=== PATIENT | female | born 1995 | race Caucasian/White ===

== ENCOUNTER 2023-09-08 20:35 | Emergency (ER) | payer BC, SELFPAY ==
[2023-09-08 20:42] VITALS: BP 119/79; PULSE 96; RESP 18; TEMP 36.6; O2SAT 100; BMI 26.6
[2023-09-08] MEDS: 0.9 % SODIUM CHLORIDE 1000 ml 1,000 ML IV ×2 (21:23→22:36)
--- NOTE | 2023-09-08 21:26 | ED.GENADULT ---
HPI - General Adult General Chief complaint: Nausea/Vomiting Stated complaint: Vomit 3 days Time Seen by Provider: 09/08/23 21:09 Source: patient Mode of arrival: EMS Limitations: no limitations History of Present Illness HPI narrative: 27-year-old female coming in today with cyclic vomiting syndrome. Patient states that she is in ?stage III of this and I need hospitalization?. When asked her what stages 1 and 2 look like, patient cannot describe stages to me. And then she says, ?well maybe I am actually in stage II? ? Again I asked for clarification of what the stages mean and she just states that when she is in stage III the only thing that helps is hospitalization for several days. Patient states that she is usually treated with Reglan and promethazine. She states she has been vomiting on and off for the last 2 weeks for the last 3 days it has been constant she is unable to keep anything down including any of her medications. Patient denies any drug use. Per EMS, they state that the patient goes to multiple ERs frequently. Her review of systems is grossly positive for headache, fatigue, dry mouth, abdominal pain, vomiting, head to toe achiness. Patient takes Vraylar, metformin, nortriptyline, promethazine, spironolactone. She also takes pregabalin and Vyvanse, both of which she failed to disclose and were found on the HISTORY DEPARTMENT CHAIR. Related Data Home Medications ?Medication ?Instructions ?Recorded ?Confirmed cariprazine 1.5 mg capsule 1.5 mg PO DAILY 09/08/23 09/08/23 (Vraylar) metformin 500 mg tablet 500 mg PO TID 09/08/23 09/08/23 nortriptyline 10 mg capsule 10 mg PO DAILY 09/08/23 09/08/23 promethazine 25 mg tablet 25 mg PO Q6H PRN 09/08/23 09/08/23 spironolactone 50 mg tablet 50 mg PO TID 09/08/23 09/08/23 (Aldactone) Allergies Allergy/AdvReac Type Severity Reaction Status Date / Time No Known Drug Allergies Allergy Verified 09/08/23 20:44 Review of Systems Status of ROS: Reports: 10 or more systems reviewed and unremarkable except as noted in History and below PFSH PFSH Social History Smoking Status: Current every day smoker Do you use any of these nicotine containing products: Vaping Products How often do you have a drink containing alcohol: never AUDIT-C Alcohol total score: 0 Non-prescribed substance use: marijuana (any form) Exam Narrative: Exam Narrative: Well-nourished well-developed patient, tearful. Alert and oriented. Answers questions appropriately and avoids answering questions. Thoughts are goal oriented and rational. No tangential or magical thinking noted. Patient speaks in full sentences without needing to catch her breath. Her vital signs are entirely normal. HEENT: Normocephalic atraumatic. Pupils are equally round reactive to light. Extraocular muscles are intact. Conjunctivae are moist without any icterus noted. Moist mucous membranes. Posterior pharynx is normal. Neck is soft without any lymphadenopathy or thyromegaly. No masses are appreciated. Cardiovascular: Heart is regular rate and rhythm S1 and S2 are present without any murmurs. Lungs: Clear to auscultation bilaterally no wheezes rhonchi or rales are appreciated. Patient takes deep breaths without any discomfort. Abdomen: Soft and nondistended with normal bowel sounds patient complains of tenderness with very soft palpation to the abdominal wall. Extremities: Bilateral lower extremities are without edema. Normal DP and PT pulses. Skin: Warm, dry and intact. Const: Vital Signs, click to edit/add: Vital Signs - 24 hr 09/08/23 20:42 09/08/23 22:17 09/08/23 22:30 Temperature 97.8 F Pulse Rate 63 102 H Pulse Rate [Pulse Oximeter] 96 Respiratory Rate 18 Blood Pressure [Ri ght Upper Arm] 119/79 Pulse Oximetry 100 94 100 Oxygen Delivery Me thod Room Air 09/08/23 22:45 09/08/23 23:00 09/08/23 23:15 Temperature Pulse Rate 72 78 74 Pulse Rate [Pulse Oximeter] Respiratory Rate Blood Pressure [Ri ght Upper Arm] Pulse Oximetry 98 99 100 Oxygen Delivery Me thod Course Course ED Course: IV is established patient was given IV Zyprexa and IV fluids. Patient was caught vaping in the room and inducing vomiting by nursing staff. Labs were drawn: Lactate elevated at 3.6. Urine drug screen positive for amphetamines, marijuana, tricyclic antidepressants. CBC showing a slightly elevated white cell count, 90.8% neutrophils UA showing 1+ protein, 4+ ketones, 1+ bilirubin. Chemistries were unremarkable. A 2nd L of normal saline was started. Repeat lactate was done After receiving Zyprexa patient did not vomit again. She slept a while she was here. Upon waking up patient did request another dose of Zyprexa. 5 mg IM was administered. Patient requested to be admitted multiple times. We discussed that her symptoms had improved and she was okay to be discharged. Patient did self induce vomiting by putting her fingers down her throat multiple times while she was here. Patient was discharged home. Vital Signs Vital signs: Initial Vital Signs Temperature 97.8 F 09/08/23 20:42 Temperature Source Temporal Artery Scan 09/08/23 20:42 Pulse Rate 96 09/08/23 20:42 Respiratory Rate 18 09/08/23 20:42 Blood Pressure 119/79 09/08/23 20:42 Blood Pressure Mean 92 09/08/23 20:42 Blood Pressure Position Sitting 09/08/23 20:42 Pulse Oximetry 100 09/08/23 20:42 Oxygen Delivery Method Room Air 09/08/23 20:42 Vital Signs Temperature 97.8 F 09/08/23 20:42 Pulse Rate 96 09/08/23 20:42 Respiratory Rate 18 09/08/23 20:42 Blood Pressure 119/79 09/08/23 20:42 Pulse Oximetry 100 09/08/23 20:42 Oxygen Delivery Method Room Air 09/08/23 20:42 Temperature 97.8 F 09/08/23 20:42 Pulse Rate 74 09/08/23 23:15 Respiratory Rate 18 09/08/23 20:42 Blood Pressure 119/79 09/08/23 20:42 Pulse Oximetry 100 09/08/23 23:15 Oxygen Delivery Method Room Air 09/08/23 20:42 Medications Administered Medications: Discontinued Medications Generic Name Dose Route Start Last Admin Trade Name Freq PRN Reason Stop Dose Admin Sodium Chloride 1,000 mls @ 1,000 mls/hr 09/08/23 21:30 09/08/23 22:36 0.9 % Sodium Chloride 1000 Ml IV 09/08/23 22:29 Infused .Q1H TALIB Infusion Sodium Chloride 1,000 mls @ 1,000 mls/hr 09/08/23 22:15 09/08/23 23:40 0.9 % Sodium Chloride 1000 Ml IV 09/08/23 23:14 Infused .Q1H TALIB Infusion Olanzapine 5 mg 09/08/23 21:16 09/08/23 21:57 Olanzapine 5 Mg/Ml Inj IVP 09/08/23 21:17 5 mg ONCE ONE Administration Medical Decision Making MDM Narrative Medical decision making narrative: Cyclic vomiting due to marijuana use. Treatment per above. Lab Data Lab results reviewed: Yes I reviewed the patient's lab results Labs: Lab Results 09/08/23 09/08/23 Range/Units 21:25 21:45 WBC 12.77 H (4.50-11.00) K/uL RBC 5.06 (4.00-5.20) m/uL Hgb 15.3 (12.0-16.0) gm/dL Hct 45.4 (33.0-51.0) % MCV 90 (80-100) fL MCH 30 (26-34) pg MCHC 34 (32-36) gm/dL RDW Coeff of Khadijah 12.7 (11.5-15.5) % Plt Count 313 (140-440) K/uL Neut % (Auto) 90.9 H (42.0-72.0) % Lymph % (Auto) 6.2 L (20-44) % [place] % (Auto) 1.8 (0.0-11.0) % Eos % (Auto) 0.0 (0.0-7.0) % Baso % (Auto) 0.2 (0.0-3.0) % Neut # (Auto) 11.60 H (1.7-7.0) K/uL Lymph # (Auto) 0.80 L (0.90-2.90) K/uL [place] # (Auto) 0.20 (0.00-0.90) K/UL Eos # (Auto) 0.00 (0.00-0.50) K/uL Baso # (Auto) 0.00 (0.00-0.30) K/uL Abs Immat Gran (auto) 0.10 (0.00-0.30) K/uL Imm/Tot Granulo (auto) 0.9 % Sodium 136 (135-149) mmol/L Potassium 3.6 (3.6-5.1) mmol/L Chloride 103 (96-114) mmol/L Carbon Dioxide 16 L (20-32) mmol/L Anion Gap 17 H (7-15) mEq/L BUN 9 (5-24) mg/dL Creatinine 0.7 (0.5-1.5) mg/dL Estimated Creat Clear 99.86 Estimated GFR 121 ml/min Glucose 105 (60-115) mg/dL Lactate 3.6 H (0.5-1.9) mmol/L Calcium 10.1 (8.4-10.6) mg/dL Total Bilirubin 0.9 (0.1-1.5) mg/dL Direct Bilirubin 0.4 (0.0-0.5) mg/dL AST 24 (12-35) U/L ALT 27 (4-35) U/L Alkaline Phosphatase 94 (40-150) U/L Total Protein 8.3 (6.0-8.3) g/dL Albumin 5.1 H (3.3-5.0) g/dL Urine Color Yellow (Yellow) Urine Appearance Clear (Clear) Urine pH 6.5 (5.0-8.5) Ur Specific [place] >= 1.030 (1.000-1.030) Urine Protein 1+ A (Negative) Urine Glucose (UA) Negative (Negative) Urine Ketones 4+ A (Negative) Urine Blood Negative (Negative) Urine Nitrite Negative (Negative) Urine Bilirubin 1+ A (Negative) Urine Urobilinogen 0.2 (0.2-1.0) Ur Leukocyte Esterase Negative (Negative) Urine RBC 0-2 (0-2) Urine WBC 0-2 (0-5) Ur Squamous Epith Cells Few (None-Few) Urine Bacteria None (None) Urine Mucus Moderate A (None) Urine HCG, Qual Negative (Negative) Salicylates < 1.0 L (1.0-10) mg/dL Urine Opiates Screen Negative (Negative) Ur Oxycodone Screen Negative (Negative) Urine Methadone Screen Negative (Negative) Acetaminophen < 10.0 L (10.0-30.0) ug/mL Ur Barbiturates Screen Negative (Negative) U Tricyclic Antidepress POSITIVE A (Negative) Ur Phencyclidine Scrn Negative (Negative) Ur Amphetamines Screen POSITIVE A (Negative) U Methamphetamines Scrn Negative (Negative) U Benzodiazepines Scrn Negative (Negative) Urine Cocaine Screen Negative (Negative) U Marijuana (THC) Screen POSITIVE A (Negative) Ur Drug Screen Comment See Note Discharge Plan Discharge Clinical Impression: Cyclic vomiting syndrome Patient Disposition: Home, Self-Care Condition: Improved Instructions: Cannabis Use Disorder (ED), Cyclic Vomiting Syndrome (ED) Additional Instructions: Stop using marijuana. Vaping and smoking marijuana is likely the cause of your symptoms. Even after stopping the use of marijuana symptoms can continue for several months as the marijuana leaves your body. Prescriptions: No Action metformin 500 mg tablet 500 mg PO TID Vraylar 1.5 mg capsule 1.5 mg PO DAILY spironolactone [Aldactone] 50 mg tablet 50 mg PO TID promethazine 25 mg tablet 25 mg PO Q6H PRN nortriptyline 10 mg capsule 10 mg PO DAILY Follow Up/Referrals: Provider,Not a Local [Primary Care Provider] - Stand Alone Forms: [employer] Info Instructions
[2023-09-08 21:35] LABS: Ur HCG Qualitative* Negative (Negative)
[2023-09-08 21:36] LABS: Appearance Urine Clear (Clear); Bilirubin Urine 1+ (Negative); Blood Urine Negative (Negative); Color Urine Yellow (Yellow); Glucose Urine Negative (Negative); Ketones Urine 4+ (Negative); Leukocyte Esterase Urine Negative (Negative); Nitrite Urine Negative (Negative); Protein Urine 1+ (Negative); Specific Gravity Urine >= 1.030 (1.000-1.030); Urobilinogen Urine 0.2 (0.2-1.0); pH Urine 6.5 (5.0-8.5)
[2023-09-08 21:43] LABS: Amphetamine Screen Urine POSITIVE (Negative); Barbiturate Screen Urine Negative (Negative); Benzodiazepines Screen Urine Negative (Negative); Cannabinoid Screen Urine POSITIVE (Negative); Cocaine Screen Urine Negative (Negative); Methadone Screen Urine Negative (Negative); Methamphetamines Screen Urine Negative (Negative); Opiate Screen Urine Negative (Negative); Oxycodone Screen Urine Negative (Negative); Phencyclidine Screen Urine Negative (Negative); Tricyclic Antidepressant Urine POSITIVE (Negative)
[2023-09-08 21:48] LABS: Mucus Urine Moderate; RBC Urine 0-2 (0-2); Squamous Epithelial Cell Urine Few (None-Few); WBC Urine 0-2 (0-5)
[2023-09-08 21:49] LABS: Lactate* 3.6 mmol/L (0.5-1.9)
[2023-09-08 21:55] LABS: Basophils Percent Auto 0.2 % (0.0-3.0); Hematocrit 45.4 % (33.0-51.0); Hemoglobin* 15.3 gm/dL (12.0-16.0); Immature Granulocytes Pct Auto 0.9 %; Lymphocytes Percent Auto 6.2 % (20-44); Mean Corpuscular HGB Conc 34 gm/dL (32-36); Mean Corpuscular Hemoglobin 30 pg (26-34); Mean Corpuscular Volume 90 fL (80-100); Monocytes Percent Auto 1.8 % (0.0-11.0); Neutrophils Percent Auto 90.9 % (42.0-72.0); Platelet Count* 313 K/uL (140-440); RDW Coefficient of Variation % 12.7 % (11.5-15.5); Red Blood Count 5.06 m/uL (4.00-5.20); White Blood Count* 12.77 K/uL (4.50-11.00)
[2023-09-08] MEDS: OLANZapine 5 MG/ML inj IVP (21:57)
[2023-09-08 22:01] LABS: Slide Review Reflex No
[2023-09-08 22:13] LABS: Albumin* 5.1 g/dL (3.3-5.0)
[2023-09-08 22:14] LABS: Chloride* 103 mmol/L (96-114); Potassium* 3.6 mmol/L (3.6-5.1); Sodium* 136 mmol/L (135-149)
[2023-09-08 22:16] LABS: Anion Gap 17 mEq/L (7-15); Aspartate Amino Transferase* 24 U/L (12-35); Bilirubin Direct* 0.4 mg/dL (0.0-0.5); Bilirubin Total* 0.9 mg/dL (0.1-1.5); Carbon Dioxide* 16 mmol/L (20-32); Creatinine* 0.7 mg/dL (0.5-1.5); Est. Creatinine Clearance* 99.86; Estimated Glomerular Filt Rate 121 ml/min; Total Protein* 8.3 g/dL (6.0-8.3)
[2023-09-08 22:17] VITALS: PULSE 63; O2SAT 94
[2023-09-08 22:17] LABS: Alanine Aminotransferase* 27 U/L (4-35); Alkaline Phosphatase* 94 U/L (40-150); Blood Urea Nitrogen* 9 mg/dL (5-24); Calcium* 10.1 mg/dL (8.4-10.6); Glucose* 105 mg/dL (60-115)
[2023-09-08 22:25] LABS: Acetaminophen* < 10.0 ug/mL (10.0-30.0); Salicylate* < 1.0 mg/dL (1.0-10)
[2023-09-08 22:30] VITALS: PULSE 102; O2SAT 100
--- OUTSIDE RECORDS SUMMARY | 2023-09-08 22:35 | XMS_ITS | Clinical Summary ---
[facility] Organization [facility] Address [address], [place] [address] Care Team Providers Care Application Integration Architect Name Role Phone Mynor Felix APRN, DIP BRAZIER Primary Care Provide r Source Comments You are receiving this document as you are listed as the primary care provider,follow-up provider, or the patient has been referred to you for consultation.This is in compliance with the Medicare and[facility] EHR Incentive Program,which states Providers who transition their patient to another setting of careor provider of care or refers their patient to another provider of care shouldprovide summary care record for each transition of care or referral. [facility] Allergies No known active allergies Medications Medication Sig Dispensed Refills Start Date End Date Status Alcohol Swabs (B-D SINGLE USE SWABS REGULAR) USE 1 PER DAY FOR TESTING BLOOD SUGAR 09/01/2022 Active aluminum chloride (DRYSOL) 20 % external solution Apply 1 Application topically daily at bedtime. 07/19/2022 Active benzoyl peroxide (BENZOYL PEROXIDE WASH) 10 % wash liquid Apply 1 Application topically. 08/11/2022 Active VRAYLAR 1.5 MG CAPS Take 1 Capsule (1.5 mg) by mouth daily. 12/14/2022 Active clonazePAM (KLONOPIN) 0.5 MG disintegrating tablet Take 1 Tablet (0.5 mg) by mouth three times a day as needed. 12/13/2022 Active hyoscyamine (LEVSIN) 0.125 MG tablet Take 1 Tablet (0.125 mg) by mouth three times a day as needed. 10/14/2022 08/30/202 4 Active lisdexamfetamine (VYVANSE) 50 MG capsule Take 1 Capsule (50 mg) by mouth daily. 07/28/2022 Active nystatin (NYSTOP) 283968 UNIT/GM powder Apply topically. 11/05/2022 Active polyethylene glycol 3350 (GLYCOLAX) 17 GM/SCOOP powder Take 17 g by mouth. 08/10/2022 Active SUMAtriptan (IMITREX) 50 MG tablet Take 1 Tablet (50 mg) by mouth as needed. Active ondansetron (ZOFRAN-ODT) 4 MG disintegrating tablet Take 1 Tablet (4 mg) by mouth every 8 hours as needed. 30 Tablet 1 12/29/2022 Active metFORMIN XR (GLUCOPHAGE XR) 500 MG 24 hour release tablet Take 3 Tablets (1,500 mg) by mouth every evening with a meal. 270 Tablet 3 01/13/2023 Active spironolactone (ALDACTONE) 50 MG tablet Take 3 Tablets (150 mg) by mouth daily. 270 Tablet 3 01/22/2023 Active famotidine (PEPCID) 20 MG tablet Take 1 Tablet (20 mg) by mouth two times a day before meals. 180 Tablet 3 01/22/2023 4 Active azelastine (ASTELIN) 0.1 % nasal solutionIndications :Postnasal drip Place 1 [place] into both nostrils two times daily as needed (Postnasal drainage.). 30 mL 1 02/01/2023 Active fluticasone propionate (FLONASE) 50 MCG/ACT nasal solutionIndications :Postnasal drip Place 2 Sprays into both nostrils daily. 16 g 11 02/01/2023 Active budesonide-formoter ol (SYMBICORT) 160-4.5 MCG/ACT inhalerIndications: Mild persistent asthma without complication (HRC) Inhale 2 Puffs two times a day. 1 Each 6 02/01/2023 Active ALBUterol sulfate HFA 108 (90 Base) MCG/ACT inhalerIndications: Mild persistent asthma without complication (HRC) Inhale 1-2 Puffs every 4 hours as needed. 1 Each 6 02/01/2023 Active guaiFENesin (ROBITUSSIN) 100 MG/5ML liquid Take 10 mL (200 mg) by mouth. 02/07/2023 Active ibuprofen (MOTRIN) 600 MG tablet Take 1 Tablet (600 mg) by mouth. 02/07/2023 Active acetaminophen (TYLENOL) 325 MG tablet Take 2 Tablets (650 mg) by mouth. 02/07/2023 Active fluticasone-vilante rol (BREO ELLIPTA) 200-25 MCG/ACT inhalerIndications: Mild persistent asthma without complication (HRC) Inhale 1 Dose daily. Rinse mouth/gargle after use 60 Each 3 02/21/2023 Active norethindrone (AYGESTIN) 5 MG tabletIndications:E ndometriosis Take 1 Tablet (5 mg) by mouth daily. 90 Tablet 3 03/29/2023 Active medical cannabis patient certifiedIndication s:Hidradenitis suppurativa,Numbnes s and tingling of both feet,Cold feet,Numbness in both hands,Chronic pain syndrome,PTSD (post-traumatic stress disorder) (HRC),Numbness in feet,Generalized abdominal pain,Chronic pelvic pain in female,Borderline personality disorder (HRC),Depressive disorder,Medical marijuana use Take as instructed .. Active menthol-zinc oxide (CALMOSEPTINE) 0.44-20.6 % OINTIndications:Ext ernal hemorrhoids with complication Apply topically as needed. 71 g 3 04/14/2023 Active hydrocortisone, Perianal, (PROCTOSOL-HC) 2.5 % rectal creamIndications:In flamed Hemorrhoids Insert rectally two times daily as needed. Indications: Inflamed Hemorrhoids 30 g 1 04/14/2023 Active aluminum chloride (DRYSOL) 20 % external solution Apply topically every evening. apply sparingly to skin with excessive sweating for 1-5 nights to get appropriate response 35 mL 2 05/05/2023 Active olopatadine (PATADAY) 0.2 % eye drop solutionIndications :Allergic conjunctivitis of both eyes Place 1 Drop into both eyes daily. 2.5 mL 1 05/05/2023 Active semaglutide-weight management (WEGOVY) 2.4 MG/0.75ML pen injection Inject 0.75 mL (2.4 mg) subcutaneously once a week. 10.5 mL 6 05/05/2023 Active promethazine (PHENERGAN) 25 MG tabletIndications:N ausea and vomiting, unspecified vomiting type Take 1 Tablet (25 mg) by mouth every 6 hours as needed. 30 Tablet 1 05/20/2023 Active lidocaine-prilocain e (EMLA) 2.5-2.5 % creamIndications:Hi dradenitis suppurativa Apply topically every 24 hours as needed. 30 g 1 06/09/2023 Active hydrOXYzine HCl (ATARAX) 50 MG tablet Take 1 Tablet (50 mg) by mouth every 6 hours as needed for Itching or Anxiety (Nausea). 30 Tablet 06/09/2023 Active nortriptyline (PAMELOR) 10 MG capsuleIndications: Insomnia,Neuropathi c Pain 10 mg qhs po x 1 week, then may increase to 20mg qhs po Indications: Neuropathic Pain, Trouble Sleeping 60 Capsule 2 06/10/2023 Active pregabalin (LYRICA) 100 MG capsuleIndications: Fibromyalgia Syndrome,Neuropathi c Pain Take 1 Capsule (100 mg) by mouth three times a day. Indications: Fibromyalgia Syndrome, Neuropathic Pain 90 Capsule 1 06/10/2023 Active riboflavin (VITAMINB-2) 100 MG tablet Take 2 Tablets (200 mg) by mouth two times a day. 180 Tablet 2 06/21/2023 Active metoclopramide (REGLAN) 10 MG tablet Take by mouth. 06/09/2023 Active terconazole (TERAZOL3) 0.8 % vaginal cream SMARTSI Gram(s) Vaginal Daily 06/23/2023 Active Active Problems Problem Noted Date Diagnosed Date External hemorrhoid 06/30/2023 Cyclic vomiting syndrome 06/09/2023 Cannabinoid hyperemesis syndrome 06/09/2023 Irritable bowel syndrome wit h both constipation and diarrhea 02/01/2023 Sleep-wake schedule disorder, delayed phase type 12/30/2022 Chronic, continuous use of opioids 12/29/2022 NELLY (generalized anxiety disorder) 12/29/2022 Prediabetes 12/29/2022 Borderline personality disorder 08/25/2022 Overview: Last Assessment & Plan: Patient was recently diagnosed with borderline personality disorder. Reviewed the importance of continuing therapy for this. We will continue current cares. Chronic abdominal pain 07/19/2022 Overview: Last Assessment & Plan: Patient continues to have flares often on of bloating and vomiting. She will have significant abdominal pain that will come in flares. She will need oxycodone 1-2 days at a time and then will be off of it. She is also on gabapentin and does not feel like this has been helpful for the abdominal pain but is helping her ear and facial nerve pain. She has done a pretty thorough workup with Gastroenterology including EGD, gastric emptying study. She states the Zofran helps sometimes but not every time she is feeling nauseous. She still has vomiting regularly. She states she has had explosive diarrhea sometimes that is sometimes loose sometimes partially formed. No blood that she can see. She did just start Bentyl today so we do not know if that is effective or not. Plan: Will have her continue on Bentyl once daily unless she is having severe side effects with it. Otherwise she can use it as needed or if it is not working very well or not tolerable we will discontinue. -follow-up in 1 month to see how things are going. -oxycodone was refilled for the month. Hidradenitis suppurativa 06/01/2022 Overview: Last Assessment & Plan: Patient did recently have her cystic lesions removed surgically. She states this has helped with some of her discomfort. Wound sites are still healing. Will continue to monitor. Patient is using Drysol to help with sweating. Fatigue 03/25/2022 Cystic acne 12/11/2021 Hirsutism 12/11/2021 Nicotine dependence, other tobacco product, unco mplicated 12/11/2021 Overview: vaping Last Assessment & Plan: At her last visit we started Nicoderm patches 21 mg daily. Patches do not stay on. She tried in several parts of her body to get these to stick. We discussed alternatives. Wanting to try lozenges.P Plan: We will start lozenges for nicotine replacement as needed. Reviewed how to use the lozenges. Reviewed that using a lozenge should replace her vaping. Polycystic ovary syndrome 12/11/2021 Overview: Last Assessment & Plan: Currently on metformin for this. Reviewed the importance of diabetes screening to determine when she or if she ever develops diabetes. Reviewed that it is hard to tell if she has diabetes or just as in the prediabetic range with the metformin treatment. At this time I reviewed the with everything going on I would not want her to stop any of her medications at this time. Migraine headache 11/17/2021 Neuralgia 11/17/2021 Overview: Gabapentin helps symptoms, but at high doses causes urinary symptoms. Last Assessment & Plan: Patient continues to have a fullness sensation in her ears. She states it gets so bad that it feels like there is a lot of pressure. Occasionally will lose her hearing and her ear will pop which does not improve her symptoms. The hearing loss will be short term. Previous audiology test in May which was normal. She is on gabapentin but at higher doses it had caused some urinary symptoms. Plan: I will be in touch with ENT and Neurology to see if there is further workup that needs to be done for this. -I will switch her over to Lyrica to see if she has a better side effect profile on this and covers her neuralgia better. Neck pain 11/17/2021 Overview: Last Assessment & Plan: Patient did have a neurologist decreased her gabapentin as she was having bladder incontinence secondary to being on higher doses of gabapentin. Currently reduced doses at 600 mg twice daily. I did refill this for her today. Obstructive sleep apnea syndrome 07/07/2021 Obesity (BMI 30.0-34.9) 01/13/2021 Overview: Last Assessment & Plan: Patient is on Saxenda. She does need me to send this in for her practical nurse clinical coordinator as she is on a restricted insurance. Patient has been using her specialists and the emergency services appropriately. Medication was sent over for refill today. Mild persistent asthma 11/06/2019 Overview: Last Assessment & Plan: Patient does need a refill of her Symbicort medication. Doing well on current treatment for asthma. We will continue current cares. Attention deficit hyperactivity disorder (ADHD) 10/26/2019 History of disease 07/21/2016 Overview: Last Assessment & Plan: Patient is still having on and off nausea and vomiting. Unsure if this is from a flaring pancreas versus her gallbladder. She does have follow-up with gastroenterology in May. She is using Zofran approximately 3 times a day. She is sipping on protein drinks him between her meals. She does not eat very much at meals but the Zofran is helping to keep food down. She will occasionally use an oxycodone if she needs it for pain. She has been using these sparingly. Patient does not feel sedated on the oxycodone medication. She is using a heating pad and warm baths to help with her pain. Plan: Follow up with GI as scheduled -we can fill her oxycodone sparingly as needed until her GI visit. -continue zofran as needed. Endometriosis 01/05/2016 Overview: 01/05/16 Dx scope for pelvic pain and known hemorrhagic right ovarian cyst Found endometriosis fulgurated Last Assessment & Plan: Patient does see the specialist for this in the next couple of weeks. Reviewed that this can be causing her GI dysfunction as well. Will see what the consult and has to say for treatment or cause quality of her symptoms. Will follow-up with us in a month as well. 01/05/16 Dx scope for pelvic pain and known hemorrhagic right ovarian cyst Found endometriosis fulgurated Chronic pelvic pain in female 01/05/2016 Overview: Last Assessment & Plan: Patient does have an upcoming appointment with Gynecology. Previous history of endometriosis. Recently did the pelvic ultrasound and testing and she will follow-up with the specialist. Reviewed that doing multiple surgeries might not benefit her later on in life especially if it causes adhesions and scarring. Patient also noted having painful urination when she increased her gabapentin. She did decrease it back down it does seem to be improved. She also states she would difficulty starting her urination stream on the medication. Currently she is on 300 mg twice daily after she tapered back a little bit. Reviewed that we can continue to taper off or keep her at the current dose. Will keep her at the current dose and follow-up in a month. Depressive disorder 06/27/2013 Dysmenorrhea 12/29/2010 Acne 05/04/2010 Fatty (change of) liver, not elsewhere classifie d Resolved Problems Problem Noted Date Diagnosed Date Resolved Date IUD (intrauterine device) in place 12/29/2022 01/10/2023 Overview: Inserted 11/30/2022 - Mirena IUD. Bacterial vaginosis 07/19/2022 12/30/19 23 Overview: Last Assessment & Plan: Patient has a history quite a few episodes of bacterial vaginosis. She was put on metronidazole twice weekly to help with prevention. Recent symptoms we treated with clindamycin cream vaginally. She states that she has not been sexually active will on treatment. Reviewed that this maybe past from her partner as well and we may need to treat him as well. Plan: Patient will continue on metronidazole twice weekly. -reviewed the importance if for having more episodes or increased pelvic pain or discharge that we consider testing in treatment at that time. Review to consider treating her partner as well. Alcohol use disorder, modera te, in early remission 12/30/2014 12/29/2022 Overview: Recommend no addictive substances be routinely prescribed History of drug use 12/26/2014 12/30/19 23 Overview: Including cocaine, LSD, MDMA and synthetic THC Encounters Date Type Department Care Team Description 08/05/2023 10:45 AM CDT Telemedicine [facility] [address] [place] [phone] Rylee Jeffery APRN, CNP Chronic abdominal pain (Primary Dx); Fibromyalgia; Chronic pelvic pain in female; NELLY (generalized anxiety disorder) (HRC); Endometriosis; Depressive disorder; Cyclic vomiting syndrome 08/04/[address] [address] Mynor Felix APRN, CNP REFERRAL REQUEST 08/03/2023 Telephone [facility] Pulmonary Medicine [address] [place] [address] Nedra Jeffries MD Appt. Needed 06/30/2023 11:00 AM CDT Office Visit [facility] Colorectal Surgery [address] [facility] [address] [place] [address] Josemanuel Rutledge MD External hemorrhoid (Primary Dx) 06/23/2023 3:00 PM CDT E-Visit [address] [address] Mynor Felix APRN, CNP Chief Comp: QUESTIONS, GENERAL 06/23/2023 susie [facility] [phone] 06/20/2023 1:40 PM CDT Telemedicine Gastroenterology at at [address] [place] [address] Liz Briones APRN, CNP Cyclic vomiting syndrome (Primary Dx); Cannabinoid hyperemesis syndrome; Irritable bowel syndrome with both constipation and diarrhea; Gastroesophageal reflux disease, unspecified whether esophagitis present 06/16/2023 10:30 AM CDT Telemedicine [address] [address] Mynor Felix APRN, CNP Cyclic vomiting syndrome (Primary Dx); Cannabinoid hyperemesis syndrome; Depressive disorder; Borderline personality disorder (HRC); NELLY (generalized anxiety disorder) (HRC); Neck pain; Chronic abdominal pain; Neuralgia; Chronic pelvic pain in female; Endometriosis 06/10/2023 11:00 AM CDT E-Visit [address] [address] Mynor Felix APRN, DIP BRAZIER Chief Comp: Follow-up, NOS 06/10/2023 10:15 AM CDT Telemedicine [facility] [address] [place] [phone] Rylee Jeffery APRN, GORDO Numbness and tingling of both lower extremities (Primary Dx); Neuralgia; Other polyneuropathy; Numbness and tingling of both upper extremities; Fibromyalgia; Cannabinoid hyperemesis syndrome; Borderline personality disorder (HRC); Depressive disorder; NELLY (generalized anxiety disorder) (HRC) 06/09/2023 10:30 AM CDT Telemedicine [address] [address] Mynor Felix APRN, DIP BRAZIER Cannabinoid hyperemesis syndrome (Primary Dx); Cyclic vomiting syndrome; Nausea and vomiting, unspecified vomiting type; Hidradenitis suppurativa 06/09/2023 E-Visit [address] [address] Mynor Felix APRN, GORDO 06/09/[address] [address] Mynor Felix APRN, DIP BRAZIER Pharmacy from Last 3 Months Immunizations Name Administration Dates Next Due 4vHPV (Gardasil) 06/03/2008,02/01/2008, 8 DTP-Hib (Tetramune) 05/18/1996,03/23/1996,1995 DTaP 06/12/2001, 8,05/18/1996,1996,01/27/1996 Flu Vac (3+ yrs) 10/31/2012,12/14/2011 Flu Vac Preserv Free (3+yrs) 11/26/2008 [id number] 02/10/2009 HepA Ped/Adol (1-18 yrs) 12/15/2009,10/02/2008 HepB Ped/Adol (0-18 yrs) 11/30/1996,01/27/1996,1 HepB, Unspecified Formulation 11/30/1996, 996,1995 Hib, Unspecified Formulation 11/30/1996, 05/18/1996,03/23/1996,1995 IPV (Polio) 06/12/2001, 7,03/23/1996,1995 Influenza ([place] Only) (Flul aval Quad 0.5, 3+ yrs) 11/06/2019,10/30/2018,12/14/2016,2014 Influenza (Fluad) 10/31/2012,12/14/2011 Influenza (Flucelvax), Prese rv Free QIV 03/29/2023 Influenza IIV4 (Quadrivalent ) 0.5mL (60059) 12/10/2021,11/11/2020,11/06/2019,2018,12/14/2016,01/16/2015,12/15/2009,1 Influenza LAIV (Nasal, 2-49 yrs) 12/15/2009,1009/2007 Influenza Vaccine TIV, Nasal 12/15/2009,11/22/19 08 Influenza, Unspecified Formulation 10/31/2012 MMR 06/12/2001,11/30/1996 Pfizer Monovalent 12+ Purple Top 11/20/2020,10/15 Polio, Unspecified Formulation 2,05/18/1996,03/23/1996,1995 Tdap 12/25/2018,10/02/2008 Varicella 10/02/2008,11/07/1997 Family History Medical History Relation Name Comments Amblyopia/Strabismus Negative Family History Cataract Negative Family History Glaucoma Negative Family History Macular Degeneration Negative Family History Social History Tobacco Use Types Packs/Day Years Used Date Smoking Tobacco: Former Cigarettes 1 5.4 1 03/28/2012 - 07/08/2018 Smokeless Tobacco: Never Tobacco Cessation:Counseling Given: Not Answered Comments:I vape Alcohol Use Standard Drinks/Week Comments Yes 0 (1 standard drink = 0.6 oz pur e alcohol) PHQ-2 Answer Date Recorded PHQ-2 Score 2 06/09/2023 Sex and Gender Information Value Date Recorded Sex Assigned at Not on file Gender Identity Not on file Sexual Orientation Not on file Last Filed Vital Signs Vital Sign Reading Time Taken Comments Blood Pressure 103/62 04/06/2023 2:13 PM SYRUP MACHINE LABORER Pulse 90 04/06/2023 2:13 PM SYRUP MACHINE [employer]ORER Temperature 36.7 ??C (98.1 ??F) 12/31/2022 1:23 PM CS T Respiratory Rate 28 02/04/2023 3:40 PM SYRUP MACHINE LABORER Oxygen Saturation 98% 02/04/2023 3:53 PM SYRUP MACHINE LABORER Inhaled Oxygen Concentration - - Weight 74.8 kg (165 lb) 06/09/2023 10:54 AM CDT Height 154.9 cm (5' 1) 04/01/2023 11:30 AM SYRUP MACHINE LABORER Body Mass Index 31.18 04/01/2023 11:30 AM SYRUP MACHINE LABORER Plan of Treatment Upcoming Encounters Date Type Department Care Team (Late st Contact Info) Description 09/14/2023 1:30 PM CDT Telemedicine [facility] [address] [place] [address] Mynor Felix, CLOTH HANDLER, DIP BRAZIER [address] [address] [place] [address] 09/26/2023 9:30 AM CDT Appointment [facility] [address] [place] [address] Frank Horowitz MD [address] [facility] [address] [place] [address] 09/27/2023 1:45 PM CDT Appointment [facility] [place] [address] [place] [address] [place] [address] [address] [place] [id number] 10/21/2023 10:00 AM CDT Appointment [facility] [place] [id number] [place], [place] [phone] [place] [address] [place] [phone] 10/28/2023 2:20 PM CDT Telemedicine [facility] [address] [place], [place] [phone] Liz Briones, CLOTH HANDLER, DIP BRAZIER [address] [place], [place] [phone] 11/09/2023 1:00 PM CDT Appointment [facility] - Pul[facility] Lab [address] [place], [place] [phone] 11/09/2023 2:15 PM CDT Appointment [facility] [address] [place], [place] [phone] Nedra Jeffries MD [address] [place], [place] [phone] Scheduled Procedures Name Priority Associated Diagnoses Date/Ti me HEMORRHOIDECTOMY External hemorrhoid Health Maintenance Due Date Last Done Comments Cervical Cancer Screening Due 1995 Pneumococcal (1 - PCV) 11/23/2001 Adult Preventive Visit 11/23/2013 COVID-19 Vaccine ( season) 2022 11/20/2020, 10/24/2020 Influenza (#1) 2023 03/29/2023, 11/15, 11/11/2020, Additional history exists Prediabetes: HGBA1C 02/02/2024 02/01/2023, 05/28/2022, 10/20/2021 Asthma ACT 03/15/2024 03/15/2023 DTaP/Tdap/Td (8 - Tdap) 12/25/2028 12/26/19, 10/02/2008, 06/12/2001, Additional history exists Zoster/Shingles (1 of 2) 11/23/2045 HepB Completed 11/30/1996, 11/14, 01/27/1996, Additional history exists Hib Completed 11/30/1996, 05/1996, 05/18/1996, Additional history exists IPV (Polio) Completed 06/12/2001, 05/16, 05/18/1996, Additional history exists HPV Vaccine Completed 06/03/2008, 01/14, 11/22/2007 Varicella Completed 10/02/2008, 11/07/1997 HepA Completed 12/15/2009, 10/02/2008 Chlamydia Discontinued 01/10/2023, 09/15, 08/27/2021, Additional history exists HIV Screening (Preventive Services) Completed 01/10/2023 Hep C Screening (Preventive Services) Completed 01/10/2023 MCV4 Aged Out No longer eligi ble based on patient's age to complete this topic Procedures Procedure Name Priority Date/Time Associated Diagnosis Comments HGB A1C Routine 02/01/2023 3:20 PM SYR[employer] MACHINE LABORER Prediabetes CHLAMYDIA & GC (14 YEARS & OLDER) Routine 01/10/2023 4:22 PM SYR[employer] MACHINE LABORER Screening examination for venereal disease HIV 1/2 AG/AB 4TH GEN Routine 01/10/2023 3:33 PM SYR[employer] MACHINE LABORER Screening examination for venereal disease HEPATITIS C ANTIBODY, WITH REFLEX Routine 01/10/2023 3:33 PM SYRUP MACHINE LABORER Special screening examination for viral disease from Last 3 Months or Most Recently Relevant to Health Maintenance Results * Hgb A1C (02/01/2023 3:20 PM SYRUP MACHINE LABORER) Hemoglobin A1C 5.2 <=5.6 % 02/02/2023 9:56 AM SYRUP MACHINE LABORER [facility] Estimated Average Glucose (Calc) 103 < 117 mg/dL 02/02/2023 9:56 AM SYRUP MACHINE LABORER [facility] Comment:Estimated average gl ucose (eAG) converts A1c into glucose units (mg/dL) and estimates average glucose over the past approximately 3 months. The eAG reference interval (<117 mg/dL) corresponds to an A1c of <5.7%. Blood Venipuncture / Unknown 02/01/2023 3:20 PM SYRUP MACHINE LABORER 02/01/2023 3:20 PM SYRUP MACHINE [employer]ORER Mynor Feilx APRN, DIP BRAZIER LAB_1 Performing Organization Address [facility] Co de Phone Number [facility] [address] [place] [address] * Chlamydia & GC (14 Years and Older): Vagina (01/10/2023 4:22 PM SYRUP MACHINE LABORER) [facility] Chlamydia Trachomatis STD Not Detected Not Detected 01/11/2023 12:52 PM SYRUP MACHINE LABORER [facility] N. gonorrhoeae STD Not Detected Not Detected 01/11/2023 12:52 PM SYRUP MACHINE LABORER [facility] Swab STD SPECIMEN FROM VAGINA / Unknown Non-blood Collection / Unknown 01/10/2023 4:22 PM SYRUP MACHINE LABORER 01/10/2023 4:45 PM SYRUP MACHINE LABORER Narrative [facility] - 01/11/2023 12:52 PM SYRUP MACHINE LABORER Test performed by Race Car Driver Mediated Amplification (TMA). Carol Gilliland MD LAB_1 Performing Organization Address [facility] [place] [address], [facility] [phone] * HIV 1/2 Ag/Ab 4th Generation (01/10/2023 3:33 PM SYRUP MACHINE LABORER) Pathologist [facility] HIV 1/2 Antigen/Antib domo (4th generation) Negative (Non Reactive) Negative (Non Reactive) 01/10/2023 9:54 PM SYRUP MACHINE LABORER DENOMINATIONAL LABORATORY Comment:HIV-1 p24 Antigen an d HIV-1/HIV-2 Antibody not detected Blood Venipuncture / Unknown 01/10/2023 3:33 PM SYRUP MACHINE LABORER 01/10/2023 3:33 PM SYRUP MACHINE LABORER Carol Gilliland MD LAB_1 Performing Organization Address City/[facility]/ZIP Co de Phone Number DENOMINATIONAL LABORATORY [address] * HEPATITIS C ANTIBODY, WITH REFLEX (01/10/2023 3:33 PM SYRUP MACHINE LABORER) Hepatitis C Antibody Negative (Non Reactive) Negative (Non Reactive) 01/10/2023 9:54 PM SYRUP MACHINE LABORER DENOM[facility]ATIONAL LABORATORY Comment:Antibodies to HCV no t detected. Does not exclude the possiblity of exposure to HCV. Blood Venipuncture / Unknown 01/10/2023 3:33 PM SYRUP MACHINE LABORER 01/10/2023 3:33 PM SYRUP MACHINE LABORER Carol Gilliland MD LAB_1 Performing Organization Address [facility] de Phone Number DENOMINATIONAL LABORATORY [facility] [address] from Last 3 Months or Most Recently Relevant to Health Maintenance Advance Directives * Full Code (Latest Code Status on File) Date Activated Date Inactivated Comments 06/27/2013 1:15 AM 06/26/2013 7:00 PM * Full Code Date Activated Date Inactivated Comments 06/27/2013 1:15 AM 07/02/2013 7:51 AM Care Teams Application Integration Architect Relationship Specialty Start Date End Date Mynor Felix, CLOTH HANDLER, DIP BRAZIER [address] [place] [address] PCP - General Nurse Practitioner 12/31/22
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
--- OUTSIDE RECORDS SUMMARY | 2023-09-08 22:36 | XMS_ITS ---
Author Organization [facility] Address [address] [place] [id number] Care Team Providers Care Depot Manager Name Role Phone No Ref-Primary, Physician Primary Care Provider Transitional Care Management Status:Closed (Closed) Start date:05/27/2023 Enrollment date:05/28/2023 End date:06/10/2023 Close reason:Goals met Continued Care and Services Coordination
--- OUTSIDE RECORDS SUMMARY | 2023-09-08 22:36 | XMS_ITS | Encounter Summary ---
Author Organization [facility] Address [address], [place] [address] Care Team Providers Care Agriscience Teacher Name Role Phone Mynor Felix APRN, CNP Primary Care Provide r Reason for Visit * Reason Onset Date Comments Follow-up Video Visit 06/09/2023 Encounter Details Date Type Department Care Team (Late st Contact Info) Description 06/09/2023 10:30 AM CDT Telemedicine [facility] [address] [place], [place] [phone] Mynor Felix APRN, CNP [address] [place] [phone] Cannabinoid hyperemesis syndrome (Primary Dx); Cyclic vomiting syndrome; Nausea and vomiting, unspecified vomiting type; Hidradenitis suppurativa Social History Tobacco Use Types Packs/Day Years [...] on file documented as of this encounter Last Filed Vital Signs Vital Sign Reading Time Taken Comments Blood Pressure - - Pulse - - Temperature - - Respiratory Rate - - Oxygen Saturation - - Inhaled Oxygen Concentration - - Weight 74.8 kg (165 lb) 06/09/2023 10:54 AM CDT Height - - Body Mass Index 31.18 04/01/2023 11:30 AM LEARNING FACILITATOR documented in this encounter Progress Notes * Mynor Felix, MISHA, ROVING DEPARTMENT END FINDER - 06/09/2023 10:30 AM CDT Subjective: Today's visit with Jluislucy was conducted as a scheduled video visit. She has a very complex medical history complicated by chronic pain on chronic opioids, history of anxiety, borderline personality disorder, IBS, HS, ADHD, migraines, neuralgia, LEELEE, mild persistent ashtma, endometriosis, obesity, and PCOS. She is on the [facility] [place] Restricted program. Intractable Nausea/Vomiting/Cannabinoid hyperemesis syndrome: Admitted to [facility] for cannabinoid hyperemesis syndrome from 05/22/2023 through 05/26/2023. Dehydration and hypokalemia. She hasn't smoked marijuana since the beginning of May. Seems to be helping. Gets some waves of nausea but she hasn't had any further vomiting. She reports still having a lot of GI issues and has a lot of pain in her abdomen. Abdominal pain isflaring again and that is what she would use the marijuana for and she is unable to now. She reports that she has nothing to use for pain control. States she is very sleep deprived as wellbecause of the pain. Has pain management appointment scheduled for tomorrow. Was unable to get the ODT Zyprexa as it was denied by insurance. Would like me to try sending this again. HS: Sees [facility] and has upcoming appointment in August for laser hair therapy for HS. She needs EMLA cream sent to pharmacy for this. She thinks she will be off the restricted program in June. Objective: Wt 165 lb (74.8 kg) BMI 31.18 kg/m?? GENERAL: Patient is alert and oriented x 3. Pleasant. No acute distress. HEAD: Normocephalic. RESPIRATORY: Speaking in full sentences. No cough, wheezing. NEURO: Normal motor function. PSYCH: Bright affect. Maintains eye contact with conversation. Appropriately dressed and well groomed. SKIN: no visible rashes on the face. Assessment/Plan: Cannabinoid hyperemesis syndrome - OLANZapine (ZYPREXA ZYDIS) 5 MG disintegrating tablet; Take 1 Tablet (5 mg) by mouth every evening. - metoclopramide (REGLAN) 10 MG tablet; Take 1 Tablet (10 mg) by mouth 4 times daily as needed for Nausea or Vomiting. Cyclic vomiting syndrome - OLANZapine (ZYPREXA ZYDIS) 5 MG disintegrating tablet; Take 1 Tablet (5 mg) by mouth every evening. - metoclopramide (REGLAN) 10 MG tablet; Take 1 Tablet (10 mg) by mouth 4 times daily as needed for Nausea or Vomiting. Nausea and vomiting, unspecified vomiting type - OLANZapine (ZYPREXA ZYDIS) 5 MG disintegrating tablet; Take 1 Tablet (5 mg) by mouth every evening. - metoclopramide (REGLAN) 10 MG tablet; Take 1 Tablet (10 mg) by mouth 4 times daily as needed for Nausea or Vomiting. Hidradenitis suppurativa - lidocaine-prilocaine (EMLA) 2.5-2.5 % cream; Apply topically every 24 hours as needed. Other orders - hydrOXYzine HCl (ATARAX) 50 MG tablet; Take 1 Tablet (50 mg) by mouth every 6 hours as needed forItching or Anxiety (Nausea). She has an appointment scheduled with Pain Clinic tomorrow. Recommend she discuss pain control at that time. Attempted to send refills for anti-emetics for patient but received notification that there are toomany interactions between them and increased risk of extrapyramidal side effects. Urgent referral placed to GI as I do not feel comfortable prescribing all the the anti-emetics that she is requestingand I would like her to be evaluated by the GI team for help determining what anti- emetics would bebest and at what intervals. Sent patient a [employer] message with this information and I will have myteam reach out to her as well. Mynor Felix APRN, GORDO documented in this encounter Plan of Treatment Upcoming Encounters Date Type Department Care Team (Late st Contact Info) Description 09/14/2023 1:30 PM CDT Telemedicine [facility] [address] [place] [address] Mynor Felix APRN, CNP [address] [place] [address] 09/26/2023 9:30 AM CDT Appointment [facility] [address] [place] [address] Frank Horowitz MD [address] [facility] [address] [place] [address] 09/27/2023 1:45 PM CDT Appointment [facility] [address] [place] [address] [place] [address] [place] [address] 10/21/2023 10:00 AM CDT Appointment [facility] [place] [address] [place] [address] [place] [address] [place] [address] 10/28/2023 2:20 PM CDT Telemedicine [facility] [address] [place] [address] Liz Briones, DRYWALL SANDER, ROVING DEPARTMENT END FINDER [address] [place] [address] 11/09/2023 1:00 PM CDT Appointment [facility] [address] [facility] [place] [address] 11/09/2023 2:15 PM CDT Appointment [facility] [address] [facility] [place], [place] [address] Nedra Jeffries MD [address] [place] [address] Scheduled Procedures Name Priority Associated Diagnoses Date/Ti me HEMORRHOIDECTOMY External hemorrhoid documented as of this encounter Visit Diagnoses Diagnosis Cannabinoid hyperemesis syndrome- Primary Cyclic vomiting syndrome Persistent vomiting Nausea and vomiting, unspecified vomiting type Hidradenitis suppurativa Hidradenitis documented in this encounter Care Teams Agriscience Teacher Relationship Specialty Start Date End Date Mynor Felix, DRYWALL SANDER, ROVING DEPARTMENT END FINDER [address] [place] [address] PCP - General Nurse Practitioner 12/31/22 documented as of this encounter
--- OUTSIDE RECORDS SUMMARY | 2023-09-08 22:36 | XMS_ITS | Encounter Summary ---
Author Organization [facility] Address [address], [place] [address] Care Team Providers Care Manager Traffic Name Role Phone Mynor Felix APRN, CNP Primary Care Provide r Encounter Details Date Type Department Care Team (Late st Contact Info) Description 05/20/2023 E-Visit [address] [address] Mynor Felix APRN, TRANSIT PLANNING MANAGER [address] [place] [phone] Social History Tobacco Use Types Packs/Day Years [...] on file documented as of this encounter Plan of Treatment Upcoming Encounters Date Type Department Care Team (Late st Contact Info) Description 09/14/2023 1:30 PM CDT Telemedicine [address] [address] Mynor Felix APRN, TRANSIT PLANNING MANAGER [address] [place] [phone] 09/26/2023 9:30 AM CDT Appointment [facility] [address] [place] [address] Frank Horowitz MD [address] [facility] [address] [place] [address] 09/27/2023 1:45 PM CDT Appointment [facility] [address] [place] [address] [place] [address] [place] [address] 10/21/2023 10:00 AM CDT Appointment [facility] [place] [address] [place] [address] [place] [address] [place] [address] 10/28/2023 2:20 PM CDT Telemedicine [facility] [address] [place] [address] Liz Briones, ALUMINUM CAN COLLECTOR, TRANSIT PLANNING MANAGER [address] [place] [address] 11/09/2023 1:00 PM CDT Appointment [facility] [address] [place], [place] [address] 11/09/2023 2:15 PM CDT Appointment [facility] [address] [place], [place] [address] Nedra Jeffries MD [address] [place] [address] Scheduled Procedures Name Priority Associated Diagnoses Date/Ti me HEMORRHOIDECTOMY External hemorrhoid documented as of this encounter Visit Diagnoses Not on filedocumented in this encounter Care Teams Manager Traffic Relationship Specialty Start Date End Date Mynor Felix, ALUMINUM CAN COLLECTOR, TRANSIT PLANNING MANAGER [address] [place] [address] PCP - General Nurse Practitioner 12/31/22 documented as of this encounter
--- OUTSIDE RECORDS SUMMARY | 2023-09-08 22:36 | XMS_ITS | Clinical Summary ---
Author Organization [facility] Address [address] [place] [address] Care Team Providers Care Real Estate Executive Assistant Name Role Phone No Ref-Primary, Physician Primary Care Provider Allergies No known active allergies Medications Medication Sig Dispensed Refills Start Date End Date Status promethazine (PHENERGAN) 25 MG tablet Take 1 tablet (25 mg) by mouth every 6 hours as needed for nausea 15 tablet 02/02/2023 Active albuterol (PROAIR HFA/PROVENTIL HFA/VENTOLIN HFA) 108 (90 Base) MCG/ACT inhaler Inhale 2 puffs into the lungs every 6 hours as needed for shortness of breath, wheezing or cough Active budesonide-formoter ol (SYMBICORT) 160-4.5 MCG/ACT Inhaler Inhale 2 puffs into the lungs 2 times daily Active cariprazine (VRAYLAR) 1.5 MG capsule Take 1.5 mg by mouth daily Active clonazePAM (KLONOPIN) 0.5 MG ODT Take 0.5 mg by mouth 3 times daily as needed for anxiety Active famotidine (PEPCID) 20 MG tablet Take 20 mg by mouth 2 times daily Active metFORMIN (GLUCOPHAGE XR) 500 MG 24 hr tablet Take 500 mg by mouth 3 times daily Active nystatin (MYCOSTATIN) 113370 UNIT/GM external powder Apply topically 2 times daily as needed Active ondansetron (ZOFRAN ODT) 4 MG ODT tab Take 4 mg by mouth every 8 hours as needed for nausea Active polyethylene glycol (MIRALAX) 17 GM/Dose powder Take 1 Capful by mouth daily as needed for constipation Active spironolactone (ALDACTONE) 50 MG tablet Take 50 mg by mouth 3 times daily Active SUMAtriptan (IMITREX) 50 MG tablet Take 50 mg by mouth at onset of headache for migraine Active pregabalin (LYRICA) 50 MG capsule Take 50 mg by mouth 3 times daily Active azelastine (ASTELIN) 0.1 % nasal spray Conetoe 1 spray into both nostrils 2 times daily Active fluticasone (FLONASE) 50 MCG/ACT nasal spray [place] 1 spray into both nostrils daily Active acetaminophen (TYLENOL) 325 MG tabletIndications:N ausea and vomiting, unspecified vomiting type Take 2 tablets (650 mg) by mouth every 4 hours as needed for mild pain or other (and adjunct with moderate or severe pain or per patient request) 02/07/2023 Active guaiFENesin (ROBITUSSIN) 20 mg/mL liquidIndications:N ausea and vomiting, unspecified vomiting type Take 10 mLs (200 mg) by mouth every 4 hours as needed for cough 02/07/2023 Active ibuprofen (ADVIL/MOTRIN) 600 MG tabletIndications:N ausea and vomiting, unspecified vomiting type Take 1 tablet (600 mg) by mouth every 6 hours as needed for moderate pain 02/07/2023 Active metoclopramide (REGLAN) 10 MG tabletIndications:N ausea and vomiting, unspecified vomiting type Take 1 tablet (10 mg) by mouth 4 times daily as needed (nauesa, vomiting) 30 tablet 02/07/2023 Active OLANZapine zydis (ZYPREXA) 5 MG ODT Take 1 tablet (5 mg) by mouth at bedtime 12 tablet 05/20/2023 Active hydrOXYzine HCl (ATARAX) 25 MG tablet Take 25-50 mg by mouth 3 times daily as needed for itching Active aluminum chloride (DRYSOL) 20 % external solution Apply topically at bedtime 07/19/2022 Active hydrocortisone, Perianal, (ANUSOL-HC) 2.5 % cream Place rectally 2 times daily as needed 04/14/2023 Active menthol-zinc oxide (CALMOSEPTINE) 0.44-20.6 % OINT ointment Apply topically as needed 04/14/2023 Active norethindrone (AYGESTIN) 5 MG tablet Take 5 mg by mouth daily 03/17/2023 Active olopatadine (PATADAY) 0.2 % ophthalmic solution Place 1 drop into both eyes daily 05/05/2023 Active oxyCODONE (ROXICODONE) 5 MG tablet Take 1 tablet by mouth every 8 hours as needed 11/15/2022 Active lisdexamfetamine (VYVANSE) 60 MG capsule Take 60 mg by mouth every morning Active Semaglutide-Weight Management (WEGOVY) 2.4 MG/0.75ML pen Inject 2.4 mg Subcutaneous once a week Active Active Problems Problem Noted Date Diagnosed Date Intractable vomiting 05/24/2023 Cannabinoid hyperemesis syndrome 05/22/2023 Hypokalemia 02/05/2023 Nausea and vomiting, unspecified vomiting type 1 04/08/2022 Social History Tobacco Use Types Packs/Day Years Used Date Smoking Tobacco: Some Days Alcohol Use Standard Drinks/Week Comments Yes 0 (1 standard drink = 0.6 oz pur e alcohol) Adolescent Education Answer Date Record ed Getting School Help Needed Not on file 02/02 Sex and Gender Information Value Date Recorded Sex Assigned at Not on file Gender Identity Not on file Sexual Orientation Not on file Last Filed Vital Signs Vital Sign Reading Time Taken Comments Blood Pressure 123/85 05/25/2023 9:46 PM CDT Pulse 100 05/25/2023 9:46 PM CDT Temperature 36.6 ??C (97.9 ??F) 05/25/2023 9:46 PM CD T Respiratory Rate 18 05/25/2023 9:46 PM CDT Oxygen Saturation 100% 05/25/2023 9:46 PM CDT Inhaled Oxygen Concentration - - Weight 76.1 kg (167 lb 12.3 oz) 05/22/2023 4:41 PM CDT Height 160 cm (5' 3) 05/22/2023 4:41 PM CDT Body Mass Index 29.72 05/22/2023 4:41 PM CDT Plan of Treatment Health Maintenance Due Date Last Done Comments ADVANCE CARE PLANNING 1995 ANNUAL REVIEW OF HM ORDERS 1995 NICOTINE/TOBACCO CESSATION COUNSELING Q 1 YR 1995 Pneumococcal Vaccine: Pediatrics (0 to 5 Years) and At-Risk Patients (6 to 64 Years) (1 of 2 - PCV) 11/23/2001 HIV SCREENING 11/23/2010 HEPATITIS C SCREENING 11/23/2013 YEARLY PREVENTIVE VISIT 11/05/2020 11/06/19 20, 08/25/2016, 07/31/2015, Additional history exists COVID-19 Vaccine ( season) 2022 11/20/2020, 10/24/2020 PHQ-2 (once per calendar year) 2023 INFLUENZA VACCINE (#1) 2023 , 12/10/2021, 11/11/2020, Additional history exists PAP 08/27/2024 08/27/2021 DTAP/TDAP/TD IMMUNIZATION (8 - Td or Tdap) 12/25/2028 12/25/2018, 10/02/2008, 06/12/2001, Additional history exists HEPATITIS B IMMUNIZATION Completed 997, 11/30/1996, 01/27/1996, Additional history exists IPV IMMUNIZATION Completed 06/12/2001, , 05/18/1996, Additional history exists HPV IMMUNIZATION Completed 06/03/2008, , 11/22/2007 MENINGITIS IMMUNIZATION Aged Out No l onger eligible based on patient's age to complete this topic RSV MONOCLONAL ANTIBODY Aged Out No l onger eligible based on patient's age to complete this topic Advance Directives For more information, please contact: [phone] * Full Code (Latest Code Status on File) Date Activated Date Inactivated Comments 05/22/2023 1:38 PM 05/26/2023 10:44 AM All basic an d advanced life-sustaining interventions are performed as appropriate Question Answer Comments Code status determined by: Discussion with patie nt/ legal decision maker * Full Code Date Activated Date Inactivated Comments 02/05/2023 12:58 PM 02/08/2023 4:38 PM All basic and advanced life-sustaining interventions are performed as appropriate Question Answer Comments Code status determined by: Discussion with patie nt/ legal decision maker Care Teams Real Estate Executive Assistant Relationship Specialty Start Date End Date No Ref-Primary, Physician PCP - General 02/02/23
--- OUTSIDE RECORDS SUMMARY | 2023-09-08 22:36 | XMS_ITS | Encounter Summary ---
Author Organization [facility] Address [address] [address] Care Team Providers Care Special Weapons And Tactics Officer Name Role Phone Mynor Felix APRN, CNP Primary Care Provide r Reason for Visit * Reason Onset Date Comments Follow-up Video Visit 06/16/2023 Encounter Details Date Type Department Care Team (Late st Contact Info) Description 06/16/2023 10:30 AM CDT Telemedicine [facility] [address] [place], [place] [phone] Mynro Felix APRN, CNP [address] [place] [phone] Cyclic vomiting syndrome (Primary Dx); Cannabinoid hyperemesis syndrome; Depressive disorder; Borderline personality disorder (HRC); NELLY (generalized anxiety disorder) (HRC); Neck pain; Chronic abdominal pain; Neuralgia; Chronic pelvic pain in female; Endometriosis Social History Tobacco Use Types Packs/Day Years [...] as of this encounter Progress Notes * Mynor Felix APRN, CNP - 06/16/2023 10:30 AM CDT Subjective: Today's visit with Jluiste was conducted as a scheduled video visit. She has a very complex medical history complicated by chronic pain on chronic opioids, history of anxiety, borderline personality disorder, IBS, HS, ADHD, migraines, neuralgia, LEELEE, mild persistent ashtma, endometriosis, obesity, and PCOS. She is on the [facility] [place] Restricted program. I just saw her via video visit on 06/09/23. She had an appointment with [facility] on 06/10/23. 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 She is adamant that the only thing that helps with her pain is oxycodone. I would strongly suggest she utilize other non opioids for pain management, and move forward with the therapies that I have recommended. Will increase Lyrica to 100mg three times daily, may increase to 150mg tid in the future For sleep and pain, nortriptyline 10mg 1 tab at night, after 1 week may increase to 20mg at night Moving forward with Physical Therapy for back and pelvic pain Referral to pain psychology-previously sent EMG, as patient has cold feet on exam and numbness in the feet as well as numbness intermittently in the hands. Could consider spinal imaging in the future, currently not reporting signs/symptoms that would suggest a cervical or lumbar radiculopathy Follow up with Rylee in 1-2 months, sooner if needed. Patient expresses to me today that she does not feel like the Pain Management appointment went well. She also sent a [employer] message about this as well. She has pain throughout her entire body that only seems to be helped by the oxycodone and she is frustrated that she is not getting this from pain management. She is not interested in trying the nortriptyline due to concern for weight gain. She has started some TCH again only when she absolutely needs it for the pain. She tells me that Pain Clinic told her she could do this. She thinks that she had been smoking excessive amounts of TCH in the past which is why it caused the nausea and vomiting. Nausea and vomiting has improved greatly again. States that she can feel her endometriosis pain starting again. She might try the norethindrone that Side Laster recommended. Has a nerve test scheduled. Seeing GI next week. Thinks maybe the pregabalin increase has helped a little bit. States that is doing DBT treatment and she had to do an eating disorder evaluation. States that shewas diagnosed with a non-specified eating disorder. Doesn't think she has an eating disorder but only body dysmorphia. Objective: There were no vitals taken for this visit. GENERAL: Patient is alert and oriented x 3. Pleasant. No acute distress. HEAD: Normocephalic. RESPIRATORY: Speaking in full sentences. No cough, wheezing. NEURO: Normal motor function. PSYCH: Bright affect. Maintains eye contact with conversation. Appropriately dressed and well groomed. SKIN: no visible rashes on the face. Assessment/Plan: Cyclic vomiting syndrome Cannabinoid hyperemesis syndrome Depressive disorder Borderline personality disorder (HRC) NELLY (generalized anxiety disorder) (HRC) Neck pain Chronic abdominal pain Neuralgia Chronic pelvic pain in female Endometriosis Long discussion with patient and reiterated that I agree with the Pain Management Clinic recommendations and plan. I do not think opioids are appropriate and I will not prescribe oxycodone. I recommend that she try nortriptyline. Discussed the risk of a possible small amount of weight gain versus the benefit of improvement in pain and CVS. Discussed that she needs to put in the work in order to fully manage her pain. Also offered her a referral for an outside pain clinic but she declines today.She tells me that she will try the nortriptyline. Mynor Felix APRN, GORDO documented in this encounter Plan of Treatment Upcoming Encounters Date Type Department Care Team (Late st Contact Info) Description 09/14/2023 1:30 PM CDT Telemedicine [facility] [address] [place] [address] Mynor Felix APRN, GORDO [address] [facility] [place] [address] 09/26/2023 9:30 AM CDT Appointment [facility] [address] [place] [address] Frank Horowitz MD [address] [facility] [address] [place] [address] 09/27/2023 1:45 PM CDT Appointment [facility] [address] [place] [address] [place] [address] [address] [place] [address] 10/21/2023 10:00 AM CDT Appointment [facility] [address] [place] [address] [place] [address] [place] [address] 10/28/2023 2:20 PM CDT Telemedicine [facility] [address] [place] [address] Liz Briones, SULFATE DRIER MACHINE OPERATOR, LOGGING EQUIPMENT MECHANIC [address] [place] [address] 11/09/2023 1:00 PM CDT Appointment [facility] [address] [place], [place] [address] 11/09/2023 2:15 PM CDT Appointment [facility] [address] [place], [place] [address] Nedra Jeffries MD [address] [place] [address] Scheduled Procedures Name Priority Associated Diagnoses Date/Ti me HEMORRHOIDECTOMY External hemorrhoid documented as of this encounter Visit Diagnoses Diagnosis Cyclic vomiting syndrome- Primary Persistent vomiting Cannabinoid hyperemesis syndrome Depressive disorder Depressive disorder, not elsewhere classified Borderline personality disorder (HRC) Borderline personality disorder NELLY (generalized anxiety disorder) (HRC) Generalized anxiety disorder Neck pain Cervicalgia Chronic abdominal pain Abdominal pain, unspecified site Neuralgia Neuralgia, neuritis, and radiculitis, unspecified Chronic pelvic pain in female Unspecified symptom associated with female genital organs Endometriosis Endometriosis, site unspecified documented in this encounter Care Teams Special Weapons And Tactics Officer Relationship Specialty Start Date End Date Mynor Felix, SULFATE DRIER MACHINE OPERATOR, LOGGING EQUIPMENT MECHANIC [address] [place] [address] PCP - General Nurse Practitioner 12/31/22 documented as of this encounter
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
--- OUTSIDE RECORDS SUMMARY | 2023-09-08 22:36 | XMS_ITS | Referral Summary ---
Author Organization [facility] Address [address] [place] [address] Care Team Providers Care Coloring Checker Name Role Phone No Ref-Primary, Physician Primary [...] mouth 3 times daily Active nystatin (MYCOSTATIN) 298614 UNIT/GM external powder Apply topically 2 times [...] Active azelastine (ASTELIN) 0.1 % nasal spray [place] 1 spray into both nostrils 2 times daily Active fluticasone (FLONASE) 50 MCG/ACT nasal spray [place] 1 spray into both nostrils daily Active [...] 05/22/2023 4:41 PM CDT Plan of Treatment Not on file Advance Directives For more information, please contact: [phone] * Full Code (Latest Code Status on File) Date Activated Date Inactivated Comments 05/22/2023 1:38 PM 05/26/2023 10:44 AM All basic an d advanced life-sustaining interventions are performed as appropriate Question Answer Comments Code status determined by: Discussion with fabricio nt/ legal decision maker * Full Code Date Activated Date Inactivated Comments 02/05/2023 12:58 PM 02/08/2023 4:38 PM All basic and advanced life-sustaining interventions are performed as appropriate Question Answer Comments Code status determined by: Discussion with fabricio nt/ legal decision maker Care Teams Coloring Checker Relationship Specialty Start Date End Date No Ref-Primary, Physician PCP - General 02/02/23
--- OUTSIDE RECORDS SUMMARY | 2023-09-08 22:36 | XMS_ITS | Clinical Summary ---
Author Organization [facility] Address [place], [place] [address] Care Team Providers Care Snow Technician Name Role Phone Iveth Mabry PA-C Primary Care Provider [phone] Allergies No known active allergies Medications Medication Sig Dispensed Refills Start Date End Date Status fluconazole (DIFLUCAN) 100 mg tablet TAKE 1 TABLET BY MOUTH EVERY 12 HOURS FOR 1 DAY (2 DOSES) 2 tablet 11/12/2013 Active adapalene (DIFFERIN) 0.1 % cream Apply a thin film topically to affected area daily at night. 45 g 3 11/21/2013 Active fluticasone (50 mcg per actuation) nasal solution (FLONASE) Inhale 2 Sprays into both nostrils once daily. 16 g 5 11/21/2013 Active loratadine (CLARITIN) 10 mg tablet Take 1 tablet by mouth once daily. 30 tablet 5 11/21/2013 Active albuterol HFA (PROAIR HFA) 90 mcg/actuation inhaler Inhale 1 to 2 Puffs by mouth every 4 to 6 hours if needed. 8.5 g 11/21/2013 Active omeprazole (PRILOSEC) 20 mg Delayed-Release capsule Take 1 capsule by mouth once daily 30 capsule 01/22/2014 Active traZODone (DESYREL) 50 mg tablet Take 1 to 2 tablets by mouth at bedtime as needed 30 tablet 01/22/2014 Active ondansetron (ZOFRAN, HYDROCHLORIDE,) 4 mg tablet Take 1 tab by mouth every 6 hours as needed 20 tablet 1 02/19/2014 Active oseltamivir (TAMIFLU) 75 mg capsule Take 1 capsule(s) by mouth 2 times daily for 5 days 10 capsule 02/19/2014 Active FLUoxetine (PROZAC) 10 mg capsule Take 1 capsule by mouth every morning. 30 capsule 1 02/22/2014 Active traZODone (DESYREL) 50 mg tablet Take 1-2 tablets by mouth at bedtime as needed 60 tablet 04/22/2014 Active albuterol HFA (PRO-AIR,VENTOLIN ,PROVENTIL) 90 mcg/actuation inhaler Inhale 1-2 puffs every 4-6 hours as needed 8.5 g 3 04/22/2014 Active mometasone-formot tosin (DULERA) 100-5 mcg/actuation inhaler Inhale 1 puff by mouth twice daily 13 g 3 04/22/2014 Active fluticasone-salme terol (ADVAIR DISKUS) 250-50 mcg/Dose diskus inhaler Inhale 1 Puff by mouth 2 times daily. 60 Each 05/09/2014 Active nystatin (MYCOSTATIN) 100,000 unit/mL suspension Swish and swallow 5 mL by mouth 3 times daily for 2 weeks. 210 mL 05/09/2014 Active Adapalene 0.3 % gel Apply to acne areas on face and back daily at bedtime 45 g 3 05/31/2014 Active clindamycin 1% (CLEOCIN-T) 1 % gel Apply to face and back areas daily at bedtime 60 g 3 05/31/2014 Active FLUoxetine (PROZAC) 10 mg capsule Take 1 capsule by mouth once daily. 30 capsule 06/04/2014 Active DULoxetine (CYMBALTA) 30 mg Delayed-release capsule Take 1 capsule by mouth daily 30 capsule 1 06/07/2014 Active permethrin (ELIMITE) 5 % cream Apply from neck to the soles of feet. Wash off after 8 hours. Apply again 1 week later. 60 g 07/10/2014 Active cetirizine (ZYRTEC) 10 mg tablet Take 1 tablet by mouth once daily. 30 tablet 07/10/2014 Active amoxicillin (AMOXIL) 500 mg capsule Take 2 capsules by mouth twice daily for 10 days 40 capsule 08/15/2014 Active albuterol HFA (PRO-AIR,VENTOLIN ,PROVENTIL) 90 mcg/actuation inhaler Inhale 2 Puffs by mouth 4 times daily if needed for wheezing. 8.5 g 2 09/02/2014 Active fluconazole (DIFLUCAN) 150 mg tablet Take one tablet by mouth now, repeat in 1 week. 2 tablet 1 09/02/2014 Active triamcinolone (ARISTOCORT; KENALOG) 0.1 % cream Apply to itching rash twice daily for about 1 week. 40 g 09/02/2014 Active traZODone (DESYREL) 50 mg tablet Take 1-2 tablets by mouth at bedtime as needed 60 tablet 1 09/13/2014 Active clindamycin (CLEOCIN) 300 mg capsule Take 1 capsule by mouth twice a day for 7 days 14 capsule 1 09/13/2014 Active DULoxetine (CYMBALTA) 30 mg Delayed-release capsule Take 1 capsule daily 30 capsule 11 09/13/2014 Active metroNIDAZOLE 0.75% vaginal (METROGEL VAGINAL) 0.75 % vaginal gel Insert 1 applicatorful vaginally at bedtime for 5 days 70 g 09/14/2014 Active Active Problems Problem Noted Date Diagnosed Date Depressive disorder 06/27/2013 Social History Tobacco Use Types Packs/Day Years Used Date Smoking Tobacco: Every Day Cigarettes Smokeless Tobacco: Never Alcohol Use Standard Drinks/Week Comments Yes 0 (1 standard drink = 0.6 oz pur e alcohol) Sex and Gender Information Value Date Recorded Sex Assigned at Not on file Gender Identity Not on file Sexual Orientation Not on file Obstetrics History Last Filed Vital Signs Vital Sign Reading Time Taken Comments Blood Pressure 138/94 07/08/2013 4:26 PM CDT Pulse 90 07/08/2013 4:26 PM CDT Temperature 36.8 ??C (98.2 ??F) 07/08/2013 4:26 PM CD T Respiratory Rate 18 07/08/2013 4:26 PM CDT Oxygen Saturation 98% 07/08/2013 4:26 PM CDT Inhaled Oxygen Concentration - - Weight 53.1 kg (117 lb) 07/08/2013 4:26 PM CDT Height 157.5 cm (5' 2) 07/08/2013 4:26 PM CDT Body Mass Index 21.4 07/08/2013 4:26 PM CDT Plan of Treatment Health Maintenance Due Date Last Done Comments Tdap 11/23/2006 Depression screening for age 12+ 2007 HIV for age 15-65 11/23/2010 BMI (ht and wt on same day) for age 18+ 11/23/2013 Hepatitis C screening for ag e 18-79 11/23/2013 Tetanus booster 2015 Pap test for age 21-65 11/23/2016 COVID-19 vaccine series (2022- season) 2022 11/20/2020 Influenza for age 9-49 10/16/2023 Pneumococcal series for age 6-64 Aged Out No longer eligible based on patient's age to complete this topic Advance Directives * Full Code (Latest Code Status on File) Date Activated Date Inactivated Comments 06/27/2013 1:16 AM 07/02/2013 3:01 PM Care Teams Snow Technician Relationship Specialty Start Date End Date Iveth Mabry PA-C [address] [place] [address] PCP - General 07/17/14
--- OUTSIDE RECORDS SUMMARY | 2023-09-08 22:36 | XMS_ITS | Encounter Summary ---
Author Organization [facility] Address [address], [place] [address] Care Team Providers Care Salesperson Shoes Name Role Phone Mynor Felix APRN, FIRE PROTECTION SPECIALIST Primary Care Provide r Reason for Visit * Consult/Transfer Care (Routine) - New Request Specialty Diagnoses / Procedures Referred By Clarice da silva Referred To Contact Diagnoses Cannabinoid hyperemesis syndrome Cyclic vomiting syndrome Mynor Felix APRN, FIRE PROTECTION SPECIALIST [id number] [place] [id number] Referral ID Status Reason Start Date Expiration Date V isits Requested Visits Authorized [id number] New Request 06/09/2023 09/07/2024 1 1 Encounter Details Date Type Department Care Team (Late st Contact Info) Description 06/20/2023 1:40 PM CDT Telemedicine Gastroenterology at [facility] [place] [address] [place] [address]. [place], [place] [address] Liz Briones AWNING FRAME MAKER, FIRE PROTECTION SPECIALIST [address] [place], [place] [id number] Cyclic vomiting syndrome (Primary Dx); Cannabinoid hyperemesis syndrome; Irritable bowel syndrome with both constipation and diarrhea; Gastroesophageal reflux disease, unspecified whether esophagitis present Social History Tobacco Use Types Packs/Day Years [...] on file documented as of this encounter Patient Instructions * Patient Instructions* Liz Briones APRN, CNP - 06/20/2023 1:40 PM CDT Markette, today you were seen via video for evaluation regarding Cyclic Vomiting Syndrome and abdominal pain. We also discussed Irritable Bowel Syndrome. It is recommended that you eat smaller, more frequent meals to stimulate appetite. You are to continue the famotidine 20 mg twice daily for heartburn/reflux symptoms. Utilize hyoscyamine to see if this helps to reduce abdominal pain which could in part be due to IBS. Discussed treatment for CVS which includes Nortriptyline 75 mg to 100 mg nightly, Co Enzyme 10 200 mg twice daily (will need to be purchased over the counter-not covered by insurance), and Riboflavin 200 mg twice daily (sent to pharmacy). You have a prescription for Nortriptyline. Discuss increasing the dose with the ordering provider. Be mindful of THC use due to history ofCannabis Hyperemesis. Decrease/stop vaping as this can be contributing to abdominal pain, and in turn, CVS, as abdominal pain seems to be a factor. Increase your water intake to at least 48 ounces daily. Follow up in the GI Clinic in 2 months. Plan: Smaller more frequent meals. Increase water to 48 oz daily. Continue famotidine 20 mg twice daily Take hyoscyamine up to 3 times daily as needed for abdominal pain. Start taking nortriptyline and titrate dose up to 75 mg-100 mg based on ordering provider recommendation. Start taking coenzyme 10, 200 mg (2 tablets) twice daily. Start taking riboflavin 200 mg (2 tablets) twice daily. Be mindful of THC use due to history of cannabis hyperemesis. Recommend you decrease or stop vaping nicotine. Follow-up in the GI clinic in 2 months. documented in this encounter Progress Notes * Liz Briones, AWNING FRAME MAKER, FIRE PROTECTION SPECIALIST - 06/20/2023 1:40 PM CDT GI Clinic Progress Note Name: Benigno Larson CSN: [id number] : 1995 Date of Visit: 06/20/23 Today's visit with Benigno Larson was conducted as a scheduled Video visit. CHIEF COMPLAINT: Cyclic Vomiting Syndrome/Cannabis Hyperemesis Syndrome HISTORY OF PRESENT ILLNESS: Benigno Larson is a 27 y.o. female contacted via video for further evaluation regarding the abovecomplaints. Past medical history includes chronic pain on chronic opioids, history of anxiety, borderline personality disorder, IBS, HS, ADHD, migraines, neuralgia, LEELEE, mild persistent asthma, endometriosis, obesity, and PCOS. She is also on the [employer] [place] restricted program. 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 Nausea and vomiting decrease after reduction in medical marijuana use. She is currently using THC only if absolutely needed. It was recommended that she start taking Nortriptyline. Benigno states the CVS occurs about every 3 months, and episodes are random. She usually vomits for a few hours and then it resolves. The last two episodes lasted over 9 hours and she had to go to the ER 02/02/23. She was seen in Urgent Care for similar symptoms 02/04/23. Please seen those notes for further information. She does seem to experience upper abdominal pain prior to the vomiting. 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 Jluis states she usually eats when she is hungry which is typically about once a day. Feels she has been losing weight. But she is also on Wegovy and takes metformin. Current weight is 165. Nospecific food triggers. Experiences heartburn/reflux and takes famotidine 20 mg twice daily. Finds this to be effective. She experiences abdominal bloating, but feels this has endometriosis related. Upper abdominal pain radiates throughout the abdomen, comes and goes in waves, can last minutes to hours, is random, rated 5/10, described as cramping, burning, stabbing. She does have Levsin ordered but only uses it occasionally. Lower abdominal pain she feels is due to endometriosis and scar tissue. Bowel habit is described as a Seguin stool scale type 4, daily. No melena or hematochezia. She does take MiraLax when needed. Takes Imitrex as needed for migraine headaches. Does not take any dietary supplements. Averages 1-5alcoholic beverages a week. Vapes nicotine 20-30 times an hour. Smokes medical marijuana. Currentlylow T HC. Helps with abdominal pain fibromyalgia, and appetite. Averages 4-8 hours sleep nightly. Has had endometriosis surgery 3 times. Current medications, allergies, medical problems, family and social histories reviewed and updated as indicated. O: Review of Systems - Negative except as given in the HPI. PMH: Past Medical History: Diagnosis Date Alcohol use disorder, moderate, in early remission ([facility]) 12/30/2014 Recommend no addictive substances be routinely prescribed Anxiety ([facility]) History of drug use 12/26/2014 Including cocaine, LSD, MDMA and synthetic THC PSH: Past Surgical History: Procedure Laterality Date laparoscopic excision of endometriosis 11/30/2022 OPERATIVE HYSTEROSCOPY 11/30/2022 Outpatient Meds: Outpatient Medications Prior to Visit Medication Sig Dispense Refill acetaminophen (TYLENOL) 325 MG tablet Take 2 Tablets (650 mg) by mouth. ALBUterol sulfate HFA 108 (90 Base) MCG/ACT inhaler Inhale 1-2 Puffs every 4 hours as needed. 1 Each 6 Alcohol Swabs (B-D SINGLE USE SWABS REGULAR) USE 1 PER DAY FOR TESTING BLOOD SUGAR aluminum chloride (DRYSOL) 20 % external solution Apply topically every evening. apply sparingly toskin with excessive sweating for 1-5 nights to get appropriate response 35 mL 2 aluminum chloride (DRYSOL) 20 % external solution Apply 1 Application topically daily at bedtime. azelastine (ASTELIN) 0.1 % nasal solution Place 1 Reeders into both nostrils two times daily as needed (Postnasal drainage.). 30 mL 1 benzoyl peroxide (BENZOYL PEROXIDE WASH) 10 % wash liquid Apply 1 Application topically. budesonide-formoterol (SYMBICORT) 160-4.5 MCG/ACT inhaler Inhale 2 Puffs two times a day. 1 Each 6 clonazePAM (KLONOPIN) 0.5 MG disintegrating tablet Take 1 Tablet (0.5 mg) by mouth three times a day as needed. famotidine (PEPCID) 20 MG tablet Take 1 Tablet (20 mg) by mouth two times a day before meals. 180 Tablet 3 fluticasone propionate (FLONASE) 50 MCG/ACT nasal solution Place 2 Sprays into both nostrils daily.16 g 11 fluticasone-vilanterol (BREO ELLIPTA) 200-25 MCG/ACT inhaler Inhale 1 Dose daily. Rinse mouth/gargle after use 60 Each 3 guaiFENesin (ROBITUSSIN) 100 MG/5ML liquid Take 10 mL (200 mg) by mouth. hydrocortisone, Perianal, (PROCTOSOL-HC) 2.5 % rectal cream Insert rectally two times daily as needed. Indications: Inflamed Hemorrhoids 30 g 1 hydrOXYzine HCl (ATARAX) 50 MG tablet Take 1 Tablet (50 mg) by mouth every 6 hours as needed for Itching or Anxiety (Nausea). 30 Tablet 0 hyoscyamine (LEVSIN) 0.125 MG tablet Take 1 Tablet (0.125 mg) by mouth three times a day as needed. ibuprofen (MOTRIN) 600 MG tablet Take 1 Tablet (600 mg) by mouth. lidocaine-prilocaine (EMLA) 2.5-2.5 % cream Apply topically every 24 hours as needed. 30 g 1 lisdexamfetamine (VYVANSE) 50 MG capsule Take 1 Capsule (50 mg) by mouth daily. medical cannabis patient certified Take as instructed .. menthol-zinc oxide (CALMOSEPTINE) 0.44-20.6 % OINT Apply topically as needed. 71 g 3 metFORMIN XR (GLUCOPHAGE XR) 500 MG 24 hour release tablet Take 3 Tablets (1,500 mg) by mouth everyevening with a meal. 270 Tablet 3 norethindrone (AYGESTIN) 5 MG tablet Take 1 Tablet (5 mg) by mouth daily. 90 Tablet 3 nortriptyline (PAMELOR) 10 MG capsule 10 mg qhs po x 1 week, then may increase to 20mg qhs po Indications: Neuropathic Pain, Trouble Sleeping 60 Capsule 2 nystatin (NYSTOP) 499612 UNIT/GM powder Apply topically. olopatadine (PATADAY) 0.2 % eye drop solution Place 1 Drop into both eyes daily. 2.5 mL 1 ondansetron (ZOFRAN-ODT) 4 MG disintegrating tablet Take 1 Tablet (4 mg) by mouth every 8 hours as needed. 30 Tablet 1 oxyCODONE (ROXICODONE) 5 MG immediate release tablet Take 1 Tablet (5 mg) by mouth every 8 hours asneeded for Pain. 10 Tablet 0 polyethylene glycol 3350 (GLYCOLAX) 17 GM/SCOOP powder Take 17 g by mouth. pregabalin (LYRICA) 100 MG capsule Take 1 Capsule (100 mg) by mouth three times a day. Indications:Fibromyalgia Syndrome, Neuropathic Pain 90 Capsule 1 promethazine (PHENERGAN) 25 MG tablet Take 1 Tablet (25 mg) by mouth every 6 hours as needed. 30 Tablet 1 semaglutide-weight management (WEGOVY) 2.4 MG/0.75ML pen injection Inject 0.75 mL (2.4 mg) subcutaneously once a week. 10.5 mL 6 spironolactone (ALDACTONE) 50 MG tablet Take 3 Tablets (150 mg) by mouth daily. 270 Tablet 3 SUMAtriptan (IMITREX) 50 MG tablet Take 1 Tablet (50 mg) by mouth as needed. VRAYLAR 1.5 MG CAPS Take 1 Capsule (1.5 mg) by mouth daily. No facility-administered medications prior to visit. Family History Problem Relation Age of Onset Cataract Negative Family History Glaucoma Negative Family History Macular Degeneration Negative Family History Amblyopia/Strabismus Negative Family History Social History Tobacco Use Smoking status: Former Current packs/day: 0.00 Average packs/day: 1 pack/day for 5.4 years (5.4 ttl pk-yrs) Types: Cigarettes Start date: 01/25/2013 Quit date: 07/08/2018 Years since quittin.9 Smokeless tobacco: Never Tobacco comments: I vape Vaping Use Vaping status: Every Day Substance Use Topics Alcohol use: Yes Drug use: Not Currently Types: Marijuana Comment: Experimenting in the past PE: There were no vitals filed for this visit. Video Physical Examination: Per Patient; Per Observation General appearance: Pleasant, no obvious distress; alert, cooperative, appears stated age, Eyes: conjunctivae/corneas clear. Abdomen: no distention, no unintended weight loss; Skin: Warm, dry, Neurologic: Grossly normal; Alert, interactive; Psych: Normal affect and mood. LABS: Lab Results Component Value Date WBC 8.4 02/01/2023 Hemoglobin 15.0 02/01/2023 HCT 46.5 (H) 02/01/2023 MCV 94.1 02/01/2023 Platelets 277 02/01/2023 Lab Results Component Value Date Alkaline Phosphatase 70 03/29/2023 Bilirubin, Total 0.2 03/29/2023 Bilirubin, Direct 0.1 03/29/2023 Protein, Total 7.9 03/29/2023 Albumin 3.9 03/29/2023 AST (SGOT) 17 03/29/2023 ALT (SGPT) 30 03/29/2023 Lab Results Component Value Date Sodium 141 02/01/2023 Potassium 4.2 02/01/2023 Chloride 105 02/01/2023 CO2 24 02/01/2023 Lab Results Component Value Date Creatinine 0.80 02/01/2023 IMAGING Reviewed in [facility] Care Everywhere IMPRESSION/PLAN 27-year-old female contacted via video for further evaluation regarding cyclic vomiting syndrome, cannabis hyperemesis, and IBS. Complicated medical history noted above. Currently followed by pain clinic. Symptoms include decreased appetite, heartburn reflux, abdominal pain, and intermittent nausea/vomiting. IBS 1. Recommended smaller more frequent meals. 2. Advised to increase water intake to a minimum of 48 oz daily. 3. Recommended she utilize hyoscyamine 0.125 mg up to 3 times daily when abdominal pain is present to see if this will help decrease symptoms. 4. Recommended she decrease/stopped vaping as this has been proven to be a factor with abdominal pain. CVS Has a prescription for nortriptyline has not yet started medication. Recommended that she start thenortriptyline and discuss dose increase with ordering provider, as this may be beneficial in helping to control cyclic vomiting syndrome. Recommended dose is 75 mg to 100 mg daily. Coenzyme Q10 is recommended for treatment of CVS. Dose is 200 mg(2 tablets) twice daily. Not covered by insurance, patient recommended to purchase [id number]. Riboflavin 200 mg (2 tablets) twice daily was sent to pharmacy. As noted above, recommended she stopped decrease vaping nicotine, as this can be a factor in abdominal pain, which in turn could be a trigger to the CVS as abdominal pain seems to be a factor in symptoms. Cannabis Hyperemesis Advised to use a different method other than smoking, such as THC cream, CBD oil, or other as medical marijuana has contributed to cannabis hyperemesis in the past. Per chart review, symptoms of vomiting decreased once she decreased use of medical marijuana. GERD She is to continue famotidine 20 mg twice daily. Continue to work on diet lifestyle changes, and avoid known trigger foods. PLAN: Smaller more frequent meals. Increase water to 48 oz daily. Continue famotidine 20 mg twice daily Take hyoscyamine up to 3 times daily as needed for abdominal pain. Start taking nortriptyline and titrate dose up to 75 mg-100 mg based on ordering provider recommendation. Start taking coenzyme 10, 200 mg (2 tablets) twice daily. Start taking riboflavin 200 mg (2 tablets) twice daily. Be mindful of THC use due to history of cannabis hyperemesis. Recommend you decrease or stop vaping nicotine. Follow-up in the GI clinic in 2 months. Video Visit: Clinician located at home. Patient located at home Billing based on: Time Total time for the visit was 35 minutes including, but not limited to, [id number]-[id number] time spent reviewing records, counseling, and coordination of care. Liz Briones APRN, CNP Patient is agreeable to the plan of care, and is aware to contact the GI Clinic or their primary provider if symptoms change or worsen significantly. documented in this encounter Plan of Treatment Upcoming Encounters Date Type Department Care Team (Late st Contact Info) Description 09/14/2023 1:30 PM CDT Telemedicine [facility] [address] [place], [place] [id number] Mynor Felix APRN, CNP [address] [place] [place] [id number] 09/26/2023 9:30 AM CDT Appointment [facility] [address] [place], [place] [address] Frank Horowitz MD [address] [facility] [address] [place], [place] [address] 09/27/2023 1:45 PM CDT Appointment [facility] [address] [place], [place] [id number] [place] [address] [place] [id number] 10/21/2023 10:00 AM CDT Appointment [facility] [place] [address] [place] [address] [place] [address] [place] [id number] 10/28/2023 2:20 PM CDT Telemedicine [facility] [address] [place], [place] [id number] Liz Briones, AWNING FRAME MAKER, FIRE PROTECTION SPECIALIST [address] [place], [place] [address] 11/09/2023 1:00 PM CDT Appointment [facility] - Pulmonary Lab [address] [place], [place] [address] 11/09/2023 2:15 PM CDT Appointment [facility] - Pulmonary [address] [place], [place] [address] Nedra Jeffries MD [address] [place], [place] [address] Scheduled Procedures Name Priority Associated Diagnoses Date/Ti me HEMORRHOIDECTOMY External hemorrhoid documented as of this encounter Visit Diagnoses Diagnosis Cyclic vomiting syndrome- Primary Persistent vomiting Cannabinoid hyperemesis syndrome Irritable bowel syndrome with both constipation and diarrhea Gastroesophageal reflux disease, unspecified whether esophagitis present documented in this encounter Care Teams Salesperson Shoes Relationship Specialty Start Date End Date Mynor Felix, AWNING FRAME MAKER, FIRE PROTECTION SPECIALIST [id number] [place] [address] [place] [id number] PCP - General Nurse Practitioner 12/31/22 documented as of this encounter
--- OUTSIDE RECORDS SUMMARY | 2023-09-08 22:36 | XMS_ITS | Encounter Summary ---
Author Organization [facility] Address [address], [place] [address] Care Team Providers Care Commercial Lines Underwriter Name Role Phone Mynor Felix APRN, FORENSIC ANALYST Primary Care Provide r Reason for Referral * Procedure/Equipment (Routine) - Incomplete Specialty Diagnoses / Procedures Referred By Contac t Referred To Contact Diagnoses Chronic cough Procedures XR Chest 2 Views Nedra Jeffries MD [address] [place] [address] Referral ID Status Reason Start Date Expiration Date V isits Requested Visits Authorized [id number] Incomplete 10/17/2023 01/15/2025 1 1 Reason for Visit * Reason Comments Appt. Needed Encounter Details Date Type Department Care Team (Late st Contact Info) Description 08/03/2023 Telephone [facility] Pul[facility] Medicine [address] [place] [address] [id number] Nedra Jeffries MD [address] [place] [address] [phone] Appt. Needed Social History Tobacco Use Types Packs/Day Years [...] on file documented as of this encounter Nursing Notes * Rosemary Delgado RN - 08/03/2023 12:31 PM CDT CXR ordered per protocol. * Jeannine Dubon - 08/03/2023 12:28 PM CDT Patient is scheduled for a pulmonary consult regarding chronic cough on 11/09/2023 and will need a chest imaging prior. Please check the chart and order appropriate imaging. Thank you! documented in this encounter Plan of Treatment Upcoming Encounters Date Type Department Care Team (Late st Contact Info) Description 09/14/2023 1:30 PM CDT Telemedicine [facility] [address] [place] [address] Mynor Felix, SAND MILL GRINDER, FORENSIC ANALYST [address] [place] [address] 09/26/2023 9:30 AM CDT Appointment [facility] [address] [place] [address] Frank Horowitz MD [address] [facility] [address] [place] [address] 09/27/2023 1:45 PM CDT Appointment [facility] [address] [place], [place] [phone] [place] [address] [place] [address] 10/21/2023 10:00 AM CDT Appointment [facility] [address] [place], [place] [phone] [place] [address] [place] [address] 10/28/2023 2:20 PM CDT [facility] [address] [place], [place] [phone] Liz Briones, SAND MILL GRINDER, FORENSIC ANALYST [address] [place], [place] [phone] 11/09/2023 1:00 PM CDT Appointment [facility] Lab [address]555 [place], [place] [phone] 11/09/2023 2:15 PM CDT Appointment [facility] - Pulmonary [address]555 [place], [place] 3[address]69 Nedra Jeffries MD [address]31 [place], [place] [phone] Scheduled Orders Name Type Priority Associated Diagnoses Orde r Schedule XR Chest 2 Views Imaging New Routine Chronic cough Expected: 10/17/2023 (Approximate), Expires: 10/16/2024 Scheduled Procedures Name Priority Associated Diagnoses Date/Ti me HEMORRHOIDECTOMY External hemorrhoid documented as of this encounter Visit Diagnoses Diagnosis Chronic cough- Primary Cough documented in this encounter Care Teams Commercial Lines Underwriter Relationship Specialty Start Date End Date Mynor Felix, SAND MILL GRINDER, FORENSIC ANALYST [address] [place] [id number] PCP - General Nurse Practitioner 12/31/22 documented as of this encounter
--- OUTSIDE RECORDS SUMMARY | 2023-09-08 22:36 | XMS_ITS | Encounter Summary ---
Author Organization [facility] Address [address] [address] Care Team Providers Care Circus Artist Name Role Phone Mynor Felix APRN, CNP Primary Care Provide r Reason for Referral * Consult/Transfer Care (Routine) - New Request Specialty Diagnoses / Procedures Referred By Clarice da silva Referred To Contact Diagnoses Cannabinoid hyperemesis syndrome Cyclic vomiting syndrome Mynor Felix APRN, CNP [address] [place] [address] Referral ID Status Reason Start Date Expiration Date V isits Requested Visits Authorized [id number] New Request 06/09/2023 09/07/2024 1 1 Scheduling Instructions Your clinician has recommended an appointment with [facility]. You can quickly make your appointment online at [facility]/schedule. You can also call [phone] for help scheduling your appointment. We suggest you call your health insurance company about your coverage and benefits for this appointment. Question Answer Appointment Urgency? Within 1 Week (Urgent) Reason for visit? cyclic vomiting syndrome, cannabinoid hyperemesis syndrome Reason for Visit * Reason Comments Pharmacy Encounter Details Date Type Department Care Team ([facility] Contact Info) Description 06/09/2023 Telephone [facility] [address] [place] [address] Mynor Felix APRN, CNP [address] [place] [address] Pharmacy Social History Tobacco Use Types Packs/Day Years [...] as of this encounter Nursing Notes * Mercy Land LPN - 06/09/2023 2:29 PM CDT Patient saw MyChart message from PCP, understood the message and will schedule that GI consult soon. 06/09/23 * Mynor Felix APRN, CNP - 06/09/2023 11:52 AM CDT Please call the patient and let her know that I Have placed an urgent consult to GI. I just received notification from the pharmacy that there is too many interactions between all of the anti-nausea medications that she is prescribed. At this juncture, I do not feel comfortable with prescribing allof them and I would like her to be evaluated by the GI team for help determining what anti- emetics would be best and at what intervals. This is for her safety. Please call [phone] to schedule. Thanks. Mynor Felix APRN, GORDO * Mynor Felix APRN, CNP - 06/09/2023 11:50 AM CDT Please let pharmacy know I Have cancelled Reglan and Zyprexa. * Negra Eng RN - 06/09/2023 11:27 AM CDT Images from the original note were not included. Clinician: Review and advise, Route to [facility], and PHARMACY is expecting a call back from [facility] Patient/home care consultant request: Medication question Specific Request: Pharmacy is calling regarding REGLAN and possible interactions. REGLAN interacts with promethazine, Olanzapine (needs PA), VRAYLAR. Pharmacy is concern about extrapyramidal reactions. See MircoMedex below Drug-Drug Interactions (4) Drugs: Severity: Documentation: Summary: METOCLOPRAMIDE HYDROCHLORIDE -- CARIPRAZINE Contraindicated Fair Concurrent use of METOCLOPRAMIDE and ANTIPSYCHOTICS may result in an increased risk of extrapyramidal reactions and neuroleptic malignant syndrome. OLANZAPINE -- METOCLOPRAMIDE HYDROCHLORIDE Contraindicated Fair Concurrent use of METOCLOPRAMIDE and ANTIPSYCHOTICS may result in an increased risk of extrapyramidal reactions and neuroleptic malignant syndrome. OLANZAPINE -- PROMETHAZINE HYDROCHLORIDE Major Fair Concurrent use of OLANZAPINE and TUTOR COORDINATOR DEPRESSANTS THAT ALSO PROLONG QT INTERVAL may result in an increased risk of QT interval prolongation and an increased risk of TUTOR COORDINATOR depression. PROMETHAZINE HYDROCHLORIDE -- METOCLOPRAMIDE HYDROCHLORIDE Major Fair Concurrent use of METOCLOPRAMIDE and TUTOR COORDINATOR DEPRESSANTS may result in increased risk of TUTOR COORDINATOR depression. * Quynh Collins - 06/09/2023 11:22 AM CDT Medications - Pharmacy Calls Is your question or concern about a Prior Authorization? No. What is the question or concern? Drug interaction, pharmacist wants to speak to a nurse What is the name and dose of the medication? metoclopramide (REGLAN) 10 MG tablet Who prescribed it? Mynor Felix APRN, MATCH UP PERSON Is it okay to leave a detailed message on your voicemail? Yes Is there anything else I can help you with today? documented in this encounter Plan of Treatment Upcoming Encounters Date Type Department Care Team (Late st Contact Info) Description 09/14/2023 1:30 PM CDT Telemedicine [facility] [address] [place] [address] Mynor Felix, PROCUREMENT COST COORDINATOR, MATCH UP PERSON [address] [place] [address] 09/26/2023 9:30 AM CDT Appointment [facility] [address] [place] [address] Frank Horowitz MD 3931 [facility] [address] [place] [address] 09/27/2023 1:45 PM CDT Appointment [facility] [address] [place] [address] [place] [address] [place] [address] 10/21/2023 10:00 AM CDT Appointment [facility] [address] [place] [address] [place] [address] [place] [address] 10/28/2023 2:20 PM CDT [facility] [address] [place] [address] Liz Briones, PROCUREMENT COST COORDINATOR, MATCH UP PERSON [address] [place] [address] 11/09/2023 1:00 PM CDT Appointment [facility] - Pulmonary Lab [address] [facility] [place] [address] 11/09/2023 2:15 PM CDT Appointment [facility] - Pulmonary [address] [facility] [place] [address] Nedra Jeffries MD [address] [place], [place] [address] Scheduled Procedures Name Priority Associated Diagnoses Date/Ti me HEMORRHOIDECTOMY External hemorrhoid Scheduled Referrals Name Type Priority Associated Diagnoses Orde r Schedule Gastroenterology Consult-Adults Referral Routine Cannabinoid hyperemesis syndrome Cyclic vomiting syndrome Ordered: 06/09/2023 documented as of this encounter Visit Diagnoses Diagnosis Cannabinoid hyperemesis syndrome- Primary Cyclic vomiting syndrome Persistent vomiting documented in this encounter Care Teams Circus Artist Relationship Specialty Start Date End Date Mynor Felix, PROCUREMENT COST COORDINATOR, MATCH UP PERSON [address] [place] [address] PCP - General Nurse Practitioner 12/31/22 documented as of this encounter
--- OUTSIDE RECORDS SUMMARY | 2023-09-08 22:36 | XMS_ITS | Encounter Summary ---
Author Organization [facility] Address [address] [address] Care Team Providers Care Diamond Sizer And Grader Name Role Phone Mynor Felix APRN, CNP Primary Care Provide r Reason for Visit * Reason Comments Prior Authorization For Medication OLANZ apine (ZYPREXA ZYDIS) 5 MG disintegrating tablet Encounter Details Date Type Department Care Team (Late st Contact Info) Description 05/24/2023 Telephone [facility] [address] [place], [place] [phone] Mynor Felix APRN, CNP [address] [place] [address] Prior Authorization For Medication (OLANZapine (ZYPREXA ZYDIS) 5 MG disintegrating tablet) Social History Tobacco Use Types Packs/Day Years [...] as of this encounter Nursing Notes * Lula Fischer - 06/01/2023 10:59 PM CDT OLANZapine (ZYPREXA ZYDIS) 5 MG disintegrating tablet is denied. Not covered due to diagnosis. Plan does not cover medication for nausea and vomiting. Clinicians, please follow next steps: To Appeal Click Appeal, you may find it under the more button on the toolbar. Enter any relevant information in the ???Note to Payer?? box. Click Accept (will auto submit to payer). To Change Medication Click Encounter on the toolbar. Order the new medication and close out of workspace. Do not discontinue the denied medication. To document decision, go back to your Prior Auth In Basket. Click ???PA (Clinician)?? Quick Action. Select Provider Changed Med option. Enter your site???s appropriate support pool and click Send. To Change Plan of Care Click Encounter on the toolbar. Update orders and close out of workspace. Do not discontinue the denied medication. To document decision, go back to your Prior Auth In Basket. Click ???PA (Clinician)?? Quick Action. Select ???Change Plan of Care option to document. Enter your site???s appropriate support pool and click Send. To Pay [id number] To document decision, Click ???PA (Clinician)?? Quick Action. Select Out of Pocket option. Enter your site???s appropriate support pool and click Send. * Yaima Zaragoza LPN - 05/24/2023 10:44 AM CDT Prior authorization has been initiated for OLANZapine (ZYPREXA ZYDIS) 5 MG disintegrating tablet . documented in this encounter Plan of Treatment Upcoming Encounters Date Type Department Care Team (Late st Contact Info) Description 09/14/2023 1:30 PM CDT Telemedicine [facility] [address] [place] [address] Mynor Felix, LEAD DATABASE ADMINISTRATOR, CRNA [address] [place] [address] 09/26/2023 9:30 AM CDT Appointment [facility] [address] [place] [address] Frank Horowitz MD [address] [facility] [address] [place] [address] 09/27/2023 1:45 PM CDT Appointment [facility] [address] [place] [address] [place] [address] [place] [address] 10/21/2023 10:00 AM CDT Appointment [facility] [address] [place] [address] [place] [address] [place] [address] 10/28/2023 2:20 PM CDT [facility] [address] [place] [address] Liz Briones, LEAD DATABASE ADMINISTRATOR, CRNA [address] [place] [address] 11/09/2023 1:00 PM CDT Appointment [facility] - [facility] Lab [address] [facility] [place] [address] 11/09/2023 2:15 PM CDT Appointment [facility] [address] [facility] [place] [address] Nedra Jeffries MD [address]31 [place] [address] Scheduled Procedures Name Priority Associated Diagnoses Date/Ti me HEMORRHOIDECTOMY External hemorrhoid documented as of this encounter Visit Diagnoses Not on filedocumented in this encounter Care Teams Diamond Sizer And Grader Relationship Specialty Start Date End Date Mynor Felix, LEAD DATABASE ADMINISTRATOR, CRNA [address] [place] [address] PCP - General Nurse Practitioner 12/31/22 documented as of this encounter
--- OUTSIDE RECORDS SUMMARY | 2023-09-08 22:36 | XMS_ITS | Encounter Summary ---
Author Organization [facility] Address [address], [place] [address] Care Team Providers Care Woodworking Machine Offbearer Name Role Phone Mynor Felix APRN, DISHTANK OPERATOR Primary Care Provide r Reason for Visit * Reason Comments REFERRAL REQUEST Encounter Details Date Type Department Care Team (Late st Contact Info) Description 08/04/[address] [facility] [address] [place] [address] Mynor Felix APRN, DISHTANK OPERATOR [address] [place] [address] REFERRAL REQUEST Social History Tobacco Use Types Packs/Day Years [...] of this encounter Nursing Notes * Mercy Ortega - 08/29/2023 8:18 AM CDT I have left a message with Leydi who is the caller requesting these referrals. Let her know that the dates requested for 05/22/2023 & 05/23/2023 are over 90 days old. [facility] does not allow any Restricted Recipient retro referrals past that 90 day deadline and would reject them if submitted. No action needed by Mynor Felix or clinic staff going forward. * Mynor Felix APRN, CNP - 08/26/2023 3:01 PM CDT Please relay this to the Managed Care team. Thanks. Mynor Felix APRN, GORDO * Mercy Land LPN - 08/26/2023 2:49 PM CDT Clinician: Review and advise Patient/geriatric care manager request: New Order: Referral Specific Request: Caller states she is needing the referrals for Yeimi Johnstonr with [facility] for date of 05/22/23 and Mila Ashton with [facility] from date 05/23/23. Please fax to [phone] [facility] Do not leave a voicemail. * Magda Salas - 08/25/2023 8:59 AM CDT Caller states she is needing the referrals for Yeimi Lojataker with [facility] for date of 05/22/23 and Mila Ashton with [facility] from date 05/23/23. Please fax to [phone] [facility] Do not leave a voicemail. * Cira Oliver - 08/05/2023 11:18 AM CDT Both of the providers that referrals are being requested for are with [facility]. It looks as though they were part of the team that saw patient when she was at [facility] in [place] from 02/05/2023 and discharged on 02/08/2023. The patient is a Restricted Recipient and we would not be able to do any referrals for these requests anyway as they are more than 90 days old. [facility] does not allow any Restricted Recipient retro referrals past that 90 day deadline and would reject them if submitted. I have reached out to Leydi who was the caller looking for these referrals. I had to leave a voicemail for her asking her to contact the [facility] Care department regarding this request. No action needed by Mynor Felix or clinic staff going forward. * Mercy Land LPN - 08/05/2023 9:42 AM CDT Please advise if patient is able to have a Retro referral since she is a restricted patient. Thanks! * Mynor Felix APRN, CNP - 08/05/2023 8:55 AM CDT I have no idea what this means or what organization these people are with. We may need to reach outto [facility] Care? * Mercy Land LPN - 08/05/2023 8:46 AM CDT Clinician: Review and advise Patient/geriatric care manager request: New Order: Referral Specific Request: Consult/Referral What specialty/service are you requesting a referral for? Internal medication What is the reason for your requested referral? Retro referral for insurance purposes When were you seen last for this concern? By whom? 02/06/23 02/07/23 Kerry Cox NP 2. 02/08/23 Mario Stanley Which provider or clinic do you need a referral or order for? Kerry Stanley Is the provider or clinic outside of [facility] or [facility]? Yes Does the patient have a Managed Care/[employer] plan? (check to see if patient has the Storyboard identifier)? No Additional comments (related to the above concern): Is it okay to leave detailed message on your voicemail? Yes * Kristin Pratima Marianna - 08/04/2023 1:00 PM CDT Consult/Referral What specialty/service are you requesting a referral for? Internal medication What is the reason for your requested referral? Retro referral for insurance purposes When were you seen last for this concern? By whom? 02/06/23 02/07/23 Kerry Cox PROGRAM ENGAGEMENT DIRECTOR 2. 02/08/23 Mario Stanley Which provider or clinic do you need a referral or order for? Kerry Stanley Is the provider or clinic outside of [facility] or [facility]? Yes Does the patient have a Managed Care/[employer] plan? (check to see if patient has the Storyboard identifier)? No Additional comments (related to the above concern): Is it okay to leave detailed message on your voicemail? Yes documented in this encounter Plan of Treatment Upcoming Encounters Date Type Department Care Team (Late st Contact Info) Description 09/14/2023 1:30 PM CDT Telemedicine [facility] [address] [place] [address] Mynor Felix, GEOSPATIAL IMAGERY INTELLIGENCE ANALYST, DISHTANK OPERATOR [address] [place] [address] 09/26/2023 9:30 AM CDT Appointment [facility] [address] [place], [place] [address] Frank Horowitz MD 39[address] [facility] [address] [place] [address] 09/27/2023 1:45 PM CDT Appointment [facility] [place] [phone] [place], [place] [phone] [place] [address] [place] [address] 10/21/2023 10:00 AM CDT Appointment [facility] [place] [address] [place], [place] [phone] [place] [address] [place] [place] [phone] 10/28/2023 2:20 PM CDT Telemedicine [facility] [address] [place], [place] [phone] Liz Briones, GEOSPATIAL IMAGERY INTELLIGENCE ANALYST, DISHTANK OPERATOR [address] [place], [place] [address] 11/09/2023 1:00 PM CDT Appointment [facility] [address] [facility] [place], [place] [address] 11/09/2023 2:15 PM CDT Appointment [facility] - Pulmonary [address] [place], [place] [phone] Nedra Jeffries MD [address] [place], [place] [address] Scheduled Procedures Name Priority Associated Diagnoses Date/Ti me HEMORRHOIDECTOMY External hemorrhoid documented as of this encounter Visit Diagnoses Not on filedocumented in this encounter Care Teams Woodworking Machine Offbearer Relationship Specialty Start Date End Date Mynor Felix, GEOSPATIAL IMAGERY INTELLIGENCE ANALYST, DISHTANK OPERATOR [address] [place] [phone] PCP - General Nurse Practitioner 12/31/22 documented as of this encounter
--- OUTSIDE RECORDS SUMMARY | 2023-09-08 22:36 | XMS_ITS | Encounter Summary ---
Author Organization [facility] Address [address] [place] [id number] Care Team Providers Care Land Economist Name Role Phone Mynor Felix APRN, VEHICLE COST ENGINEER Primary Care Provide r Reason for Referral * Procedure/Equipment (Routine) - Incomplete Specialty Diagnoses / Procedures Referred By Clarice da silva Referred To Contact Diagnoses External hemorrhoid Procedures Case Request OR - General/Vascular Surg: Excision external hemorrhoid/skin tags Josemanuel Rutledge MD [address] [place] [address] Referral ID Status Reason Start Date Expiration Date V isits Requested Visits Authorized [id number] Incomplete 06/30/2023 09/28/2024 1 1 Reason for Visit * Reason Comments CONSULT Encounter Details Date Type Department Care Team (Late st Contact Info) Description 06/30/2023 11:00 AM CDT Office Visit Specialty Center 3931 Colorectal Surgery [address] [facility] [address] [place], [place] [phone] Josemanuel Rutledge MD [address] [place], [place] [address] External hemorrhoid (Primary Dx) Social History Tobacco Use Types Packs/Day Years [...] as of this encounter Progress Notes * Valerie Joseph RN - 06/30/2023 11:00 AM CDT Reviewed surgical packet [id number] and post-operative cares for hemorrhoidectomy under regional anesthesia. No eating or drinking after midnight except water and Gatorade up to four hours prior to the procedure. Bowel prep is one fleets enema to be taken the morning of surgery, one hour prior to leaving for surgery. All questions answered and patient verbalized understanding. * Josemanuel Rutledge MD - 06/30/2023 11:00 AM CDT COLORECTAL SURGERY CLINIC NOTE CHIEF COMPLAINT: external hemorrhoids Primary care physician: Mynor Felix APRN, VEHICLE COST ENGINEER Referring Physician: Angelique Dowling HPI: Benigno Larson is a 27 y.o. female who presents to clinic today for surgical opinion regarding external hemorrhoids. The patient has a complex medical history. She has a history of IBS, alternating between constipation and diarrhea. She takes Levsin on an as-needed basis. She has a history of abdominal surgery for endometriosis. She is seeing me today because of some bothersome external hemorrhoids. She has external hemorrhoidal tissue that is quite bothersome. It can become quite inflamed, swollen, painful, throbbing. She sees blood but only rarely. She saw Angelique Dowling PA-C in March. Topical creams have not helped. She notes rare accidents to liquid stool and gas. Prior vaginal delivery with tearing/episiotomy. 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 The patient denies a family history of colon cancer. No prior colonoscopy Outpatient Medications Prior to Visit Medication Sig acetaminophen (TYLENOL) 325 MG tablet Take 2 Tablets (650 mg) by mouth. ALBUterol sulfate HFA 108 (90 Base) MCG/ACT inhaler Inhale 1-2 Puffs every 4 hours as needed. Alcohol Swabs (B-D SINGLE USE SWABS REGULAR) USE 1 PER DAY FOR TESTING BLOOD SUGAR aluminum chloride (DRYSOL) 20 % external solution Apply topically every evening. apply sparingly toskin with excessive sweating for 1-5 nights to get appropriate response aluminum chloride (DRYSOL) 20 % external solution Apply 1 Application topically daily at bedtime. azelastine (ASTELIN) 0.1 % nasal solution Place 1 [place] into both nostrils two times daily as needed (Postnasal drainage.). benzoyl peroxide (BENZOYL PEROXIDE WASH) 10 % wash liquid Apply 1 Application topically. budesonide-formoterol (SYMBICORT) 160-4.5 MCG/ACT inhaler Inhale 2 Puffs two times a day. clonazePAM (KLONOPIN) 0.5 MG disintegrating tablet Take 1 Tablet (0.5 mg) by mouth three times a day as needed. famotidine (PEPCID) 20 MG tablet Take 1 Tablet (20 mg) by mouth two times a day before meals. fluticasone propionate (FLONASE) 50 MCG/ACT nasal solution Place 2 Sprays into both nostrils daily. fluticasone-vilanterol (BREO ELLIPTA) 200-25 MCG/ACT inhaler Inhale 1 Dose daily. Rinse mouth/gargle after use guaiFENesin (ROBITUSSIN) 100 MG/5ML liquid Take 10 mL (200 mg) by mouth. (Patient not taking: Reported on 06/30/2023) hydrocortisone, Perianal, (PROCTOSOL-HC) 2.5 % rectal cream Insert rectally two times daily as needed. Indications: Inflamed Hemorrhoids hydrOXYzine HCl (ATARAX) 50 MG tablet Take 1 Tablet (50 mg) by mouth every 6 hours as needed for Itching or Anxiety (Nausea). hyoscyamine (LEVSIN) 0.125 MG tablet Take 1 Tablet (0.125 mg) by mouth three times a day as needed. ibuprofen (MOTRIN) 600 MG tablet Take 1 Tablet (600 mg) by mouth. lidocaine-prilocaine (EMLA) 2.5-2.5 % cream Apply topically every 24 hours as needed. lisdexamfetamine (VYVANSE) 50 MG capsule Take 1 Capsule (50 mg) by mouth daily. medical cannabis patient certified Take as instructed .. menthol-zinc oxide (CALMOSEPTINE) 0.44-20.6 % OINT Apply topically as needed. metFORMIN XR (GLUCOPHAGE XR) 500 MG 24 hour release tablet Take 3 Tablets (1,500 mg) by mouth everyevening with a meal. norethindrone (AYGESTIN) 5 MG tablet Take 1 Tablet (5 mg) by mouth daily. nortriptyline (PAMELOR) 10 MG capsule 10 mg qhs po x 1 week, then may increase to 20mg qhs po Indications: Neuropathic Pain, Trouble Sleeping nystatin (NYSTOP) 940207 UNIT/GM powder Apply topically. olopatadine (PATADAY) 0.2 % eye drop solution Place 1 Drop into both eyes daily. ondansetron (ZOFRAN-ODT) 4 MG disintegrating tablet Take 1 Tablet (4 mg) by mouth every 8 hours as needed. oxyCODONE (ROXICODONE) 5 MG immediate release tablet Take 1 Tablet (5 mg) by mouth every 8 hours asneeded for Pain. (Patient not taking: Reported on 06/30/2023) polyethylene glycol 3350 (GLYCOLAX) 17 GM/SCOOP powder Take 17 g by mouth. pregabalin (LYRICA) 100 MG capsule Take 1 Capsule (100 mg) by mouth three times a day. Indications:Fibromyalgia Syndrome, Neuropathic Pain promethazine (PHENERGAN) 25 MG tablet Take 1 Tablet (25 mg) by mouth every 6 hours as needed. riboflavin (VITAMINB-2) 100 MG tablet Take 2 Tablets (200 mg) by mouth two times a day. semaglutide-weight management (WEGOVY) 2.4 MG/0.75ML pen injection Inject 0.75 mL (2.4 mg) subcutaneously once a week. spironolactone (ALDACTONE) 50 MG tablet Take 3 Tablets (150 mg) by mouth daily. SUMAtriptan (IMITREX) 50 MG tablet Take 1 Tablet (50 mg) by mouth as needed. VRAYLAR 1.5 MG CAPS Take 1 Capsule (1.5 mg) by mouth daily. No facility-administered medications prior to visit. No Known Allergies Patient Active Problem List Diagnosis Depressive disorder Attention deficit hyperactivity disorder (ADHD) ([facility]) Acne Borderline personality disorder ([facility]) Chronic abdominal pain Cystic acne Dysmenorrhea Endometriosis Hidradenitis suppurativa Hirsutism Fatigue History of disease Migraine headache Mild persistent asthma ([facility]) Obesity (BMI 30.0-34.9) ([facility]) Neuralgia Neck pain Nicotine dependence, other tobacco product, uncomplicated ([facility]) Obstructive sleep apnea syndrome Chronic pelvic pain in female Polycystic ovary syndrome ([facility]) Chronic, continuous use of opioids NELLY (generalized anxiety disorder) ([facility]) Prediabetes Sleep-wake schedule disorder, delayed phase type Irritable bowel syndrome with both constipation and diarrhea Fatty (change of) liver, not elsewhere classified ([facility]) Cyclic vomiting syndrome Cannabinoid hyperemesis syndrome External hemorrhoid Past Medical History: Diagnosis Date Alcohol use disorder, moderate, in early remission (HR) 12/30/2014 Recommend no addictive substances be routinely prescribed Anxiety ([facility]) History of drug use 12/26/2014 Including cocaine, LSD, MDMA and synthetic THC Past Surgical History: Procedure Laterality Date laparoscopic excision of endometriosis 11/30/2022 OPERATIVE HYSTEROSCOPY 11/30/2022 Family History Problem Relation Age of Onset [...] Types: Marijuana Comment: Experimenting in the past COMPLETE REVIEW OF SYSTEMS - Pertinent items are noted in HPI. OBJECTIVE: There were no vitals taken for this visit. Estimated body mass index is 31.18 kg/m?? as calculated from the following: Height as of 04/01/23: 5' 1 (154.9 cm). Weight as of 06/09/23: 165 lb (03986 g). General: Alert, Oriented, NAD Head: Normocephalic. Eyes: PERRLA, full EOM Respiratory: Normal respiratory effort. Musculoskeletal: Gait is appropriate. Full ROM Neurological: No focal defects Psych: Affect is normal, patient is appropriate Rectal Exam: Rectal examination performed in the left lateral position, with Valerie Joseph RN present as a wharf builder Upon spreading her buttocks apart, she is noted to have a large external hemorrhoid/skin tag in theanterior midline. There is also a moderate size skin tag in the left posterior quadrant. No fissureor fistula. No prolapsing hemorrhoidal tissue. Digital exam and anoscopy are deferred. (exam with Angelique Dowling PA-C identified grade 1 internal hemorrhoids in multiple quadrants.) ASSESSMENT: 1. External hemorrhoid PLAN: Given the patient's pain tolerance and her preference, we elected not to perform excision of this external hemorrhoidal skin tag in the clinic. Reviewed options for non operative management verses excision in the operating room. She prefers to have this tissue removed. Reviewed the possibility of postoperative pain, difficulty with wound healing, recurrent skin tag, scarring. 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 In this case we would need to have this set up with 1 of my partners. The patient was counseled on my findings and we reviewed the diagnosis of both internal and external hemorrhoids. We reviewed the anatomy of internal and external hemorrhoids. Reviewed the possible treatment options. Reviewed office based procedures and surgical intervention. Specifically reviewed h emorrhoidectomy in the outpatient surgical center, reviewing expectations for recovery and healing.We reviewed the possibility of postoperative bleeding, pain, infection, fecal incontinence, recurrent hemorrhoids. Josemanuel Rutledge MD Colon and Rectal Surgery documented in this encounter Plan of Treatment Upcoming Encounters Date Type Department Care Team (Late st Contact Info) Description 09/14/2023 1:30 PM CDT Telemedicine [facility] Medicine [address] [place] [address] Mynor Felix, ROLL TENSION TESTER, VEHICLE COST ENGINEER [address] [place] [address] 09/26/2023 9:30 AM CDT Appointment [facility] [address] [place] [address] Frank Horowitz MD [address] [facility] [address] [place] [address] 09/27/2023 1:45 PM CDT Appointment [facility] [address] [place] [address] [place] [address] [place] [address] 10/21/2023 10:00 AM CDT Appointment [facility] [address] [place], [place] [phone] [place] [address] [address] [place] [address] 10/28/2023 2:20 PM CDT Telemedicine [facility] [address] [place], [place] [address] Liz Briones, ROLL TENSION TESTER, VEHICLE COST ENGINEER [address] [place], [place] [address] 11/09/2023 1:00 PM CDT Appointment [facility] [address] [place], [place] [address] 11/09/2023 2:15 PM CDT Appointment [facility] [address] [place], [place] [address] Nedra Jeffries MD [address] [place], [place] [phone] Scheduled Procedures Name Priority Associated Diagnoses Date/Ti me HEMORRHOIDECTOMY External hemorrhoid documented as of this encounter Visit Diagnoses Diagnosis External hemorrhoid- Primary External hemorrhoids without mention of complication documented in this encounter Care Teams Land Economist Relationship Specialty Start Date End Date Kuenzel, Mynor J, ROLL TENSION TESTER, VEHICLE COST ENGINEER [address] [place] [address] PCP - General Nurse Practitioner 12/31/22 documented as of this encounter
--- OUTSIDE RECORDS SUMMARY | 2023-09-08 22:36 | XMS_ITS | Encounter Summary ---
Author Organization [facility] Address [address] [place] [address] Care Team Providers Care Retail Planner Name Role Phone Mynor Felix APRN, CNP Primary Care Provide r Encounter Details Date Type Department Care Team (Late st Contact Info) Description 05/23/2023 E-Visit [address] [address] Mynor Felix APRN, BICYCLE REPAIRER [address] [place] [phone] Social History Tobacco Use Types Packs/Day Years [...] Info) Description 09/14/2023 1:30 PM CDT Telemedicine [address] [address] Mynor Felix APRN, BICYCLE REPAIRER [address] [place] [phone] 09/26/2023 9:30 AM CDT Appointment [facility] [address] [place] [address] Frank Horowitz MD [address] [facility] [address] [place] [address] 09/27/2023 1:45 PM CDT Appointment [facility] [address] [place] [address] [place] [address] [place] [address] 10/21/2023 10:00 AM CDT Appointment [facility] [address] [place] [address] [place] [address] [place] [address] 10/28/2023 2:20 PM CDT Telemedicine [facility] [address] [place] [address] Liz Briones, BREAKER UNIT ASSEMBLER, BICYCLE REPAIRER [address] [place] [address] 11/09/2023 1:00 PM CDT Appointment [facility] [address] [place], [place] [address]239 11/09/2023 2:15 PM CDT Appointment [facility] [address] [place], [place] [address] Nedra Jeffries MD [address] [place] [address] Scheduled Procedures Name Priority Associated Diagnoses Date/Ti me HEMORRHOIDECTOMY External hemorrhoid documented as of this encounter Visit Diagnoses Not on filedocumented in this encounter Care Teams Retail Planner Relationship Specialty Start Date End Date Mynor Felix, BREAKER UNIT ASSEMBLER, BICYCLE REPAIRER [address] [place] [address] PCP - General Nurse Practitioner 12/31/22 documented as of this encounter
--- OUTSIDE RECORDS SUMMARY | 2023-09-08 22:36 | XMS_ITS | Encounter Summary ---
Author Organization [facility] Address [address] [address] Care Team Providers Care Lieutenant Fire Fighter Name Role Phone Mynor Felix APRN, CNP Primary Care Provide r Encounter Details Date Type Department Care Team (Late st Contact Info) Description 06/09/2023 E-Visit [address] [address] Mynor Felix APRN, TURN SUPERVISOR [address] [place] [phone] Social History Tobacco Use Types Packs/Day Years [...] Info) Description 09/14/2023 1:30 PM CDT Telemedicine [address] [address] Mynor Felix APRN, TURN SUPERVISOR [address] [place] [phone] 09/26/2023 9:30 AM CDT Appointment [facility] [address] [place] [address] Frank Horowitz MD [address] [facility] [address] [place] [address] 09/27/2023 1:45 PM CDT Appointment [facility] [address] [place] [address] [place] [address] [place] [address] 10/21/2023 10:00 AM CDT Appointment [facility] [address] [place] [address] [place] [address] [place] [address] 10/28/2023 2:20 PM CDT Telemedicine [facility] [address] [place] [address] Liz Briones, PHYSICIANS ASSISTANT, TURN SUPERVISOR [address] [place] [address] 11/09/2023 1:00 PM CDT Appointment [facility] [address] [place], [place] [address] 11/09/2023 2:15 PM CDT Appointment [facility] [address] [place], [place] 8[address] Nedra Jeffries MD [address] [place] [address] Scheduled Procedures Name Priority Associated Diagnoses Date/Ti me HEMORRHOIDECTOMY External hemorrhoid documented as of this encounter Visit Diagnoses Not on filedocumented in this encounter Care Teams Lieutenant Fire Fighter Relationship Specialty Start Date End Date Mynor Felix, PHYSICIANS ASSISTANT, TURN SUPERVISOR [address] [place] [address] PCP - General Nurse Practitioner 12/31/22 documented as of this encounter
--- OUTSIDE RECORDS SUMMARY | 2023-09-08 22:36 | XMS_ITS | Encounter Summary ---
Author Organization Counts include 234 beds at the [facility] Address [address], [place] [address] Care Team Providers Care Personnel Counselor Name Role Phone Mynor Felix APRN, DIRECTOR OF SEARCH ENGINE MARKETING Primary Care Provide r Encounter Details Date Type Department Care Team (Late st Contact Info) Description 06/23/2023 radha Casiano [phone] Social History Tobacco Use Types Packs/Day Years [...] as of this encounter Progress Notes * FAMILY MEDICINERADHA PROVIDER - 06/23/2023 4:21 PM CDT Radha Treatment Plan Diagnosis Ear Infection Visit Date June 23, 2023 Benigno Larson Date of : 95 Provider Kerry Whittington, Nurse Practitioner Note From Provider Benigno Garcia! Thanks for using [facility] today. So sorry to hear you aren't feeling well! Please besure to read through the treatment plan I've put together for you below, as this has additional information and instructions. Because you've reported a history of antibiotic-induced yeast infections,I've also included a prescription for an anti-fungal to have on hand in the event you develop symptoms of a yeast infection. This shouldn't be used to prevent a yeast infection, but can be used if you develop symptoms. Request a follow up with any questions or concerns. Hope you're on the mend soon!! Take good care. -YOLIS Payne Treatment Plan To help reduce your ear pain, I recommend a combination of pukg-jtk-skuvnrg pain medications. Follow the specificinstructions below in Your Pain Relief Strategy and your pain should improve within 24hours.Ear infections usually clear up on their own without antibiotics but, given your history, I also included an antibioticto use if needed. If your pain doesn't improve or worsens while following this plan, start taking your antibiotic.I also prescribed an antifungal medication in case you develop a yeast infection.I sent your prescriptions to [facility], which you can picker and packer if needed. Also, it?? normal to experience earsymptoms such as popping, fullness or pressure for several weeks while the fluid slowly drains from your ear.If your ear pain hasn't improved in 3 days, or if you have questions, select Help to Requesta Follow-up and we'll discuss next steps. Order(s) amoxicillin 500 mg capsule Take 2 capsule by mouth three times a day as directed for 7 days Note: Refills: None terconazole 0.8% cream Insert 5 gram into vagina once a day for 3 days Note: Refills: 1 Sent To: [facility] [address] [place] [id number] Treatment Plan Self Care Tip Topics When to Use Your Antibiotic Your Pain Relief Strategy - Ibuprofen with Supportive Acetaminophen How to Use Your Nasal Steroids Yeast Infection Prescription What to Expect The right combination and dose of frtc-cpj-rflpyue medications can safely and effectively reduce ear infection symptoms.If you follow the recommendations I made on the Treatment tab, your ear pain should be gone within 3 days. You may experienceear symptoms such as popping, fullness or pressure forseveral weeks while the fluid drains from your ear. If yourear pain isn?? gone within 3 days, or ifyou have questions, select Help to Request a Follow-up andwe'll discuss next steps. What to Watch Out For Give us a call if you experience: ??? Increasing congestion ??? Pain and pressure in the face ??? New headache ??? Difficulty swallowing or worsening sore throat ??? Stiff neck If you develop any of the following symptoms, you need to be seen in-person at a clinic or urgent care within 24 hours. ??? Sudden or complete hearing loss ??? Bloody ear drainage ??? Pain or tenderness when pushing on the bony part of the skull behind your ear ??? Fever that doesn't improve within 2 hours of taking fever-reducing medications ??? Severe ear pain that suddenly stops followed by ear drainage ??? Loss of balance ??? Double vision My Conditions, Orders, Allergies as of June 23, 2023 Standard condition list Asthma Polycystic Ovarian Syndrome (PCOS) Sleep Apnea Endometriosis neuralgia Irritable Bowel Syndrome cyclic vomiting syndrome Liver Disease Current orders terconazole (terconazole) amoxicillin (amoxicillin) metformin (metformin) Reglan (metoclopramide HCl) Vyvanse (lisdexamfetamine) Zofran (ondansetron HCl) pregabalin (pregabalin) promethazine (promethazine) famotidine (famotidine) spironolactone (spironolactone) Klonopin (clonazepam) hydroxyzine HCl (hydroxyzine HCl) Allergies None [facility] Information [facility] We are an online clinic open 06/09. If you have any questions or comments about this visit, please call or email [email or web address] documented in this encounter Plan of Treatment Upcoming Encounters Date Type Department Care Team (Late st Contact Info) Description 09/14/2023 1:30 PM CDT Telemedicine [facility] [address] [place], [place] [address] Mynor Felix, MACHINE WELT BUTTER, DIRECTOR OF SEARCH ENGINE MARKETING [address] [place] [address] 09/26/2023 9:30 AM CDT Appointment [facility] [address] [place] [address] Frank Horowitz MD [address] [facility] [address] [place] [address] 09/27/2023 1:45 PM CDT Appointment [facility] [place] [address] [place], [place] [phone] [place] [address] [place] [address] 10/21/2023 10:00 AM CDT Appointment [facility] [place] [address] [place], [place] [phone] [place] [address] [place] [address] 10/28/2023 2:20 PM CDT Telemedicine [facility] [address] [place], [place] [address] Liz Briones, MACHINE WELT BUTTER, DIRECTOR OF SEARCH ENGINE MARKETING [address] [place], [place] [address] 11/09/2023 1:00 PM CDT Appointment [facility] [address] [place], [place] [phone] 11/09/2023 2:15 PM CDT Appointment [facility] [address] [place], [place] [address] Nedra Jeffries MD [address] [place], [place] [address] Scheduled Procedures Name Priority Associated Diagnoses Date/Ti me HEMORRHOIDECTOMY External hemorrhoid documented as of this encounter Visit Diagnoses Diagnosis Otitis media, unspecified, unspecified ear documented in this encounter Care Teams Personnel Counselor Relationship Specialty Start Date End Date Mynor Felix, MACHINE WELT BUTTER, DIRECTOR OF SEARCH ENGINE MARKETING [address] [place] [address] PCP - General Nurse Practitioner 12/31/22 documented as of this encounter
--- OUTSIDE RECORDS SUMMARY | 2023-09-08 22:36 | XMS_ITS | Encounter Summary ---
Author Organization [facility] Address [address], [place] [address] Care Team Providers Care Syruper Name Role Phone Mynor Felix APRN, CNP Primary Care Provide r Reason for Visit * Reason Comments Follow-up, NOS Entered automaticall y based on patient selection in [employer]. Encounter Details Date Type Department Care Team (Late Contact Info) Description 06/10/2023 11:00 AM CDT E-Visit [address] [address] Mynor Felix APRN, CNP [address] [place] [id number] Chief Comp: Follow-up, NOS Social History Tobacco Use Types Packs/Day Years [...] Encounters Date Type Department Care Team (Late Contact Info) Description 09/14/2023 1:30 PM CDT Telemedicine [address] [id number] Mynor Felix, MISHA, SEARCH MARKETING COORDINATOR [address] [place] [address] 09/26/2023 9:30 AM CDT Appointment [facility] [address] [place] [address] [place] [address] [place] [address] [address] [place] [address] 09/27/2023 1:45 PM CDT Appointment [facility] [address] [place] [address] [place] [address] [place] [address] 10/21/2023 10:00 AM CDT Appointment [facility] [address] [place] [address] [place] [address] [place] [address] 10/28/2023 2:20 PM CDT Telemedicine [facility] [address] [place] [address] Liz Briones, NET WEB DEVELOPER, SEARCH MARKETING COORDINATOR [address] [place] [address] 11/09/2023 1:00 PM CDT Appointment [facility] [address] [facility] [place], [place] [address] 11/09/2023 2:15 PM CDT Appointment [facility] [address] [facility] [place] [address] Nedra Jeffries MD [address] [place] [address] Scheduled Procedures Name Priority Associated Diagnoses Date/Ti me HEMORRHOIDECTOMY External hemorrhoid documented as of this encounter Visit Diagnoses Not on filedocumented in this encounter Care Teams Syruper Relationship Specialty Start Date End Date Mynor Felix APRN, SEARCH MARKETING COORDINATOR [address] [place] [address] PCP - General Nurse Practitioner 12/31/22 documented as of this encounter
--- OUTSIDE RECORDS SUMMARY | 2023-09-08 22:36 | XMS_ITS | Encounter Summary ---
Author Organization [facility] Address [address], [place] [address] Care Team Providers Care Die Designer Name Role Phone Mynor Felix APRN, CNP Primary Care Provide r Reason for Visit * Reason Comments QUESTIONS, GENERAL Entered automaticall y based on patient selection in [employer]. Encounter Details Date Type Department Care Team (Late Contact Info) Description 06/23/2023 3:00 PM CDT E-Visit [address] [address] Mynor Felix APRN, GORDO [address] [place] [id number] Chief Comp: QUESTIONS, GENERAL Social History Tobacco Use Types Packs/Day Years [...] Info) Description 09/14/2023 1:30 PM CDT Telemedicine [address] [address] Mynor Felix APRN, WEB SERVICES PROFESSIONAL [address] [place] [address] 09/26/2023 9:30 AM CDT Appointment [facility] [address] [place] [address] [place] [address] [place] [address] [address] [place], [place] [address] 09/27/2023 1:45 PM CDT Appointment [facility] [address] [place] [address] [place] [address] [place] [address] 10/21/2023 10:00 AM CDT Appointment [facility] [address] [place] [address] [place] [address] [place] [address] 10/28/2023 2:20 PM CDT Telemedicine [facility] [address] [place], [place] [address] Liz Briones, MISHA, WEB SERVICES PROFESSIONAL [address] [place], [place] [address] 11/09/2023 1:00 PM CDT Appointment [facility] [address] [place] [address] 11/09/2023 2:15 PM CDT Appointment [facility] [address] [place] [id number] Nedra Jeffries MD [address] [place], [place] [address] Scheduled Procedures Name Priority Associated Diagnoses Date/Ti me HEMORRHOIDECTOMY External hemorrhoid documented as of this encounter Visit Diagnoses Not on filedocumented in this encounter Care Teams Die Designer Relationship Specialty Start Date End Date Mynor Felix, MISHA, WEB SERVICES PROFESSIONAL [address] [place] [address] PCP - General Nurse Practitioner 12/31/22 documented as of this encounter
[2023-09-08 22:45] VITALS: PULSE 72; O2SAT 98
[2023-09-08 23:00] VITALS: PULSE 78; O2SAT 99
[2023-09-08 23:15] VITALS: PULSE 74; O2SAT 100
[2023-09-09] MEDS: OLANZapine 5 MG/ML inj IM (00:18)
[2023-09-09 00:25] VITALS: PULSE 72
== END 2023-09-09 00:27 | disposition home or self-care (01) ==
PROVIDERS: Emergency Provider Family Medicine
DX: R11.15 Cyclical vomiting syndrome unrelated to migraine (principal)
CPT/HCPCS: 36415; 80048; 80076; 80143; 80179; 80306; 81001; 81025; 83605; 85025; 96372; 99283; 99284; J7030

== ENCOUNTER 2024-04-14 10:15 | Emergency (ER) | payer BC, SELFPAY ==
--- OUTSIDE RECORDS SUMMARY | 2024-04-14 10:18 | XMS_ITS | Encounter Summary ---
Author Organization [facility] Address [address] [place] [id number] Care Team Providers Care Firearms Assembly Supervisor Name Role Phone No Ref-Primary, Physician Primary Care Provider Reason for Visit * Reason Comments Nausea & Vomiting Encounter Details Date Type Department Care Team (Late st Contact Info) Description 04/12/2024 12:31 PM SWIMMING POOL SERVICEPERSON - 04/12/2024 4:50 PM SWIMMING POOL SERVICEPERSON Emergency [facility] Emergency Dept [address] [place] [id number] Zak Baptiste MD [facility] [address] [place] [address] Generalized abdominal pain; Nausea and vomiting, unspecified vomiting type Discharge Disposition: Home or Self Care Social History Tobacco Use Types Packs/Day Years Used Date Smoking Tobacco: Some Days Alcohol Use Standard Drinks/Week Comments Yes 0 (1 standard drink = 0.6 oz pur e alcohol) Adolescent Education Answer Date Record ed Getting School Help Needed Not on file 02/02 Comments No Sex and Gender Information Value Date Recorded Sex Assigned at Not on file Legal Sex Female 2:59 PM CDT Gender Identity Not on file Sexual Orientation Not on file documented as of this encounter Last Filed Vital Signs Vital Sign Reading Time Taken Comments Blood Pressure 111/76 04/12/2024 4:47 PM SWIMMING POOL SERVICEPERSON Pulse 90 04/12/2024 4:47 PM SWIMMING POOL SERVICEPERSON Temperature 36.4 C (97.5 F) 04/12/2024 11:24 AM SWIMMING POOL SERVICEPERSON Respiratory Rate 18 04/12/2024 1:45 PM SWIMMING POOL SERVICEPERSON Oxygen Saturation 97% 04/12/2024 4:47 PM SWIMMING POOL SERVICEPERSON Inhaled Oxygen Concentration - - Weight 76.5 kg (168 lb 10.4 oz) 025 11:24 AM SWIMMING POOL SERVICEPERSON Height 160 cm (5' 3) 04/12/2024 11:24 AM SWIMMING POOL SERVICEPERSON Body Mass Index 29.88 04/12/2024 11:24 AM SWIMMING POOL SERVICEPERSON documented in this encounter Discharge Instructions * Discharge Instructions* Zak Baptiste MD - 04/12/2024 4:15 PM SWIMMING POOL SERVICEPERSON Discharge Instructions Abdominal Pain Abdominal pain can be caused by many things. Your evaluation today does not show the exact cause for your pain. Your doctor today has decided that it is unlikely your pain is due to a life threatening problem, or a problem requiring surgery or hospital admission. Sometimes those problems cannot be found right away, so it is very important that you follow up as directed. Sometimes only the changes which occur over time allow the cause of your pain to be found. Return to the Emergency Department for a recheck in 8-12 hours if your pain continues. If your paingets worse, changes in location, or feels different, return to the Emergency Department right away. ADULTS: Return to the Emergency Department right away if: You get an oral temperature above 102oF or as directed by your doctor. You have blood in your stools (bright red or black, tarry stools). You keep throwing up or can???t drink liquids. You see blood when you throw up. You can???t have a bowel movement or you can???t pass gas. Your stomach gets bloated or bigger. Your skin or the whites of your eyes look yellow. You faint. You have bloody, frequent or painful urination. You have new symptoms or anything that worries you. CHILDREN: Return to the Emergency Department right away if your child has any of the above-listed symptoms or the following: Pushes your hand away or screams/cries when his/her belly is touched. You notice your child is very fussy or weak. Your child is very tired and is too tired to eat or drink. Your child is dehydrated. Signs of dehydration can be: Your infant has had no wet diapers in 4-5 hours. Your older child has not passed urine in 6-8 hours. Your infant or child starts to have dry mouth and lips, or no saliva or tears. WOMEN: Return to the Emergency Department right away if you have any of the above-listed symptoms or the following: You have bleeding, leaking fluid or passing tissue from the vagina. You have worse pain or cramping, or pain in your shoulder or back. You have vomiting that will not stop. You have painful or bloody urination. You have a temperature of 100oF or more. Your baby is not moving as much as usual. You faint. You get a bad headache with or without eye problems and abdominal pain. You have a convulsion or seizure. You have unusual discharge from your vagina and abdominal pain. Abdominal pain is pretty common during . Your pain may or may not be related to your . You should follow-up closely with your OB doctor so they can evaluate you and your baby. Untilyou follow-up with your regular doctor, do the following: Avoid sex and do not put anything in your vagina. Drink clear fluids. Only take medications approved by your doctor. MORE INFORMATION: Appendicitis: A possible cause of abdominal pain in any person who still has their appendix is acute appendicitis. Appendicitis is often hard to diagnose. Testing does not always rule out early appendicitis or other causes of abdominal pain. Close follow-up with your doctor and re-evaluations may be needed to figure out the reason for your abdominal pain. Follow-up: It is very important that you make an appointment with your clinic and go to the appointment. If you do not follow-up with your primary doctor, it may result in missing an important development which could result in permanent injury or disability and/or lasting pain. If there is any problem keeping your appointment, call your doctor or return to the Emergency Department. Medications: Take your medications as directed by your doctor today. Before using [id number]-[id number] medications, ask your doctor and make sure to take the medications as directed. If you have any questions about medications, ask your doctor. Diet: Resume your normal diet as much as possible, but do not eat fried, fatty or spicy foods whileyou have pain. Do not drink alcohol or have caffeine. Do not smoke tobacco. Probiotics: If you have been given an antibiotic, you may want to also take a probiotic pill or eatyogurt with live cultures. Probiotics have good bacteria to help your intestines stay healthy. Studies have shown that probiotics help prevent diarrhea and other intestine problems (including C. diff infection) when you take antibiotics. You can buy these without a prescription in the pharmacy section of the store. If you were given a prescription for medicine here today, be sure to read all of the information (including the package insert) that comes with your prescription. This will include important information about the medicine, its side effects, and any warnings that you need to know about. The pharmacist who fills the prescription can provide more information and answer questions you may have about the medicine. If you have questions or concerns that the pharmacist cannot address, please call or return to the Emergency Department. Opioid Medication Information Pain medications are among the most commonly prescribed medicines, so we are including this information for all our patients. If you did not receive pain medication or get a prescription for pain medicine, you can ignore it. You may have been given a prescription for an opioid (narcotic) pain medicine and/or have received a pain medicine while here in the Emergency Department. These medicines can make you drowsy or impaired. You must not drive, operate dangerous equipment, or engage in any other dangerous activities while taking these medications. If you drive while taking these medications, you could be arrested forDUI, or driving under the influence. Do not drink any alcohol while you are taking these medications. Opioid pain medications can cause addiction. If you have a history of chemical dependency of any type, you are at a higher risk of becoming addicted to pain medications. Only take these prescribed medications to treat your pain when all other options have been tried. Take it for as short a time andas few doses as possible. Store your pain pills in a secure place, as they are frequently stolen and provide a dangerous opportunity for children or visitors in your house to start abusing these powerful medications. We will not replace any lost or stolen medicine. As soon as your pain is better, you should flush all your remaining medication. Many prescription pain medications contain Tylenol?? (acetaminophen), including Vicodin??, Tylenol #3??, [place]??, Lortab??, and Percocet??. You should not take any extra pills of Tylenol?? if you areusing these prescription medications or you can get very sick. Do not ever take more than 3000 mg of acetaminophen in any 24 hour period. All opioids tend to cause constipation. Drink plenty of water and eat foods that have a lot of fiber, such as fruits, vegetables, prune juice, apple juice and high fiber cereal. Take a laxative if you don???t move your bowels at least every other day. Miralax??, Milk of Magnesia, Colace??, or Senna?? can be used to keep you regular. Remember that you can always come back to the Emergency Department if you are not able to see your regular doctor in the amount of time listed above, if you get any new symptoms, or if there is anything that worries you. MING POOL SERVICEPERSON documented in this encounter Medications at Time of Discharge hydrOXYzine HCl (ATARAX) 25 MG tablet Take 1 tablet (25 mg) by mouth 3 times daily as needed for other (nausea). 15 tablet 04/12/2024 acetaminophen (TYLENOL) 325 MG tabletIndication s:Nausea and vomiting, unspecified vomiting type Take 2 tablets (650 mg) by mouth every 4 hours as needed for mild pain or other (and adjunct with moderate or severe pain or per patient request) 02/07/2023 albuterol (PROAIR HFA/PROVENTIL HFA/VENTOLIN HFA) 108 (90 Base) MCG/ACT inhaler Inhale 2 puffs into the lungs every 6 hours as needed for shortness of breath, wheezing or cough aluminum chloride (DRYSOL) 20 % external solution Apply topically at bedtime 07/19/2022 azelastine (ASTELIN) 0.1 % nasal spray [place] 1 spray into both nostrils 2 times daily budesonide-formo terol (SYMBICORT) 160-4.5 MCG/ACT Inhaler Inhale 2 puffs into the lungs 2 times daily cariprazine (VRAYLAR) 1.5 MG capsule Take 1.5 mg by mouth daily clonazePAM (KLONOPIN) 0.5 MG ODT Take 1 tablet (0.5 mg) by mouth 3 times daily as needed for anxiety 09/13/2023 famotidine (PEPCID) 20 MG tablet Take 20 mg by mouth 2 times daily fluticasone (FLONASE) 50 MCG/ACT nasal spray [place] 1 spray into both nostrils daily guaiFENesin (ROBITUSSIN) 20 mg/mL liquidIndication s:Nausea and vomiting, unspecified vomiting type Take 10 mLs (200 mg) by mouth every 4 hours as needed for cough 02/07/2023 hydrocortisone, Perianal, (ANUSOL-HC) 2.5 % cream Place rectally 2 times daily as needed 04/14/2023 hydrOXYzine HCl (ATARAX) 25 MG tablet Take 25-50 mg by mouth 3 times daily as needed for itching ibuprofen (ADVIL/MOTRIN) 600 MG tabletIndication s:Nausea and vomiting, unspecified vomiting type Take 1 tablet (600 mg) by mouth every 6 hours as needed for moderate pain 02/07/2023 lisdexamfetamine (VYVANSE) 60 MG capsule Take 60 mg by mouth every morning LORazepam (ATIVAN) 0.5 MG tabletIndication s:Cyclical vomiting,Anxiety Take 1 tablet (0.5 mg) by mouth every 4 hours as needed for anxiety 10 tablet 09/13/2023 menthol-zinc oxide (CALMOSEPTINE) 0.44-20.6 % OINT ointment Apply topically as needed 04/14/2023 metFORMIN (GLUCOPHAGE XR) 500 MG 24 hr tablet Take 500 mg by mouth 3 times daily metoclopramide (REGLAN) 10 MG tabletIndication s:Nausea and vomiting, unspecified vomiting type Take 1 tablet (10 mg) by mouth 4 times daily as needed (nauesa, vomiting) 30 tablet 02/07/2023 nortriptyline (PAMELOR) 10 MG capsule Take 10 mg by mouth at bedtime nystatin (MYCOSTATIN) 273901 UNIT/GM external powder Apply topically 2 times daily as needed OLANZapine (ZYPREXA) 2.5 MG tabletIndication s:Cyclical vomiting Take 1 tablet (2.5 mg) by mouth at bedtime 5 tablet 09/13/2023 olopatadine (PATADAY) 0.2 % ophthalmic solution Place 1 drop into both eyes daily 05/05/2023 ondansetron (ZOFRAN ODT) 4 MG ODT tab Take 4 mg by mouth every 8 hours as needed for nausea polyethylene glycol (MIRALAX) 17 GM/Dose powder Take 1 Capful by mouth daily as needed for constipation pregabalin (LYRICA) 50 MG capsule Take 50 mg by mouth daily Semaglutide-Weig ht Management (WEGOVY) 2.4 MG/0.75ML pen Inject 2.4 mg subcutaneously once a week on Tuesdays spironolactone (ALDACTONE) 50 MG tablet Take 50 mg by mouth 3 times daily SUMAtriptan (IMITREX) 50 MG tablet Take 50 mg by mouth at onset of headache for migraine documented as of this encounter ED Notes * Zak Baptiste MD - 04/12/2024 1:01 PM CST Emergency Department Note History of Present Illness Chief Complaint Nausea & Vomiting HPI Benigno Larson is a 28 year old female with history of cyclic vomiting syndrome who presents to the ED for nausea and vomiting. The patient reports that she has been vomiting constantly for 3 days with abdominal pain as well. She complains that she can't keep anything down. She has tried treatingher vomiting with anti nausea medication with no relief. The patient adds that she passes gas rarely and noticed decrease urine output. She hasn't had a bowl movement in 3 days. The patient notes that she smokes medical marijuana but she hasn't used it in days. He adds that her history of cyclical vomiting started before she began smoking marijuana. Independent Historian None Review of External Notes I reviewed the urgent care note from 03/16/24. Patient was on amoxicillin I reviewed the GI note from 10/28/23. Patient stopped her Weygovy. History of IBS and cannabis hyperemesis syndrome. Past Medical History Medical History and Problem List Depression Anxiety PTSD Asthma Bipolar disorder Endometriosis Alcohol abuse in remission ADHD Overdose Hyperthyroidism IBS Cyclic vomiting syndrome Chronic abdominal pain Chronic opioid use Cannabis hyperemesis syndrome Scoliosis Migraines Polycystic ovarian syndrome Obstructive sleep apnea Fatty liver Medications Zepbound Adderall Omeprazole Metformin Vyvanse Lyrica Pepcid Reglan Zyprexa Pemalor Surgical History Hysteroscopy Physical Exam Patient Vitals for the past 24 hrs: BP Temp Temp src Pulse Resp SpO2 Height Weight 04/12/24 1647 111/76 -- -- 90 -- 97 % -- -- 04/12/24 1345 -- -- -- 67 18 99 % -- -- 04/12/24 1335 (!) 125/91 -- -- 67 18 95 % -- -- 04/12/24 1124 117/84 97.5 ??F (36.4 ??C) Temporal 109 20 96 % 1.6 m (5' 3) 76.5 kg (168 lb 10.4 oz) Physical Exam General: No respiratory distress. Vomiting. Cardiovascular: Good cap refill. Respiratory: Breathing non labored. Musculoskeletal: No tenderness. No bony deformity. Skin: No rashes or petechiae Neurologic: non focal Psychiatric: Appropriate Diagnostics Lab Results Labs Ordered and Resulted from Time of ED Arrival to Time of ED Departure COMPREHENSIVE METABOLIC PANEL - Abnormal Result Value Sodium 133 (*) Potassium 3.4 Carbon Dioxide (CO2) 22 Anion Gap 24 (*) Urea Nitrogen 16.8 Creatinine 0.96 (*) GFR Estimate 82 Calcium 10.3 Chloride 87 (*) Glucose 113 (*) Alkaline Phosphatase 94 AST 18 ALT 22 Protein Total 9.1 (*) Albumin 4.7 Bilirubin Total 0.5 CBC WITH PLATELETS AND DIFFERENTIAL - Abnormal WBC Count 18.5 (*) RBC Count 5.47 (*) Hemoglobin 16.7 (*) Hematocrit 49.8 (*) MCV 91 MCH 30.5 MCHC 33.5 RDW 13.6 Platelet Count 425 MANUAL DIFFERENTIAL - Abnormal % Neutrophils 77 % Lymphocytes 16 % Monocytes 7 % Eosinophils 0 % Basophils 0 Absolute Neutrophils 14.2 (*) Absolute Lymphocytes 3.0 Absolute Monocytes 1.3 Absolute Eosinophils 0.0 Absolute Basophils 0.0 RBC Morphology Confirmed RBC Indices Platelet Assessment Value: Automated Count Confirmed. Platelet morphology is normal. LIPASE - Normal Lipase 32 HCG QUALITATIVE - Normal hCG Serum Qualitative Negative Imaging No orders to display Independent Interpretation None ED Course Medications Administered Medications sodium chloride 0.9% BOLUS 1,000 mL (0 mLs Intravenous Stopped 04/12/24 1442) LORazepam (ATIVAN) injection 0.5 mg (0.5 mg Intravenous $Given 04/12/24 1343) ketorolac (TORADOL) injection 15 mg (15 mg Intravenous $Given 04/12/24 1342) prochlorperazine (COMPAZINE) injection 10 mg (10 mg Intravenous $Given 04/12/24 1343) diphenhydrAMINE (BENADRYL) injection 25 mg (25 mg Intravenous $Given 04/12/24 1343) droPERidol (INAPSINE) injection 0.625 mg (0.625 mg Intravenous Not Given 04/12/24 1646) SUMAtriptan (IMITREX) injection 6 mg (6 mg Subcutaneous $Given 04/12/24 1640) metoclopramide (REGLAN) injection 10 mg (10 mg Intravenous $Given 04/12/24 1640) ketorolac (TORADOL) injection 15 mg (15 mg Intravenous Not Given 04/12/24 1646) Procedures Procedures Discussion of Management None ED Course ED Course as of 04/12/241951 Lianet Apr 12, 2024 1308 I obtained history and performed physical exam. 1505 I rechecked the patient. 1618 I updated the patient and prepared her for discharge. Additional Documentation None Medical Decision Making / Diagnosis [facility] Diagnoses: None MIPS None MDM Benigno Larson is a 28 year old female who has a history of hyperemesis cannabinoid and cyclic vomiting. She says she has been sick over the last 3 days complained of abdominal pain but her abdominal exam was benign not suggesting a surgical cause. Her test is negative. I reviewed a note from GI who she is seen in the past regarding potential causes they agree that this could be due to cannabis. I did consider alternative causes such as obstruction but felt that is unlikely norovirus was considered with nausea and vomiting. 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 The patient appears well-hydrated her creatinine is slightly elevated her white count is elevated I think likely this is hyperemesis cannabinoid and she was discharged to follow-up with her primary care doctor. I wrote her for Atarax to see if that would help her symptoms. Disposition The patient was discharged. Diagnosis ICD-10-CM 1. Generalized abdominal pain R10.84 2. Nausea and vomiting, unspecified vomiting type R11.2 Discharge Medications Discharge Medication List as of 04/12/2024 4:27 PM START taking these medications Details !! hydrOXYzine HCl (ATARAX) 25 MG tablet Take 1 tablet (25 mg) by mouth 3 times daily as needed forother (nausea)., Disp-15 tablet, R-0, Local Print !! - Potential duplicate medications found. Please discuss with provider. Scribe Disclosure: I, Purvi RobertsAngela Kevin, am serving as a scribe at 1:15 PM on 04/12/2024 to document services personally performed by Zak Baptiste MD based on my observations and the provider's statements to me. Zak Baptiste MD 04/12/241952 MING POOL SERVICEPERSON * Genet Ramirez RN - 04/12/2024 11:25 AM CST Declined ODT zofran in triage. States she attempted to take one at home this morning and vomited itup. Would prefer to wait for IV medication. MING POOL SERVICEPERSON * Genet Ramirez RN - 04/12/2024 11:23 AM CST Hx cyclical vomiting syndrome. PT on day 3 of vomiting and being unable to keep any fluids or medications down. Pt tachycardic. Pt states GI doctor is through [facility] who has a medication regimen for her. ABCs intact. A&OX4. Triage Assessment (Adult) Row Name 04/12/24 1122 Triage Assessment Airway WDL WDL Respiratory WDL Respiratory WDL WDL Skin Circulation/Temperature WDL Skin Circulation/Temperature WDL WDL Cardiac WDL Cardiac WDL X;rhythm Peripheral/Neurovascular WDL Peripheral Neurovascular WDL WDL Cognitive/Neuro/Behavioral WDL Cognitive/Neuro/Behavioral WDL WDL MING POOL SERVICEPERSON documented in this encounter Plan of Treatment Scheduled Orders Name Type Priority Associated Diagnoses Orde r Schedule EKG 12-lead, tracing only EKG STAT One Time for 1 O ccurrences starting 04/12/2024 until 04/12/2024 documented as of this encounter Procedures Procedure Name Priority Date/Time Associated Diagnosis Comments MANUAL DIFFERENTIAL STAT 04/12/2024 1 2:18 PM SWIMMING POOL SERVICEPERSON CBC WITH PLATELETS AND DIFFERENTIAL STAT 04/12/2024 12:18 PM SWIMMING POOL SERVICEPERSON CBC WITH PLATELETS & DIFFERENTIAL STAT 04/12/2024 12:18 PM SWIMMING POOL SERVICEPERSON LIPASE STAT 04/12/2024 12:18 PM SWIMMING POOL SERVICEPERSON HCG QUALITATIVE STAT 04/12/2024 12:18 PM SWIMMING POOL SERVICEPERSON COMPREHENSIVE METABOLIC PANEL STAT 04/12/2024 12:18 PM SWIMMING POOL SERVICEPERSON documented in this encounter Results * (ABNORMAL) Manual Differential (04/12/2024 12:18 PM SWIMMING POOL SERVICEPERSON) % Neutrophils 77 % [facility] 04/12/2024 1:39 PM SWIMMING POOL SERVICEPERSON [facility] % Lymphocytes 16 % [facility] 04/12/2024 1:39 PM SWIMMING POOL SERVICEPERSON [facility] % Monocytes 7 % [facility] 04/12/2024 1:39 PM SWIMMING POOL SERVICEPERSON [facility] % Eosinophils 0 % [facility] 04/12/2024 1:39 PM SWIMMING POOL SERVICEPERSON [facility] % Basophils 0 % [facility] 04/12/2024 1:39 PM SWIMMING POOL SERVICEPERSON [facility] Absolute Neutrophils 14.2(H) 1.6 - 8.3 10e3/uL [facility] 04/12/2024 1:39 PM SWIMMING POOL SERVICEPERSON [facility] Absolute Lymphocytes 3.0 0.8 - 5.3 10e3/uL [facility] 04/12/2024 1:39 PM SWIMMING POOL SERVICEPERSON [facility] Absolute Monocytes 1.3 0.0 - 1.3 10e3/uL [facility] 04/12/2024 1:39 PM SWIMMING POOL SERVICEPERSON [facility] Absolute Eosinophils 0.0 0.0 - 0.7 10e3/uL [facility] 04/12/2024 1:39 PM SWIMMING POOL SERVICEPERSON [facility] Absolute Basophils 0.0 0.0 - 0.2 10e3/uL [facility] 04/12/2024 1:39 PM SWIMMING POOL SERVICEPERSON [facility] RBC Morphology Confirmed RBC Indices [facility] 04/12/2024 1:39 PM SWIMMING POOL SERVICEPERSON [facility] Platelet Assessment Automated Count Confirmed. Platelet morphology is normal. Automated Count Confirmed. Platelet morphology is normal. [facility] 04/12/2024 1:39 PM SWIMMING POOL SERVICEPERSON [facility] Blood STRUCTURE OF LEFT UPPER LIMB / Unknown Venipuncture / Unknown 04/12/2024 12:18 PM SWIMMING POOL SERVICEPERSON 04/12/2024 12:22 PM SWIMMING POOL SERVICEPERSON us Zak Baptiste MD LAB - BLOOD ORDERABLES F inal Result [facility] [address] Lab (1st floor, no room number) [place] [address], [facility] * (ABNORMAL) CBC with platelets and differential (04/12/2024 12:18 PM SWIMMING POOL SERVICEPERSON) [facility] WBC Count 18.5(H) 4.0 - 11.0 10e3/uL 04/12/2024 1:39 PM SWIMMING POOL SERVICEPERSON [facility] RBC Count 5.47(H) 3.80 - 5.20 10e6/uL 04/12/2024 1:39 PM SWIMMING POOL SERVICEPERSON [facility] Hemoglobin 16.7(H) 11.7 - 15.7 g/dL 04/12/2024 1:39 PM SWIMMING POOL SERVICEPERSON [facility] Hematocrit 49.8(H) 35.0 - 47.0 % 04/12/2024 1:39 PM SWIMMING POOL SERVICEPERSON [facility] MCV 91 78 - 100 fL 04/12/2024 1:39 PM SWIMMING POOL SERVICEPERSON [facility] MCH 30.5 26.5 - 33.0 pg 04/12/2024 1:39 PM SWIMMING POOL SERVICEPERSON [facility] MCHC 33.5 31.5 - 36.5 g/dL 04/12/2024 1:39 PM SWIMMING POOL SERVICEPERSON [facility] RDW 13.6 10.0 - 15.0 % 04/12/2024 1:39 PM SWIMMING POOL SERVICEPERSON [facility] Platelet Count 425 150 - 450 10e3/uL 04/12/2024 1:39 PM SWIMMING POOL SERVICEPERSON [facility] Blood STRUCTURE OF LEFT UPPER LIMB / Unknown Venipuncture / Unknown 04/12/2024 12:18 PM SWIMMING POOL SERVICEPERSON 04/12/2024 12:22 PM SWIMMING POOL SERVICEPERSON us Zak Baptiste MD LAB - BLOOD ORDERABLES F inal Result LABORATORY [facility] [address] Lab (1st floor, no room number) [place] [address], [facility] * HCG QUALitative (blood) (04/12/2024 12:18 PM SWIMMING POOL SERVICEPERSON) Pathologist [facility] hCG Serum Qualitative Negative Negative [facility] 04/12/2024 12:56 PM SWIMMING POOL SERVICEPERSON LABORATORY Comment:This test is for scr eening purposes. Results should be interpreted along with the clinical picture. Confirmation testing is available if warranted by ordering [id number], HCG Quantitative . Blood STRUCTURE OF LEFT UPPER LIMB / Unknown Venipuncture / Unknown 04/12/2024 12:18 PM SWIMMING POOL SERVICEPERSON 04/12/2024 12:22 PM SWIMMING POOL SERVICEPERSON Zak Baptiste MD LAB - BLOOD ORDERABLES F inal Result [facility] [address] [employer] Lab (1st floor, no room number) [address] * Lipase (04/12/2024 12:18 PM SWIMMING POOL SERVICEPERSON) [facility] Lipase 32 13 - 60 U/L 04/12/2024 12:54 PM SWIMMING POOL SERVICEPERSON LABORATORY Blood STRUCTURE OF LEFT UPPER LIMB / Unknown Venipuncture / Unknown 04/12/2024 12:18 PM SWIMMING POOL SERVICEPERSON 04/12/2024 12:22 PM SWIMMING POOL SERVICEPERSON Zak Baptiste MD LAB - BLOOD ORDERABLES F inal Result [facility] [address] Lab (1st floor, no room number) [address] * (ABNORMAL) Comprehensive metabolic panel (04/12/2024 12:18 PM SWIMMING POOL SERVICEPERSON) [facility] Sodium 133(L) 135 - 145 mmol/L 04/12/2024 1:57 PM SWIMMING POOL SERVICEPERSON LABORATORY Potassium 3.4 3.4 - 5.3 mmol/L 04/12/2024 1:57 PM SWIMMING POOL SERVICEPERSON LABORATORY Carbon Dioxide (CO2) 22 22 - 29 mmol/L 04/12/2024 1:57 PM SWIMMING POOL SERVICEPERSON LABORATORY Anion Gap 24(H) 7 - 15 mmol/L 04/12/2024 1:57 PM SWIMMING POOL SERVICEPERSON LABORATORY Urea Nitrogen 16.8 6.0 - 20.0 mg/dL 04/12/2024 1:57 PM SWIMMING POOL SERVICEPERSON LABORATORY Creatinine 0.96(H) 0.51 - 0.95 mg/dL 04/12/2024 1:57 PM SWIMMING POOL SERVICEPERSON LABORATORY GFR Estimate 82 >60 mL/min/1.7 3m2 04/12/2024 1:57 PM SWIMMING POOL SERVICEPERSON LABORATORY Comment:eGFR calculated usin 2020 CKD-EPI equation. Calcium 10.3 8.8 - 10.4 mg/dL 04/12/2024 1:57 PM SWIMMING POOL SERVICEPERSON LABORATORY Chloride 87(L) 98 - 107 mmol/L 04/12/2024 1:57 PM SWIMMING POOL SERVICEPERSON LABORATORY Glucose 113(H) 70 - 99 mg/dL 04/12/2024 1:57 PM SWIMMING POOL SERVICEPERSON LABORATORY Alkaline Phosphatase 94 40 - 150 U/L 04/12/2024 1:57 PM SWIMMING POOL SERVICEPERSON LABORATORY AST 18 0 - 45 U/L 04/12/2024 1:57 PM SWIMMING POOL SERVICEPERSON LABORATORY ALT 22 0 - 50 U/L 04/12/2024 1:57 PM [facility] Protein Total 9.1(H) 6.4 - 8.3 g/dL 04/12/2024 1:57 PM [facility] Albumin 4.7 3.5 - 5.2 g/dL 04/12/2024 1:57 PM SWIMMING POOL SERVICEPERSON LABORATORY Bilirubin Total 0.5 <=1.2 mg/dL 04/12/2024 1:57 PM [facility] Blood STRUCTURE OF LEFT UPPER LIMB / Unknown Venipuncture / Unknown 04/12/2024 12:18 PM SWIMMING POOL SERVICEPERSON 04/12/2024 12:22 PM [facility] us Zak Baptiste MD LAB - BLOOD ORDERABLES F inal Result LABORATORY [facility] [address] Lab (1st floor, no room number) [place] [address], [facility] documented in this encounter Visit Diagnoses Diagnosis Generalized abdominal pain Abdominal pain, generalized Nausea and vomiting, unspecified vomiting type documented in this encounter Administered Medications Inactive Administered Medications - up to 3 most recent administrations Medication Order MAR Action Action Date Dose Rate Site diphenhydrAMINE (BENADRYL) injection 25 mg 25 mg, Intravenous, ONCE, On Lianet 04/12/24 at 1320, For 1 dose $Given 04/12/2024 1:43 PM SWIMMING POOL SERVICEPERSON 25 mg ketorolac (TORADOL) injection 15 mg 15 mg, Intravenous, ONCE, On Lianet 04/12/24 at 1320, For 1 dose, Can cause pain on injection. If ordered intravenously (IV) : administer through a running maintenance fluid over 1 minute followed by a flush. If patient complains of pain on injection, may dilute 15-30 mg in 5 mL and push over 1 to 2 minutes. $Given 04/12/2024 1:42 PM SWIMMING POOL SERVICEPERSON 15 mg LORazepam (ATIVAN) injection 0.5 mg 0.5 mg, Intravenous, ONCE, On Lianet 04/12/24 at 1320, For 1 dose, IV Route: Dilute with equal volume NS prior to use. This drug may cause significant respiratory depression. Monitor respiratory status and vital signs carefully for 1 hour after each dose. $Given 04/12/2024 1:43 PM SWIMMING POOL SERVICEPERSON 0.5 mg metoclopramide (REGLAN) injection 10 mg 10 mg, Intravenous, Administer over 2 Minutes, ONCE, On Lianet 04/12/24 at 1530, For 1 dose, Avoid use if patient has full bowel obstruction or perforation. $Given 04/12/2024 4:40 PM SWIMMING POOL SERVICEPERSON 10 mg prochlorperazine (COMPAZINE) injection 10 mg 10 mg, Intravenous, ONCE, Administer over 1-2 Minutes, On Lianet 04/12/24 at 1320, For 1 dose $Given 04/12/2024 1:43 PM SWIMMING POOL SERVICEPERSON 10 mg sodium chloride 0.9% BOLUS 1,000 mL Intravenous, 1,000 mL, ONCE, at 1,000 mL/hr, Administer over 1 Hours, On Lianet 04/12/24 at 1320, For 1 dose $New Bag 04/12/2024 1:33 PM SWIMMING POOL SERVICEPERSON 1,000 mLs 1000 mL/hr SUMAtriptan (IMITREX) injection 6 mg 6 mg, Subcutaneous, ONCE, On Lianet 04/12/24 at 1530, For 1 dose, Do NOT give within 24 hours of (dihydroergotamine) DHE or another triptan medication. $Given 04/12/2024 4:40 PM SWIMMING POOL SERVICEPERSON 6 mg documented in this encounter Active and Recently Administered Medications Times are shown in SWIMMING POOL SERVICEPERSON. Scheduled Medication Order 04/10/2024 04/11/2024 04/12/2024 diphenhydrAMINE (BENADRYL) injection 25 mg (COMPLETED) 25 mg, Intravenous, ONCE, On Lianet 04/12/24 at 1320, For 1 dose 1343 ($Given - Provi richard: Swapna Alicia RN) ketorolac (TORADOL) injection 15 mg (COMPLETED) 15 mg, Intravenous, ONCE, On Lianet 04/12/24 at 1320, For 1 dose, Can cause pain on injection. If ordered intravenously (IV) : administer through a running maintenance fluid over 1 minute followed by a flush. If patient complains of pain on injection, may dilute 15-30 mg in 5 mL and push over 1 to 2 minutes. 1342 ($Given - Provi richard: Swapna Alicia RN) LORazepam (ATIVAN) injection 0.5 mg (COMPLETED) 0.5 mg, Intravenous, ONCE, On Lianet 04/12/24 at 1320, For 1 dose, IV Route: Dilute with equal volume NS prior to use. This drug may cause significant respiratory depression. Monitor respiratory status and vital signs carefully for 1 hour after each dose. 1343 ($Given - Provi richard: Swapna Alicia RN) metoclopramide (REGLAN) injection 10 mg (COMPLETED) 10 mg, Intravenous, Administer over 2 Minutes, ONCE, On Lianet 04/12/24 at 1530, For 1 dose, Avoid use if patient has full bowel obstruction or perforation. 1640 ($Given - Provi richard: Sandra Hector RN) prochlorperazine (COMPAZINE) injection 10 mg (COMPLETED) 10 mg, Intravenous, ONCE, Administer over 1-2 Minutes, On Lianet 04/12/24 at 1320, For 1 dose 1343 ($Given - Provi richard: Swapna Alicia RN) sodium chloride 0.9% BOLUS 1,000 mL (COMPLETED) Intravenous, 1,000 mL, ONCE, at 1,000 mL/hr, Administer over 1 Hours, On Lianet 04/12/24 at 1320, For 1 dose 1333 ($New Bag - Pro vider: Swapna Alicia RN)1442 (Stopped - Provider: Sandra Hector RN) SUMAtriptan (IMITREX) injection 6 mg (COMPLETED) 6 mg, Subcutaneous, ONCE, On Lianet 04/12/24 at 1530, For 1 dose, Do NOT give within 24 hours of (dihydroergotamine) DHE or another triptan medication. 1640 ($Given - Provi richard: Sandra Hector RN) documented in this encounter Care Teams Firearms Assembly Supervisor Relationship Specialty Start Date End Date No Ref-Primary, Physician PCP - General 02/02/23 documented as of this encounter
--- OUTSIDE RECORDS SUMMARY | 2024-04-14 10:18 | XMS_ITS | Encounter Summary ---
Author Organization [facility] Address [address] [place] [address] Care Team Providers Care Clutch Assembler Name Role Phone Mynor Felix APRN, CNP Primary Care Provide r Reason for Visit * Reason Comments Prior Authorization For Medication Wegov y Encounter Details Date Type Department Care Team (Late st Contact Info) Description 01/02/2024 Telephone [facility] [address] [place] [address] Mynor Felix APRN, GORDO [address] [place] [address] Prior Authorization For Medication (Wegovy) Social History Tobacco Use Types Packs/Day Years Used Date Smoking Tobacco: Former Cigarettes 1 5.4 1 03/28/2012 - 07/08/2018 Smokeless Tobacco: Never Comments:I vape Alcohol Use Standard Drinks/Week Comments Yes 0 (1 standard drink = 0.6 oz pur e alcohol) PHQ-2 Answer Date Recorded PHQ-2 Score 4 12/20/2023 Comments No Sex and Gender Information Value Date Recorded Sex Assigned at Not on file Legal Sex Female 2:22 PM CDT Gender Identity Not on file Sexual Orientation Not on file documented as of this encounter Nursing Notes * Vanessa Montelongo - 01/19/2024 8:49 AM CST Pt calling to further inquire on the PA status. Vm is ok. GRATION DEVELOPER * Lula Fischer - 01/02/2024 1:24 PM CST Images from the original note were not included. Update portal with plan GRATION DEVELOPER * Lee Alcala LPN - 01/02/2024 11:24 AM CST ePA initiated for Sarthak GRATION DEVELOPER documented in this encounter Plan of Treatment Upcoming Encounters Date Type Department Care Team (Late st Contact Info) Description 04/18/2024 3:00 PM INTEGRATION DEVELOPER Telemedicine [facility] [address] [place] [address] Rylee Morrison APRN, POLE LIFT OPERATOR [address] [place], [place] [id number] 05/29/2024 1:00 PM CDT Appointment [facility] [address] [place], [place] [phone] Quynh Sinha MD [address] [place], [place] [phone] Scheduled Procedures Name Priority Associated Diagnoses Date/Ti me HEMORRHOIDECTOMY External hemorrhoid documented as of this encounter Visit Diagnoses Not on filedocumented in this encounter Care Teams Clutch Assembler Relationship Specialty Start Date End Date Mynor Felxi, MAIL MACHINE OPERATOR, POLE LIFT OPERATOR [address] [place] [address] PCP - General Nurse Practitioner 12/31/22 documented as of this encounter
--- OUTSIDE RECORDS SUMMARY | 2024-04-14 10:18 | XMS_ITS | Encounter Summary ---
Author Organization [facility] Address [address] [place] [address] Care Team Providers Care Limousine Rental Clerk Name Role Phone No Ref-Primary, Physician Primary Care Provider Encounter Details Date Type Department Care Team (Latest Contact Info) Description 04/12/2024 Travel Social History Tobacco Use Types Packs/Day Years [...] as of this encounter Plan of Treatment Not on file documented as of this encounter Visit Diagnoses Not on filedocumented in this encounter Care Teams Limousine Rental Clerk Relationship Specialty Start Date End Date No Ref-Primary, Physician PCP - General 02/02/23 documented as of this encounter
--- OUTSIDE RECORDS SUMMARY | 2024-04-14 10:18 | XMS_ITS | Clinical Summary ---
Author Organization [place] Address [address] [place] [address] Care Team Providers Care Welder Tech Name Role Phone No Ref-Primary, Physician Primary Care Provider Allergies No known active allergies Medications albuterol (PROAIR HFA/PROVENTIL HFA/VENTOLIN HFA) 108 (90 Base) MCG/ACT inhaler Inhale 2 puffs into the lungs every 6 hours as needed for shortness of breath, wheezing or cough Active budesonide-form oterol (SYMBICORT) 160-4.5 MCG/ACT Inhaler Inhale 2 puffs into the lungs 2 times daily Active cariprazine (VRAYLAR) 1.5 MG capsule Take 1.5 mg by mouth daily Active famotidine (PEPCID) 20 MG tablet Take 20 mg by mouth 2 times daily Active metFORMIN (GLUCOPHAGE XR) 500 MG 24 hr tablet Take 500 mg by mouth 3 times daily Active nystatin (MYCOSTATIN) 493837 UNIT/GM external powder Apply topically 2 times [...] capsule Take 50 mg by mouth daily Active azelastine (ASTELIN) 0.1 % nasal spray [place] 1 spray into both nostrils 2 times daily Active fluticasone (FLONASE) 50 MCG/ACT nasal spray [place] 1 spray into both nostrils daily Active acetaminophen (TYLENOL) 325 MG tabletIndicatio ns:Nausea and vomiting, unspecified vomiting type Take 2 tablets (650 mg) by mouth every 4 hours as needed for mild pain or other (and adjunct with moderate or severe pain or per patient request) 02/08/20 23 Active guaiFENesin (ROBITUSSIN) 20 mg/mL liquidIndicatio ns:Nausea and vomiting, unspecified vomiting type Take 10 mLs (200 mg) by mouth every 4 hours as needed for cough 02/08/20 23 Active ibuprofen (ADVIL/MOTRIN) 600 MG tabletIndicatio ns:Nausea and vomiting, unspecified vomiting type Take 1 tablet (600 mg) by mouth every 6 hours as needed for moderate pain 02/08/20 23 Active metoclopramide (REGLAN) 10 MG tabletIndicatio ns:Nausea and vomiting, unspecified vomiting type Take 1 tablet (10 mg) by mouth 4 times daily as needed (nauesa, vomiting) 30 tablet 02/08/20 23 Active hydrOXYzine HCl (ATARAX) 25 MG tablet Take 25-50 mg by mouth 3 times daily as needed for itching Active aluminum chloride (DRYSOL) 20 % external solution Apply topically at bedtime 07/20/19 23 Active hydrocortisone, Perianal, (ANUSOL-HC) 2.5 % cream Place rectally 2 times daily as needed 04/14/19 24 Active menthol-zinc oxide (CALMOSEPTINE) 0.44-20.6 % OINT ointment Apply topically as needed 04/14/19 24 Active olopatadine (PATADAY) 0.2 % ophthalmic solution Place 1 drop into both eyes daily 05/05/19 24 Active lisdexamfetamin e (VYVANSE) 60 MG capsule Take 60 mg by mouth every morning Active Semaglutide-Bryant ght Management (WEGOVY) 2.4 MG/0.75ML pen Inject 2.4 mg subcutaneously once a week on Tuesdays Active nortriptyline (PAMELOR) 10 MG capsule Take 10 mg by mouth at bedtime Active clonazePAM (KLONOPIN) 0.5 MG ODT Take 1 tablet (0.5 mg) by mouth 3 times daily as needed for anxiety 09/13/19 24 Active OLANZapine (ZYPREXA) 2.5 MG tabletIndicatio ns:Cyclical vomiting Take 1 tablet (2.5 mg) by mouth at bedtime 5 tablet 09/13/19 24 Active LORazepam (ATIVAN) 0.5 MG tabletIndicatio ns:Cyclical vomiting,Anxiet y Take 1 tablet (0.5 mg) by mouth every 4 hours as needed for anxiety 10 tablet 09/13/19 24 Active hydrOXYzine HCl (ATARAX) 25 MG tablet Take 1 tablet (25 mg) by mouth 3 times daily as needed for other (nausea). 15 tablet 04/12/19 25 Active Active Problems Problem Noted Date Diagnosed Date Cyclical vomiting 09/11/2023 Hyponatremia 09/11/2023 Intractable vomiting 05/24/2023 Cannabinoid hyperemesis syndrome 05/22/2023 Hypokalemia 02/05/2023 Nausea and vomiting, unspecified vomiting type 1 04/08/2022 Encounters Date Type Department Care Team Description 04/12/2024 12:31 PM ENERGY ENGINEER - 04/12/2024 4:50 PM ENERGY ENGINEER Emergency [facility] [address] [place] [address] Zak Baptiste MD Generalized abdominal pain; Nausea and vomiting, unspecified vomiting type Discharge Disposition: Home or Self Care 04/12/2024 Travel from Last 3 Months Social History Tobacco Use Types Packs/Day Years [...] Comments Blood Pressure 111/76 04/12/2024 4:47 PM ENERGY ENGINEER Pulse 90 04/12/2024 4:47 PM ENERGY ENGINEER Temperature 36.4 C (97.5 F) 04/12/2024 11:24 AM ENERGY ENGINEER Respiratory Rate 18 04/12/2024 1:45 PM ENERGY ENGINEER Oxygen Saturation 97% 04/12/2024 4:47 PM ENERGY ENGINEER Inhaled Oxygen Concentration - - Weight 76.5 kg (168 lb 10.4 oz) 025 11:24 AM ENERGY ENGINEER Height 160 cm (5' 3) 04/12/2024 11:24 AM ENERGY ENGINEER Body Mass Index 29.88 04/12/2024 11:24 AM ENERGY ENGINEER Plan of Treatment Health Maintenance Due Date Last Done Comments ADVANCE CARE PLANNING 1995 ANNUAL REVIEW OF HM ORDERS 1995 NICOTINE/TOBACCO CESSATION COUNSELING Q 1 YR 1995 Pneumococcal Vaccine: Pediatrics (0 to 5 Years) and At-Risk Patients (6 to 49 Years) (1 of 2 - PCV) 11/23/2014 YEARLY PREVENTIVE VISIT 11/05/2020 11/06/19, 08/25/2016, 07/31/2015, Additional history exists COVID-19 Vaccine ( season) 2023 11/20/2020, 10/24/2020 INFLUENZA VACCINE (#1) 2023 , 12/10/2021, 11/11/2020, Additional history exists PHQ-2 (once per calendar year) 2024 PAP 08/27/2024 08/27/2021 DTAP/TDAP/TD IMMUNIZATION (8 - Td or Tdap) 12/25/2028 12/25/2018, 10/02/2008, 06/12/2001, Additional history exists ZOSTER IMMUNIZATION (1 of 2) 11/23/2045 HEPATITIS B IMMUNIZATION Completed 997, 11/30/1996, 01/27/1996, Additional history exists HPV IMMUNIZATION Completed 06/03/2008, , 11/22/2007 HEPATITIS C SCREENING Completed 01/10/2023, 019 HIV SCREENING Completed 01/10/2023 MENINGITIS IMMUNIZATION Aged Out No l onger eligible based on patient's age to complete this topic Procedures Procedure Name Priority Date/Time Associated Diagnosis Comments CBC WITH PLATELETS & DIFFERENTIAL STAT 04/12/2024 12:18 PM ENERGY ENGINEER MANUAL DIFFERENTIAL STAT 04/12/2024 1 2:18 PM ENERGY ENGINEER CBC WITH PLATELETS AND DIFFERENTIAL STAT 04/12/2024 12:18 PM ENERGY ENGINEER HCG QUALITATIVE STAT 04/12/2024 12:18 PM ENERGY ENGINEER LIPASE STAT 04/12/2024 12:18 PM ENERGY ENGINEER COMPREHENSIVE METABOLIC PANEL STAT 04/12/2024 12:18 PM ENERGY ENGINEER from Last 3 Months Results * (ABNORMAL) Manual Differential (04/12/2024 12:18 PM ENERGY ENGINEER) % Neutrophils 77 % [facility] 04/12/2024 1:39 PM ENERGY ENGINEER [facility] % Lymphocytes 16 % [facility] 04/12/2024 1:39 PM ENERGY ENGINEER [facility] % Monocytes 7 % [facility] 04/12/2024 1:39 PM ENERGY ENGINEER [facility] % Eosinophils 0 % [facility] 04/12/2024 1:39 PM ENERGY ENGINEER [facility] % Basophils 0 % [facility] 04/12/2024 1:39 PM ENERGY ENGINEER [facility] Absolute Neutrophils 14.2(H) 1.6 - 8.3 10e3/uL [facility] 04/12/2024 1:39 PM ENERGY ENGINEER [facility] Absolute Lymphocytes 3.0 0.8 - 5.3 10e3/uL [facility] 04/12/2024 1:39 PM ENERGY ENGINEER [facility] Absolute Monocytes 1.3 0.0 - 1.3 10e3/uL [facility] 04/12/2024 1:39 PM ENERGY ENGINEER [facility] Absolute Eosinophils 0.0 0.0 - 0.7 10e3/uL [facility] 04/12/2024 1:39 PM ENERGY ENGINEER [facility] Absolute Basophils 0.0 0.0 - 0.2 10e3/uL [facility] 04/12/2024 1:39 PM ENERGY ENGINEER [facility] RBC Morphology Confirmed RBC Indices [facility] 04/12/2024 1:39 PM ENERGY ENGINEER [facility] Platelet Assessment Automated Count Confirmed. Platelet morphology is normal. Automated Count Confirmed. Platelet morphology is normal. [facility] 04/12/2024 1:39 PM ENERGY ENGINEER [facility] Blood STRUCTURE OF LEFT UPPER LIMB / Unknown Venipuncture / Unknown 04/12/2024 12:18 PM ENERGY ENGINEER 04/12/2024 12:22 PM ENERGY ENGINEER us Zak Baptiste MD LAB - BLOOD ORDERABLES F inal Result LABORATORY [facility] [address] Lab (1st floor, no room number) [place] [address] * (ABNORMAL) CBC with platelets and differential (04/12/2024 12:18 PM ENERGY ENGINEER) WBC Count 18.5(H) 4.0 - 11.0 10e3/uL 04/12/2024 1:39 PM ENERGY ENGINEER [facility] RBC Count 5.47(H) 3.80 - 5.20 10e6/uL 04/12/2024 1:39 PM ENERGY ENGINEER [facility] Hemoglobin 16.7(H) 11.7 - 15.7 g/dL 04/12/2024 1:39 PM ENERGY ENGINEER [facility] Hematocrit 49.8(H) 35.0 - 47.0 % 04/12/2024 1:39 PM ENERGY ENGINEER [facility] MCV 91 78 - 100 fL 04/12/2024 1:39 PM ENERGY ENGINEER [facility] MCH 30.5 26.5 - 33.0 pg 04/12/2024 1:39 PM ENERGY ENGINEER [facility] MCHC 33.5 31.5 - 36.5 g/dL 04/12/2024 1:39 PM ENERGY ENGINEER [facility] RDW 13.6 10.0 - 15.0 % 04/12/2024 1:39 PM ENERGY ENGINEER [facility] Platelet Count 425 150 - 450 10e3/uL 04/12/2024 1:39 PM ENERGY ENGINEER [facility] Blood STRUCTURE OF LEFT UPPER LIMB / Unknown Venipuncture / Unknown 04/12/2024 12:18 PM ENERGY ENGINEER 04/12/2024 12:22 PM ENERGY ENGINEER us Zak Baptiste MD LAB - BLOOD ORDERABLES F inal Result LABORATORY [facility] [address] Lab (1st floor, no room number) [place] [address], [facility] * Lipase (04/12/2024 12:18 PM ENERGY ENGINEER) Lipase 32 13 - 60 U/L 04/12/2024 12:54 PM ENERGY ENGINEER LABORATORY Blood STRUCTURE OF LEFT UPPER LIMB / Unknown Venipuncture / Unknown 04/12/2024 12:18 PM ENERGY ENGINEER 04/12/2024 12:22 PM ENERGY ENGINEER Zak Baptiste MD LAB - BLOOD ORDERABLES F inal Result Performing Organization Address [facility]/ZIP Co de Phone Number [facility] Lab [address] Lab (1st floor, no room number) [place] [phone] * HCG QUALitative (blood) (04/12/2024 12:18 PM ENERGY ENGINEER) [facility] hCG Serum Qualitative Negative Negative [facility] 04/12/2024 12:56 PM ENERGY ENGINEER LABORATORY Comment:This test is for scr eening purposes. Results should be interpreted along with the clinical picture. Confirmation testing is available if warranted by ordering [id number], HCG Quantitative . Blood STRUCTURE OF LEFT UPPER LIMB / Unknown Venipuncture / Unknown 04/12/2024 12:18 PM ENERGY ENGINEER 04/12/2024 12:22 PM ENERGY ENGINEER Zak Baptiste MD LAB - BLOOD ORDERABLES F inal Result Performing Organization Address [facility] Co de Phone Number [facility] Lab [address] Lab (1st floor, no room number) [place] [phone] [place] [address] * (ABNORMAL) Comprehensive metabolic panel (04/12/2024 12:18 PM ENERGY ENGINEER) [facility] Sodium 133(L) 135 - 145 mmol/L 04/12/2024 1:57 PM ENERGY ENGINEER LABORATORY Potassium 3.4 3.4 - 5.3 mmol/L 04/12/2024 1:57 PM ENERGY ENGINEER LABORATORY Carbon Dioxide (CO2) 22 22 - 29 mmol/L 04/12/2024 1:57 PM ENERGY ENGINEER LABORATORY Anion Gap 24(H) 7 - 15 mmol/L 04/12/2024 1:57 PM ENERGY ENGINEER LABORATORY Urea Nitrogen 16.8 6.0 - 20.0 mg/dL 04/12/2024 1:57 PM ENERGY ENGINEER LABORATORY Creatinine 0.96(H) 0.51 - 0.95 mg/dL 04/12/2024 1:57 PM ENERGY ENGINEER LABORATORY GFR Estimate 82 >60 mL/min/1.7 3m2 04/12/2024 1:57 PM ENERGY ENGINEER LABORATORY Comment:eGFR calculated us2020 CKD-EPI equation. Calcium 10.3 8.8 - 10.4 mg/dL 04/12/2024 1:57 PM ENERGY ENGINEER LABORATORY Chloride 87(L) 98 - 107 mmol/L 04/12/2024 1:57 PM ENERGY ENGINEER LABORATORY Glucose 113(H) 70 - 99 mg/dL 04/12/2024 1:57 PM ENERGY ENGINEER LABORATORY Alkaline Phosphatase 94 40 - 150 U/L 04/12/2024 1:57 PM ENERGY ENGINEER LABORATORY AST 18 0 - 45 U/L 04/12/2024 1:57 PM ENERGY ENGINEER LABORATORY ALT 22 0 - 50 U/L 04/12/2024 1:57 PM ENERGY ENGINEER LABORATORY Protein Total 9.1(H) 6.4 - 8.3 g/dL 04/12/2024 1:57 PM ENERGY ENGINEER LABORATORY Albumin 4.7 3.5 - 5.2 g/dL 04/12/2024 1:57 PM ENERGY ENGINEER LABORATORY Bilirubin Total 0.5 <=1.2 mg/dL 04/12/2024 1:57 PM [facility] Blood STRUCTURE OF LEFT UPPER LIMB / Unknown Venipuncture / Unknown 04/12/2024 12:18 PM ENERGY ENGINEER 04/12/2024 12:22 PM ENERGY ENGINEER Zak Baptiste MD LAB - BLOOD ORDERABLES F inal Result [facility] LAB[facility] [address] Lab (1st floor, no room number) [place] [address], [facility] from Last 3 Months Insurance Consumer Agent Portal (CAP) [facility] Address: [address] [place] [phone] [place] [address] [facility] Address: [id number] [place] [phone] Advance Directives For more information, please contact: [phone] * Full Code (Latest Code Status on File) Date Activated Date Inactivated Comments 09/11/2023 2:56 PM 09/13/2023 3:22 PM All basic an d advanced life-sustaining interventions are performed as appropriate Question Answer Comments Code status determined by: Discussion with patie nt/ legal decision maker * Full Code Date Activated Date Inactivated Comments 05/22/2023 1:38 [...] patie nt/ legal decision maker Care Teams Welder Tech Relationship Specialty Start Date End Date No Ref-Primary, Physician PCP - General 02/02/23
--- OUTSIDE RECORDS SUMMARY | 2024-04-14 10:18 | XMS_ITS | Clinical Summary ---
Author Organization [facility] Address [address] [place] [id number] Care Team Providers Care Mechanical Press Operator Name Role Phone Iveth Mabry PA-C Primary Care Provider [phone] Allergies No known active allergies Medications fluconazole (DIFLUCAN) 100 mg tablet TAKE 1 TABLET BY MOUTH EVERY 12 HOURS FOR 1 DAY (2 DOSES) 2 tablet 11/12/2013 8:27 PM CDT 4 Active adapalene (DIFFERIN) 0.1 % cream Apply a thin film topically to affected area daily at night. 45 g 3 09/27/2014 8:02 PM CDT 4 Active fluticasone (50 mcg per actuation) nasal solution (FLONASE) Inhale 2 Sprays into both nostrils once daily. 16 g 5 11/21/2013 8:53 PM CDT 4 Active loratadine (CLARITIN) 10 mg tablet Take 1 tablet by mouth once daily. 30 tablet 5 11/21/2013 8:53 PM CDT 4 Active albuterol HFA (PROAIR HFA) 90 mcg/actuation inhaler Inhale 1 to 2 Puffs by mouth every 4 to 6 hours if needed. 8.5 g 11/21/2013 8:53 PM CDT 4 Active omeprazole (PRILOSEC) 20 mg Delayed-Releas e capsule Take 1 capsule by mouth once daily 30 capsule 01/22/2014 2:21 PM CLOTH DYER 4 Active traZODone (DESYREL) 50 mg tablet Take 1 to 2 tablets by mouth at bedtime as needed 30 tablet 01/22/2014 2:21 PM CLOTH DYER 4 Active ondansetron (ZOFRAN, HYDROCHLORIDE, ) 4 mg tablet Take 1 tab by mouth every 6 hours as needed 20 tablet 1 02/19/2014 3:35 PM CLOTH DYER 5 Active oseltamivir (TAMIFLU) 75 mg capsule Take 1 capsule(s) by mouth 2 times daily for 5 days 10 capsule 02/19/2014 3:35 PM CLOTH DYER 5 Active FLUoxetine (PROZAC) 10 mg capsule Take 1 capsule by mouth every morning. 30 capsule 1 03/21/2014 2:58 PM CLOTH DYER 5 Active traZODone (DESYREL) 50 mg tablet Take 1-2 tablets by mouth at bedtime as needed 60 tablet 04/22/2014 7:23 PM CDT 5 Active albuterol HFA (PRO-AIR,KORI SOL,PROVENTIL) 90 mcg/actuation inhaler Inhale 1-2 puffs every 4-6 hours as needed 8.5 g 3 04/22/2014 7:23 PM CDT 5 Active mometasone-for moterol (DULERA) 100-5 mcg/actuation inhaler Inhale 1 puff by mouth twice daily 13 g 3 5 Active fluticasone-sa lmeterol (ADVAIR DISKUS) 250-50 mcg/Dose diskus inhaler Inhale 1 Puff by mouth 2 times daily. 60 Each 05/09/2014 3:07 PM CDT 5 Active nystatin (MYCOSTATIN) 100,000 unit/mL suspension Swish and swallow 5 mL by mouth 3 times daily for 2 weeks. 210 mL 05/09/2014 3:07 PM CDT 5 Active Adapalene 0.3 % gel Apply to acne areas on face and back daily at bedtime 45 g 3 05/31/2014 11:19 AM CDT 5 Active clindamycin 1% (CLEOCIN-T) 1 % gel Apply to face and back areas daily at bedtime 60 g 3 09/27/2014 8:02 PM CDT 5 Active FLUoxetine (PROZAC) 10 mg capsule Take 1 capsule by mouth once daily. 30 capsule 06/04/2014 7:54 PM CDT 5 Active DULoxetine (CYMBALTA) 30 mg Delayed-releas e capsule Take 1 capsule by mouth daily 30 capsule 1 07/10/2014 8:50 PM CDT 5 Active permethrin (ELIMITE) 5 % cream Apply from neck to the soles of feet. Wash off after 8 hours. Apply again 1 week later. 60 g 07/10/2014 8:50 PM CDT 5 Active cetirizine (ZYRTEC) 10 mg tablet Take 1 tablet by mouth once daily. 30 tablet 07/10/2014 8:50 PM CDT 5 Active amoxicillin (AMOXIL) 500 mg capsule Take 2 capsules by mouth twice daily for 10 days 40 capsule 08/15/2014 3:49 PM CDT 5 Active albuterol HFA (PRO-AIR,KORI SOL,PROVENTIL) 90 mcg/actuation inhaler Inhale 2 Puffs by mouth 4 times daily if needed for wheezing. 8.5 g 2 09/02/2014 2:58 PM CDT 5 Active fluconazole (DIFLUCAN) 150 mg tablet Take one tablet by mouth now, repeat in 1 week. 2 tablet 1 09/02/2014 2:58 PM CDT 5 Active triamcinolone (ARISTOCORT; KENALOG) 0.1 % cream Apply to itching rash twice daily for about 1 week. 40 g 09/02/2014 2:58 PM CDT 5 Active traZODone (DESYREL) 50 mg tablet Take 1-2 tablets by mouth at bedtime as needed 60 tablet 1 09/27/2014 8:02 PM CDT 5 Active clindamycin (CLEOCIN) 300 mg capsule Take 1 capsule by mouth twice a day for 7 days 14 capsule 1 5 Active DULoxetine (CYMBALTA) 30 mg Delayed-releas e capsule Take 1 capsule daily 30 capsule 11 09/27/2014 8:02 PM CDT 5 Active metroNIDAZOLE 0.75% vaginal (METROGEL VAGINAL) 0.75 % vaginal gel Insert 1 applicatorful vaginally at bedtime for 5 days 70 g 5 Active Active Problems Problem Noted Date Diagnosed Date Depressive disorder 06/27/2013 Social History Tobacco Use Types Packs/Day Years Used Date Smoking Tobacco: Every Day Cigarettes Smokeless Tobacco: Never Alcohol Use Standard Drinks/Week Comments Yes 0 (1 standard drink = 0.6 oz pur e alcohol) Comments No Sex and Gender Information Value Date Recorded Sex Assigned at Not on file Legal Sex Female 11:58 PM CDT Gender Identity Not on file Sexual Orientation Not on file Obstetrics History Last Filed Vital Signs Vital Sign Reading Time Taken Comments Blood Pressure 138/94 07/08/2013 4:26 PM CDT Pulse 90 07/08/2013 4:26 PM CDT Temperature 36.8 C (98.2 F) 07/08/2013 4:26 PM CDT Respiratory Rate 18 07/08/2013 4:26 PM CDT [...] for age 21-65 11/23/2016 COVID-19 vaccine series ( season) 2023 11/20/2020, 10/24/2020 Influenza for age 9-49 10/16/2023 Pneumococcal series for age 6-49 Aged Out No longer eligible b ased on patient's age to complete this topic Insurance [facility] BAS[facility]+1 HB ONLY Advance Directives * Full Code (Latest Code Status on File) Date Activated Date Inactivated Comments 06/27/2013 1:16 AM 07/02/2013 3:01 PM Care Teams Mechanical Press Operator Relationship Specialty Start Date End Date Iveth Mabry PA-C [address] [place] [address] PCP - General 07/17/14
--- OUTSIDE RECORDS SUMMARY | 2024-04-14 10:18 | XMS_ITS | Encounter Summary ---
Author Organization [employer] Address [address] [place] [address] Care Team Providers Care Load Out Worker Name Role Phone Mynor Felix APRN, CNP Primary Care Provide r Reason for Visit * Reason Comments Prior Authorization For Medication Zepbo und Injection Encounter Details Date Type Department Care Team (Late st Contact Info) Description 01/23/2024 Telephone [facility] [address] [place] [address] Mynor Felix APRN, CNP [address] [place] [address] Prior Authorization For Medication (Zepbound Injection /) Social History Tobacco Use Types Packs/Day Years Used Date Smoking Tobacco: Former Cigarettes 1 5.4 1 03/28/2012 - 07/08/2018 Smokeless Tobacco: Never Comments:I vape Alcohol Use Standard Drinks/Week Comments Yes 0 (1 standard drink = 0.6 oz pur e alcohol) PHQ-2 Answer Date Recorded PHQ-2 Score 2 03/08/2024 Comments No Sex and Gender Information Value Date Recorded Sex Assigned at Not on file Legal Sex Female 2:22 PM CDT Gender Identity Not on file Sexual Orientation Not on file documented as of this encounter Nursing Notes * Yisel Clifford - 02/22/2024 12:43 PM CST Pt called in about her prior auth please call her back. Insurance keeps denying her prescription semaglutide-weight management (WEGOVY) 1.7 MG/0.75ML pen injection DENT CARE TECHNICIAN * Carlene Villaseñor LPN - 01/25/2024 11:47 AM CST Left patient a detailed message updating PA status. The PA was resubmitted on 01/15 and we are know waiting for payer response. DENT CARE TECHNICIAN * Elena Merrill - 01/25/2024 10:26 AM CST Pt calling back about the PA on the Weovy Please give her a call back with status update DENT CARE TECHNICIAN * Gal Hutchins - 01/23/2024 4:26 PM CST Prior Authorizations What prior authorization is needed? Wegovy ( the lowest dose - pt is restarting the medication ) Insurance Carrier: [facility] Member ID: Pt does not have it on her at the moment Pharmacy Insurance Carrier (if different from above): N/a For a medication PA, patient would like it filled at the pharmacy listed in Meds & Orders. Additional comments (related to the above concern): Prior authorization stated on 01.02.24. and pt is still waiting foe outcome, see note from 01.02.24. Please call back. Preferred communication method: Phone Call. Is it okay to leave a detailed message on your voicemail? Yes Is there anything else I can help you with today? DENT CARE TECHNICIAN documented in this encounter Plan of Treatment Upcoming Encounters Date Type Department Care Team (Late st Contact Info) Description 04/18/2024 3:00 PM RESIDENT CARE TECHNICIAN Telemedicine [facility] [address] [place] [address] Rylee Morrison APRN, COMMERCIAL PILOT [address] [place], [place] [address] 05/29/2024 1:00 PM CDT Appointment [facility] [address] [place], [place] [phone] Quynh Sinha MD [address] [place], [place] [id number] Scheduled Procedures Name Priority Associated Diagnoses Date/Ti me HEMORRHOIDECTOMY External hemorrhoid documented as of this encounter Visit Diagnoses Not on filedocumented in this encounter Care Teams Load Out Worker Relationship Specialty Start Date End Date Mynor Felix APRN, COMMERCIAL PILOT [address] [place] [id number] PCP - General Nurse Practitioner 12/31/22 documented as of this encounter
--- OUTSIDE RECORDS SUMMARY | 2024-04-14 10:19 | XMS_ITS | Encounter Summary ---
Author Organization [facility] Address [address] [place] [address] Care Team Providers Care Asp Net Programmer Name Role Phone Mynor Felix APRN, CNP Primary Care Provide r Reason for Visit * Reason Comments Prior Authorization For Medication semag lutide-weight management (WEGOVY) 1.7 MG/0.75ML pen injection Encounter Details Date Type Department Care Team (Late st Contact Info) Description 02/13/2024 Telephone [facility] [address] [place] [address] Mynor Felix APRN, GORDO [address] [place] [address] Prior Authorization For Medication (semaglutide-weight management (WEGOVY) 1.7 MG/0.75ML pen injection) Social History Tobacco Use Types Packs/Day Years [...] as of this encounter Nursing Notes * Sarita Payne - 03/05/2024 1:32 PM CST The prior authorization for semaglutide-weight management (WEGOVY) 1.7 MG/0.75ML pen injection has been approved. Authorized from February 14, 2024 to August 29, 2024 Pharmacy was notified via fax, and asked them to notify the patient when prescription is ready for shredder picker. L TUNER * Mynor Felix APRN, CNP - 02/20/2024 2:48 PM CST I have updated the questions and Sent to Payor. Mynor Felix APRN, CNP 2:48 PM 02/20/2024 L TUNER * Mercy Land LPN - 02/20/2024 2:39 PM CST Called the patient, here's what she said: She is currently following an anti-inflammatory diet to help with her PCOS. She works out at the gym everyday for 30 min to 1 hour. Yes she's seen a showroom consultant and that was 2-3 years ago. Just an FYI the patient was wondering why she is being asked these questions since she was prescribed medication before to help with weight loss. L TUNER * Mynor Felix APRN, CNP - 02/20/2024 2:17 PM CST Please call the patient and let her know that we are still waiting on insurance. They need to know the answer to the following questions - What specific reduced calorie diet are you following? What specific exercise regimen are you following? Have you ever seen a showroom consultant? When was the last time? Thanks, Mynor J Kuenzel, DONATION SPECIALIST, BILINGUAL PATIENT SUPPORT CASEWORKER L TUNER * Mitra Montiel - 02/20/2024 2:14 PM CST Pt has called to see where we're at with this prior authorization. Pt would like a call back once this has been approved. L TUNER * Dayanna Carrillo MA - 02/17/2024 10:14 AM CST Need Assistance Answering Questions for WEGOVY 1.7 MG/0.75ML injection I am unable to answer all the necessary prior authorization questions. Insurance requires what specific reduced calorie diet patient is following, in addition to the specific increased exercise regimen patient is following. Please also advise if patient has ever been established with a dietitian. Clinicians, please follow next steps: Click ???Answer Questions?? button, found on toolbar. Answer any questions with a red (!) warning symbol. Click ???Send to Payer?? button when complete. L TUNER * Sonia Velasquez MA - 02/13/2024 3:30 PM CST Images from the original note were not included. ePA staff updated ePA portal with the below information. L TUNER * Mercy Land LPN - 02/13/2024 11:46 AM CST Prior authorization has been initiated for semaglutide-weight management (WEGOVY) 1.7 MG/0.75ML pen injection . L TUNER documented in this encounter Plan of Treatment Upcoming Encounters Date Type Department Care Team (Late st Contact Info) Description 04/18/2024 3:00 PM WHEEL TUNER Telemedicine [facility] [address] [place] [address] Rylee Morrison APRN, BILINGUAL PATIENT SUPPORT CASEWORKER [address] [place], [place] [phone] 05/29/2024 1:00 PM CDT Appointment [facility] [address] [place], [place] [phone] Quynh Sinha MD [address] [place], [place] [phone] Scheduled Procedures Name Priority Associated Diagnoses Date/Ti me HEMORRHOIDECTOMY External hemorrhoid documented as of this encounter Visit Diagnoses Not on filedocumented in this encounter Care Teams Asp Net Programmer Relationship Specialty Start Date End Date Mynor Felix APRN, BILINGUAL PATIENT SUPPORT CASEWORKER [address] [place] [id number] PCP - General Nurse Practitioner 12/31/22 documented as of this encounter
--- OUTSIDE RECORDS SUMMARY | 2024-04-14 10:19 | XMS_ITS | Clinical Summary ---
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 [place] [facility] Allergies No known active allergies Medications * This document contains information received from the source organization and may not represent a complete record from that organization. Alcohol Swabs (B-D SINGLE USE SWABS REGULAR) USE 1 PER DAY FOR TESTING BLOOD SUGAR 023 Active aluminum chloride (DRYSOL) 20 % external solution Apply 1 Application topically daily at bedtime. 023 Active clonazePAM (KLONOPIN) 0.5 MG disintegrating tablet Take 1 Tablet (0.5 mg) by mouth three times a day as needed. 023 Active budesonide-formo terol (SYMBICORT) 160-4.5 MCG/ACT inhalerIndicatio ns:Mild persistent asthma without complication (HRC) Inhale 2 Puffs two times a day. 1 Each 6 023 Active ALBUterol sulfate HFA 108 (90 Base) MCG/ACT inhalerIndicatio ns:Mild persistent asthma without complication (HRC) Inhale 1-2 Puffs every 4 hours as needed. 1 Each 6 023 Active ibuprofen (MOTRIN) 600 MG tablet Take 1 Tablet (600 mg) by mouth. 023 Active acetaminophen (TYLENOL) 325 MG tablet Take 2 Tablets (650 mg) by mouth. 023 Active norethindrone (AYGESTIN) 5 MG tabletIndication s:Endometriosis Take 1 Tablet (5 mg) by mouth daily. 90 Tablet 3 024 Active medical cannabis patient certifiedIndicat ions:Hidradeniti s suppurativa,Numb ness and tingling of both feet,Cold feet,Numbness in both hands,Chronic pain syndrome,PTSD (post-traumatic stress disorder) (HRC),Numbness in feet,Generalized abdominal pain,Chronic pelvic pain in female,Borderlin e personality disorder (HRC),Depressive disorder,Medical marijuana use Take as instructed .. Active menthol-zinc oxide (CALMOSEPTINE) 0.44-20.6 % OINTIndications: External hemorrhoids with complication Apply topically as needed. 71 g 3 024 Active hydrocortisone, Perianal, (PROCTOSOL-HC) 2.5 % rectal creamIndications :Inflamed Hemorrhoids Insert rectally two times daily as needed. Indications: Inflamed Hemorrhoids 30 g 1 024 Active aluminum chloride (DRYSOL) 20 % external solution Apply topically every evening. apply sparingly to skin with excessive sweating for 1-5 nights to get appropriate response 35 mL 2 024 Active lidocaine-priloc jeannie (EMLA) 2.5-2.5 % creamIndications :Hidradenitis suppurativa Apply topically every 24 hours as needed. 30 g 1 024 Active riboflavin (VITAMINB-2) 100 MG tablet Take 2 Tablets (200 mg) by mouth two times a day. 180 Tablet 2 024 Active metoclopramide (REGLAN) 10 MG tablet Take by mouth. 04/25/2 024 Active terconazole (TERAZOL3) 0.8 % vaginal cream SMARTSI Gram(s) Vaginal Daily Active nystatin (NYSTOP) 842240 UNIT/GM powderIndication s:Cutaneous Candidiasis Apply topically daily as needed for Other (intertrigo). Indications: Skin Infection due to Marilou Yeast 30 g 3 Active Additional Information Patient not taking.Reported on 03/16/2024 benzoyl peroxide (BENZOYL PEROXIDE WASH) 10 % wash liquidIndication s:Acne, unspecified acne type Apply 1 Application topically daily as needed. 148 mL 11 Active nicotine (NICODERM CQ) 21 MG/24HR patchIndications :Nicotine dependence, other tobacco product, uncomplicated (HRC) Apply 1 Patch to skin every 24 hours. . 45 Each Active nicotine (NICODERM CQ) 14 MG/24HR patchIndications :Nicotine dependence, other tobacco product, uncomplicated (HRC) Apply 1 Patch to skin daily. 14 Each Active nicotine (NICODERM CQ) 7 MG/24HR patchIndications :Nicotine dependence, other tobacco product, uncomplicated (HRC) Apply 1 Patch to skin every 24 hours. Remove old patch prior to new patch application 14 Each Active promethazine (PHENERGAN) 25 MG tabletIndication s:Nausea and vomiting, unspecified vomiting type Take 1 Tablet (25 mg) by mouth every 6 hours as needed. 30 Tablet 1 Active SUMAtriptan (IMITREX) 50 MG tabletIndication s:Migraine without aura and without status migrainosus, not intractable Take 1 Tablet (50 mg) by mouth as needed. 9 Tablet 2 Active methylPREDNISolo ne (MEDROL 21 TABLET DOSEPACK) 4 MG tablet Follow package directions 21 Tablet Active Additional Information Patient not taking.Reported on 03/16/2024 famotidine (PEPCID) 20 MG tablet Take 1 Tablet (20 mg) by mouth two times a day before meals. 180 Tablet 3 024 2024 Active fluticasone propionate (FLONASE) 50 MCG/ACT nasal solutionIndicati ons:Postnasal drip Place 2 Sprays into both nostrils daily. 16 g 11 Active metFORMIN XR (GLUCOPHAGE XR) 500 MG 24 hour release tabletIndication s:Polycystic ovary syndrome (HRC),Prediabete s Take 3 Tablets (1,500 mg) by mouth every evening with a meal. 270 Tablet 3 Active olopatadine (PATADAY) 0.2 % eye drop solutionIndicati ons:Allergic conjunctivitis of both eyes Place 1 Drop into both eyes daily. 2.5 mL 3 Active ondansetron (ZOFRAN-ODT) 4 MG disintegrating tabletIndication s:Cyclic vomiting syndrome Take 1 Tablet (4 mg) by mouth every 8 hours as needed. 30 Tablet 3 Active spironolactone (ALDACTONE) 50 MG tabletIndication s:Polycystic ovary syndrome (HRC),Acne vulgaris,Hirsuti sm Take 3 Tablets (150 mg) by mouth daily. 270 Tablet 3 Active metroNIDAZOLE (METROGEL-VAGINA L) 0.75 % vaginal gelIndications:B acterial vaginosis Insert 1 Applicatorful vaginally once a week. 70 g 3 Active Additional Information Patient not taking.Reported on 03/16/2024 nortriptyline (PAMELOR) 10 MG capsuleIndicatio ns:Insomnia,Neur opathic Pain Take 1-2 Capsules (10-20 mg) by mouth daily at bedtime. 10 mg qhs po x 1 week, then may increase to 20mg qhs po Indications: Neuropathic Pain, Trouble Sleeping 60 Capsule 2 Active amphetamine-dext roamphetamine (ADDERALL) 5 MG tablet Take 1 Tablet (5 mg) by mouth daily. Active LORazepam (ATIVAN) 0.5 MG tablet Take 1 Tablet (0.5 mg) by mouth. Active neomycin-polymyx in-dexamethasone (MAXITROL) 3.5-74675-1.1 eye drop suspension INSTILL 1 DROP INTO BOTH EYES FOUR TIMES DAILY FOR 7 DAYS Active OLANZapine (ZYPREXA) 2.5 MG tablet Take 1 Tablet (2.5 mg) by mouth. Active VRAYLAR 3 MG capsule Take 1 Capsule (3 mg) by mouth daily. Active hydrOXYzine HCl (ATARAX) 25 MG tablet Take 1-2 Tablets (25-50 mg) by mouth three times a day as needed. Active VYVANSE 70 MG capsule Take 1 Capsule (70 mg) by mouth daily. Active fluconazole (DIFLUCAN) 150 MG tablet Take 1 tablet if symptoms onset for a yeast infection, take 2nd tablet in 72 hours if symptoms are still present 2 Tablet Active Additional Information Patient not taking.Reported on 03/16/2024 tirzepatide-weig ht management (ZEPBOUND) 2.5 MG/0.5ML pen injectionIndicat ions:Polycystic ovary syndrome (HRC),Obstructiv e sleep apnea syndrome,Prediab etes,Obesity, Class I, BMI 30-34.9 (HRC),Fatty (change of) liver, not elsewhere classified (HRC) Inject 2.5 mg subcutaneously one time weekly for 4 weeks 2 mL 025 Active tirzepatide-weig ht management (ZEPBOUND) 5 MG/0.5ML pen injectionIndicat ions:Polycystic ovary syndrome (HRC),Obstructiv e sleep apnea syndrome,Prediab etes,Obesity, Class I, BMI 30-34.9 (HRC),Fatty (change of) liver, not elsewhere classified (HRC) Inject 5 mg subcutaneously one time weekly for 4 weeks Do not start before March 26, 2024. 2 mL 025 Active tirzepatide-weig ht management (ZEPBOUND) 7.5 MG/0.5ML pen injectionIndicat ions:Polycystic ovary syndrome (HRC),Obstructiv e sleep apnea syndrome,Prediab etes,Obesity, Class I, BMI 30-34.9 (HRC),Fatty (change of) liver, not elsewhere classified (HRC) Inject 7.5 mg subcutaneously one time weekly for 4 weeks Do not start before April 23, 2024. 2 mL 025 Active tirzepatide-weig ht management (ZEPBOUND) 10 MG/0.5ML pen injectionIndicat ions:Polycystic ovary syndrome (HRC),Obstructiv e sleep apnea syndrome,Prediab etes,Obesity, Class I, BMI 30-34.9 (HRC),Fatty (change of) liver, not elsewhere classified (HRC) Inject 10 mg subcutaneously one time weekly for 4 weeks Do not start before May 21, 2024. 2 mL 025 Active tirzepatide-weig ht management (ZEPBOUND) 12.5 MG/0.5ML pen injectionIndicat ions:Polycystic ovary syndrome (HRC),Obstructiv e sleep apnea syndrome,Prediab etes,Obesity, Class I, BMI 30-34.9 (HRC),Fatty (change of) liver, not elsewhere classified (HRC) Inject 12.5 mg subcutaneously one time weekly for 4 weeks Do not start before June 18, 2024. 2 mL 025 Active tirzepatide-weig ht management (ZEPBOUND) 15 MG/0.5ML pen injectionIndicat ions:Polycystic ovary syndrome (HRC),Obstructiv e sleep apnea syndrome,Prediab etes,Obesity, Class I, BMI 30-34.9 (HRC),Fatty (change of) liver, not elsewhere classified (HRC) Inject 15 mg subcutaneously one time weekly for 4 weeks Do not start before July 16, 2024. 2 mL 11 025 Active omeprazole (PRILOSEC) 20 MG capsuleIndicatio ns:Gastroesophag eal reflux disease, unspecified whether esophagitis present Take 1 Capsule (20 mg) by mouth daily for 30 days. Take 1 hour before a meal. 30 Capsule 025 Active mupirocin (BACTROBAN) 2 % ointment Apply to affected area twice a day for 10 days. 22 g 025 Active semaglutide-weig ht management (WEGOVY) 1.7 MG/0.75ML pen injectionIndicat ions:Obesity, Class I, BMI 30-34.9 (HRC) Inject 0.75 mL (1.7 mg) subcutaneously once every week. Inject 1.7 mg subcutaneously one time weekly. 12 mL 1 025 Active polyethylene glycol 3350 (GLYCOLAX) 17 GM/SCOOP powderIndication s:Irritable bowel syndrome with both constipation and diarrhea Take 17 g by mouth daily as needed. 116 g 6 02/13/2 025 Active azelastine (ASTELIN) 0.1 % nasal solutionIndicati ons:Postnasal drip USE 1 SPRAY IN EACH NOSTRIL TWICE DAILY NEEDED FOR POSTNASAL DRAINAGE 30 mL 3 025 Active polyethylene glycol 3350 (GLYCOLAX) 17 GM/SCOOP powder Take 17 g by mouth. 023 2024 Discontinued(* Med change OR same med OR reorder, new dose/direction s) azelastine (ASTELIN) 0.1 % nasal solutionIndicati ons:Postnasal drip Place 1 Abbott into both nostrils two times daily as needed (Postnasal drainage.). 30 mL 1 023 2024 Discontinued semaglutide-weig ht management (WEGOVY) 1.7 MG/0.75ML pen injectionIndicat ions:Obesity, Class I, BMI 30-34.9 (HRC) Inject 1.7 mg subcutaneously one time weekly. 12 mL 1 024 2024 Discontinued(* Med change OR same med OR reorder, new dose/direction s) cefdinir (OMNICEF) 300 MG capsule Take 1 Capsule (300 mg) by mouth two times a day for 10 days. 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 Reviewed the importance of continuing therapy for this. We will continue current cares. Chronic abdominal pain 07/19/2022 Overview (12/29/2022): Last Assessment & Plan: Patient continues to [...] refilled for the month. Hidradenitis suppurativa 06/01/2022 Overview (12/29/2022): Last Assessment & Plan: Patient did recently have her cystic lesions removed surgically. She states this has helped with some of her discomfort. Wound sites are still healing. Will continue to monitor. Patient is using Drysol to help with sweating. Fatigue 03/25/2022 Cystic acne 12/11/2021 Hirsutism 12/11/2021 Nicotine dependence, other tobacco product, unco mplicated 12/11/2021 Overview (12/29/2022): vaping Last Assessment & Plan: At her [...] replace her vaping. Polycystic ovary syndrome 12/11/2021 Overview (12/29/2022): Last Assessment & Plan: Currently on metformin [...] this time. Migraine headache 11/17/2021 Neuralgia 11/17/2021 Overview (12/29/2022): Gabapentin helps symptoms, but at high doses [...] covers her neuralgia better. Neck pain 11/17/2021 Overview (12/29/2022): Last Assessment & Plan: Patient did have a neurologist decreased her gabapentin as she was having bladder incontinence secondary to being on higher doses of gabapentin. Currently reduced doses at 600 mg twice daily. I did refill this for her today. Obstructive sleep apnea syndrome 07/07/2021 Obesity, Class I, BMI 30-34.9 01/13/2021 Overview (12/29/2022): Last Assessment & Plan: Patient is on Saxenda. She does need me to send this in for her building specialist as she is on a restricted insurance. Patient has been using her specialists and the emergency services appropriately. Medication was sent over for refill today. Mild persistent asthma 11/06/2019 Overview (12/29/2022): Last Assessment & Plan: Patient does need a refill of her Symbicort medication. Doing well on current treatment for asthma. We will continue current cares. Attention deficit hyperactivity disorder (ADHD) 10/26/2019 History of disease 07/21/2016 Overview (12/29/2022): Last Assessment & Plan: Patient is still [...] visit. -continue zofran as needed. Endometriosis 01/05/2016 Overview (12/29/2022): 01/05/16 Dx scope for pelvic pain and [...] fulgurated Chronic pelvic pain in female 01/05/2016 Overview (12/29/2022): Last Assessment & Plan: Patient does have [...] IUD (intrauterine device) in place 12/29/2022 01/10/2023 Overview (12/29/2022): Inserted 11/30/2022 - Mirena IUD. Bacterial vaginosis 07/19/2022 12/30/19 23 Overview (12/29/2022): Last Assessment & Plan: Patient has a [...] partner as well. Alcohol use disorder, modera lucy, in early remission 12/30/2014 12/29/2022 Overview (12/29/2022): Recommend no addictive substances be routinely prescribed History of drug use 12/26/2014 12/30/19 Overview (12/29/2022): Including cocaine, LSD, MDMA and synthetic THC Encounters Date Type Department Care Team Description 04/08/2024 Refill [facility] [address] [place] [address] Mynor Felix APRN, GORDO Refill (azelastine (ASTELIN) 0.1 % nasal solution [Pharmacy Med Name: AZELASTINE 0.1%(137MCG) NASAL-200SP]) 03/28/2024 12:25 PM NET COORDINATOR E-Visit [facility] [address] [place] [address] Mynor Felix APRN, HEAD OF ICT Dx: Obstructive sleep apnea syndrome (Primary Dx) 03/26/2024 Telephone Otolaryngology at [facility] [address] [place] [address] Karl Tracy PA-Erum Symptoms 03/16/2024 4:00 PM NET COORDINATOR Office Visit [facility] [address] [place] [phone] Percy Solo MD Clinical sinusitis; Nasal vestibulitis 03/16/2024 1:45 PM NET COORDINATOR Office Visit [facility] [address] [facility], [address] [place] [phone] Carol Gilliland MD Vaginal itching (Primary Dx); Vaginal discharge; Polycystic ovary syndrome (HRC); Endometriosis; Chronic pelvic pain in female; BMI 33.0-33.9,adult 03/09/2024 E-Visit [facility] [address] [place] [address] Mynor Felix APRN, GORDO 03/08/2024 1:30 PM NET COORDINATOR Telemedicine [facility] [address] [place] [address] Mynor Felix, MISHA, HEAD OF ICT Obesity, Class I, BMI 30-34.9 (HRC) (Primary Dx); Gastroesophageal reflux disease, unspecified whether esophagitis present; Pelvic floor tension; Dyspareunia in female 02/28/2024 Telephone [facility] [address] [place] [address] Mynor Felix APRN, HEAD OF ICT Prior Authorization For Medication (tirzepatide-weight management (ZEPBOUND) 2.5 MG/0.5ML pen injection /) 02/25/2024 12:30 AM NET COORDINATOR E-Visit [facility] [address] [place] [address] [address] [place] [phone] Anastasia Chavira APRN, HEAD OF ICT Dx: Pelvic floor tension (Primary Dx) 02/24/2024 10:05 PM NET COORDINATOR E-Visit [address] [address] Mynor Felix APRN, HEAD OF ICT Dx: Polycystic ovary syndrome (HRC) (Primary Dx) 02/20/2024 Telephone [facility] [address] [place] [address], [facility] [[email or web address] [address] [place] [address] Anastasia Chavira APRN, HEAD OF ICT LAB RESULTS 02/20/2024 Telephone [facility] at [facility] [address] [place] [phone] Karl Tracy PA-C Symptoms 02/17/2024 1:00 PM NET COORDINATOR Office Visit [facility] [address] [place] [address], [facility] [[email or web address]] [address] [place] [phone] Anastasia Chavira APRN, GORDO 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) (Primary Dx); Chronic pelvic pain in female; Dysmenorrhea; Hirsutism; Vaginal odor; Dyspareunia in female; PCOS (polycystic ovarian syndrome) (HRC) 02/13/2024 11:30 AM NET COORDINATOR E-Visit [facility] [address] [place] [address] Mynor Felix APRN, HEAD OF ICT Chief Comp: QUESTIONS, GENERAL 02/13/[address] [address] Mynor Felix APRN, HEAD OF ICT Prior Authorization For Medication (semaglutide-weight management (WEGOVY) 1.7 MG/0.75ML pen injection) 02/07/2024 Telephone Otolaryngology at [facility] [address] [address] [address] [place] [address] Karl Tracy PA-C RESULTS, TEST 02/06/2024 2:00 PM NET COORDINATOR Ancillary Procedure [facility] [address] Scan [address] [place] [phone] Karl Tracy PA-C Chronic congestion of paranasal sinus 02/06/2024 1:35 PM NET COORDINATOR E-Visit [facility] [address] [place] [phone] Rylee Jeffery APRN, HEAD OF ICT Chief Comp: QUESTIONS, GENERAL 02/01/2024 1:35 PM NET COORDINATOR E-Visit [address] [address] Mynor Felix APRN, HEAD OF ICT Dx: Obesity, Class I, BMI 30-34.9 (HRC) 01/23/[address] [address] Mynor Felix APRN, HEAD OF ICT Prior Authorization For Medication (Zepbound Injection /) 01/18/2024 Telephone [facility] [address] [place] [address] Javon Brown MBBS 01/17/2024 10:00 AM NET COORDINATOR Office Visit [facility] [address] [place] [phone] Lesly Whitehead PA-C Vaginal discharge 01/17/2024 9:40 AM NET COORDINATOR Lab Visit [facility] [address] [place] [address] Prediabetes; Cyclic vomiting syndrome; Screening for hyperlipidemia; Polycystic ovary syndrome (HRC) from Last 3 Months Immunizations Immunization Administration Dates Next Due 4vHPV (Gardasil) 06/03/2008,02/01/2008, 8 DTP-Hib (Tetramune) 05/18/1996,03/23/1996,1995 DTaP 06/12/2001, 8,05/18/1996,1996,01/27/1996 Flu Vac (3+ yrs) 10/31/2012,12/14/2011 Flu Vac Preserv Free (3+yrs) 11/26/2008 [id number] 02/10/2009 HepA Ped/Adol (1-18 yrs) 12/15/2009,10/02/2008 HepB Ped/Adol (0-18 yrs) 11/30/1996,01/27/1996,1 HepB, Unspecified Formulation 11/30/1996, 996,1995 Hib, Unspecified Formulation 11/30/1996, 05/18/1996,03/23/1996,1995 IPV (Polio) 06/12/2001, 7,03/23/1996,1995 Influenza ([place] Only) (Flul aval Quad 0.5, 3+ yrs) 11/06/2019,10/30/2018,12/14/2016,2014 Influenza (Flucelvax), Prese rv Free QIV 03/29/2023 Influenza IIV4 (Quadrivalent ) 0.5mL ([address]2315) 12/10/2021,11/11/2020,11/06/2019,2018,12/14/2016,01/16/2015,12/15/2009,1 Influenza LAIV (Nasal, 2-49 yrs) 12/15/2009,09/2007 Influenza LAIV3 2-49 years (Flumist) 12/15/2009, 11/22/2007 Influenza aIIV3 65+ Years (Fluad) 10/31/2012, Influenza, Unspecified Formulation 10/31/2012 MMR 06/12/2001,11/30/1996 Pfizer Monovalent 12+ Purple Top 11/20/2020,10/15 Polio, Unspecified Formulation 2,05/18/1996,03/23/1996,1995 Tdap 12/25/2018,10/02/2008 Varicella 10/02/2008,11/07/1997 Family History Medical History Relation Name Comments Amblyopia/Strabismus Negative Family History Cancer, Breast Negative Family History Cancer, Colon Negative Family History Cancer, Ovary Negative Family History Cataract Negative Family History [...] Sign Reading Time Taken Comments Blood Pressure 122/74 03/16/2024 2:42 PM NET COORDINATOR Pulse 102 03/16/2024 2:42 PM NET COORDINATOR Temperature 36.6 C (97.8 F) 03/16/2024 2:42 PM NET COORDINATOR Respiratory Rate 16 03/16/2024 2:42 PM NET COORDINATOR Oxygen Saturation 100% 03/16/2024 2:42 PM NET COORDINATOR Inhaled Oxygen Concentration - - Weight 79.9 kg (176 lb 1.6 oz) 03/16/2024 1:49 P M NET COORDINATOR Height 154.9 cm (5' 1) 03/16/2024 1:49 PM NET COORDINATOR Body Mass Index 33.27 03/16/2024 1:49 PM NET COORDINATOR Plan of Treatment Upcoming Encounters Date Type Department Care Team (Late st Contact Info) Description 04/18/2024 3:00 PM NET COORDINATOR Telemedicine [facility] [address] [place], [place] [address] Rylee Morrison, BRIDGE REPAIRER, HEAD OF ICT [address] [place] [address] 05/29/2024 1:00 PM CDT Appointment [facility] [address] [place], [place] [phone] Quynh Sinha MD [address] [place] [address] Scheduled Procedures Name Priority Associated Diagnoses Date/Ti me HEMORRHOIDECTOMY External hemorrhoid Health Maintenance Due Date Last Done Comments Cervical Cancer Screening Due 1995 MTM Targeted 1995 Adult Preventive Visit 11/23/2013 Pneumococcal (1 of 2 - PCV) 11/23/2014 COVID-19 Vaccine ( season) 2023 11/20/2020, 10/24/2020 Influenza (#1) 2023 03/29/2023, 11/15, 11/11/2020, Additional history exists Asthma ACT (score of 20 or higher) 03/15/2024 03/15/2023 Prediabetes: HGBA1C 01/16/2025 01/17/2024, 02/01/2023, 05/28/2022, Additional history exists DTaP/Tdap/Td (8 - Tdap) 12/25/2028 12/26/19 19, 10/02/2008, 06/12/2001, Additional history exists Zoster/Shingles (1 of 2) 11/23/2045 HepB Completed 11/30/1996, 11/14, 01/27/1996, Additional history exists Hib Completed 11/30/1996, 05/1996, 05/18/1996, Additional history exists IPV (Polio) Completed 06/12/2001, 05/16, 05/18/1996, Additional history exists HPV Vaccine Completed 06/03/2008, 01/14, 11/22/2007 Varicella Completed 10/02/2008, 11/07/1997 HepA Completed 12/15/2009, 10/02/2008 HIV Screening (Preventive Services) Completed 01/10/2023 Hep C Screening (Preventive Services) Completed 01/10/2023 Chlamydia Discontinued 01/17/2024, 12/16, 10/08/2022, Additional history exists MCV4 Aged Out No longer eligi ble based on patient's age to complete this topic Meningococcal B Aged Out No longer el igible based on patient's age to complete this topic Procedures Procedure Name Priority Date/Time Associated Diagnosis Comments VAGINITIS PANEL Routine 03/16/2024 2:19 PM NET COORDINATOR Vaginal itching Vaginal discharge POCT PH (NITRAZINE) VAGINAL FLUID Routine 02/17/2024 4:12 PM NET COORDINATOR Vaginal odor VAGINITIS PANEL Routine 02/17/2024 1:51 PM NET COORDINATOR Vaginal odor CT SINUS WO IV CONT FUSION Routine 02/05 1:57 PM NET COORDINATOR Chronic congestion of paranasal sinus CHLAMYDIA & GC (14 YEARS & OLDER) Routine 01/17/2024 10:17 AM NET COORDINATOR Vaginal discharge VAGINITIS PANEL Routine 01/17/2024 10:17 AM NET COORDINATOR Vaginal discharge UA MICRO STAT 01/17/2024 10:17 AM NET COORDINATOR Vaginal discharge UA WITH MICROSCOPIC STAT 01/17/2024 10:17 AM NET COORDINATOR Vaginal discharge TEST (URINE) STAT 10:17 AM NET COORDINATOR Vaginal discharge PROLACTIN Routine 01/17/2024 9:46 AM NET COORDINATOR Polycystic ovary syndrome (HRC) PROLACTIN WITH REFLEX TO MACROPROLACTIN Routine 01/17/2024 9:46 AM NET COORDINATOR Polycystic ovary syndrome (HRC) LH Routine 01/17/2024 9:46 AM NET COORDINATOR Polycystic ovary syndrome (HRC) PROGESTERONE ADULT Routine 01/17/2024 9:46 AM NET COORDINATOR Polycystic ovary syndrome (HRC) TESTOSTERONE, FEMALE OR CHILDREN Routine 01/17/2024 9:46 AM NET COORDINATOR Polycystic ovary syndrome (HRC) ESTRADIOL Routine 01/17/2024 9:46 AM NET COORDINATOR Polycystic ovary syndrome (HRC) DEHYDROEPIANDROSTERONE Routine 9:46 AM NET COORDINATOR Polycystic ovary syndrome (HRC) FSH Routine 01/17/2024 9:46 AM NET COORDINATOR Polycystic ovary syndrome (HRC) TSH, SENSITIVE (WITH REFLEX) Routine 04/2023 9:46 AM NET COORDINATOR Polycystic ovary syndrome (HRC) LIPID PANEL & DIRECT LDL (IF NEEDED) Routine 01/17/2024 9:46 AM NET COORDINATOR Screening for hyperlipidemia COMPREHENSIVE METABOLIC PANEL Routine 01/17/2024 9:46 AM NET COORDINATOR Cyclic vomiting syndrome HGB A1C Routine 01/17/2024 9:46 AM NET COORDINATOR Prediabetes HIV 1/2 AG/AB 4TH GEN Routine 01/10/2023 3:33 PM NET COORDINATOR Screening examination for venereal disease HEPATITIS C ANTIBODY, WITH REFLEX Routine 01/10/2023 3:33 PM NET COORDINATOR Special screening examination for viral disease from Last 3 Months or Most Recently Relevant to Health Maintenance Results * Vaginitis Panel, DNA Probe (03/16/2024 2:19 PM NET COORDINATOR) Only the most recent of3 resultswithin the time period is included. Bacterial Vaginosis Negative Negative 03/17/2024 11:47 AM NET COORDINATOR [facility] Marilou species Negative Negative 11:47 AM NET COORDINATOR [facility] Marilou glabrata Negative Negative 03/17/2024 11:47 AM NET COORDINATOR [facility] Trichomonas vaginalis Negative Negative 03/17/2024 11:47 AM NET COORDINATOR [facility] Swab STD SPECIMEN FROM VAGINA / Unknown Non-blood Collection / Unknown 03/16/2024 2:19 PM NET COORDINATOR 03/16/2024 2:24 PM NET COORDINATOR Narrative [facility] - 03/17/2024 11:47 AM NET COORDINATOR Test performed by Catechist Mediated Amplification (TMA). Carol Gilliland MD LAB_1 Final Result [facility] [address] * POCT pH (Nitrazine) Vaginal Fluid (02/17/2024 4:12 PM NET COORDINATOR) Pathologist [facility] PH (Nitrazine) Vaginal Fluid 4.5 4.5 - 5.5 POCT POC Strip Lot # [id number] POCT 02/17/2024 4:12 PM NET COORDINATOR Anastasia Chavira BRIDGE REPAIRER, HEAD OF ICT ET POINT OF CARE TEST ENTER/EDIT ORDERABLES Final Result POCT * CT Fusion Sinus WO IV Cont (02/06/2024 1:57 PM NET COORDINATOR) Anatomical Region Laterality Modality Head Computed Tomogra phy 02/06/2024 1:53 PM NET COORDINATOR Impressions 02/06/2024 7:44 PM NET COORDINATOR 1. Small right maxillary sinus mucous retention cyst. 2. No sinus air-fluid levels. Narrative 02/06/2024 7:44 PM NET COORDINATOR COMPARISON: None. INDICATION: Chronic sinus congestion. TECHNIQUE: Noncontrast axial CT scan of the paranasal sinuses with 2-D coronal and sagittal reformatting. FINDINGS: Frontal Sinus: Clear. Ethmoid Air Cells: Clear. Sphenoid Sinus: Clear. Right Maxillary Sinus: Small mucous retention cyst. Ostiomeatal complex is patent. Left Maxillary Sinus: Mild mucosal thickening. Ostiomeatal complex is patent. Turbinates: No significant hypertrophy. Nasal Septum: No significant deviation. Bones: Unremarkable. Temporomandibular Joints: Unremarkable. Procedure Note Anthony Fernandez MD - 02/06/2024 COMPARISON: None. INDICATION: Chronic sinus congestion. TECHNIQUE: Noncontrast axial CT scan of the paranasal sinuses with 2-Dcoronal and sagittal reformatting. FINDINGS: Frontal Sinus: Clear. Ethmoid Air Cells: Clear. Sphenoid Sinus: Clear. Right Maxillary Sinus: Small mucous retention cyst. Ostiomeatal complexis patent. Left Maxillary Sinus: Mild mucosal thickening. Ostiomeatal complex ispatent. Turbinates: No significant hypertrophy. Nasal Septum: No significant deviation. Bones: Unremarkable. Temporomandibular Joints: Unremarkable. IMPRESSION 1. Small right maxillary sinus mucous retention cyst. 2. No sinus air-fluid levels. Karl Tracy PA-C RAD CT Final Re sult * Chlamydia & GC (14 Years and Older): Vagina (01/17/2024 10:17 AM NET COORDINATOR) Chlamydia Trachomatis STD Not Detected Not Detected 01/18/2024 2:34 AM NET COORDINATOR [facility] N. gonorrhoeae STD Not Detected Not Detected 01/18/2024 2:34 AM NET COORDINATOR [facility] Swab STD SPECIMEN FROM VAGINA / Unknown Non-blood Collection / Unknown 01/17/2024 10:17 AM NET COORDINATOR 01/17/2024 10:35 AM NET COORDINATOR Orquidea [facility] - 01/18/2024 2:34 AM NET COORDINATOR Test performed by Catechist Mediated Amplification (TMA). Lesly Whitehead PA-C LAB_1 Final Res ult [facility] [address] * UA with Microscopic: Clean Catch (01/17/2024 10:17 AM NET COORDINATOR) Color Straw 01/17/2024 10:52 AM [facility] Clarity Clear Clear 01/17/2024 10:52 AM [facility] Specific [place] 1.025 1.005 - 1.030 01/17/2024 10:52 AM [facility] pH 6.5 5.0 - 8.0 01/17/2024 10:52 AM [facility] Protein Negative Neg/Trace mg/dL 01/17/2024 10:52 AM [facility] Glucose Negative Negative mg/dL 01/17/2024 10:52 AM [facility] Ketones Negative Negative mg/dL 01/17/2024 10:52 AM [facility] Urobilinogen 0.2 <2.0 EU/dL 01/17/2024 10:52 AM [facility] Bilirubin Negative Negative 01/17/2024 10:52 AM [facility] Blood Negative Neg/Trace 01/17/2024 10:52 AM [facility] Nitrite Negative Negative 01/17/2024 10:52 AM [facility] Leukocyte Esterase Negative Negative 01/17/2024 10:52 AM [facility] Source Clean Catch 01/17/2024 10:52 AM [facility] Urine URINE SPECIMEN COLLECTION, CLEAN CATCH / Unknown Non-blood Collection / Unknown 01/17/2024 10:17 AM NET COORDINATOR 01/17/2024 10:40 AM [facility] Lesly Whitehead PA-C LAB_1 Final Res ult [facility] [address] [place] [address] * Test (Urine) - Collect in Lab (01/17/2024 10:17 AM NET COORDINATOR) HCG, Urine Negative Negative 01/17/2024 10:44 AM [facility] Urine Non-blood Collection / Unknown 01/17/2024 10:17 AM NET COORDINATOR 01/17/2024 10:30 AM NET COORDINATOR Lesly Whitehead PA-C LAB_1 Final Res ult Performing Organization Address [facility]/ZIP Co de Phone Number [facility] [address] [place] [address] * (ABNORMAL) Urine Microscopic Evaluation: Clean Catch (01/17/2024 10:17 AM NET COORDINATOR) Red Blood Cells 0-3 0 - 3 /HPF 01/17/2024 10:51 AM [facility] White Blood Cells 0-5 0 - 5 /HPF 01/17/2024 10:51 AM [facility] Squamous Epithelial Cells Moderate(A ) None Seen, Occasiona l, Few /HPF 01/17/2024 10:51 AM [facility] Mucus Present(A) None Seen /HPF 01/17/2024 10:51 AM [facility] Urine URINE SPECIMEN COLLECTION, CLEAN CATCH / Unknown Non-blood Collection / Unknown 01/17/2024 10:17 AM NET COORDINATOR 01/17/2024 10:40 AM NET COORDINATOR Lesly Whitehead PA-C LAB_1 Final Res ult Performing Organization Address [facility]/ZIP Co de Phone Number [facility] [address] [place] [address] * Prolactin (01/17/2024 9:46 AM NET COORDINATOR) Prolactin 9.6 3.3 - 26.7 ng/mL 01/18/2024 10:09 AM NET COORDINATOR [facility] Blood Venipuncture / Unknown 01/17/2024 9:46 AM NET COORDINATOR 01/17/2024 9:51 AM NET COORDINATOR Mynor Felix BRIDGE REPAIRER, HEAD OF ICT LAB_1 Final Result Performing Organization Address City/[facility]/ZIP Co de Phone Number [facility] [address] * Dehydroepiandrosterone (01/17/2024 9:46 AM NET COORDINATOR) Dehydroepiandrosterone 7.328 1.330 - 7.780 ng/mL 01/19/2024 3:06 PM NET COORDINATOR [facility] Comment: INTERPRETIVE INFORMATION: Dehydroepiandrosterone, Females 18 years and older: Postmenopausal: 0.60-5.73 ng/mL REFERENCE INTERVAL: Dehydroepiandrosterone by TMS Access complete set of age- and/or gender-specific reference intervals for this test in the [facility] Test Directory ([employer]). This test was developed and its performance characteristics determined by [facility]. It has not been cleared or approved by the US Food and Drug Administration. This test was performed in a CLIA certified laboratory and is intended for clinical purposes. Performed By: [facility] [address] [place] [id number] Reports Analysis Manager: Nawaf Montez MD, PhD CLIA Number: [id number] Blood Venipuncture / Unknown 01/17/2024 9:46 AM NET COORDINATOR 01/17/2024 9:51 AM NET COORDINATOR Mynor Felix APRN, CNP LAB_1 Final Result Performing Organization Address [facility]/State/ZIP Co de Phone Number [facility] [address], [place] [address] [place] [address] * Testosterone, female or children (01/17/2024 9:46 AM NET COORDINATOR) Testosterone Female or Children 41 9 - 55 ng/dL 01/19/2024 3:06 PM NET COORDINATOR [facility] [employer] Comment: REFERENCE INTERVAL: Testosterone by Patient Service Technician Pst Females Premenopausal 9-55 ng/dL Postmenopausal 5-32 ng/dL INTERPRETIVE INFORMATION: Testosterone by Patient Service Technician Pst Free or bioavailable testosterone measurements may provide supportive information. For individuals on testosterone-suppressing hormone therapies (e.g., antiandrogens or estrogens), refer to cisgender female reference intervals. For a complete set of all established reference intervals, refer to ltd.[employer]/Tests/Pub/[id number]. This test was developed and its performance characteristics determined by [facility]. It has not been cleared or approved by the US Food and Drug Administration. This test was performed in a CLIA certified laboratory and is intended for clinical purposes. Performed By: [facility] [address] [place] [id number] Reports Analysis Manager: Nawaf Montez MD, PhD CLIA Number: [id number] Blood Venipuncture / Unknown 01/17/2024 9:46 AM NET COORDINATOR 01/17/2024 9:51 AM NET COORDINATOR Mynor Felix APRN, HEAD OF ICT LAB_1 Final Result Performing Organization Address [facility] Co de Phone Number [facility] [employer] [address] [place] [address] * Progesterone Adult (01/17/2024 9:46 AM NET COORDINATOR) Progesterone, Adult 1.2 ng/mL 01/17/2024 4:42 PM NET COORDINATOR [facility] Blood Venipuncture / Unknown 01/17/2024 9:46 AM NET COORDINATOR 01/17/2024 9:51 AM NET COORDINATOR Narrative [facility] - 01/17/2024 4:42 PM NET COORDINATOR Expected values for menstruating females Follicular Phase: <0.1-0.3 ng/mL Luteal Phase: 1.2-15.9 ng/mL Expected values for females 1st Trimester (4-12 weeks): 2.8-147.3 ng/mL 2nd Trimester (13-24 weeks): 22.5-95.3 ng/mL 3rd Trimester (25-36 weeks): 27.9-242.5 ng/mL Mynor Felix APRN, HEAD OF ICT LAB_1 Final Result Performing Organization Address City/[facility]/ZIP Co de Phone Number [facility] [address] * Lipid Panel & Direct LDL (if Needed) (01/17/2024 9:46 AM NET COORDINATOR) Cholesterol 159 0 - 199 mg/dL 01/17/2024 11:35 AM [facility] Triglyceride 68 <=149 mg/dL 01/17/2024 11:35 AM [facility] HDL Cholesterol 54 >=40 mg/dL 11:35 AM [facility] LDL, Calculated 91 <130 mg/dL 11:35 AM [facility] Non HDL Chol, Calculated 105 <=159 mg/dL 01/17/2024 11:35 AM [facility] Cholesterol/HDL Ratio 2.9 <=5.0 01/17/2024 11:35 AM [facility] Hours Fasting 1.0 8 - 12 Hours 01/17/2024 11:35 AM [facility] Comment:5:00 am couple crack ers and one sip of juice one hour ago Blood Venipuncture / Unknown 01/17/2024 9:46 AM [facility] 01/17/2024 9:51 AM [facility] us Mynor Felix APRN, HEAD OF ICT LAB_1 Final Result [facility] [address] [place] [address] * Comprehensive Metabolic Panel (01/17/2024 9:46 AM [facility]) Sodium 139 136 - 145 mmol/L 01/17/2024 11:35 AM [facility] Potassium 4.3 3.5 - 5.1 mmol/L 01/17/2024 11:35 AM [facility] Chloride 105 98 - 109 mmol/L 01/17/2024 11:35 AM [facility] CO2 23 20 - 29 mmol/L 01/17/2024 11:35 AM [facility] Anion Gap 11 6 - 16 mmol/L 01/17/2024 11:35 AM [facility] Calcium 8.9 8.4 - 10.4 mg/dL 01/17/2024 11:35 AM [facility] BUN 10 7 - 26 mg/dL 01/17/2024 11:35 AM [facility] Creatinine 0.72 0.55 - 1.02 mg/dL 01/17/2024 11:35 AM [facility] Alkaline Phosphatase 78 40 - 150 U/L 01/17/2024 11:35 AM [facility] AST (SGOT) 12 10 - 40 U/L 01/17/2024 11:35 AM [facility] ALT (SGPT) 17 <=55 U/L 01/17/2024 11:35 AM [facility] Bilirubin, Total 0.3 0.2 - 1.2 mg/dL 01/17/2024 11:35 AM [facility] Protein, Total 7.3 6.4 - 8.3 g/dL 01/17/2024 11:35 AM [facility] Albumin 3.5 3.5 - 5.0 g/dL 01/17/2024 11:35 AM [facility] Glucose 89 70 - 100 mg/dL 01/17/2024 11:35 AM [facility] Comment:The given reference range is for the fasting state. Non-fasting reference range for glucose is 70 - 180 mg/dL. GFR, Estimated >60 >60 mL/min/1.7 3m2 01/17/2024 11:35 AM [facility] Hours Fasting 1.0 8 - 12 Hours 01/17/2024 11:35 AM [facility] Comment:5:00 am couple crack ers and one sip of juice one hour ago Blood Venipuncture / Unknown 01/17/2024 9:46 AM NET COORDINATOR 01/17/2024 9:51 AM NET COORDINATOR us Mynor Felix BRIDGE REPAIRER, HEAD OF ICT LAB_1 Final Result Performing Organization Address City/State/[facility] Co de Phone Number [facility] [address] [place] [address] * Estradiol (01/17/2024 9:46 AM NET COORDINATOR) Pathologist [facility] Estradiol 160 pg/mL 01/17/2024 2:51 PM NET COORDINATOR [facility] Blood Venipuncture / Unknown 01/17/2024 9:46 AM NET COORDINATOR 01/17/2024 9:51 AM NET COORDINATOR Narrative [facility] - 01/17/2024 2:51 PM NET COORDINATOR The drug mifepristone may cause interference with the estradiol assay leading to significant falsely elevated estradiol results for up to two weeks following last dose. Expected values for menstruating females Follicular phase: 21-251 pg/mL Mid cycle phase: 38-649 pg/mL Luteal phase: 21-312 pg/mL Expected values for post menopausal females On HRT: <10-144 pg/mL Not on HRT: <10-28 pg/mL Mynor Felix APRN, CNP LAB_1 Final Result Performing Organization Address [facility] Phone Number [facility] [address] [place] [address] * LH (01/17/2024 9:46 AM NET COORDINATOR) LH 6 mIU/mL 01/17/2024 2:52 PM NET COORDINATOR [facility] Blood Venipuncture / Unknown 01/17/2024 9:46 AM NET COORDINATOR 01/17/2024 9:51 AM NET COORDINATOR Narrative [facility] - 01/17/2024 2:52 PM NET COORDINATOR Expected values for menstruating females Follicular Phase: 2-12 mIU/mL Mid-Cycle Peak: 8-89 mIU/mL Luteal Phase: 1-14 mIU/mL Expected values for postmenopausal females On HRT: 5-62 mIU/mL Mynor Felix APRN, CNP LAB_1 Final Result Performing Organization Address [facility] Phone Number [facility] [address] [place] [address] * FSH (01/17/2024 9:46 AM NET COORDINATOR) FSH 3.6 mIU/mL 01/17/2024 2:51 PM NET COORDINATOR [facility] Blood Venipuncture / Unknown 01/17/2024 9:46 AM NET COORDINATOR 01/17/2024 9:51 AM NET COORDINATOR Narrative [facility] - 01/17/2024 2:51 PM NET COORDINATOR Expected values for mensturating females Follicular Phase: 3.0-8.1 mIU/mL Mid-Cycle Peak: 2.6-16.7 mIU/mL Luteal Phase: 1.4-5.5 mIU/mL Post Menopausal Females without HRT: 26.8-133.4 mIU/mL Mynor Felix APRN, CNP LAB_1 Final Result Performing Organization Address [facility] de Phone Number [facility] [address] [place] [address] * TSH with Free T4 (if TSH Abnormal) (01/17/2024 9:46 AM NET COORDINATOR) TSH, Reflex 1.00 0.30 - 4.50 uIU/mL 01/17/2024 2:51 PM NET COORDINATOR [facility] Blood Venipuncture / Unknown 01/17/2024 9:46 AM NET COORDINATOR 01/17/2024 9:51 AM NET COORDINATOR Mynor Felix APRN, CNP LAB_1 Final Result Performing Organization Address [facility] Phone Number [facility] [address] [place] [address] * Hgb A1C (01/17/2024 9:46 AM NET COORDINATOR) Hemoglobin A1C (Rapid) 5.3 <=5.6 % 01/17/2024 10:24 AM [facility] Estimated Average Glucose (Calc) 105 < 117 mg/dL 01/17/2024 10:24 AM [facility] Comment:Estimated average gl ucose (eAG) converts A1c into glucose units (mg/dL) and estimates average glucose over the past approximately 3 months. The eAG reference interval (<117 mg/dL) corresponds to an A1c of <5.7%. Blood Venipuncture / Unknown 01/17/2024 9:46 AM NET COORDINATOR 01/17/2024 9:51 AM NET COORDINATOR Narrative [facility] - 01/17/2024 10:24 AM NET COORDINATOR The test method used for this Hemoglobin A1c result can experience interference from elevated hemoglobin and other hemoglobin variants. In patients with results that do not correlate clinically, contact the lab for further direction. Mynor Felix APRN, CNP LAB_1 Final Result Performing Organization Address [facility]/ZIP Co de Phone Number [facility] [address] [place] [address] * HIV 1/2 Ag/Ab 4th Generation (01/10/2023 3:33 PM NET COORDINATOR) Pathologist [facility] HIV 1/2 Antigen/Antib domo (4th generation) Negative (Non Reactive) Negative (Non Reactive) 01/10/2023 9:54 PM NET COORDINATOR [facility] Comment:HIV-1 p24 Antigen an d HIV-1/HIV-2 Antibody not detected Blood Venipuncture / Unknown 01/10/2023 3:33 PM NET COORDINATOR 01/10/2023 3:33 PM NET COORDINATOR Carol Gilliland MD LAB_1 Final Result Performing Organization Address [facility] de Phone Number [facility] [address] [place] [address] * HEPATITIS C ANTIBODY, WITH REFLEX (01/10/2023 3:33 PM NET COORDINATOR) Pathologist [facility] Hepatitis C Antibody Negative (Non Reactive) Negative (Non Reactive) 01/10/2023 9:54 PM NET COORDINATOR [facility] Comment:Antibodies to HCV no t detected. Does not exclude the possiblity of exposure to HCV. Blood Venipuncture / Unknown 01/10/2023 3:33 PM NET COORDINATOR 01/10/2023 3:33 PM NET COORDINATOR Carol Gilliland MD LAB_1 Final Result Performing Organization Address [facility] de Phone Number [facility] [address] [place] [address] from Last 3 Months or Most Recently Relevant to Health Maintenance Insurance [place] [phone] Advance Directives * Full Code (Latest Code Status on File) Date Activated Date Inactivated Comments 06/27/2013 1:15 AM 06/26/2013 7:00 PM * Full Code Date Activated Date Inactivated Comments 06/27/2013 1:15 AM 07/02/2013 7:51 AM Care Teams Turning Machine Operator Helper Relationship Specialty Start Date End Date Mynor Felix, MISHA, HEAD OF ICT [address] [place] [address] PCP - General Nurse Practitioner 12/31/22
--- OUTSIDE RECORDS SUMMARY | 2024-04-14 10:19 | XMS_ITS | Encounter Summary ---
Author Organization [facility] Address [address] [place] [address] Care Team Providers Care Applications Programmer Analyst Name Role Phone Mynor Felix APRN, ARTIST BLACKSMITH Primary Care Provide r Reason for Referral * Consult/Transfer Care (Routine) - New Request Specialty Diagnoses / Procedures Referred By Clarice da silva Referred To Contact Diagnoses Polycystic ovary syndrome (HRC) BMI 33.0-33.9,[place] [address] [place] [address] [address] Phone: tel: fax: Referral ID Status Reason Start Date Expiration Date V isits Requested Visits Authorized [id number] New Request 03/16/2024 06/15/2025 1 1 Scheduling Instructions Your clinician has recommended an appointment with Ana María Rich. You can quickly schedule your appointment by signing in to your online account at [email or web address] or through the text message you may have received. You can also make an appointment by calling [phone]. We also suggest you call your health insurance provider about your benefits and coverage for this appointment. Question Answer Appointment Urgency? Non-Urgent Reason for visit? Needs Weight Loss MATED EQUIPMENT ENGINEER TECHNICIAN Reason for Visit * Reason Comments Vaginal Symptoms C/o dryness, pain du ring IC, pelvic pain; also having discharge, odor, and itching CONSULT Wants 2nd opinion on PCOS and endometriosis Encounter Details Date Type Department Care Team (Late st Contact Info) Description 03/16/2024 1:45 PM AUTOMATED EQUIPMENT ENGINEER TECHNICIAN Office Visit [facility]-SUPPLIER ENGINEER [address] [facility], [address] [place] [phone] [place] [id number] [facility] [address] [place], [place] [id number] Vaginal itching (Primary Dx); Vaginal discharge; Polycystic ovary syndrome (HRC); Endometriosis; Chronic pelvic pain in female; BMI 33.0-33.9,adult Social History Tobacco Use Types Packs/Day Years [...] Sign Reading Time Taken Comments Blood Pressure 111/73 03/16/2024 1:49 PM AUTOMATED EQUIPMENT ENGINEER TECHNICIAN Pulse 96 03/16/2024 1:49 PM AUTOMATED EQUIPMENT ENGINEER TECHNICIAN Temperature - - Respiratory Rate - - Oxygen Saturation - - Inhaled Oxygen Concentration - - Weight 79.9 kg (176 lb 1.6 oz) 03/16/2024 1:49 P M AUTOMATED EQUIPMENT ENGINEER TECHNICIAN Height 154.9 cm (5' 1) 03/16/2024 1:49 PM AUTOMATED EQUIPMENT ENGINEER TECHNICIAN Body Mass Index 33.27 03/16/2024 1:49 PM AUTOMATED EQUIPMENT ENGINEER TECHNICIAN documented in this encounter Progress Notes * Carol Gilliland MD - 03/16/2024 1:45 PM CST CABLE FORMER PROGRESS CLINIC NOTE CC: multiple concerns HPI: Beningo Larson here for multiple concerns; She has last seen by [facility] back in 02/17/2024, for multiple concerns including dyspareunia and inability to orgasm, PCOS, pelvic pain and abdominal pain with history of multiple laparoscopic procedures and diagnosis of endometriosis. Questions about treatment for PCOS on spironolactone and metformin. Ultimately patient was evaluated in recommended to continue with spironolactone and metformin as instructed and to continue to follow with endocrinology. It was discussed to consider adding Myinositol.She was referred to pelvic floor physical therapy to continue I just then into follow-up with sexual health clinic. Today states that despite of having treatment for a yeast infection found on last visit she continues to have abundant vaginal discharge and occasional itchiness as well as noticing some malodor. Pt states she did not really feel any improvement. States nothing got worse. She is going to set up appointment with PT She already has an appointment with sexual health clinic BMI 33 She is moderately doing exercise (once to twice weekly). When she does she does core exercise and playing golf when she cans. States that is difficult to She thinks her diet is pretty healthy, pt's partner states its moderately good given that they eat out of home twice weekly. PE: BP 111/73 (BP Location: Right Arm, BP Cuff Size: Regular - Long) Pulse 96 Ht 5' 1 (1.549 m) Wt 176 lb 1.6 oz (79.9 kg) LMP 02/27/2024 (Exact Date) BMI 33.27 kg/m?? General; A&O X 3, cooperative Cardiovascular; warm and well perfused, Respiratory; normal breathing without difficulties, Abdomen; soft, NTGR, no masses Pelvic examination: - External genitalia grossly normal - SSE normal vaginal mucosa, no lesions or lacerations, cervix appears closed, no bleeding, no abnormal discharge Extremities; no edema, no cyanosis A/P Benigno Larson here for ICD-10-CM 1. Vaginal itching N89.8 Vaginitis Panel, DNA Probe Vaginitis Panel, DNA Probe 2. Vaginal discharge N89.8 Vaginitis Panel, DNA Probe Vaginitis Panel, DNA Probe 3. Polycystic ovary syndrome (HRC) E28.2 Nutrition/Dietitian - Adult/Peds 4. Endometriosis N80.9 5. Chronic pelvic pain in female R10.2 G89.29 6. BMI 33.0-33.9,adult Z68.33 Nutrition/Dietitian - Adult/Peds - affirm collected, discussed conservative measures for alleviating symptoms - will discuss results as soon as available - continue with PCOS treatment as previously discussed, lifestyle modifications and the importance of recovering a normal BMI. Dietitian order in place - continue with PT as instructed to schedule - keep Sexual health clinic appointment - PCOS, agree with prior provider's advice in adding myoinositol - all questions answered RTC PRN Billed on time Dr. Gilliland 03/16/2024 MATED EQUIPMENT ENGINEER TECHNICIAN documented in this encounter Plan of Treatment Upcoming Encounters Date Type Department Care Team (Late st Contact Info) Description 04/18/2024 3:00 PM AUTOMATED EQUIPMENT ENGINEER TECHNICIAN Telemedicine [facility] [address] [place], [place] [address] Rylee Morrison, FINAL INSPECTOR BALANCE WHEEL, ARTIST BLACKSMITH [address] [place], [place] [phone] 05/29/2024 1:00 PM CDT Appointment [facility] [address] [place], [place] [phone] Quynh Sihna MD [address] [place], [place] [phone] Scheduled Procedures Name Priority Associated Diagnoses Date/Ti me HEMORRHOIDECTOMY External hemorrhoid Scheduled Referrals Name Type Priority Associated Diagnoses Orde r Schedule Nutrition/Dietitian - Adult/Peds Referral Routine Polycystic ovary syndrome (HRC) BMI 33.0-33.9,adult Ordered: 03/16/2024 documented as of this encounter Procedures Procedure Name Priority Date/Time Associated Diagnosis Comments VAGINITIS PANEL Routine 03/16/2024 2:19 PM AUTOMATED EQUIPMENT ENGINEER TECHNICIAN Vaginal itching Vaginal discharge documented in this encounter Results * Vaginitis Panel, DNA Probe (03/16/2024 2:19 PM AUTOMATED EQUIPMENT ENGINEER TECHNICIAN) Bacterial Vaginosis Negative Negative 03/17/2024 11:47 AM AUTOMATED EQUIPMENT ENGINEER TECHNICIAN [facility] Marilou species Negative Negative 11:47 AM AUTOMATED EQUIPMENT ENGINEER TECHNICIAN [facility] Marilou glabrata Negative Negative 03/17/2024 11:47 AM AUTOMATED EQUIPMENT ENGINEER TECHNICIAN [facility] Trichomonas vaginalis Negative Negative 03/17/2024 11:47 AM AUTOMATED EQUIPMENT ENGINEER TECHNICIAN [facility] Swab STD SPECIMEN FROM VAGINA / Unknown Non-blood Collection / Unknown 03/16/2024 2:19 PM AUTOMATED EQUIPMENT ENGINEER TECHNICIAN 03/16/2024 2:24 PM AUTOMATED EQUIPMENT ENGINEER TECHNICIAN Narrative [facility] - 03/17/2024 11:47 AM AUTOMATED EQUIPMENT ENGINEER TECHNICIAN Test performed by Ostomy Nurse Mediated Amplification (TMA). us Carol Gilliland MD LAB_1 Final Result Performing Organization Address City/State/[facility] Co de Phone Number [facility] [address] documented in this encounter Visit Diagnoses Diagnosis Vaginal itching- Primary Pruritus of genital organs Vaginal discharge Leukorrhea, not specified as infective Polycystic ovary syndrome (HRC) Polycystic ovaries Endometriosis Endometriosis, site unspecified Chronic pelvic pain in female Unspecified symptom associated with female genital organs BMI 33.0-33.9,adult Body Mass Index 33.0-33.9, adult documented in this encounter Care Teams Applications Programmer Analyst Relationship Specialty Start Date End Date Mynor Felix APRN, ARTIST BLACKSMITH [address] [facility] [place] [address] PCP - General Nurse Practitioner 12/31/22 documented as of this encounter
--- OUTSIDE RECORDS SUMMARY | 2024-04-14 10:19 | XMS_ITS | Encounter Summary ---
Author Organization [facility] Address [address] [place] [address] Care Team Providers Care Crossing Guard Name Role Phone Mynor Felix APRN, CNP Primary Care Provide r Encounter Details Date Type Department Care Team (Late st Contact Info) Description 03/09/2024 E-Visit [facility] [address] [place] [address] Mynor Felix APRN, CNP [phone] [place] [phone] Social History Tobacco Use Types Packs/Day Years [...] st Contact Info) Description 04/18/2024 3:00 PM SILVICULTURE FORESTER Telemedicine [facility] [address] [place] [address] Rylee Morrison APRN, SHOE PARTS MOLDER [address] [place], [place] [phone] 05/29/2024 1:00 PM CDT Appointment [facility] [address] [place], [place] [phone] Quynh Sinha MD [address] [place] [address] Scheduled Procedures Name Priority Associated Diagnoses Date/Ti me HEMORRHOIDECTOMY External hemorrhoid documented as of this encounter Visit Diagnoses Not on filedocumented in this encounter Care Teams Crossing Guard Relationship Specialty Start Date End Date Mynor Felix APRN, SHOE PARTS MOLDER [address] [place] [phone] PCP - General Nurse Practitioner 12/31/22 documented as of this encounter
--- OUTSIDE RECORDS SUMMARY | 2024-04-14 10:19 | XMS_ITS | Encounter Summary ---
Author Organization [facility] Address [address] [place] [address] Care Team Providers Care Wallpaperer Name Role Phone Mynor Felix APRN, ASPHALT PAVING SUPERVISOR Primary Care Provide r Reason for Visit * Reason Comments SINUS PAIN/PRESSURE Encounter Details Date Type Department Care Team (Late st Contact Info) Description 03/16/2024 4:00 PM FORMS ANALYST Office Visit [facility] [address] [place] [address] Percy Solo MD [address] [place] [address] Clinical sinusitis; Nasal vestibulitis Social History Tobacco Use Types Packs/Day Years [...] Comments Blood Pressure 122/74 03/16/2024 2:42 PM FORMS ANALYST Pulse 102 03/16/2024 2:42 PM FORMS ANALYST Temperature 36.6 C (97.8 F) 03/16/2024 2:42 PM FORMS ANALYST Respiratory Rate 16 03/16/2024 2:42 PM FORMS ANALYST Oxygen Saturation 100% 03/16/2024 2:42 PM FORMS ANALYST Inhaled Oxygen Concentration - - Weight - - Height - - Body Mass Index - - documented in this encounter Patient Instructions * Patient Instructions* Percy Solo MD - 03/16/2024 4:00 PM FORMS ANALYST Recommend doing steam baths at night and drink hot tea with lemon/honey. May also use humidifier at night. For the nasal symptoms which include drainage as well as congestion, may use loratadine daily. Apply the antibiotic ointment for the nostrils 2x/day. Take the antibiotic as directed with food and probiotic/yogurt. For the ear congestion, recommend doing Valsalva maneuver(pinch nose, close mouth and blow up to 3 times a day) to help relieve the ear pressure. S ANALYST documented in this encounter Progress Notes * Percy Solo MD - 03/16/2024 4:00 PM CST CHIEF COMPLAINT Chief Complaint Patient presents with SINUS PAIN/PRESSURE HISTORY OF PRESENT ILLNESS 28 y.o. year old female presents to the Urgent Care today for evaluation of 2 weeks history of initially she just having left ear pain and therefore she had some leftover amoxicillin until 500 mg twice a day and finish the last dose the Tuesday. Despite that she stated that she still having a lot ofear pressure and now having was sinus pain along with a runny nose as well as phlegmy cough. She had a virtual visit yesterday and was told to come in to be thoroughly evaluated. So far denies any fever and chills, sore throat shortness of breath and wheezing but does have muffling nose on both ears with some pain, runny nose and postnasal drips, phlegmy cough without shortness breath and wheezing Reviewed Nursing Notes: Chichi Monaco RN 03/16/24 1445 Signed Patient reports viral URI and ear infection, self-treated ear infection with amoxicillin that she had on hand, last dose was today at noon. She has had sinus pain/pressure, congestion, ear popping [id number]. Hx sinus infections. Had appt with [facility] today, may have a yeast infection from taking amoxicillin. OTC: Flonase, nasal spray, dayquil, nyquil REVIEW OF SYSTEMS 10 review of systems were reviewed and normal except what were noted under HPI. PRIOR HISTORY Medications: Outpatient Medications Prior to Visit Medication Sig [...] Apply 1 Application topically daily at bedtime. amphetamine-dextroamphetamine (ADDERALL) 5 MG tablet Take 1 Tablet (5 mg) by mouth daily. azelastine (ASTELIN) 0.1 % nasal solution Place 1 Marion into both nostrils two times daily as needed (Postnasal drainage.). 30 mL 1 benzoyl peroxide (BENZOYL PEROXIDE WASH) 10 % wash liquid Apply 1 Application topically daily as needed. 148 mL 11 budesonide-formoterol (SYMBICORT) 160-4.5 MCG/ACT inhaler Inhale 2 Puffs two times a day. 1 Each 6 clonazePAM (KLONOPIN) 0.5 MG disintegrating tablet Take 1 Tablet (0.5 mg) by mouth three times a day as needed. famotidine (PEPCID) 20 MG tablet Take 1 Tablet (20 mg) by mouth two times a day before meals. 180 Tablet 3 fluconazole (DIFLUCAN) 150 MG tablet Take 1 tablet if symptoms onset for a yeast infection, take 2nd tablet in 72 hours if symptoms are still present (Patient not taking: Reported on 03/16/2024) 2 Tablet 0 fluticasone propionate (FLONASE) 50 MCG/ACT nasal solution Place 2 Sprays into both nostrils daily.16 g 11 hydrocortisone, Perianal, (PROCTOSOL-HC) 2.5 % rectal cream Insert rectally two times daily as needed. Indications: Inflamed Hemorrhoids 30 g 1 hydrOXYzine HCl (ATARAX) 25 MG tablet Take 1-2 Tablets (25-50 mg) by mouth three times a day as needed. ibuprofen (MOTRIN) 600 MG tablet Take 1 Tablet (600 mg) by mouth. lidocaine-prilocaine (EMLA) 2.5-2.5 % cream Apply topically every 24 hours as needed. 30 g 1 LORazepam (ATIVAN) 0.5 MG tablet Take 1 Tablet (0.5 mg) by mouth. medical cannabis patient certified Take as instructed .. menthol-zinc oxide (CALMOSEPTINE) 0.44-20.6 % OINT Apply topically as needed. 71 g 3 metFORMIN XR (GLUCOPHAGE XR) 500 MG 24 hour release tablet Take 3 Tablets (1,500 mg) by mouth everyevening with a meal. 270 Tablet 3 methylPREDNISolone (MEDROL 21 TABLET DOSEPACK) 4 MG tablet Follow package directions (Patient not taking: Reported on 03/16/2024) 21 Tablet 0 metoclopramide (REGLAN) 10 MG tablet Take by mouth. metroNIDAZOLE (METROGEL-VAGINAL) 0.75 % vaginal gel Insert 1 Applicatorful vaginally once a week. (Patient not taking: Reported on 03/16/2024) 70 g 3 wynqniht-fwkxrytsc-mphseahyetqsr (MAXITROL) 3.5-91896-8.1 eye drop suspension INSTILL 1 DROP INTO BOTH EYES FOUR TIMES DAILY FOR 7 DAYS (Patient not taking: Reported on 03/16/2024) nicotine (NICODERM CQ) 14 MG/24HR patch Apply 1 Patch to skin daily. 14 Each 0 nicotine (NICODERM CQ) 21 MG/24HR patch Apply 1 Patch to skin every 24 hours. . 45 Each 0 nicotine (NICODERM CQ) 7 MG/24HR patch Apply 1 Patch to skin every 24 hours. Remove old patch priorto new patch application 14 Each 0 norethindrone (AYGESTIN) 5 MG tablet Take 1 Tablet (5 mg) by mouth daily. 90 Tablet 3 nortriptyline (PAMELOR) 10 MG capsule Take 1-2 Capsules (10-20 mg) by mouth daily at bedtime. 10 mgqhs po x 1 week, then may increase to 20mg qhs po Indications: Neuropathic Pain, Trouble Sleeping 60 Capsule 2 nystatin (NYSTOP) 183457 UNIT/GM powder Apply topically daily as needed for Other (intertrigo). Indications: Skin Infection due to Marilou Yeast (Patient not taking: Reported on 03/16/2024) 30 g 3 OLANZapine (ZYPREXA) 2.5 MG tablet Take 1 Tablet (2.5 mg) by mouth. olopatadine (PATADAY) 0.2 % eye drop solution Place 1 Drop into both eyes daily. 2.5 mL 3 omeprazole (PRILOSEC) 20 MG capsule Take 1 Capsule (20 mg) by mouth daily for 30 days. Take 1 hour before a meal. 30 Capsule 0 ondansetron (ZOFRAN-ODT) 4 MG disintegrating tablet Take 1 Tablet (4 mg) by mouth every 8 hours as needed. 30 Tablet 3 polyethylene glycol 3350 (GLYCOLAX) 17 GM/SCOOP powder Take 17 g by mouth. promethazine (PHENERGAN) 25 MG tablet Take 1 Tablet (25 mg) by mouth every 6 hours as needed. 30 Tablet 1 riboflavin (VITAMINB-2) 100 MG tablet Take 2 Tablets (200 mg) by mouth two times a day. 180 Tablet 2 semaglutide-weight management (WEGOVY) 1.7 MG/0.75ML pen injection Inject 1.7 mg subcutaneously onetime weekly. 12 mL 1 spironolactone (ALDACTONE) 50 MG tablet Take 3 Tablets (150 mg) by mouth daily. 270 Tablet 3 SUMAtriptan (IMITREX) 50 MG tablet Take 1 Tablet (50 mg) by mouth as needed. 9 Tablet 2 terconazole (TERAZOL3) 0.8 % vaginal cream SMARTSI Gram(s) Vaginal Daily [START ON 05/21/2024] tirzepatide-weight management (ZEPBOUND) 10 MG/0.5ML pen injection Inject 10 mgsubcutaneously one time weekly for 4 weeks Do not start before May 21, 2024. 2 mL 0 [START ON 06/18/2024] tirzepatide-weight management (ZEPBOUND) 12.5 MG/0.5ML pen injection Inject 12.5 mg subcutaneously one time weekly for 4 weeks Do not start before June 18, 2024. 2 mL 0 [START ON 07/16/2024] tirzepatide-weight management (ZEPBOUND) 15 MG/0.5ML pen injection Inject 15 mgsubcutaneously one time weekly for 4 weeks Do not start before July 16, 2024. 2 mL 11 tirzepatide-weight management (ZEPBOUND) 2.5 MG/0.5ML pen injection Inject 2.5 mg subcutaneously one time weekly for 4 weeks 2 mL 0 [START ON 03/26/2024] tirzepatide-weight management (ZEPBOUND) 5 MG/0.5ML pen injection Inject 5 mg subcutaneously one time weekly for 4 weeks Do not start before March 26, 2024. 2 mL 0 [START ON 04/23/2024] tirzepatide-weight management (ZEPBOUND) 7.5 MG/0.5ML pen injection Inject 7.5mg subcutaneously one time weekly for 4 weeks Do not start before April 23, 2024. 2 mL 0 VRAYLAR 3 MG capsule Take 1 Capsule (3 mg) by mouth daily. VYVANSE 70 MG capsule Take 1 Capsule (70 mg) by mouth daily. No facility-administered medications prior to visit. Reviewed via [facility] Chart Review/CareEverywhere: Allergies Past Medical History Patient Active Problem List Diagnosis Depressive disorder Attention deficit hyperactivity disorder (ADHD) (HRC) Acne Borderline personality disorder (HRC) Chronic abdominal pain Cystic acne Dysmenorrhea Endometriosis Hidradenitis suppurativa Hirsutism Fatigue History of disease Migraine headache Mild persistent asthma (HRC) Obesity, Class I, BMI 30-34.9 (HRC) Neuralgia Neck pain Nicotine dependence, other [...] vomiting syndrome Cannabinoid hyperemesis syndrome External hemorrhoid Scoliosis, unspecified Past Surgical History Social History Social History Tobacco Use Smoking status: Former Current packs/day: 0.00 Average packs/day: 1 pack/day for 5.4 years (5.4 ttl pk-yrs) Types: Cigarettes Start date: 01/25/2013 Quit date: 07/08/2018 Years since quittin.6 Smokeless tobacco: Never Tobacco comments: I vape Vaping Use Vaping status: Every Day Substance Use Topics Alcohol use: Yes Drug use: Yes Types: Marijuana Comment: Experimenting in the past PHYSICAL EXAM Vitals Reviewed: BP 122/74 (BP Location: Left Arm, BP Cuff Size: Regular) Pulse (!) 102 Temp 36.6 ??C (97.8 ??F)(Oral) Resp 16 LMP 02/27/2024 (Exact Date) SpO2 100% GENERAL: Healthy-appearing patient. Alert oriented x3. In no acute respiratory distress. HEAD: Normocephalic atraumatic. EYE: Nonicteric sclera. Conjunctiva without injection. ENT: Neck supple with a adenopathy and mass. Both ear canals and tympanic membranes appear to be intact but dull and not freely mobile to Valsalva maneuver. Oropharynx is clear. Nasal mucosa is pink with some clear mucus in both nostrils. Does have maxillary and frontal sinuses on the right side but not on the left. CV: Regular rate and rhythm without murmur. Distal pulses are equally palpable and appear to be normal. PULM: Normal auscultation of both lungs. No wheezing, crackles and rales appreciated. MSK: Both upper and lower extremities appear to be normal. SKIN: No rash or other lesions appreciated. NEURO: Alert and oriented x3. Able to communicate in full sentences. LABS - IMAGING - MEDICATIONS LABS/EKG: No results found for any visits on 03/16/24. IMAGING: No results found. INTERVENTIONS: MEDICAL DECISION MAKING Patient seen and assessed. Presented to Urgent Care for above symptoms and I agree with her that mostly she has clinical sinusitis. Currently she has Eustachian tube dysfunction rather than infection. With that we will go ahead and start her on cefdinir twice a day for 10 day course with GI precautions and recommend her use loratadine daily the nasal symptoms. We will send in a prescription for mupirocin to be used twice a day for sores in her nose consistent with nasal vestibulitis. The rest of the treatment plan per my discharge instructions.If despite above and symptoms worsen, see your provider or come back for re-evaluation here or the ER. Patient was understanding of above assessment and plan and left the clinic in stable condition. ASSESSMENT & PLAN DIAGNOSIS: ICD-10-CM 1. Clinical sinusitis J32.9 2. Nasal vestibulitis J34.89 Orders Placed This Encounter Medications cefdinir (OMNICEF) 300 MG capsule Sig: Take 1 Capsule (300 mg) by mouth two times a day for 10 days. Dispense: 20 Capsule Refill: 0 mupirocin (BACTROBAN) 2 % ointment Sig: Apply to affected area twice a day for 10 days. Dispense: 22 g Refill: 0 DISPOSITION: Discharge Home Percy Solo M.D. [facility] S ANALYST documented in this encounter Nursing Notes * Chichi Monaco, RN - 03/16/2024 4:00 PM CST Patient reports viral URI and ear infection, self-treated ear infection with amoxicillin that she had on hand, last dose was today at noon. She has had sinus pain/pressure, congestion, ear popping [id number]. Hx sinus infections. Had appt with OBGYN today, may have a yeast infection from taking amoxicillin. OTC: Flonase, nasal spray, dayquil, nyquil S ANALYST documented in this encounter Plan of Treatment Upcoming Encounters Date Type Department Care Team (Late st Contact Info) Description 04/18/2024 3:00 PM FORMS ANALYST Telemedicine [facility] [address] [place], [place] [address] Rylee Morrison, SPRAY BLENDER, ASPHALT PAVING SUPERVISOR [address] [place], [place] [phone] 05/29/2024 1:00 PM CDT Appointment [facility] [address] [place], [place] [phone] Quynh Sinha MD [address] [place], [place] [phone] Scheduled Procedures Name Priority Associated Diagnoses Date/Ti me HEMORRHOIDECTOMY External hemorrhoid documented as of this encounter Visit Diagnoses Diagnosis Clinical sinusitis Unspecified sinusitis (chronic) Nasal vestibulitis Other diseases of nasal cavity and sinuses documented in this encounter Care Teams Wallpaperer Relationship Specialty Start Date End Date Mynor Felix, SPRAY BLENDER, ASPHALT PAVING SUPERVISOR [address] [place] [address] PCP - General Nurse Practitioner 12/31/22 documented as of this encounter
--- OUTSIDE RECORDS SUMMARY | 2024-04-14 10:19 | XMS_ITS | Encounter Summary ---
Author Organization [address] Address [address] [place] [address] Care Team Providers Care Fishing Captain Name Role Phone Mynor Felix APRN, CNP Primary Care Provide r Reason for Visit * Reason Comments Prior Authorization For Medication tirze patide-weight management (ZEPBOUND) 2.5 MG/0.5ML pen injection Encounter Details Date Type Department Care Team (Late st Contact Info) Description 02/28/[address] [facility] [address] [place] [address] Mynor Felix APRN, CNP [address] [place] [address] Prior Authorization For Medication (tirzepatide-weight management (ZEPBOUND) 2.5 MG/0.5ML pen injection /) Social History Tobacco Use Types Packs/Day [...] as of this encounter Nursing Notes * Delfino Sanford CMA - 03/12/2024 10:26 AM CST Inbound call from patient, per patient she is going to try the Wegovy and see if she can tolerate it. KFAST ATTENDANT * Mercy Land LPN - 03/12/2024 10:05 AM CST Called and left a detailed message regarding her wegovy approval. I asked her to give us a call on which medication she is using so we can close the zepbound encounter if needed. 03/12/24 KFAST ATTENDANT * Sonia Velasquez MA - 03/12/2024 9:01 AM CST Patient has an appeal approval on file for Wegovy. Approval is valid - 08/30/2024. Please clarify if the patient will be taking Wegovy or Zepbound. If prior authorization is no longer needed forZepbound please cancel the request and close encounter.r KFAST ATTENDANT * Lula Fischer - 03/02/2024 10:37 AM CST ePA received a call from [employer] informing us that the prior authorization for WEGOVY has been approved. The outcome will be faxed over. Mercy Gilbert LPN - 02/28/2024 10:15 AM CST Prior authorization has been initiated for tirzepatide-weight management (ZEPBOUND) 2.5 MG/0.5ML pen injection KFAST ATTENDANT documented in this encounter Plan of Treatment Upcoming Encounters Date Type Department Care Team (Late st Contact Info) Description 04/18/2024 3:00 PM BREAKFAST ATTENDANT Telemedicine [facility] [address] [place] [address] Rylee Morrison APRN, BURNING PLANT OPERATOR [address] [place], [place] [phone] 05/29/2024 1:00 PM CDT Appointment [facility] [address] [place], [place] [phone] Quynh Sinha MD [address] [place], [place] [phone] Scheduled Procedures Name Priority Associated Diagnoses Date/Ti me HEMORRHOIDECTOMY External hemorrhoid documented as of this encounter Visit Diagnoses Not on filedocumented in this encounter Care Teams Fishing Captain Relationship Specialty Start Date End Date Mynor Felix APRN, BURNING PLANT OPERATOR [address] [place] [id number] PCP - General Nurse Practitioner 12/31/22 documented as of this encounter
--- OUTSIDE RECORDS SUMMARY | 2024-04-14 10:19 | XMS_ITS | Encounter Summary ---
Author Organization [facility] Address [address] [place] [address] Care Team Providers Care Crisis Mental Health Therapist Name Role Phone Mynor Felix APRN, CNP Primary Care Provide r Reason for Visit * Reason Onset Date Comments Video Visit 03/06/2024 MEDICATION CHECK Encounter Details Date Type Department Care Team (Late st Contact Info) Description 03/08/2024 1:30 PM COUNTERINTELLIGENCE SPECIALIST Telemedicine [facility] [address] [place] [address] Mynor Felix APRN, CNP [address] [place], [place] [phone] Obesity, Class I, BMI 30-34.9 (HRC) (Primary Dx); Gastroesophageal reflux disease, unspecified whether esophagitis present; Pelvic floor tension; Dyspareunia in female Social History Tobacco Use Types Packs/Day Years [...] of this encounter Progress Notes * Mynor Felix, IT SYSTEMS ANALYST, COMPATIBILITY TEST ENGINEER - 03/08/2024 1:30 PM CST Subjective: Today's visit with Benigno was conducted as a scheduled video visit. Obesity: Has been struggling to get Wegovy so has been without it and has been gaining weight. This has beenfrustrating for her. Sarthak ORTA finally approved and she was able to get it from the pharmacy. Sinus concerns: Sees Ana [facility] SCHWART[facility] for sinus issues. Most recently patient felt like her nasal symptoms have improved but her throat symptoms worsened. ENT thought maybe she was having some laryngopharyngeal reflux. They recommended that she try Prilosec 20mg daily in addition to the Pepcid. She hasn't started this yet as she would like it sent to her pharmacy. Pelvic Floor: Saw Radio Artist for pelvic floor tension and dyspareunia. Radio Artist recommended pelvic floor therapy as well as meeting with Sexual Health. She is wondering if she can get at home Physical Therapy for the pelvic floor therapy because she is currently living with her boyfriend. Objective: LMP 02/02/2024 (Exact Date) GENERAL: Patient is alert and oriented x 3. Pleasant. No acute distress. HEAD: Normocephalic. RESPIRATORY: Speaking in full sentences. No cough, wheezing. NEURO: Normal motor function. PSYCH: Bright affect. Maintains eye contact with conversation. Appropriately dressed and well groomed. SKIN: no visible rashes on the face. Assessment/Plan: Obesity, Class I, BMI 30-34.9 ([facility]) Discussed Sarthak and YOU approval. Discussed side effects and that it is a chronic medication for a chronic disease. Gastroesophageal reflux disease, unspecified whether esophagitis present - omeprazole (PRILOSEC) 20 MG capsule; Take 1 Capsule (20 mg) by mouth daily for 30 days. Take 1 hour before a meal. - 30 day course of omeprazole recommended by ENT. Sent prescription. Take 30 minutes - an hour before a meal. Pelvic floor tension Reviewed with patient that an order for at home physical therapy is not appropriate for patient. Patient has the ability and the means to go to a clinic for physical therapy. Reviewed I could write an outside order if she doesn't want to do it with [facility]. Patient will schedule with [facility]. Dyspareunia in female Highly recommend that she make an appointment with Sexual Health. Provided phone number. Billing: Total time spent on this visit on the day of the encounter, including preparing for the visit, time spent with the patient, placing orders, writing the note, was 36 minutes. Mynor Felix APRN, CNP TERINTELLIGENCE SPECIALIST documented in this encounter Plan of Treatment Upcoming Encounters Date Type Department Care Team (Late st Contact Info) Description 04/18/2024 3:00 PM COUNTERINTELLIGENCE SPECIALIST Telemedicine [facility] [address] [place] [address] Rylee Morrison APRN, CNP [address] [place], [place] [phone] 05/29/2024 1:00 PM CDT Appointment [facility] [address] [place], [place] [address] Quynh Sinha MD [address] [place], [place] [phone] Scheduled Procedures Name Priority Associated Diagnoses Date/Ti me HEMORRHOIDECTOMY External hemorrhoid documented as of this encounter Visit Diagnoses Diagnosis Obesity, Class I, BMI 30-34.9 (HRC)- Primary Obesity, unspecified Gastroesophageal reflux disease, unspecified whether esophagitis present Pelvic floor tension Dyspareunia in female documented in this encounter Care Teams Crisis Mental Health Therapist Relationship Specialty Start Date End Date Mynor Felix APRN, GORDO [address] [place] [address] PCP - General Nurse Practitioner 12/31/22 documented as of this encounter
--- OUTSIDE RECORDS SUMMARY | 2024-04-14 10:19 | XMS_ITS | Encounter Summary ---
Author Organization [facility] Address [address] [place] [address] Care Team Providers Care Storage Management Consultant Name Role Phone Mynor Felix APRN, CNP Primary Care Provide r Reason for Referral * Consult/Transfer Care (Routine) - New Request Specialty Diagnoses / Procedures Referred By Clarice t Referred To Contact Diagnoses Obstructive sleep apnea syndrome Mynor Felix APRN, GLOVE MACHINE OPERATOR [address] [place] [address] Phone: tel: fax: Referral ID Status Reason Start Date Expiration Date V isits Requested Visits Authorized [id number] New Request 03/29/2024 06/28/2025 1 1 Scheduling Instructions Your clinician has recommended an appointment with [facility]. This is not a sleep study order and must first be reviewed by a sleep specialist to determine the next steps. The review process looks at multiple factors including your insurance requirements, personal health history, and [place] [employer] guidelines. This order will be reviewed within 1 business day and sent to scheduling for one of the following appointments: - Consultation/Office Visit with a Sleep Medicine Specialist - Consultation/Office Visit with an Insomnia Specialist - Portable/Home Sleep Test If you do not hear from our scheduling staff within the next 7 days, please contact us at [phone] and select option 1. Question Answer Appointment Urgency Non-Urgent Sleep Service Requested Sleep Consult Previously Diagnosed LEELEE Yes Reason for visit Previously diagnosed sleep apnea Comments Comments: Age/Sex: 28 y.o. / female Height: 03/16/24 : 5' 1 (1.549 m) Weight: 03/16/24 : 176 lb 1.6 oz (79.9 kg) BMI: Estimated body mass index is 33.27 kg/m as calculated from the following: Height as of 03/16/24: 5' 1 (1.549 m). Weight as of 03/16/24: 176 lb 1.6 oz (79.9 kg). ING SYSTEM INSTALLER Reason for Visit * Reason Comments QUESTIONS, GENERAL Entered automaticall y based on patient selection in [facility]. Encounter Details Date Type Department Care Team (Late st Contact Info) Description 03/28/2024 12:25 PM MILKING SYSTEM INSTALLER E-Visit [facility] [address] [place], [place] [phone] Mynor Felix APRN, GLOVE MACHINE OPERATOR [address] [place], [place] [phone] Dx: Obstructive sleep apnea syndrome (Primary Dx) Social History Tobacco Use Types [...] as of this encounter Nursing Notes * Samantha Hooper LPN - 03/29/2024 8:03 AM CST Clinician: Review and advise and Patient is expecting a [facility] [facility] message from [facility] Patient/daytime caregiver request: New Order: Medication and referral Specific Request: Hope you???re doing well. Just updating that I???m Doing well back on wegovy. Need refills of 1.7 wegovy sent over to pharmacy as I???m out of refills. Was also wondering about a prescription for miralax and am dealing with constipation again. Also, a sleep medicine referral to check up on my sleepapnea. Thank you. ING SYSTEM INSTALLER documented in this encounter Plan of Treatment Upcoming Encounters Date Type Department Care Team (Late st Contact Info) Description 04/18/2024 3:00 PM MILKING SYSTEM INSTALLER Telemedicine [facility] [address] [place], [place] [phone] Rylee Morrison APRN, GLOVE MACHINE OPERATOR [address] [place], [place] [address] 05/29/2024 1:00 PM CDT Appointment [facility] [address] [place], [place] [phone] Quynh Sinha MD [address] [place], [place] [phone] Scheduled Procedures Name Priority Associated Diagnoses Date/Ti me HEMORRHOIDECTOMY External hemorrhoid Scheduled Referrals Name Type Priority Associated Diagnoses Orde r Schedule Sleep Services Referral Routine Obstructive sleep apnea syndrome Ordered: 03/29/2024 documented as of this encounter Visit Diagnoses Diagnosis Obstructive sleep apnea syndrome- Primary Obstructive sleep apnea (adult) (pediatric) Obesity, Class I, BMI 30-34.9 (C) Obesity, unspecified Irritable bowel syndrome with both constipation and diarrhea documented in this encounter Care Teams Storage Management Consultant Relationship Specialty Start Date End Date Mynor Felix APRN, GLOVE MACHINE OPERATOR [address] [place] [id number] PCP - General Nurse Practitioner 12/31/22 documented as of this encounter
--- OUTSIDE RECORDS SUMMARY | 2024-04-14 10:19 | XMS_ITS | Encounter Summary ---
Author Organization [employer] Address [address] [place] [address] Care Team Providers Care Facility Technician Name Role Phone Mynor Felix APRN, CNP Primary Care Provide r Reason for Visit * Reason Comments Refill azelastine (ASTELIN) 0.1 % nasal solution [Pharmacy Med Name: AZELASTINE 0.1%(137MCG) NASAL-200SP] Encounter Details Date Type Department Care Team (Late st Contact Info) Description 04/08/2024 Refill [facility] [address] [place], [place] [phone] Mynor Felix APRN, CNP [address] [place] [phone] Refill (azelastine (ASTELIN) 0.1 % nasal solution [Pharmacy Med Name: AZELASTINE 0.1%(137MCG) NASAL-200SP]) Social History Tobacco Use Types Packs/Day Years [...] as of this encounter Nursing Notes * Gurvinder Gan RN - 04/11/2024 3:15 PM CST Further Assistance Needed on Refill from Clinician RN reviewed. Please advise if long-term refills are appropriate. Last qualifying visit: 03/08/2024 (with MYNOR FELIX) Next scheduled visit: None Review pended order for accuracy and sign if appropriate. Requested Prescriptions Pending Prescriptions Disp Refills azelastine (ASTELIN) 0.1 % nasal solution [Pharmacy Med Name: AZELASTINE 0.1%(137MCG) NASAL-200SP] 30 mL Sig: USE 1 SPRAY IN EACH NOSTRIL TWICE DAILY NEEDED FOR POSTNASAL DRAINAGE [address]IGHT * Sarah Yoo Xrwcomm - 04/08/2024 9:02 PM CST azelastine (ASTELIN) 0.1 % nasal solution [Pharmacy Med Name: AZELASTINE 0.1%(137MCG) NASAL-200SP] Medication started: 02/01/2023 Last ordered by MYNOR FELIX: 02/01/2023 (432 days ago) QTY: 30, Refills: 1, Sig: place 1 spray into both nostrils two times daily as needed (postnasal drainage.). (changed) -> Unable to determine if sig has changed, review required. -> Refill x 12 months (until due for an office visit) -> Calculate the quantity and number of refills manually. Last qualifying visit: 03/08/2024 (with MYNOR FELIX) Next scheduled visit: None [facility] Embedded Refills, Reference: [id number], 04/08/2024 9:02:19 PM [facility] Primary Care [[id number]] ([id number]) [address] documented in this encounter Plan of Treatment Upcoming Encounters Date Type Department Care Team (Late st Contact Info) Description 04/18/2024 3:[address] Telemedicine [facility] [address] [place], [place] [phone] Rylee Morrison APRN, CARD FEEDER [address] [place] [address] 05/29/2024 1:00 PM CDT Appointment [facility] [address] [place] [address] Quynh Sinha MD [address] [place] [address] Scheduled Procedures Name Priority Associated Diagnoses Date/Ti me HEMORRHOIDECTOMY External hemorrhoid documented as of this encounter Visit Diagnoses Diagnosis Postnasal drip documented in this encounter Care Teams Facility Technician Relationship Specialty Start Date End Date Mynor Felix, SELF PAY SPECIALIST, CARD FEEDER [address] [place] [address] [place] [address] PCP - General Nurse Practitioner 12/31/22 documented as of this encounter
--- OUTSIDE RECORDS SUMMARY | 2024-04-14 10:19 | XMS_ITS | Encounter Summary ---
[facility] Address [address] [place] [address] Care Team Providers Care Underground Utility Locator Name Role Phone Mynor Felix APRN INTERNET ECOMMERCE SPECIALIST Primary Care Provide r Reason for Referral * Consult/Transfer Care (Routine) - New Request Specialty Diagnoses / Procedures Referred By Clarice da silva Referred To Contact Diagnoses Post-nasal drainage Karl Tracy PA-C [address] [place] [address] Phone: tel: fax: Referral ID Status Reason Start Date Expiration Date V isits Requested Visits Authorized [id number] New Request 03/26/2024 06/25/2025 1 1 Scheduling Instructions Your clinician has recommended an appointment with [facility]. You can quickly schedule your appointment by signing in to your online account at [email or web address] or through the text message you may have received. You can also make an appointment by calling [phone]. We suggest you call your health insurance company about your coverage and benefits for this appointment. Question Answer Appointment Urgency? Non-Urgent Reason for visit? Interested in allergy testing CTOR LEARNING AND DEVELOPMENT Reason for Visit * Reason Comments Symptoms Encounter Details Date Type Department Care Team (Late st Contact Info) Description 03/26/2024 Telephone Otolaryngology at [facility] [place] [address] [place] [phone] Karl Tracy PA-C [address] [place] [address] Symptoms Social History Tobacco Use Types Packs/Day Years [...] as of this encounter Nursing Notes * Perri Carrion RN - 03/26/2024 11:04 AM CST Relayed message from ML, pt had no questions or concerns. Pt encouraged to call if other questions come up. Perri GOMEZ CTOR LEARNING AND DEVELOPMENT * Karl Tracy PA-C - 03/26/2024 10:53 AM CST I would recommend we have her tested for allergies. I wonder if it may be something in the environment that she's reacting to. I will place that referral for her so we can get that scheduled. Karl Tracy PA-C 03/26/2024, 10:54 AM CTOR LEARNING AND DEVELOPMENT * Perri Carrion RN - 03/26/2024 10:28 AM CST Patient called with persistent nose and throat symptoms. Patient states that she still is have PND,clearing of her throat, constant drippy nose, sniffles, congestion and hot and cold feeling in nose. Patient states she has done the omeprazole for the past month, has tried both Flonase and Astelin spray. Patient is currently still doing saline irrigations. Patient also had CT scan done. Patient was seen at on 03/16/24 for sinusitis she was put on cefdinir. Pt last seen 12/19/23 IMPRESSION: Chronic sinusitis Chronic nasal drainage Post-nasal drainage PLAN: The patient's exam today is suggestive of chronic sinusitis. She was on amoxicillin earlier this year, but did not note a significant change in her symptoms. We will have her try Augmentin 875/125 mgb.i.d. x2 weeks, a Medrol Dosepak, b.i.d. nasal saline irrigations, and continuation of her Flonasenasal spray, 2 sprays per nostril once daily. If her symptoms do not significantly improve, we may need to extend her antibiotics or switch this again. Would also consider obtaining a CT fusion of the sinuses based on her response to treatment. She will call us with an update in 2 weeks, certainly sooner if her symptoms suddenly change or worsen at any point. CTOR LEARNING AND DEVELOPMENT documented in this encounter Plan of Treatment Upcoming Encounters Date Type Department Care Team (Late st Contact Info) Description 04/18/2024 3:00 PM DIRECTOR LEARNING AND DEVELOPMENT Telemedicine [facility] [address] [place], [place] [address] Rylee Morrison, LOOM REPAIRER, INTERNET ECOMMERCE SPECIALIST [address] [place], [place] [address] 05/29/2024 1:00 PM CDT Appointment [facility] [address] [place], [place] [address] Quynh Sinha MD [address] [place], [place] [phone] Scheduled Procedures Name Priority Associated Diagnoses Date/Ti me HEMORRHOIDECTOMY External hemorrhoid Scheduled Referrals Name Type Priority Associated Diagnoses Orde r Schedule Allergy And Immunology Consult Adult/Peds Referral Routine Post-nasal drainage Ordered: 03/26/2024 documented as of this encounter Visit Diagnoses Diagnosis Post-nasal drainage- Primary Unspecified sinusitis (chronic) documented in this encounter Care Teams Underground Utility Locator Relationship Specialty Start Date End Date Mynor Felix, LOOM REPAIRER, INTERNET ECOMMERCE SPECIALIST [address] [place] [address] PCP - General Nurse Practitioner 12/31/22 documented as of this encounter
[2024-04-14 10:24] VITALS: BP 128/86; PULSE 99; RESP 18; TEMP 36.9; O2SAT 99; BMI 29.2
--- OUTSIDE RECORDS SUMMARY | 2024-04-14 10:56 | XMS_ITS | Encounter Summary ---
[facility] Address [address] [place] [address] Care Team Providers Care Semi Automatic Sewing Machine Operator Name Role Phone Mynor Felix APRN AUTHORIZER Primary Care Provide r Reason for Referral * Consult/Transfer Care (Routine) - New Request Specialty Diagnoses / Procedures Referred By Clarice da silva Referred To Contact Diagnoses Post-nasal drainage Karl Tracy PA-C [address] [place] [address] Phone: tel: fax: Referral ID Status Reason Start Date Expiration Date V isits Requested Visits Authorized [id number] New Request 03/26/2024 06/25/2025 1 1 Scheduling Instructions Your clinician has recommended an appointment with [facility]. You can quickly schedule your appointment by signing in to your online account at [email or web address] or through the text message you may have received. You can also make an appointment by calling [phone]. We suggest you call your health insurance company about your coverage and benefits for this appointment. Question Answer Appointment Urgency? Non-Urgent Reason for visit? Interested in allergy testing ITALITY SPECIALIST Reason for Visit * Reason Comments Symptoms Encounter Details Date Type Department Care Team (Late st Contact Info) Description 03/26/2024 Telephone [facility]ol[facility]ology at [facility] [place] [address] [place] [phone] Karl Tracy PA-C [address] [place] [address] Symptoms Social History Tobacco Use Types Packs/Day [...] if other questions come up. Perri GOMEZ ITALITY SPECIALIST * Karl Tracy PA-C - 03/26/2024 10:53 AM CST I would recommend we have her tested for allergies. I wonder if it may be something in the environment that she's reacting to. I will place that referral for her so we can get that scheduled. Karl Tracy PA-C 03/26/2024, 10:54 AM ITALITY SPECIALIST * Perri Carrion RN - 03/26/2024 10:28 [...] suddenly change or worsen at any point. ITALITY SPECIALIST documented in this encounter Plan of Treatment Upcoming Encounters Date Type Department Care Team (Late st Contact Info) Description 04/18/2024 3:00 PM HOSPITALITY SPECIALIST Telemedicine [facility] [address] [place], [place] [address] Rylee Morrison, JACQUARD CARD LACER, AUTHORIZER [address] [place], [place] [address] 05/29/2024 1:00 PM CDT Appointment [facility] [address] [place], [place] [address] Quynh Sinha MD [address] [place], [place] [address] Scheduled Procedures Name Priority Associated Diagnoses Date/Ti me HEMORRHOIDECTOMY External hemorrhoid Scheduled Referrals Name Type Priority Associated Diagnoses Orde r Schedule Allergy And Immunology Consult Adult/Peds Referral Routine Post-nasal drainage Ordered: 03/26/2024 documented as of this encounter Visit Diagnoses Diagnosis Post-nasal drainage- Primary Unspecified sinusitis (chronic) documented in this encounter Care Teams Semi Automatic Sewing Machine Operator Relationship Specialty Start Date End Date Mynor Felix, JACQUARD CARD LACER, AUTHORIZER [address] [place] [address] PCP - General Nurse Practitioner 12/31/22 documented as of this encounter
--- OUTSIDE RECORDS SUMMARY | 2024-04-14 10:56 | XMS_ITS | Clinical Summary ---
Author Organization [facility] Address [address] [place] [address] Care Team Providers Care Video Poker Floorman Name Role Phone Mynor Felix APRN, MILKING MACHINE OPERATOR Primary Care Provide r Source Comments You [...] for each transition of care or referral. [facility] Allerg[facility] No known active allergies Medications * [...] SMARTSI Gram(s) Vaginal Daily Active nystatin (NYSTOP) 502092 UNIT/GM powderIndication s:Cutaneous Candidiasis Apply topically daily [...] mg) by mouth. 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 [...] Type Department Care Team Description 04/08/2024 Refill [facility] [address] [place] [address] Mynor Felix APRN, GORDO Refill (azelastine (ASTELIN) 0.1 % nasal solution [Pharmacy Med Name: AZELASTINE 0.1%(137MCG) NASAL-200SP]) 03/28/2024 12:25 PM CHALK TESTER E-Visit [facility] [address] [place] [address] Mynor Felix APRN, MILKING MACHINE OPERATOR Dx: Obstructive sleep apnea syndrome (Primary Dx) 03/26/2024 Telephone Otolaryngology at [facility] [address] [address] [address] [place] [address] Karl Tracy PA-Erum Symptoms 03/16/2024 4:00 PM CHALK TESTER Office Visit [facility] [address] [place] [phone] Percy Solo MD Clinical sinusitis; Nasal vestibulitis 03/16/2024 1:45 PM CHALK TESTER Office Visit [facility] [address] [facility], [address] [place] [phone] Carol Gilliland MD Vaginal itching (Primary Dx); Vaginal discharge; Polycystic ovary syndrome (HRC); Endometriosis; Chronic pelvic pain in female; BMI 33.0-33.9,adult 03/09/2024 E-Visit [facility] [address] [place] [address] Mynor Felix APRN, GORDO 03/08/2024 1:30 PM CHALK TESTER Telemedicine [facility] [address] [place] [address] Mynor Felix, MISHA, MILKING MACHINE OPERATOR Obesity, Class I, BMI 30-34.9 (HRC) (Primary Dx); Gastroesophageal reflux disease, unspecified whether esophagitis present; Pelvic floor tension; Dyspareunia in female 02/28/2024 Telephone [facility] [address] [place] [address] Mynor Felix APRN, MILKING MACHINE OPERATOR Prior Authorization For Medication (tirzepatide-weight management (ZEPBOUND) 2.5 MG/0.5ML pen injection /) 02/25/2024 12:30 AM CHALK TESTER E-Visit [facility] [address] [place] [address] [address] [place] [phone] Anastasia Chavira APRN, MILKING MACHINE OPERATOR Dx: Pelvic floor tension (Primary Dx) 02/24/2024 10:05 PM CHALK TESTER E-Visit [address] [address] Mynor Felix APRN, MILKING MACHINE OPERATOR Dx: Polycystic ovary syndrome (HRC) (Primary Dx) 02/20/2024 Telephone [facility] [address] [place] [address], [facility] [address] [place] [address] Anastasia Chavira APRN, MILKING MACHINE OPERATOR LAB RESULTS 02/20/2024 Telephone Otolaryngology at [facility] [address] [place] [phone] Karl Tracy PA-C Symptoms 02/17/2024 1:00 PM CHALK TESTER Office Visit [facility] [address] [place] [address], [facility] [address] [place] [phone] Anastasia Chavira APRN, GORDO 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) (Primary Dx); Chronic pelvic pain in female; Dysmenorrhea; Hirsutism; Vaginal odor; Dyspareunia in female; PCOS (polycystic ovarian syndrome) (HRC) 02/13/2024 11:30 AM CHALK TESTER E-Visit [facility] [address] [place] [address] Mynor Felix APRN, MILKING MACHINE OPERATOR Chief Comp: QUESTIONS, GENERAL 02/13/[address] [address] Mynor Felix APRN, MILKING MACHINE OPERATOR Prior Authorization For Medication (semaglutide-weight management (WEGOVY) 1.7 MG/0.75ML pen injection) 02/07/2024 Telephone Otolaryngology at [facility] [address] [address] [address] [place] [address] Karl Tracy PA-C RESULTS, TEST 02/06/2024 2:00 PM CHALK TESTER Ancillary Procedure [facility] [address] Scan [address] [place] [phone] Karl Tracy PA-C Chronic congestion of paranasal sinus 02/06/2024 1:35 PM CHALK TESTER E-Visit [facility] [address] [place] [phone] Rylee Jeffery APRN, MILKING MACHINE OPERATOR Chief Comp: QUESTIONS, GENERAL 02/01/2024 1:35 PM CHALK TESTER E-Visit [address] [address] Mynor Felix APRN, MILKING MACHINE OPERATOR Dx: Obesity, Class I, BMI 30-34.9 (HRC) 01/23/[address] [address] Mynor Felix APRN, MILKING MACHINE OPERATOR Prior Authorization For Medication (Zepbound Injection /) 01/18/2024 Telephone [facility] [address] [place] [address] Javon Brown MBBS 01/17/2024 10:00 AM CHALK TESTER Office Visit [facility] [address] [place] [phone] Lesly Whitehead PA-C Vaginal discharge 01/17/2024 9:40 AM CHALK TESTER Lab Visit [facility] [address] [place] [address] Prediabetes; Cyclic vomiting syndrome; Screening for hyperlipidemia; Polycystic ovary syndrome (HRC) from Last 3 Months Immunizations Immunization Administration Dates Next Due 4vHPV (Gardasil) 06/03/2008,02/01/2008, 8 DTP-Hib (Tetramune) 05/18/1996,03/23/1996,1995 DTaP 06/12/2001, 8,05/18/1996,1996,01/27/1996 Flu Vac (3+ yrs) 10/31/2012,12/14/2011 Flu Vac Preserv Free (3+yrs) 11/26/2008 [id number] 02/10/2009 HepA Ped/Adol (1-18 yrs) 12/15/2009,10/02/2008 HepB Ped/Adol (0-18 yrs) 11/30/1996,01/27/1996,1 HepB, Unspecified Formulation 11/30/1996, 996,1995 Hib, Unspecified Formulation 11/30/1996, 05/18/1996,03/23/1996,1995 IPV (Polio) 06/12/2001, 7,03/23/1996,1995 Influenza ([place] Only) (Flul aval Quad 0.5, 3+ yrs) 11/06/2019,10/30/2018,12/14/2016,2014 Influenza (Flucelvax), Prese rv Free QIV 03/29/2023 Influenza IIV4 (Quadrivalent ) 0.5mL (16971) 12/10/2021,11/11/2020,11/06/2019,2018,12/14/2016,01/16/2015,12/15/2009,1 Influenza LAIV (Nasal, 2-49 yrs) 12/15/2009,09/2007 [...] Comments Blood Pressure 122/74 03/16/2024 2:42 PM CHALK TESTER Pulse 102 03/16/2024 2:42 PM CHALK TESTER Temperature 36.6 C (97.8 F) 03/16/2024 2:42 PM CHALK TESTER Respiratory Rate 16 03/16/2024 2:42 PM CHALK TESTER Oxygen Saturation 100% 03/16/2024 2:42 PM CHALK TESTER Inhaled Oxygen Concentration - - Weight 79.9 kg (176 lb 1.6 oz) 03/16/2024 1:49 P M CHALK TESTER Height 154.9 cm (5' 1) 03/16/2024 1:49 PM CHALK TESTER Body Mass Index 33.27 03/16/2024 1:49 PM CHALK TESTER Plan of Treatment Upcoming Encounters Date Type Department Care Team (Late st Contact Info) Description 04/18/2024 3:00 PM CHALK TESTER Telemedicine [facility] [address] [place], [place] [phone] Rylee Morrison, HEAD TRIMMER, MILKING MACHINE OPERATOR [address] [place] [address] 05/29/2024 1:00 PM CDT Appointment [facility] [address] [place], [place] [phone] Quynh Sinha MD [address] [place] [address] Scheduled Procedures Name Priority Associated [...] Comments VAGINITIS PANEL Routine 03/16/2024 2:19 PM CHALK TESTER Vaginal itching Vaginal discharge POCT PH (NITRAZINE) VAGINAL FLUID Routine 02/17/2024 4:12 PM CHALK TESTER Vaginal odor VAGINITIS PANEL Routine 02/17/2024 1:51 PM CHALK TESTER Vaginal odor CT SINUS WO IV CONT FUSION Routine 02/05 1:57 PM CHALK TESTER Chronic congestion of paranasal sinus CHLAMYDIA & GC (14 YEARS & OLDER) Routine 01/17/2024 10:17 AM CHALK TESTER Vaginal discharge VAGINITIS PANEL Routine 01/17/2024 10:17 AM CHALK TESTER Vaginal discharge UA MICRO STAT 01/17/2024 10:17 AM CHALK TESTER Vaginal discharge UA WITH MICROSCOPIC STAT 01/17/2024 10:17 AM CHALK TESTER Vaginal discharge TEST (URINE) STAT 10:17 AM CHALK TESTER Vaginal discharge PROLACTIN Routine 01/17/2024 9:46 AM CHALK TESTER Polycystic ovary syndrome (HRC) PROLACTIN WITH REFLEX TO MACROPROLACTIN Routine 01/17/2024 9:46 AM CHALK TESTER Polycystic ovary syndrome (HRC) LH Routine 01/17/2024 9:46 AM CHALK TESTER Polycystic ovary syndrome (HRC) PROGESTERONE ADULT Routine 01/17/2024 9:46 AM CHALK TESTER Polycystic ovary syndrome (HRC) TESTOSTERONE, FEMALE OR CHILDREN Routine 01/17/2024 9:46 AM CHALK TESTER Polycystic ovary syndrome (HRC) ESTRADIOL Routine 01/17/2024 9:46 AM CHALK TESTER Polycystic ovary syndrome (HRC) DEHYDROEPIANDROSTERONE Routine 9:46 AM CHALK TESTER Polycystic ovary syndrome (HRC) FSH Routine 01/17/2024 9:46 AM CHALK TESTER Polycystic ovary syndrome (HRC) TSH, SENSITIVE (WITH REFLEX) Routine 04/2023 9:46 AM CHALK TESTER Polycystic ovary syndrome (HRC) LIPID PANEL & DIRECT LDL (IF NEEDED) Routine 01/17/2024 9:46 AM CHALK TESTER Screening for hyperlipidemia COMPREHENSIVE METABOLIC PANEL Routine 01/17/2024 9:46 AM CHALK TESTER Cyclic vomiting syndrome HGB A1C Routine 01/17/2024 9:46 AM CHALK TESTER Prediabetes HIV 1/2 AG/AB 4TH GEN Routine 01/10/2023 3:33 PM CHALK TESTER Screening examination for venereal disease HEPATITIS C ANTIBODY, WITH REFLEX Routine 01/10/2023 3:33 PM CHALK TESTER Special screening examination for viral disease from Last 3 Months or Most Recently Relevant to Health Maintenance Results * Vaginitis Panel, DNA Probe (03/16/2024 2:19 PM CHALK TESTER) Only the most recent of3 resultswithin the time period is included. Bacterial Vaginosis Negative Negative 03/17/2024 11:47 AM CHALK TESTER [facility] Marilou species Negative Negative 11:47 AM CHALK TESTER [facility] Marilou glabrata Negative Negative 03/17/2024 11:47 AM CHALK TESTER [facility] Trichomonas vaginalis Negative Negative 03/17/2024 11:47 AM CHALK TESTER [facility] Swab STD SPECIMEN FROM VAGINA / Unknown Non-blood Collection / Unknown 03/16/2024 2:19 PM CHALK TESTER 03/16/2024 2:24 PM CHALK TESTER Narrative [facility] - 03/17/2024 11:47 AM CHALK TESTER Test performed by Lead Driver Mediated Amplification (TMA). Carol Gilliland MD LAB_1 Final Result [facility] [address] * POCT pH (Nitrazine) Vaginal Fluid (02/17/2024 4:12 PM CHALK TESTER) Pathologist [facility] PH (Nitrazine) Vaginal Fluid 4.5 4.5 - 5.5 POCT POC Strip Lot # [id number] POCT 02/17/2024 4:12 PM CHALK TESTER Anastasia Chavira HEAD TRIMMER, MILKING MACHINE OPERATOR ET POINT OF CARE TEST ENTER/EDIT ORDERABLES Final Result POCT * CT Fusion Sinus WO IV Cont (02/06/2024 1:57 PM CHALK TESTER) Anatomical Region Laterality Modality Head Computed Tomogra phy 02/06/2024 1:53 PM CHALK TESTER Impressions 02/06/2024 7:44 PM CHALK TESTER 1. Small right maxillary sinus mucous retention cyst. 2. No sinus air-fluid levels. Narrative 02/06/2024 7:44 PM CHALK TESTER COMPARISON: None. INDICATION: Chronic sinus congestion. TECHNIQUE: [...] Years and Older): Vagina (01/17/2024 10:17 AM CHALK TESTER) Chlamydia Trachomatis STD Not Detected Not Detected 01/18/2024 2:34 AM CHALK TESTER [facility] N. gonorrhoeae STD Not Detected Not Detected 01/18/2024 2:34 AM CHALK TESTER [facility] Swab STD SPECIMEN FROM VAGINA / Unknown Non-blood Collection / Unknown 01/17/2024 10:17 AM CHALK TESTER 01/17/2024 10:35 AM CHALK TESTER [employer] [facility] - 01/18/2024 2:34 AM CHALK TESTER Test performed by Lead Driver Mediated Amplification (TMA). Lesly Whitehead PA-C LAB_1 Final Res ult [facility] [address] * UA with Microscopic: Clean Catch (01/17/2024 10:17 AM CHALK TESTER) Color Straw 01/17/2024 10:52 AM [facility] Clarity Clear Clear 01/17/2024 10:52 AM [facility] Specific [place] 1.025 1.005 - 1.030 01/17/2024 10:52 AM [facility] pH 6.5 5.0 - 8.0 01/17/2024 10:52 AM [facility] Protein Negative Neg/Trace mg/dL 01/17/2024 10:52 AM [facility] Glucose Negative Negative mg/dL 01/17/2024 10:52 AM [facility] Ketones Negative Negative mg/dL 01/17/2024 10:52 AM [facility] Urobilinogen 0.2 <2.0 EU/dL 01/17/2024 10:52 AM [facility] Bilirubin Negative Negative 01/17/2024 10:52 AM [facility] Blood Negative Neg/Trace 01/17/2024 10:52 AM [facility] Nitrite Negative Negative 01/17/2024 10:52 AM [facility] Leukocyte Esterase Negative Negative 01/17/2024 10:52 AM [facility] Source Clean Catch 01/17/2024 10:52 AM [facility] Urine URINE SPECIMEN COLLECTION, CLEAN CATCH / Unknown Non-blood Collection / Unknown 01/17/2024 10:17 AM CHALK TESTER 01/17/2024 10:40 AM [facility] Lesly Whitehead PA-C LAB_1 Final Res ult [facility] [address] [place] [address] * Test (Urine) - Collect in Lab (01/17/2024 10:17 AM CHALK TESTER) HCG, Urine Negative Negative 01/17/2024 10:44 AM [facility] Urine Non-blood Collection / Unknown 01/17/2024 10:17 AM CHALK TESTER 01/17/2024 10:30 AM CHALK TESTER Lesly Whitehead PA-C LAB_1 Final Res ult Performing Organization Address [facility]/ZIP Co de Phone Number [facility] [address] [place] [address] * (ABNORMAL) Urine Microscopic Evaluation: Clean Catch (01/17/2024 10:17 AM CHALK TESTER) Red Blood Cells 0-3 0 - 3 /HPF 01/17/2024 10:51 AM [facility] White Blood Cells 0-5 0 - 5 /HPF 01/17/2024 10:51 AM [facility] Squamous Epithelial Cells Moderate(A ) None Seen, Occasiona l, Few /HPF 01/17/2024 10:51 AM [facility] Mucus Present(A) None Seen /HPF 01/17/2024 10:51 AM [facility] Urine URINE SPECIMEN COLLECTION, CLEAN CATCH / Unknown Non-blood Collection / Unknown 01/17/2024 10:17 AM CHALK TESTER 01/17/2024 10:40 AM CHALK TESTER Lesly Whitehead PA-C LAB_1 Final Res ult Performing Organization Address [facility]/ZIP Co de Phone Number [facility] [address] [place] [address] * Prolactin (01/17/2024 9:46 AM CHALK TESTER) Prolactin 9.6 3.3 - 26.7 ng/mL 01/18/2024 10:09 AM CHALK TESTER [facility] Blood Venipuncture / Unknown 01/17/2024 9:46 AM CHALK TESTER 01/17/2024 9:51 AM CHALK TESTER Mynor Felix HEAD TRIMMER, MILKING MACHINE OPERATOR LAB_1 Final Result Performing Organization Address City/[facility]/ZIP Co de Phone Number [facility] [address] * Dehydroepiandrosterone (01/17/2024 9:46 AM CHALK TESTER) Dehydroepiandrosterone 7.328 1.330 - 7.780 ng/mL 01/19/2024 3:06 PM CHALK TESTER [facility] Comment: INTERPRETIVE INFORMATION: Dehydroepiandrosterone, Females 18 years and older: Postmenopausal: 0.60-5.73 ng/mL REFERENCE INTERVAL: Dehydroepiandrosterone by TMS Access complete set of age- and/or gender-specific reference intervals for this test in the [employer] [facility] Test Directory ([employer]). This test was developed and its performance characteristics determined by [facility]. It has not been cleared or approved by the [place] Food and Drug Administration. This test was performed in a CLIA certified laboratory and is intended for clinical purposes. Performed By: [facility] [address] [place] [address] Jewelry Model Maker: Nawaf Montez MD, PhD CLIA Number: [id number] Blood Venipuncture / Unknown 01/17/2024 9:46 AM CHALK TESTER 01/17/2024 9:51 AM CHALK TESTER Mynor Felix APRN, CNP LAB_1 Final Result Performing Organization Address [facility]/State/ZIP Co de Phone Number [facility] [address] [place], [place] [address] [place] [address] * Testosterone, female or children (01/17/2024 9:46 AM CHALK TESTER) Testosterone Female or Children 41 9 - 55 ng/dL 01/19/2024 3:06 PM CHALK TESTER [facility] Comment: REFERENCE INTERVAL: Testosterone by Guide Dog Instructor Females Premenopausal 9-55 ng/dL Postmenopausal 5-32 ng/dL INTERPRETIVE INFORMATION: Testosterone by Guide Dog Instructor Free or bioavailable testosterone measurements may provide supportive information. For individuals on testosterone-suppressing hormone therapies (e.g., antiandrogens or estrogens), refer to cisgender female reference intervals. For a complete set of all established reference intervals, refer to ltd.[employer]/Tests/Pub/7574926. This test was developed and its performance characteristics determined by [facility]. It has not been cleared or approved by the US Food and Drug Administration. This test was performed in a CLIA certified laboratory and is intended for clinical purposes. Performed By: [facility] [address] [place] [address] Jewelry Model Maker: Nawaf Montez MD, PhD CLIA Number: [id number] Blood Venipuncture / Unknown 01/17/2024 9:46 AM CHALK TESTER 01/17/2024 9:51 AM CHALK TESTER Mynor Felix APRN, MILKING MACHINE OPERATOR LAB_1 Final Result Performing Organization Address [facility] Co de Phone Number [facility] [employer] [address] [place] [address] * Progesterone Adult (01/17/2024 9:46 AM CHALK TESTER) Progesterone, Adult 1.2 ng/mL 01/17/2024 4:42 PM CHALK TESTER [facility] Blood Venipuncture / Unknown 01/17/2024 9:46 AM CHALK TESTER 01/17/2024 9:51 AM CHALK TESTER Narrative [facility] - 01/17/2024 4:42 PM CHALK TESTER Expected values for menstruating females Follicular Phase: <0.1-0.3 ng/mL Luteal Phase: 1.2-15.9 ng/mL Expected values for females 1st Trimester (4-12 weeks): 2.8-147.3 ng/mL 2nd Trimester (13-24 weeks): 22.5-95.3 ng/mL 3rd Trimester (25-36 weeks): 27.9-242.5 ng/mL Mynor Felix APRN, MILKING MACHINE OPERATOR LAB_1 Final Result Performing Organization Address City/[facility]/ZIP Co de Phone Number [facility] [address] * Lipid Panel & Direct LDL (if Needed) (01/17/2024 9:46 AM CHALK TESTER) Cholesterol 159 0 - 199 mg/dL 01/17/2024 11:35 AM [facility] Triglyceride 68 <=149 mg/dL 01/17/2024 11:35 AM [facility] HDL Cholesterol 54 >=40 mg/dL 11:35 AM [facility] LDL, Calculated 91 <130 mg/dL 11:35 AM [facility] Non HDL Chol, Calculated 105 <=159 mg/dL 01/17/2024 11:35 AM [facility] Cholesterol/HDL Ratio 2.9 <=5.0 01/17/2024 11:35 AM [facility] Hours Fasting 1.0 8 - 12 Hours 01/17/2024 11:35 AM [facility] Comment:5:00 am couple crack ers and one sip of juice one hour ago Blood Venipuncture / Unknown 01/17/2024 9:46 AM [facility] 01/17/2024 9:51 AM [facility] us Mynor Felix APRN, MILKING MACHINE OPERATOR LAB_1 Final Result [facility] [address] [place] [address] * Comprehensive Metabolic Panel (01/17/2024 9:46 AM [facility]) Sodium 139 136 - 145 mmol/L 01/17/2024 11:35 AM [facility] Potassium 4.3 3.5 - 5.1 mmol/L 01/17/2024 11:35 AM [facility] Chloride 105 98 - 109 mmol/L 01/17/2024 11:35 AM [facility] CO2 23 20 - 29 mmol/L 01/17/2024 11:35 AM [facility] Anion Gap 11 6 - 16 mmol/L 01/17/2024 11:35 AM [facility] Calcium 8.9 8.4 - 10.4 mg/dL 01/17/2024 11:35 AM [facility] BUN 10 7 - 26 mg/dL 01/17/2024 11:35 AM [facility] Creatinine 0.72 0.55 - 1.02 mg/dL 01/17/2024 11:35 AM [facility] Alkaline Phosphatase 78 40 - 150 U/L 01/17/2024 11:35 AM [facility] AST (SGOT) 12 10 - 40 U/L 01/17/2024 11:35 AM [facility] ALT (SGPT) 17 <=55 U/L 01/17/2024 11:35 AM [facility] Bilirubin, Total 0.3 0.2 - 1.2 mg/dL 01/17/2024 11:35 AM [facility] Protein, Total 7.3 6.4 - 8.3 g/dL 01/17/2024 11:35 AM [facility] Albumin 3.5 3.5 - 5.0 g/dL 01/17/2024 11:35 AM [facility] Glucose 89 70 - 100 mg/dL 01/17/2024 11:35 AM [facility] Comment:The given reference range is for the fasting state. Non-fasting reference range for glucose is 70 - 180 mg/dL. GFR, Estimated >60 >60 mL/min/1.7 3m2 01/17/2024 11:35 AM [facility] Hours Fasting 1.0 8 - 12 Hours 01/17/2024 11:35 AM [facility] Comment:5:00 am couple crack ers and one sip of juice one hour ago Blood Venipuncture / Unknown 01/17/2024 9:46 AM CHALK TESTER 01/17/2024 9:51 AM CHALK TESTER us Mynor Felix HEAD TRIMMER, MILKING MACHINE OPERATOR LAB_1 Final Result Performing Organization Address City/State/[facility] Co de Phone Number [facility] [address] [place] [address] * Estradiol (01/17/2024 9:46 AM CHALK TESTER) Pathologist [facility] Estradiol 160 pg/mL 01/17/2024 2:51 PM CHALK TESTER [facility] Blood Venipuncture / Unknown 01/17/2024 9:46 AM CHALK TESTER 01/17/2024 9:51 AM CHALK TESTER Narrative [facility] - 01/17/2024 2:51 PM CHALK TESTER The drug mifepristone may cause interference with [...] CNP LAB_1 Final Result Performing Organization Address [facility] Phone Number [facility] [address] [place] [address] * LH (01/17/2024 9:46 AM CHALK TESTER) LH 6 mIU/mL 01/17/2024 2:52 PM CHALK TESTER [facility] Blood Venipuncture / Unknown 01/17/2024 9:46 AM CHALK TESTER 01/17/2024 9:51 AM CHALK TESTER Narrative [facility] - 01/17/2024 2:52 PM CHALK TESTER Expected values for menstruating females Follicular Phase: 2-12 mIU/mL Mid-Cycle Peak: 8-89 mIU/mL Luteal Phase: 1-14 mIU/mL Expected values for postmenopausal females On HRT: 5-62 mIU/mL Mynor Felix APRN, CNP LAB_1 Final Result Performing Organization Address [facility] Phone Number [facility] [address] [place] [address] * FSH (01/17/2024 9:46 AM CHALK TESTER) FSH 3.6 mIU/mL 01/17/2024 2:51 PM CHALK TESTER [facility] Blood Venipuncture / Unknown 01/17/2024 9:46 AM CHALK TESTER 01/17/2024 9:51 AM CHALK TESTER Narrative [facility] - 01/17/2024 2:51 PM CHALK TESTER Expected values for mensturating females Follicular Phase: 3.0-8.1 mIU/mL Mid-Cycle Peak: 2.6-16.7 mIU/mL Luteal Phase: 1.4-5.5 mIU/mL Post Menopausal Females without HRT: 26.8-133.4 mIU/mL Mynor Felix APRN, CNP LAB_1 Final Result Performing Organization Address [facility] Phone Number [facility] [address] [place] [address] * TSH with Free T4 (if TSH Abnormal) (01/17/2024 9:46 AM CHALK TESTER) TSH, Reflex 1.00 0.30 - 4.50 uIU/mL 01/17/2024 2:51 PM CHALK TESTER [facility] Blood Venipuncture / Unknown 01/17/2024 9:46 AM CHALK TESTER 01/17/2024 9:51 AM CHALK TESTER Mynor Felix APRN, CNP LAB_1 Final Result Performing Organization Address [facility] [facility] Phone Number [facility] [address] [place] [address] * Hgb A1C (01/17/2024 9:46 AM CHALK TESTER) Hemoglobin A1C (Rapid) 5.3 <=5.6 % 01/17/2024 10:24 AM [facility] Estimated Average Glucose (Calc) 105 < 117 mg/dL 01/17/2024 10:24 AM [facility] Comment:Estimated average gl ucose (eAG) converts A1c into glucose units (mg/dL) and estimates average glucose over the past approximately 3 months. The eAG reference interval (<117 mg/dL) corresponds to an A1c of <5.7%. Blood Venipuncture / Unknown 01/17/2024 9:46 AM CHALK TESTER 01/17/2024 9:51 AM CHALK TESTER Narrative [facility] - 01/17/2024 10:24 AM CHALK TESTER The test method used for this Hemoglobin A1c result can experience interference from elevated hemoglobin and other hemoglobin variants. In patients with results that do not correlate clinically, contact the lab for further direction. Mynor Felix APRN, CNP LAB_1 Final Result Performing Organization Address [facility]/ZIP Co de Phone Number [facility] [address] [place] [address] * HIV 1/2 Ag/Ab 4th Generation (01/10/2023 3:33 PM CHALK TESTER) Pathologist [facility] HIV 1/2 Antigen/Antib domo (4th generation) Negative (Non Reactive) Negative (Non Reactive) 01/10/2023 9:54 PM CHALK TESTER [facility] Comment:HIV-1 p24 Antigen an d HIV-1/HIV-2 Antibody not detected Blood Venipuncture / Unknown 01/10/2023 3:33 PM CHALK TESTER 01/10/2023 3:33 PM CHALK TESTER Carol Gilliland MD LAB_1 Final Result Performing Organization Address [facility] de Phone Number [facility] [address] [place] [address] * HEPATITIS C ANTIBODY, WITH REFLEX (01/10/2023 3:33 PM CHALK TESTER) Pathologist [facility] Hepatitis C Antibody Negative (Non Reactive) Negative (Non Reactive) 01/10/2023 9:54 PM CHALK TESTER [facility] Comment:Antibodies to HCV no t detected. Does not exclude the possiblity of exposure to HCV. Blood Venipuncture / Unknown 01/10/2023 3:33 PM CHALK TESTER 01/10/2023 3:33 PM CHALK TESTER Carol Gilliland MD LAB_1 Final Result Performing Organization Address [facility] de Phone Number [facility] [address] [place] [address] from Last 3 Months or Most Recently Relevant to Health Maintenance Insurance [place] [id number] Advance Directives * Full Code (Latest Code Status on File) Date Activated Date Inactivated Comments 06/27/2013 1:15 AM 06/26/2013 7:00 PM * Full Code Date Activated Date Inactivated Comments 06/27/2013 1:15 AM 07/02/2013 7:51 AM Care Teams Video Poker Floorman Relationship Specialty Start Date End Date Mynor Felix, MISHA, MILKING MACHINE OPERATOR [address] [place] [address] PCP - General Nurse Practitioner 12/31/22
--- OUTSIDE RECORDS SUMMARY | 2024-04-14 10:56 | XMS_ITS | Encounter Summary ---
Author Organization [employer] Address [address] [place] [address] Care Team Providers Care Delinquent Tax Collector Assistant Name Role Phone Mynor Felix APRN, MANAGER WATER Primary Care Provide r Reason for Visit * Reason Comments SINUS PAIN/PRESSURE Encounter Details Date Type Department Care Team (Late st Contact Info) Description 03/16/2024 4:00 PM CAMERA SUPERVISOR Office Visit [facility] [address] [place] [address] Percy Solo MD [address] [place] [address] Clinical sinusitis; Nasal vestibulitis Social [...] Comments Blood Pressure 122/74 03/16/2024 2:42 PM CAMERA SUPERVISOR Pulse 102 03/16/2024 2:42 PM CAMERA SUPERVISOR Temperature 36.6 C (97.8 F) 03/16/2024 2:42 PM CAMERA SUPERVISOR Respiratory Rate 16 03/16/2024 2:42 PM CAMERA SUPERVISOR Oxygen Saturation 100% 03/16/2024 2:42 PM CAMERA SUPERVISOR Inhaled Oxygen Concentration - - Weight - - Height - - Body Mass Index - - documented in this encounter Patient Instructions * Patient Instructions* Percy Solo MD - 03/16/2024 4:00 PM CAMERA SUPERVISOR Recommend doing steam baths at night and [...] day) to help relieve the ear pressure. RA SUPERVISOR documented in this encounter Progress Notes * [...] has had sinus pain/pressure, congestion, ear popping [id number]. Hx sinus infections. Had appt with IRVIN [...] (ASTELIN) 0.1 % nasal solution Place 1 [place] into both nostrils two times daily as [...] taking: Reported on 03/16/2024) 70 g 3 oyphovbg-zwcxmztzd-nlpxsxwmnptle (MAXITROL) 3.5-52408-2.1 eye drop suspension INSTILL 1 DROP INTO [...] Trouble Sleeping 60 Capsule 2 nystatin (NYSTOP) 458710 UNIT/GM powder Apply topically daily as needed [...] facility-administered medications prior to visit. Reviewed via [facility] Chart Review/CareEverywhere: Allergies Past Medical History Patient [...] Discharge Home Percy Solo M.D. [facility] RA SUPERVISOR documented in this encounter Nursing Notes * Chichi Monaco, RN - 03/16/2024 4:00 PM CST Patient reports viral URI and ear infection, self-treated ear infection with amoxicillin that she had on hand, last dose was today at noon. She has had sinus pain/pressure, congestion, ear popping [id number]. Hx sinus infections. Had appt with OBGYN today, may have a yeast infection from taking amoxicillin. OTC: Flonase, nasal spray, dayquil, nyquil RA SUPERVISOR documented in this encounter Plan of Treatment Upcoming Encounters Date Type Department Care Team (Late st Contact Info) Description 04/18/2024 3:00 PM CAMERA SUPERVISOR Telemedicine [facility] [address] [place], [place] [phone] Rylee Morrison, TIRE REPAIRER, MANAGER WATER [address] [place], [place] [address] 05/29/2024 1:00 PM CDT Appointment [facility] [address] [place], [place] [phone] Quynh Sinha MD [address] [place], [place] [address] Scheduled Procedures Name Priority Associated Diagnoses Date/Ti me HEMORRHOIDECTOMY External hemorrhoid documented as of this encounter Visit Diagnoses Diagnosis Clinical sinusitis Unspecified sinusitis (chronic) Nasal vestibulitis Other diseases of nasal cavity and sinuses documented in this encounter Care Teams Delinquent Tax Collector Assistant Relationship Specialty Start Date End Date Mynor Felix, TIRE REPAIRER, MANAGER WATER [address] [place] [address] PCP - General Nurse Practitioner 12/31/22 documented as of this encounter
--- OUTSIDE RECORDS SUMMARY | 2024-04-14 10:56 | XMS_ITS | Encounter Summary ---
Author Organization [employer] Address [address] [place] [address] Care Team Providers Care Billboard Erector Helper Name Role Phone Mynor Felix APRN, HEAD DOFFER Primary Care Provide r Reason for Referral * Consult/Transfer Care (Routine) - New Request Specialty Diagnoses / Procedures Referred By Clarice da silva Referred To Contact Diagnoses Polycystic ovary syndrome (HRC) BMI 33.0-33.9,[place] [address] [place] [address] [address] Phone: tel: fax: Referral ID Status Reason Start Date Expiration Date V isits Requested Visits Authorized [id number] New Request 03/16/2024 06/15/2025 1 1 Scheduling Instructions Your clinician has recommended an appointment with Ana María Rich. You can quickly schedule your appointment by signing in to your online account at [email or web address] or through the text message you may have received. You can also make an appointment by calling [phone]. We also suggest you call your health insurance provider about your benefits and coverage for this appointment. Question Answer Appointment Urgency? Non-Urgent Reason for visit? Needs Weight Loss N ROOM ATTENDANT Reason for Visit * Reason Comments Vaginal Symptoms C/o dryness, pain du ring IC, pelvic pain; also having discharge, odor, and itching CONSULT Wants 2nd opinion on PCOS and endometriosis Encounter Details Date Type Department Care Team (Late st Contact Info) Description 03/16/2024 1:45 PM LINEN ROOM ATTENDANT Office Visit [facility]-BEATER MACHINE OPERATOR [address] [facility], [address] [place] [phone] [place] [address] [facility] [address] [place], [place] [phone] Vaginal itching (Primary Dx); Vaginal discharge; Polycystic [...] Comments Blood Pressure 111/73 03/16/2024 1:49 PM LINEN ROOM ATTENDANT Pulse 96 03/16/2024 1:49 PM LINEN ROOM ATTENDANT Temperature - - Respiratory Rate - - Oxygen Saturation - - Inhaled Oxygen Concentration - - Weight 79.9 kg (176 lb 1.6 oz) 03/16/2024 1:49 P M LINEN ROOM ATTENDANT Height 154.9 cm (5' 1) 03/16/2024 1:49 PM LINEN ROOM ATTENDANT Body Mass Index 33.27 03/16/2024 1:49 PM LINEN ROOM ATTENDANT documented in this encounter Progress Notes * Carol Gilliland MD - 03/16/2024 1:45 PM CST TELECOM ASSISTANT PROGRESS CLINIC NOTE CC: multiple concerns HPI: Benigno Larson here for multiple concerns; She has last seen by [facility] back in 02/17/2024, for multiple concerns [...] PRN Billed on time Dr. Gilliland 03/16/2024 N ROOM ATTENDANT documented in this encounter Plan of Treatment Upcoming Encounters Date Type Department Care Team (Late st Contact Info) Description 04/18/2024 3:00 PM LINEN ROOM ATTENDANT Telemedicine [facility] [address] [place], [place] [address] Rylee Morrison, LAUNDERETTE ATTENDANT, HEAD DOFFER [address] [place], [place] [phone] 05/29/2024 1:00 PM CDT Appointment [facility] [address] [place], [place] [phone] Quynh Sinha MD [address] [place], [place] [phone] Scheduled Procedures Name Priority Associated Diagnoses Date/Ti me HEMORRHOIDECTOMY External hemorrhoid Scheduled Referrals Name Type Priority Associated Diagnoses Orde r Schedule Nutrition/Dietitian - Adult/Peds Referral Routine Polycystic ovary syndrome (HRC) BMI 33.0-33.9,adult Ordered: 03/16/2024 documented as of this encounter Procedures Procedure Name Priority Date/Time Associated Diagnosis Comments VAGINITIS PANEL Routine 03/16/2024 2:19 PM LINEN ROOM ATTENDANT Vaginal itching Vaginal discharge documented in this encounter Results * Vaginitis Panel, DNA Probe (03/16/2024 2:19 PM LINEN ROOM ATTENDANT) Bacterial Vaginosis Negative Negative 03/17/2024 11:47 AM LINEN ROOM ATTENDANT [facility] Marilou species Negative Negative 11:47 AM LINEN ROOM ATTENDANT [facility] Marilou glabrata Negative Negative 03/17/2024 11:47 AM LINEN ROOM ATTENDANT [facility] Trichomonas vaginalis Negative Negative 03/17/2024 11:47 AM LINEN ROOM ATTENDANT [facility] Swab STD SPECIMEN FROM VAGINA / Unknown Non-blood Collection / Unknown 03/16/2024 2:19 PM LINEN ROOM ATTENDANT 03/16/2024 2:24 PM LINEN ROOM ATTENDANT Narrative [facility] - 03/17/2024 11:47 AM LINEN ROOM ATTENDANT Test performed by Torch Operator Mediated Amplification (TMA). us Carol Gilliland MD LAB_1 Final Result Performing Organization Address City/State/[facility] Co de Phone Number [facility] [address] documented in this encounter Visit Diagnoses Diagnosis Vaginal itching- Primary Pruritus of genital organs Vaginal discharge Leukorrhea, not specified as infective Polycystic ovary syndrome (HRC) Polycystic ovaries Endometriosis Endometriosis, site unspecified Chronic pelvic pain in female Unspecified symptom associated with female genital organs BMI 33.0-33.9,adult Body Mass Index 33.0-33.9, adult documented in this encounter Care Teams Billboard Erector Helper Relationship Specialty Start Date End Date Mynor Felix APRN, HEAD DOFFER [address] [facility] [place] [address] PCP - General Nurse Practitioner 12/31/22 documented as of this encounter
--- OUTSIDE RECORDS SUMMARY | 2024-04-14 10:56 | XMS_ITS | Encounter Summary ---
Author Organization [employer] Address [address] [place] [address] Care Team Providers Care Sap Bw Bi Developer Name Role Phone Mynor Felix APRN, CNP Primary Care Provide r Reason for Visit * Reason Onset Date Comments Video Visit 03/06/2024 MEDICATION CHECK Encounter Details Date Type Department Care Team (Late st Contact Info) Description 03/08/2024 1:30 PM SAUSAGE INSPECTOR Telemedicine [facility] [address] [place] [address] Mynor Felix APRN, CNP [address] [place], [place] [phone] Obesity, Class I, BMI 30-34.9 (HRC) (Primary [...] this encounter Progress Notes * Mynor Felix, RENAL DIETITIAN, ENTERPRISE RECORDS ANALYST - 03/08/2024 1:30 PM CST Subjective: Today's [...] sent to her pharmacy. Pelvic Floor: Saw Flight Purser for pelvic floor tension and dyspareunia. Flight Purser recommended pelvic floor therapy as well as [...] face. Assessment/Plan: Obesity, Class I, BMI 30-34.9 ([facility]) Discussed Sarthak and YOU approval. Discussed [...] was 36 minutes. Mynor Felix APRN, CNP AGE INSPECTOR documented in this encounter Plan of Treatment Upcoming Encounters Date Type Department Care Team (Late st Contact Info) Description 04/18/2024 3:00 PM SAUSAGE INSPECTOR Telemedicine [facility] [address] [place] [address] Rylee Morrison APRN, CNP [address] [place], [place] [phone] 05/29/2024 1:00 PM CDT Appointment [facility] [address] [place], [place] [address] Quynh Sinha MD [address] [place], [place] [address] Scheduled Procedures Name Priority Associated Diagnoses Date/Ti me HEMORRHOIDECTOMY External hemorrhoid documented as of this encounter Visit Diagnoses Diagnosis Obesity, Class I, BMI 30-34.9 (HRC)- Primary Obesity, unspecified Gastroesophageal reflux disease, unspecified whether esophagitis present Pelvic floor tension Dyspareunia in female documented in this encounter Care Teams Sap Bw Bi Developer Relationship Specialty Start Date End Date Mynor Felix APRN, GORDO [address] [place] [address] PCP - General Nurse Practitioner 12/31/22 documented as of this encounter
--- OUTSIDE RECORDS SUMMARY | 2024-04-14 10:56 | XMS_ITS | Encounter Summary ---
Author Organization [employer] Address [address] [place] [address] Care Team Providers Care Color Buffer Name Role Phone Mynor Felix APRN, CNP Primary Care Provide r Reason for Visit * Reason Comments Prior Authorization For Medication tirze patide-weight management (ZEPBOUND) 2.5 MG/0.5ML pen injection Encounter Details Date Type Department Care Team (Late st Contact Info) Description 02/28/2024 Telephone [facility] [address] [place] [address] Mynor Felix APRN, CNP [address] [place] [address] Prior Authorization For Medication (tirzepatide-weight [...] and see if she can tolerate it. ELECTRONICS INSTALLER * Mercy Land LPN - 03/12/2024 10:05 AM CST Called and left a detailed message regarding her wegovy approval. I asked her to give us a call on which medication she is using so we can close the zepbound encounter if needed. 03/12/24 ELECTRONICS INSTALLER * Sonia Velasquez MA - 03/12/2024 9:01 AM CST Patient has an appeal approval on file for Wegovy. Approval is valid - 08/30/2024. Please clarify if the patient will be taking Wegovy or Zepbound. If prior authorization is no longer needed forZepbound please cancel the request and close encounter.r ELECTRONICS INSTALLER * Lula Fischer - 03/02/2024 10:37 AM CST ePA received a call from [employer] informing us that the prior authorization for WEGOVY has been approved. The outcome will be faxed over. Mercy Gilbert LPN - 02/28/2024 10:15 AM CST Prior authorization has been initiated for tirzepatide-weight management (ZEPBOUND) 2.5 MG/0.5ML pen injection ELECTRONICS INSTALLER documented in this encounter Plan of Treatment Upcoming Encounters Date Type Department Care Team (Late st Contact Info) Description 04/18/2024 3:00 PM CAR ELECTRONICS INSTALLER Telemedicine [facility] [address] [place] [address] Rylee Morrison APRN, WATERPROOF MATERIAL FOLDER [address] [place], [place] [phone] 05/29/2024 1:00 PM CDT Appointment [facility] [address] [place], [place] [phone] Quynh Sinha MD [address] [place], [place] [phone] Scheduled Procedures Name Priority Associated Diagnoses Date/Ti me HEMORRHOIDECTOMY External hemorrhoid documented as of this encounter Visit Diagnoses Not on filedocumented in this encounter Care Teams Color Buffer Relationship Specialty Start Date End Date Mynor Felix APRN, WATERPROOF MATERIAL FOLDER [address] [place] [phone] PCP - General Nurse Practitioner 12/31/22 documented as of this encounter
--- OUTSIDE RECORDS SUMMARY | 2024-04-14 10:56 | XMS_ITS | Encounter Summary ---
Author Organization [facility] Address [address] [place] [address] Care Team Providers Care Receiving Supervisor Name Role Phone No Ref-Primary, Physician [...] on filedocumented in this encounter Care Teams Receiving Supervisor Relationship Specialty Start Date End Date No Ref-Primary, Physician PCP - General 02/02/23 documented as of this encounter
--- OUTSIDE RECORDS SUMMARY | 2024-04-14 10:56 | XMS_ITS | Encounter Summary ---
Author Organization [email or web address] Address [address] [place] [address] Care Team Providers Care Printing Table Worker Name Role Phone Mynor Felix APRN, CNP Primary Care Provide r Reason for Visit * Reason Comments Prior Authorization For Medication semag lutide-weight management (WEGOVY) 1.7 MG/0.75ML pen injection Encounter Details Date Type Department Care Team (Late st Contact Info) Description 02/13/2024 Telephone [facility] [address] [place] [address] Mynor Felix APRN, GORDO [address] [place] [address] Prior Authorization For Medication (semaglutide-weight [...] the patient when prescription is ready for warehouse picker. E DELIVERY DRIVER * Mynor Felix APRN, CNP - 02/20/2024 2:48 PM CST I have updated the questions and Sent to Payor. Mynor Felix APRN, CNP 2:48 PM 02/20/2024 E DELIVERY DRIVER * Mercy Land LPN - 02/20/2024 2:39 PM CST Called the patient, here's what she said: She is currently following an anti-inflammatory diet to help with her PCOS. She works out at the gym everyday for 30 min to 1 hour. Yes she's seen a sand slinger operator and that was 2-3 years ago. Just an FYI the patient was wondering why she is being asked these questions since she was prescribed medication before to help with weight loss. E DELIVERY DRIVER * Mynor Felix APRN, CNP - 02/20/2024 2:17 PM CST Please call the patient and let her know that we are still waiting on insurance. They need to know the answer to the following questions - What specific reduced calorie diet are you following? What specific exercise regimen are you following? Have you ever seen a sand slinger operator? When was the last time? Thanks, Mynor J Kuenzel, GLASS CUTTER HELPER, PAID INTERNSHIP E DELIVERY DRIVER * Mitra Montiel - 02/20/2024 2:14 PM CST Pt has called to see where we're at with this prior authorization. Pt would like a call back once this has been approved. E DELIVERY DRIVER * Dayanna Carrillo MA - 02/17/2024 10:14 [...] Click ???Send to Payer?? button when complete. E DELIVERY DRIVER * Sonia Velasquez MA - 02/13/2024 3:30 PM CST Images from the original note were not included. ePA staff updated ePA portal with the below information. E DELIVERY DRIVER * Mercy Land LPN - 02/13/2024 11:46 AM CST Prior authorization has been initiated for semaglutide-weight management (WEGOVY) 1.7 MG/0.75ML pen injection . E DELIVERY DRIVER documented in this encounter Plan of Treatment Upcoming Encounters Date Type Department Care Team (Late st Contact Info) Description 04/18/2024 3:00 PM ROUTE DELIVERY DRIVER Telemedicine [facility] [address] [place] [address] Rylee Morriosn APRN, PAID INTERNSHIP [address] [place], [place] [phone] 05/29/2024 1:00 PM CDT Appointment [facility] [address] [place], [place] [phone] Quynh Sinha MD [address] [place], [place] [phone] Scheduled Procedures Name Priority Associated Diagnoses Date/Ti me HEMORRHOIDECTOMY External hemorrhoid documented as of this encounter Visit Diagnoses Not on filedocumented in this encounter Care Teams Printing Table Worker Relationship Specialty Start Date End Date Mynor Felix APRN, PAID INTERNSHIP [address] [place] [phone] PCP - General Nurse Practitioner 12/31/22 documented as of this encounter
--- OUTSIDE RECORDS SUMMARY | 2024-04-14 10:56 | XMS_ITS | Encounter Summary ---
Author Organization [employer] Address [address] [place] [address] Care Team Providers Care Tavern Operator Name Role Phone Mynor Felix APRN, CNP Primary Care Provide r Encounter Details Date Type Department Care Team (Late st Contact Info) Description 03/09/2024 E-Visit [facility] [address] [place] [address] Mynor Felix APRN, CNP [id number] [place] [phone] Social History Tobacco Use Types Packs/Day Years [...] st Contact Info) Description 04/18/2024 3:00 PM RUBBER STAMPS AND DIES SUPERVISOR Telemedicine [facility] [address] [place] [address] Rylee Morrison APRN, ART SUPERVISOR [address] [place], [place] [phone] 05/29/2024 1:00 PM CDT Appointment [facility] [address] [place], [place] [phone] Quynh Sinha MD [address] [place] [address] Scheduled Procedures Name Priority Associated Diagnoses Date/Ti me HEMORRHOIDECTOMY External hemorrhoid documented as of this encounter Visit Diagnoses Not on filedocumented in this encounter Care Teams Tavern Operator Relationship Specialty Start Date End Date Mynor Felix APRN, ART SUPERVISOR [address] [place] [phone] PCP - General Nurse Practitioner 12/31/22 documented as of this encounter
--- OUTSIDE RECORDS SUMMARY | 2024-04-14 10:56 | XMS_ITS | Encounter Summary ---
Author Organization [employer] Address [address] [place] [address] Care Team Providers Care Manager Sign Name Role Phone Mynor Felix APRN, CNP Primary Care Provide r Reason for Visit * Reason Comments Refill azelastine (ASTELIN) 0.1 % nasal solution [Pharmacy Med Name: AZELASTINE 0.1%(137MCG) NASAL-200SP] Encounter Details Date Type Department Care Team (Late st Contact Info) Description 04/08/2024 Refill [facility] [address] [place], [place] [phone] Mynor Felix APRN, CNP [id number] [place] [phone] Refill (azelastine (ASTELIN) 0.1 % nasal solution [...] are appropriate. Last qualifying visit: 03/08/2024 (with MNYOR FELIX) Next scheduled visit: None Review pended order for accuracy and sign if appropriate. Requested Prescriptions Pending Prescriptions Disp Refills azelastine (ASTELIN) 0.1 % nasal solution [Pharmacy Med Name: AZELASTINE 0.1%(137MCG) NASAL-200SP] 30 mL Sig: USE 1 SPRAY IN EACH NOSTRIL TWICE DAILY NEEDED FOR POSTNASAL DRAINAGE RY WORKER * Sarah Yoo Xrw[employer] - 04/08/2024 9:02 [...] visit: None [facility] [employer] Embedded Refills, Reference: [id number], 04/08/2024 9:02:19 PM [facility] [[id number]] ([id number]) RY WORKER documented in this encounter Plan of Treatment Upcoming Encounters Date Type Department Care Team (Late st Contact Info) Description 04/18/2024 3:00 PM WINERY WORKER Telemedicine [facility] [address] [place], [place] [phone] Rylee Morrison APRN, YARDMASTER [address] [place] [address] 05/29/2024 1:00 PM CDT Appointment [facility] [address] [place] [address] Quynh Sinha MD [address] [place] [address] Scheduled Procedures Name Priority Associated Diagnoses Date/Ti me HEMORRHOIDECTOMY External hemorrhoid documented as of this encounter Visit Diagnoses Diagnosis Postnasal drip documented in this encounter Care Teams Manager Sign Relationship Specialty Start Date End Date Mynor Felix, SUPERVISOR LEAF SPRING REPAIR, YARDMASTER [address] [place] [address] [place] [address] PCP - General Nurse Practitioner 12/31/22 documented as of this encounter
--- OUTSIDE RECORDS SUMMARY | 2024-04-14 10:56 | XMS_ITS | Encounter Summary ---
Author Organization [facility] Address [address] [place] [id number] Care Team Providers Care Direct Support Professional Home Health Name Role Phone No Ref-Primary, Physician Primary Care Provider Reason for Visit * Reason Comments Nausea & Vomiting Encounter Details Date Type Department Care Team (Late st Contact Info) Description 04/12/2024 12:31 PM MANAGER CAREER - 04/12/2024 4:50 PM MANAGER CAREER Emergency [facility] Emergency Dept [address] [place] [id number] Zak Baptiste MD [facility] [address] [place] [address] Generalized abdominal pain; Nausea and [...] Comments Blood Pressure 111/76 04/12/2024 4:47 PM MANAGER CAREER Pulse 90 04/12/2024 4:47 PM MANAGER CAREER Temperature 36.4 C (97.5 F) 04/12/2024 11:24 AM MANAGER CAREER Respiratory Rate 18 04/12/2024 1:45 PM MANAGER CAREER Oxygen Saturation 97% 04/12/2024 4:47 PM MANAGER CAREER Inhaled Oxygen Concentration - - Weight 76.5 kg (168 lb 10.4 oz) 025 11:24 AM MANAGER CAREER Height 160 cm (5' 3) 04/12/2024 11:24 AM MANAGER CAREER Body Mass Index 29.88 04/12/2024 11:24 AM MANAGER CAREER documented in this encounter Discharge Instructions * Discharge Instructions* Zak Baptiste MD - 04/12/2024 4:15 PM MANAGER CAREER Discharge Instructions Abdominal Pain Abdominal pain can [...] directed by your doctor today. Before using [id number] medications, ask your doctor and make sure [...] contain Tylenol?? (acetaminophen), including Vicodin??, Tylenol #3??, [place]??, Lortab??, and Percocet??. You should not take [...] if there is anything that worries you. GER CAREER documented in this encounter Medications at Time of Discharge acetaminophen (TYLENOL) 325 MG tabletIndication s:Nausea and [...] for shortness of breath, wheezing or cough azelastine (ASTELIN) 0.1 % nasal spray [place] 1 spray into both nostrils 2 times daily budesonide-formo terol (SYMBICORT) 160-4.5 MCG/ACT Inhaler Inhale 2 puffs into the lungs 2 times daily cariprazine (VRAYLAR) 1.5 MG capsule Take 1.5 mg by mouth daily famotidine (PEPCID) 20 MG tablet Take 20 mg by mouth 2 times daily fluticasone (FLONASE) 50 MCG/ACT nasal spray [place] 1 spray into both nostrils daily guaiFENesin (ROBITUSSIN) 20 mg/mL liquidIndication s:Nausea and vomiting, unspecified vomiting type Take 10 mLs (200 mg) by mouth every 4 hours as needed for cough 02/07/2023 ibuprofen (ADVIL/MOTRIN) 600 MG tabletIndication s:Nausea and vomiting, unspecified vomiting type Take 1 tablet (600 mg) by mouth every 6 hours as needed for moderate pain 02/07/2023 metFORMIN (GLUCOPHAGE XR) 500 MG 24 hr tablet Take 500 mg by mouth 3 times daily metoclopramide (REGLAN) 10 MG tabletIndication s:Nausea and vomiting, unspecified vomiting type Take 1 tablet (10 mg) by mouth 4 times daily as needed (nauesa, vomiting) 30 tablet 02/07/2023 nystatin (MYCOSTATIN) 590289 UNIT/GM external powder Apply topically 2 times daily as needed ondansetron (ZOFRAN ODT) 4 MG ODT tab Take 4 mg by mouth every 8 hours as needed for nausea polyethylene glycol (MIRALAX) 17 GM/Dose powder Take 1 Capful by mouth daily as needed for constipation pregabalin (LYRICA) 50 MG capsule Take 50 mg by mouth daily spironolactone (ALDACTONE) 50 MG tablet Take 50 mg by mouth 3 times daily SUMAtriptan (IMITREX) 50 MG tablet Take 50 mg by mouth at onset of headache for migraine aluminum chloride (DRYSOL) 20 % external solution Apply topically at bedtime 07/19/2022 clonazePAM (KLONOPIN) 0.5 MG ODT Take 1 tablet (0.5 mg) by mouth 3 times daily as needed for anxiety 09/13/2023 hydrocortisone, Perianal, (ANUSOL-HC) 2.5 % cream Place rectally 2 times daily as needed 04/14/2023 hydrOXYzine HCl (ATARAX) 25 MG tablet Take 1 tablet (25 mg) by mouth 3 times daily as needed for other (nausea). 15 tablet 04/12/2024 hydrOXYzine HCl (ATARAX) 25 MG tablet Take 25-50 mg by mouth 3 times daily as needed for itching lisdexamfetamine (VYVANSE) 60 MG capsule Take 60 mg by mouth every morning LORazepam (ATIVAN) 0.5 MG tabletIndication s:Cyclical vomiting,Anxiety Take 1 tablet (0.5 mg) by mouth every 4 hours as needed for anxiety 10 tablet 09/13/2023 menthol-zinc oxide (CALMOSEPTINE) 0.44-20.6 % OINT ointment Apply topically as needed 04/14/2023 nortriptyline (PAMELOR) 10 MG capsule Take 10 mg by mouth at bedtime OLANZapine (ZYPREXA) 2.5 MG tabletIndication s:Cyclical vomiting Take 1 tablet (2.5 mg) by mouth at bedtime 5 tablet 09/13/2023 olopatadine (PATADAY) 0.2 % ophthalmic solution Place 1 drop into both eyes daily 05/05/2023 Semaglutide-Weig ht Management (WEGOVY) 2.4 MG/0.75ML pen Inject 2.4 mg subcutaneously once a week on Tuesdays documented as of this encounter ED Notes [...] Documentation None Medical Decision Making / Diagnosis [facility] Diagnoses: None MIPS None MDM Benigno [...] she 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 Zak Baptiste MD 04/12/241952 GER CAREER * Genet Ramirez RN - 04/12/2024 11:25 AM CST Declined ODT zofran in triage. States she attempted to take one at home this morning and vomited itup. Would prefer to wait for IV medication. GER CAREER * Genet Ramirez RN - 04/12/2024 11:23 [...] WDL WDL Cognitive/Neuro/Behavioral WDL Cognitive/Neuro/Behavioral WDL WDL GER CAREER documented in this encounter Plan of Treatment Scheduled Orders Name Type Priority Associated Diagnoses Orde r Schedule EKG 12-lead, tracing only EKG STAT One Time for 1 O ccurrences starting 04/12/2024 until 04/12/2024 documented as of this encounter Procedures Procedure Name Priority Date/Time Associated Diagnosis Comments MANUAL DIFFERENTIAL STAT 04/12/2024 1 2:18 PM MANAGER CAREER CBC WITH PLATELETS AND DIFFERENTIAL STAT 04/12/2024 12:18 PM MANAGER CAREER CBC WITH PLATELETS & DIFFERENTIAL STAT 04/12/2024 12:18 PM MANAGER CAREER LIPASE STAT 04/12/2024 12:18 PM MANAGER CAREER HCG QUALITATIVE STAT 04/12/2024 12:18 PM MANAGER CAREER COMPREHENSIVE METABOLIC PANEL STAT 04/12/2024 12:18 PM MANAGER CAREER documented in this encounter Results * (ABNORMAL) Manual Differential (04/12/2024 12:18 PM MANAGER CAREER) % Neutrophils 77 % [facility] 04/12/2024 1:39 PM MANAGER CAREER [facility] % Lymphocytes 16 % [facility] 04/12/2024 1:39 PM MANAGER CAREER [facility] % Monocytes 7 % [facility] 04/12/2024 1:39 PM MANAGER CAREER [facility] % Eosinophils 0 % [facility] 04/12/2024 1:39 PM MANAGER CAREER [facility] % Basophils 0 % [facility] 04/12/2024 1:39 PM MANAGER CAREER [facility] Absolute Neutrophils 14.2(H) 1.6 - 8.3 10e3/uL [facility] 04/12/2024 1:39 PM MANAGER CAREER [facility] Absolute Lymphocytes 3.0 0.8 - 5.3 10e3/uL [facility] 04/12/2024 1:39 PM MANAGER CAREER [facility] Absolute Monocytes 1.3 0.0 - 1.3 10e3/uL [facility] 04/12/2024 1:39 PM MANAGER CAREER [facility] Absolute Eosinophils 0.0 0.0 - 0.7 10e3/uL [facility] 04/12/2024 1:39 PM MANAGER CAREER [facility] Absolute Basophils 0.0 0.0 - 0.2 10e3/uL [facility] 04/12/2024 1:39 PM MANAGER CAREER [facility] RBC Morphology Confirmed RBC Indices [facility] 04/12/2024 1:39 PM MANAGER CAREER [facility] Platelet Assessment Automated Count Confirmed. Platelet morphology is normal. Automated Count Confirmed. Platelet morphology is normal. [facility] 04/12/2024 1:39 PM MANAGER CAREER [facility] Blood STRUCTURE OF LEFT UPPER LIMB / Unknown Venipuncture / Unknown 04/12/2024 12:18 PM MANAGER CAREER 04/12/2024 12:22 PM MANAGER CAREER us Zak Baptiste MD LAB - BLOOD ORDERABLES F inal Result [facility] [address] Lab (1st floor, no room number) [place] [address], [facility] * (ABNORMAL) CBC with platelets and differential (04/12/2024 12:18 PM MANAGER CAREER) [facility] WBC Count 18.5(H) 4.0 - 11.0 10e3/uL 04/12/2024 1:39 PM MANAGER CAREER [facility] RBC Count 5.47(H) 3.80 - 5.20 10e6/uL 04/12/2024 1:39 PM MANAGER CAREER [facility] Hemoglobin 16.7(H) 11.7 - 15.7 g/dL 04/12/2024 1:39 PM MANAGER CAREER [facility] Hematocrit 49.8(H) 35.0 - 47.0 % 04/12/2024 1:39 PM MANAGER CAREER [facility] MCV 91 78 - 100 fL 04/12/2024 1:39 PM MANAGER CAREER [facility] MCH 30.5 26.5 - 33.0 pg 04/12/2024 1:39 PM MANAGER CAREER [facility] MCHC 33.5 31.5 - 36.5 g/dL 04/12/2024 1:39 PM MANAGER CAREER [facility] RDW 13.6 10.0 - 15.0 % 04/12/2024 1:39 PM MANAGER CAREER [facility] Platelet Count 425 150 - 450 10e3/uL 04/12/2024 1:39 PM MANAGER CAREER [facility] Blood STRUCTURE OF LEFT UPPER LIMB / Unknown Venipuncture / Unknown 04/12/2024 12:18 PM MANAGER CAREER 04/12/2024 12:22 PM MANAGER CAREER us Zak Baptiste MD LAB - BLOOD ORDERABLES F inal Result LABORATORY [facility] [address] Lab (1st floor, no room number) [place] [address], [facility] * HCG QUALitative (blood) (04/12/2024 12:18 PM MANAGER CAREER) Pathologist [facility] hCG Serum Qualitative Negative Negative [facility] 04/12/2024 12:56 PM MANAGER CAREER LABORATORY Comment:This test is for scr eening purposes. Results should be interpreted along with the clinical picture. Confirmation testing is available if warranted by ordering [id number], HCG Quantitative . Blood STRUCTURE OF LEFT UPPER LIMB / Unknown Venipuncture / Unknown 04/12/2024 12:18 PM MANAGER CAREER 04/12/2024 12:22 PM MANAGER CAREER Zak Baptiste MD LAB - BLOOD ORDERABLES F inal Result [facility] Lab [address] [place] Lab (1st floor, no room number) [address] * Lipase (04/12/2024 12:18 PM MANAGER CAREER) [facility] Lipase 32 13 - 60 U/L 04/12/2024 12:54 PM MANAGER CAREER LABORATORY Blood STRUCTURE OF LEFT UPPER LIMB / Unknown Venipuncture / Unknown 04/12/2024 12:18 PM MANAGER CAREER 04/12/2024 12:22 PM MANAGER CAREER Zak Baptiste MD LAB - BLOOD ORDERABLES F inal Result [facility] Lab [address] Lab (1st floor, no room number) [address] * (ABNORMAL) Comprehensive metabolic panel (04/12/2024 12:18 PM MANAGER CAREER) [facility] Sodium 133(L) 135 - 145 mmol/L 04/12/2024 1:57 PM MANAGER CAREER LABORATORY Potassium 3.4 3.4 - 5.3 mmol/L 04/12/2024 1:57 PM MANAGER CAREER LABORATORY Carbon Dioxide (CO2) 22 22 - 29 mmol/L 04/12/2024 1:57 PM MANAGER CAREER LABORATORY Anion Gap 24(H) 7 - 15 mmol/L 04/12/2024 1:57 PM MANAGER CAREER LABORATORY Urea Nitrogen 16.8 6.0 - 20.0 mg/dL 04/12/2024 1:57 PM MANAGER CAREER LABORATORY Creatinine 0.96(H) 0.51 - 0.95 mg/dL 04/12/2024 1:57 PM MANAGER CAREER LABORATORY GFR Estimate 82 >60 mL/min/1.7 3m2 04/12/2024 1:57 PM MANAGER CAREER LABORATORY Comment:eGFR calculated usin 2020 CKD-EPI equation. Calcium 10.3 8.8 - 10.4 mg/dL 04/12/2024 1:57 PM MANAGER CAREER LABORATORY Chloride 87(L) 98 - 107 mmol/L 04/12/2024 1:57 PM MANAGER CAREER LABORATORY Glucose 113(H) 70 - 99 mg/dL 04/12/2024 1:57 PM MANAGER CAREER LABORATORY Alkaline Phosphatase 94 40 - 150 U/L 04/12/2024 1:57 PM MANAGER CAREER LABORATORY AST 18 0 - 45 U/L 04/12/2024 1:57 PM MANAGER CAREER LABORATORY ALT 22 0 - 50 U/L 04/12/2024 1:57 PM [facility] Protein Total 9.1(H) 6.4 - 8.3 g/dL 04/12/2024 1:57 PM [facility] Albumin 4.7 3.5 - 5.2 g/dL 04/12/2024 1:57 PM MANAGER CAREER LABORATORY Bilirubin Total 0.5 <=1.2 mg/dL 04/12/2024 1:57 PM [facility] Blood STRUCTURE OF LEFT UPPER LIMB / Unknown Venipuncture / Unknown 04/12/2024 12:18 PM MANAGER CAREER 04/12/2024 12:22 PM [facility] us Zak Baptiste MD LAB - BLOOD ORDERABLES F inal Result LABORATORY [facility] [address] [place] Lab (1st floor, no room number) [place] [address], [facility] documented in this encounter Visit [...] For 1 dose $Given 04/12/2024 1:43 PM MANAGER CAREER 25 mg ketorolac (TORADOL) injection 15 mg [...] to 2 minutes. $Given 04/12/2024 1:42 PM MANAGER CAREER 15 mg LORazepam (ATIVAN) injection 0.5 mg 0.5 mg, Intravenous, ONCE, On Lianet 04/12/24 at 1320, For 1 dose, IV Route: Dilute with equal volume NS prior to use. This drug may cause significant respiratory depression. Monitor respiratory status and vital signs carefully for 1 hour after each dose. $Given 04/12/2024 1:43 PM MANAGER CAREER 0.5 mg metoclopramide (REGLAN) injection 10 mg 10 mg, Intravenous, Administer over 2 Minutes, ONCE, On Lianet 04/12/24 at 1530, For 1 dose, Avoid use if patient has full bowel obstruction or perforation. $Given 04/12/2024 4:40 PM MANAGER CAREER 10 mg prochlorperazine (COMPAZINE) injection 10 mg 10 mg, Intravenous, ONCE, Administer over 1-2 Minutes, On Lianet 04/12/24 at 1320, For 1 dose $Given 04/12/2024 1:43 PM MANAGER CAREER 10 mg sodium chloride 0.9% BOLUS 1,000 mL Intravenous, 1,000 mL, ONCE, at 1,000 mL/hr, Administer over 1 Hours, On Lianet 04/12/24 at 1320, For 1 dose $New Bag 04/12/2024 1:33 PM MANAGER CAREER 1,000 mLs 1000 mL/hr SUMAtriptan (IMITREX) injection 6 mg 6 mg, Subcutaneous, ONCE, On Lianet 04/12/24 at 1530, For 1 dose, Do NOT give within 24 hours of (dihydroergotamine) DHE or another triptan medication. $Given 04/12/2024 4:40 PM MANAGER CAREER 6 mg documented in this encounter Active and Recently Administered Medications Times are shown in MANAGER CAREER. Scheduled Medication Order 04/10/2024 04/11/2024 04/12/2024 diphenhydrAMINE [...] RN) documented in this encounter Care Teams Direct Support Professional Home Health Relationship Specialty Start Date End Date No Ref-Primary, Physician PCP - General 02/02/23 documented as of this encounter
--- OUTSIDE RECORDS SUMMARY | 2024-04-14 10:56 | XMS_ITS | Encounter Summary ---
Author Organization [facility] Address [address] [place] [address] Care Team Providers Care Composing Room Machinist Name Role Phone Mynor Felix APRN, CNP Primary Care Provide r Reason for Referral * Consult/Transfer Care (Routine) - New Request Specialty Diagnoses / Procedures Referred By Clarice t Referred To Contact Diagnoses Obstructive sleep apnea syndrome Mynor Felix APRN, DIRECTOR OF CHANNEL MARKETING [address] [place] [address] Phone: tel: fax: Referral ID Status Reason Start Date Expiration Date V isits Requested Visits Authorized [id number] New Request 03/29/2024 06/28/2025 1 1 Scheduling Instructions Your clinician has recommended an appointment with [facility]. This is not a sleep study order and must first be reviewed by a sleep specialist to determine the next steps. The review process looks at multiple factors including your insurance requirements, personal health history, and [place] [employer] guidelines. This order will be reviewed within 1 business day and sent to scheduling for one of the following appointments: - Consultation/Office Visit with a Sleep Medicine Specialist - Consultation/Office Visit with an Insomnia Specialist - Portable/Home Sleep Test If you do not hear from our scheduling staff within the next 7 days, please contact us at [phone] and select option 1. Question Answer Appointment [...] 03/16/24: 176 lb 1.6 oz (79.9 kg). LATORY CONSULTANT Reason for Visit * Reason Comments QUESTIONS, GENERAL Entered automaticall y based on patient selection in BOKU. Encounter Details Date Type Department Care Team (Late st Contact Info) Description 03/28/2024 12:25 PM REGULATORY CONSULTANT E-Visit [facility] [address] [place], [place] [phone] Mynor Felix APRN, DIRECTOR OF CHANNEL MARKETING [address] [place], [place] [phone] Dx: Obstructive sleep apnea syndrome (Primary Dx) [...] and advise and Patient is expecting a BOKU message from [facility] Patient/director of healthcare systems request: New Order: Medication and referral Specific Request: Hope you???re doing well. Just updating that I???m Doing well back on wegovy. Need refills of 1.7 wegovy sent over to pharmacy as I???m out of refills. Was also wondering about a prescription for miralax and am dealing with constipation again. Also, a sleep medicine referral to check up on my sleepapnea. Thank you. LATORY CONSULTANT documented in this encounter Plan of Treatment Upcoming Encounters Date Type Department Care Team (Late st Contact Info) Description 04/18/2024 3:00 PM REGULATORY CONSULTANT Telemedicine [facility] [address] [place], [place] [phone] Rylee Morrison APRN, DIRECTOR OF CHANNEL MARKETING [address] [place], [place] [address] 05/29/2024 1:00 PM CDT Appointment [facility] [address] [place], [place] [phone] Quynh Sinha MD [address] [place], [place] [id number] Scheduled Procedures Name Priority Associated Diagnoses Date/Ti [...] diarrhea documented in this encounter Care Teams Composing Room Machinist Relationship Specialty Start Date End Date Mynor Felix APRN, DIRECTOR OF CHANNEL MARKETING [address] [place] [address] PCP - General Nurse Practitioner 12/31/22 documented as of this encounter
--- OUTSIDE RECORDS SUMMARY | 2024-04-14 10:56 | XMS_ITS | Clinical Summary ---
Author Organization [facility] Address [address] [place] [id number] Care Team Providers Care Process Engineering Technician Name Role Phone No Ref-Primary, Physician Primary [...] mouth 3 times daily Active nystatin (MYCOSTATIN) [id number] UNIT/GM external powder Apply topically 2 times [...] Active azelastine (ASTELIN) 0.1 % nasal spray [place] 1 spray into both nostrils 2 times daily Active fluticasone (FLONASE) 50 MCG/ACT nasal spray [place] 1 spray into both nostrils daily Active [...] Department Care Team Description 04/12/2024 12:31 PM MATERIALS SCIENTIST - 04/12/2024 4:50 PM MATERIALS SCIENTIST Emergency [facility] Emergency Dept [address] [place] [address] Zak Baptiste MD Generalized abdominal [...] Comments Blood Pressure 111/76 04/12/2024 4:47 PM MATERIALS SCIENTIST Pulse 90 04/12/2024 4:47 PM MATERIALS SCIENTIST Temperature 36.4 C (97.5 F) 04/12/2024 11:24 AM MATERIALS SCIENTIST Respiratory Rate 18 04/12/2024 1:45 PM MATERIALS SCIENTIST Oxygen Saturation 97% 04/12/2024 4:47 PM MATERIALS SCIENTIST Inhaled Oxygen Concentration - - Weight 76.5 kg (168 lb 10.4 oz) 025 11:24 AM MATERIALS SCIENTIST Height 160 cm (5' 3) 04/12/2024 11:24 AM MATERIALS SCIENTIST Body Mass Index 29.88 04/12/2024 11:24 AM MATERIALS SCIENTIST Plan of Treatment Health Maintenance Due Date [...] PLATELETS & DIFFERENTIAL STAT 04/12/2024 12:18 PM MATERIALS SCIENTIST MANUAL DIFFERENTIAL STAT 04/12/2024 1 2:18 PM MATERIALS SCIENTIST CBC WITH PLATELETS AND DIFFERENTIAL STAT 04/12/2024 12:18 PM MATERIALS SCIENTIST HCG QUALITATIVE STAT 04/12/2024 12:18 PM MATERIALS SCIENTIST LIPASE STAT 04/12/2024 12:18 PM MATERIALS SCIENTIST COMPREHENSIVE METABOLIC PANEL STAT 04/12/2024 12:18 PM MATERIALS SCIENTIST from Last 3 Months Results * (ABNORMAL) Manual Differential (04/12/2024 12:18 PM MATERIALS SCIENTIST) % Neutrophils 77 % [facility]CO 04/12/2024 1:39 PM MATERIALS SCIENTIST [facility] % Lymphocytes 16 % [facility] 04/12/2024 1:39 PM MATERIALS SCIENTIST [facility] % Monocytes 7 % [facility] 04/12/2024 1:39 PM MATERIALS SCIENTIST [facility] % Eosinophils 0 % [facility]CO 04/12/2024 1:39 PM MATERIALS SCIENTIST [facility] % Basophils 0 % [facility]CO 04/12/2024 1:39 PM MATERIALS SCIENTIST [facility] Absolute Neutrophils 14.2(H) 1.6 - 8.3 10e3/uL [facility]CO 04/12/2024 1:39 PM MATERIALS SCIENTIST [facility] Absolute Lymphocytes 3.0 0.8 - 5.3 10e3/uL [facility]CO 04/12/2024 1:39 PM MATERIALS SCIENTIST [facility] Absolute Monocytes 1.3 0.0 - 1.3 10e3/uL [facility]CO 04/12/2024 1:39 PM MATERIALS SCIENTIST [facility] Absolute Eosinophils 0.0 0.0 - 0.7 10e3/uL [facility] 04/12/2024 1:39 PM MATERIALS SCIENTIST [facility] Absolute Basophils 0.0 0.0 - 0.2 10e3/uL [facility] 04/12/2024 1:39 PM MATERIALS SCIENTIST [facility] RBC Morphology Confirmed RBC Indices CHECO 04/12/2024 1:39 PM MATERIALS SCIENTIST [facility] Platelet Assessment Automated Count Confirmed. Platelet morphology is normal. Automated Count Confirmed. Platelet morphology is normal. CHECO 04/12/2024 1:39 PM MATERIALS SCIENTIST [facility] Blood STRUCTURE OF LEFT UPPER LIMB / Unknown Venipuncture / Unknown 04/12/2024 12:18 PM MATERIALS SCIENTIST 04/12/2024 12:22 PM MATERIALS SCIENTIST us Zak Baptiste MD LAB - BLOOD ORDERABLES F inal Result LABORATORY [facility] [address] (1st floor, no room number) [place] [address] * (ABNORMAL) CBC with platelets and differential (04/12/2024 12:18 PM MATERIALS SCIENTIST) WBC Count 18.5(H) 4.0 - 11.0 10e3/uL 04/12/2024 1:39 PM MATERIALS SCIENTIST [facility] RBC Count 5.47(H) 3.80 - 5.20 10e6/uL 04/12/2024 1:39 PM MATERIALS SCIENTIST [facility] Hemoglobin 16.7(H) 11.7 - 15.7 g/dL 04/12/2024 1:39 PM MATERIALS SCIENTIST [facility] Hematocrit 49.8(H) 35.0 - 47.0 % 04/12/2024 1:39 PM MATERIALS SCIENTIST [facility] MCV 91 78 - 100 fL 04/12/2024 1:39 PM MATERIALS SCIENTIST [facility] MCH 30.5 26.5 - 33.0 pg 04/12/2024 1:39 PM MATERIALS SCIENTIST [facility] MCHC 33.5 31.5 - 36.5 g/dL 04/12/2024 1:39 PM MATERIALS SCIENTIST [facility] RDW 13.6 10.0 - 15.0 % 04/12/2024 1:39 PM MATERIALS SCIENTIST [facility] Platelet Count 425 150 - 450 10e3/uL 04/12/2024 1:39 PM MATERIALS SCIENTIST [facility] Blood STRUCTURE OF LEFT UPPER LIMB / Unknown Venipuncture / Unknown 04/12/2024 12:18 PM MATERIALS SCIENTIST 04/12/2024 12:22 PM MATERIALS SCIENTIST us Zak Baptiste MD LAB - BLOOD ORDERABLES F inal Result LABORATORY [facility] Lab [address] Lab (1st floor, no room number) [place] [address], [facility] * Lipase (04/12/2024 12:18 PM MATERIALS SCIENTIST) Lipase 32 13 - 60 U/L 04/12/2024 12:54 PM MATERIALS SCIENTIST LABORATORY Blood STRUCTURE OF LEFT UPPER LIMB / Unknown Venipuncture / Unknown 04/12/2024 12:18 PM MATERIALS SCIENTIST 04/12/2024 12:22 PM MATERIALS SCIENTIST Zak Baptiste MD LAB - BLOOD ORDERABLES F inal Result Performing Organization Address [facility]/ZIP Co de Phone Number [facility] Lab [address] Lab (1st floor, no room number) [place] [phone] * HCG QUALitative (blood) (04/12/2024 12:18 PM MATERIALS SCIENTIST) [facility] hCG Serum Qualitative Negative Negative CHECO 04/12/2024 12:56 PM MATERIALS SCIENTIST LABORATORY Comment:This test is for scr eening purposes. Results should be interpreted along with the clinical picture. Confirmation testing is available if warranted by ordering [id number], HCG Quantitative . Blood STRUCTURE OF LEFT UPPER LIMB / Unknown Venipuncture / Unknown 04/12/2024 12:18 PM MATERIALS SCIENTIST 04/12/2024 12:22 PM MATERIALS SCIENTIST Zak Baptiste MD LAB - BLOOD ORDERABLES F inal Result Performing Organization Address [facility] Co de Phone Number [facility] Lab [address] Lab (1st floor, no room number) [place] [phone] [place] [address] * (ABNORMAL) Comprehensive metabolic panel (04/12/2024 12:18 PM MATERIALS SCIENTIST) [facility] Sodium 133(L) 135 - 145 mmol/L 04/12/2024 1:57 PM MATERIALS SCIENTIST LABORATORY Potassium 3.4 3.4 - 5.3 mmol/L 04/12/2024 1:57 PM MATERIALS SCIENTIST LABORATORY Carbon Dioxide (CO2) 22 22 - 29 mmol/L 04/12/2024 1:57 PM MATERIALS SCIENTIST LABORATORY Anion Gap 24(H) 7 - 15 mmol/L 04/12/2024 1:57 PM MATERIALS SCIENTIST LABORATORY Urea Nitrogen 16.8 6.0 - 20.0 mg/dL 04/12/2024 1:57 PM MATERIALS SCIENTIST LABORATORY Creatinine 0.96(H) 0.51 - 0.95 mg/dL 04/12/2024 1:57 PM MATERIALS SCIENTIST LABORATORY GFR Estimate 82 >60 mL/min/1.7 3m2 04/12/2024 1:57 PM MATERIALS SCIENTIST LABORATORY Comment:eGFR calculated us2020 CKD-EPI equation. Calcium 10.3 8.8 - 10.4 mg/dL 04/12/2024 1:57 PM MATERIALS SCIENTIST LABORATORY Chloride 87(L) 98 - 107 mmol/L 04/12/2024 1:57 PM MATERIALS SCIENTIST LABORATORY Glucose 113(H) 70 - 99 mg/dL 04/12/2024 1:57 PM MATERIALS SCIENTIST LABORATORY Alkaline Phosphatase 94 40 - 150 U/L 04/12/2024 1:57 PM MATERIALS SCIENTIST LABORATORY AST 18 0 - 45 U/L 04/12/2024 1:57 PM MATERIALS SCIENTIST LABORATORY ALT 22 0 - 50 U/L 04/12/2024 1:57 PM MATERIALS SCIENTIST LABORATORY Protein Total 9.1(H) 6.4 - 8.3 g/dL 04/12/2024 1:57 PM MATERIALS SCIENTIST LABORATORY Albumin 4.7 3.5 - 5.2 g/dL 04/12/2024 1:57 PM MATERIALS SCIENTIST LABORATORY Bilirubin Total 0.5 <=1.2 mg/dL 04/12/2024 1:57 PM [facility] Blood STRUCTURE OF LEFT UPPER LIMB / Unknown Venipuncture / Unknown 04/12/2024 12:18 PM MATERIALS SCIENTIST 04/12/2024 12:22 PM MATERIALS SCIENTIST Zak Baptiste MD LAB - BLOOD ORDERABLES F inal Result [facility] LAB[facility]ATORY [facility] Lab [address] Lab (1st floor, no room number) [place] [address], [facility] from Last 3 Months Insurance [employer] [place] [facility] Address: [address] [place] [phone] [place] [address] [facility] Address: [id number] [place] [id number] Advance Directives For more information, please contact: [phone] * Full Code (Latest Code Status on [...] patie nt/ legal decision maker Care Teams Process Engineering Technician Relationship Specialty Start Date End Date No Ref-Primary, Physician PCP - General 02/02/23
[2024-04-14 11:02] LABS: Lactate* 1.5 mmol/L (0.5-1.9)
[2024-04-14 11:05] LABS: Basophils Percent Auto 0.2 % (0.0-3.0); Hemoglobin* 17.4 gm/dL (12.0-16.0); Immature Granulocytes Pct Auto 1.1 %; Lymphocytes Percent Auto 17.5 % (20-44); Mean Corpuscular HGB Conc 34 gm/dL (32-36); Mean Corpuscular Hemoglobin 31 pg (26-34); Mean Corpuscular Volume 91 fL (80-100); Monocytes Percent Auto 9.2 % (0.0-11.0); Platelet Count* 353 K/uL (140-440); RDW Coefficient of Variation % 13.1 % (11.5-15.5); White Blood Count* 11.92 K/uL (4.50-11.00)
[2024-04-14 11:07] LABS: Slide Review Reflex No
[2024-04-14 11:20] LABS: Lipase* 77 U/L (23-300)
[2024-04-14] MEDS: 0.9 % SODIUM CHLORIDE 1000 ml 1,000 ML IV (11:20)
[2024-04-14] MEDS: HALOPERIDOL 5 MG/ML INJ IV (11:20)
[2024-04-14 11:37] LABS: Albumin* 5.1 g/dL (3.3-5.0); Chloride* 84 mmol/L (96-114); Sodium* 134 mmol/L (135-149)
[2024-04-14 11:40] LABS: Alanine Aminotransferase* 28 U/L (4-35); Alkaline Phosphatase* 83 U/L (40-150); Anion Gap 14 mEq/L (7-15); Aspartate Amino Transferase* 26 U/L (12-35); Blood Urea Nitrogen* 16 mg/dL (5-24); Calcium* 9.8 mg/dL (8.4-10.6); Carbon Dioxide* 36 mmol/L (20-32); Creatinine* 0.9 mg/dL (0.5-1.5); Est. Creatinine Clearance* 76.98; Estimated Glomerular Filt Rate 89 ml/min; Glucose* 91 mg/dL (60-115); Total Protein* 9.4 g/dL (6.0-8.3)
[2024-04-14 11:45] LABS: Potassium* 2.9 mmol/L (3.6-5.1)
[2024-04-14 11:55] VITALS: PULSE 82; O2SAT 95
--- NOTE | 2024-04-14 12:04 | ED.NAVMDI ---
HPI - Nausea/Vomiting/Diarrhea General Date Seen: 04/14/24 Chief complaint: Nausea/Vomiting Stated complaint: vomiting Time Seen by Provider: 04/14/24 10:38 Source: patient Mode of arrival: ambulatory Limitations: no limitations History of Present Illness HPI Narrative: Patient is a 28-year-old female presenting to the emergency department for cyclic vomiting syndrome. She has had this multiple times before. She states she has not been told an official cause of her diagnosis. When I reviewed epic her previous visits have all been her friend same cannabinoid hyperemesis syndrome. She states she takes medical marijuana and knows that can cause cyclic vomiting. Does not use it and 6 days. Symptoms started 5 days ago. Was seen at [facility] 2 days ago but had to leave for her appointment for her daughter. States previously when she has had the symptoms he has required 5-11 day length admission stays. Her home medication has not been helping. Has had some abdominal cramping. Has had previous imaging done for this and no acute issues have ever been seen on the CT scans. Denies fevers, chills, diarrhea, constipation. Does feel lightheaded. Has not been to eat or drink much. She states the few days prior to the symptoms start her she was not having much of an appetite and her boyfriend had in the room states that he has noticed previously her symptoms she typically start with her not eating much for a few days. Related Data Home Medications ?Medication ?Instructions ?Recorded ?Confirmed cariprazine 1.5 mg capsule 1.5 mg PO DAILY 09/08/23 04/14/24 (Vraylar) metformin 500 mg tablet 500 mg PO TID 09/08/23 04/14/24 nortriptyline 10 mg capsule 10 mg PO DAILY 09/08/23 04/14/24 promethazine 25 mg tablet 25 mg PO Q6H PRN 09/08/23 04/14/24 spironolactone 50 mg tablet 50 mg PO TID 09/08/23 04/14/24 (Aldactone) Vyvanse 70 mg PO DAILY 09/09/23 04/14/24 pregabalin .Route 09/09/23 clonazepam 0.5 mg disintegrating 0.5 mg PO 3XD PRN anxiety 04/14/24 04/14/24 tablet dextroamphetamine-amphetamine 5 mg 1 tab PO DAILY 04/14/24 04/14/24 tablet Previous Rx's ?Medication ?Instructions ?Recorded olanzapine 2.5 mg tablet (Zyprexa) 2.5 mg PO DAILY #3 tabs 09/09/23 Allergies Allergy/AdvReac Type Severity Reaction Status Date / Time No Known Drug Allergies Allergy Verified 04/14/24 10:24 Review of Systems Status of ROS: Reports: 10 or more systems reviewed and unremarkable except as noted in History and below PFSH PFSH Social History Smoking Status: Current every day smoker Do you use any of these nicotine containing products: Vaping Products How often do you have a drink containing alcohol: monthly or less How many standard drinks containing alcohol do you have on a typical day: 1 or 2 AUDIT-C Alcohol total score: 1 Non-prescribed substance use: marijuana (any form) Exam Narrative: Exam Narrative: Const: Well-nourished, Well-developed, in mild distress Eyes: PERRL, no conjunctival injection, and symmetrical lids HENT: Atraumatic external nose and ears. Moist mucous membranes. Neck: Symmetric, trachea midline, No thyromegaly. CVS: RRR, No murmurs or gallops. Peripheral pulses 2+ and equal in all extremities RESP: Unlabored respiratory effort. Clear to auscultation bilaterally. GI: Nontender/Nondistended, No rebound or guarding. MSK:Extremities w/o deformity, Normal Active ROM Skin: Warm, Dry. No rashes or lesions. Neuro: Normal Muscle tone, No focal neurological deficits. Psych: Awake, Alert, & Oriented x3. Appropriate mood and affect. Const: Vital Signs, click to edit/add: Vital Signs - 24 hr 04/14/24 10:24 04/14/24 11:55 04/14/24 13:29 Temperature 98.5 F 98.9 F Pulse Rate [Pulse Oximeter] 99 82 75 Respiratory Rate 18 16 Blood Pressure [Ri ght Upper Arm] 128/86 100/73 Pulse Oximetry 99 95 97 Oxygen Delivery Me thod Room Air Room Air Room Air Course Vital Signs Vital signs: Initial Vital Signs Temperature 98.5 F 04/14/24 10:24 Temperature Source Temporal Artery Scan 04/14/24 10:24 Pulse Rate 99 04/14/24 10:24 Respiratory Rate 18 04/14/24 10:24 Blood Pressure 128/86 04/14/24 10:24 Blood Pressure Mean 100 04/14/24 10:24 Blood Pressure Position Sitting 04/14/24 10:24 Pulse Oximetry 99 04/14/24 10:24 Oxygen Delivery Method Room Air 04/14/24 10:24 Vital Signs Temperature 98.5 F 04/14/24 10:24 Pulse Rate 99 04/14/24 10:24 Respiratory Rate 18 04/14/24 10:24 Blood Pressure 128/86 04/14/24 10:24 Pulse Oximetry 99 04/14/24 10:24 Oxygen Delivery Method Room Air 04/14/24 10:24 Temperature 98.9 F 04/14/24 13:29 Pulse Rate 75 04/14/24 13:29 Respiratory Rate 16 04/14/24 13:29 Blood Pressure 100/73 04/14/24 13:29 Pulse Oximetry 97 04/14/24 13:29 Oxygen Delivery Method Room Air 04/14/24 13:29 Medications Administered Medications: Discontinued Medications Generic Name Dose Route Start Last Admin Trade Name Freq PRN Reason Stop Dose Admin Haloperidol Lactate 5 mg 04/14/24 10:45 04/14/24 11:20 Haloperidol 5 Mg/Ml Inj IV 04/14/24 10:46 5 mg ONCE ONE Administration Sodium Chloride 1,000 mls @ 1,000 mls/hr 04/14/24 11:28 04/14/24 12:30 0.9 % Sodium Chloride 1000 Ml IV 04/14/24 12:27 Infused .Q1H TALIB Infusion Potassium Chloride 10 meq in 100 mls @ 100 mls/hr 04/14/24 12:44 04/14/24 13:15 Potassium Chloride IVPB 04/14/24 13:43 100 mls/hr ONCE ONE Administration Sodium Chloride 500 mls @ 1,000 mls/hr 04/14/24 12:44 04/14/24 12:49 0.9 % Sodium Chloride 500 Ml IV 04/14/24 13:13 1,000 mls/hr .Q30M ONE Administration Metoclopramide HCl 10 mg 04/14/24 12:45 04/14/24 13:14 Metoclopramide Hcl 5 Mg/Ml Inj IVP 04/14/24 12:46 10 mg ONCE ONE Administration MDM - Nausea/Vomiting/Diarrhea MDM Narrative Medical decision making narrative: Patient is a 28-year-old female presenting for nausea and vomiting. This is likely cannabinoid hyperemesis syndrome. She has had multiple CTs before with no abnormality seen. I believe would be unnecessary radiation to do another CT scan at this time especially considering she is having no tenderness on palpation. Will order CBC, CMP, urinalysis, urine drug screen, lipase, lactate. Haldol given for her nausea and L fluid given for dehydration. Lab work shows slightly low potassium at 2.9. Will give her some IV potassium. Rest of her lab work shows no concerning findings. Lactate within normal limits. Urine drug screen is positive for marijuana as expected. She was feeling much better at the Haldol in fluids but still having some mild nausea and she was due for Reglan. This was ordered. She is feeling better at this time and feels comfortable for discharge. I offered her further p.o. potassium but she declined. She is otherwise doing well and I am comfortable discharging her at this time. Lab Data Labs: Lab Results 04/14/24 04/14/24 Range/Units 10:56 13:10 WBC 11.92 H (4.50-11.00) K/uL RBC 5.70 H (4.00-5.20) m/uL Hgb 17.4 H (12.0-16.0) gm/dL Hct 52.0 H (33.0-51.0) % MCV 91 (80-100) fL MCH 31 (26-34) pg MCHC 34 (32-36) gm/dL RDW Coeff of Khadijah 13.1 (11.5-15.5) % Plt Count 353 (140-440) K/uL Neut % (Auto) 72.0 (42.0-72.0) % Lymph % (Auto) 17.5 L (20-44) % [place] % (Auto) 9.2 (0.0-11.0) % Eos % (Auto) 0.0 (0.0-7.0) % Baso % (Auto) 0.2 (0.0-3.0) % Neut # (Auto) 8.60 H (1.7-7.0) K/uL Lymph # (Auto) 2.10 (0.90-2.90) K/uL [place] # (Auto) 1.10 H (0.00-0.90) K/UL Eos # (Auto) 0.00 (0.00-0.50) K/uL Baso # (Auto) 0.00 (0.00-0.30) K/uL Abs Immat Gran (auto) 0.10 (0.00-0.30) K/uL Imm/Tot Granulo (auto) 1.1 % Sodium 134 L (135-149) mmol/L Potassium 2.9 L* (3.6-5.1) mmol/L Chloride 84 L (96-114) mmol/L Carbon Dioxide 36 H (20-32) mmol/L Anion Gap 14 (7-15) mEq/L BUN 16 (5-24) mg/dL Creatinine 0.9 (0.5-1.5) mg/dL Estimated Creat Clear 76.98 Estimated GFR 89 ml/min Glucose 91 (60-115) mg/dL Lactate 1.5 (0.5-1.9) mmol/L Calcium 9.8 (8.4-10.6) mg/dL Total Bilirubin 1.0 (0.1-1.5) mg/dL AST 26 (12-35) U/L ALT 28 (4-35) U/L Alkaline Phosphatase 83 (40-150) U/L Total Protein 9.4 H (6.0-8.3) g/dL Albumin 5.1 H (3.3-5.0) g/dL Lipase 77 (23-300) U/L Urine Color Yellow (Yellow) Urine Appearance Clear (Clear) Urine pH 5.5 (5.0-8.5) Ur Specific [place] <= 1.005 (1.000-1.030) Urine Protein Negative (Negative) Urine Glucose (UA) Negative (Negative) Urine Ketones 2+ A (Negative) Urine Blood 3+ A (Negative) Urine Nitrite Negative (Negative) Urine Bilirubin Negative (Negative) Urine Urobilinogen 0.2 (0.2-1.0) Ur Leukocyte Esterase Negative (Negative) Urine RBC 5-10 A (0-2) Urine WBC 2-5 (0-5) Ur Squamous Epith Cells Few (None-Few) Urine Bacteria Few A (None) Urine Opiates Screen Negative (Negative) Ur Oxycodone Screen Negative (Negative) Urine Methadone Screen Negative (Negative) Ur Barbiturates Screen Negative (Negative) U Tricyclic Antidepress Negative (Negative) Ur Phencyclidine Scrn Negative (Negative) Ur Amphetamines Screen Negative (Negative) U Methamphetamines Scrn Negative (Negative) U Benzodiazepines Scrn Negative (Negative) Urine Cocaine Screen Negative (Negative) U Marijuana (THC) Screen POSITIVE A (Negative) Ur Drug Screen Comment See Note Discharge Plan Discharge Clinical Impression: Cyclic vomiting syndrome, Acute hypokalemia Patient Disposition: Home, Self-Care Condition: Stable Instructions: Potassium Content of Foods List (ED), Hypokalemia (ED) Additional Instructions: Make sure to eat foods high in potassium. Continue take your home medications. Return to emergency department for new or worsening symptoms. Prescriptions: No Action metformin 500 mg tablet 500 mg PO TID Vraylar 1.5 mg capsule 1.5 mg PO DAILY spironolactone [Aldactone] 50 mg tablet 50 mg PO TID promethazine 25 mg tablet 25 mg PO Q6H PRN nortriptyline 10 mg capsule 10 mg PO DAILY Vyvanse 70 mg PO DAILY pregabalin .Route olanzapine [Zyprexa] 2.5 mg tablet 2.5 mg PO DAILY Qty: 3 0RF clonazepam 0.5 mg tablet,disintegrating 0.5 mg PO 3XD PRN (Reason: anxiety) dextroamphetamine-amphetamine 5 mg tablet 1 tab PO DAILY Follow Up/Referrals: Provider,Not a Local [Primary Care Provider] - Stand Alone Forms: AppNetath Info Instructions
[2024-04-14] MEDS: 0.9 % SODIUM CHLORIDE 500 ML 500 ML 1000 ML IV (12:49)
[2024-04-14] MEDS: METOCLOPRAMIDE HCL 5 MG/ML INJ 10 MG IVP (13:14)
[2024-04-14] MEDS: POTASSIUM CHLORIDE 10 MEQ/100 ML PIGGYBACK 100 MEQ IVPB (13:15)
[2024-04-14 13:21] LABS: Appearance Urine Clear (Clear); Bilirubin Urine Negative (Negative); Blood Urine 3+ (Negative); Color Urine Yellow (Yellow); Glucose Urine Negative (Negative); Ketones Urine 2+ (Negative); Leukocyte Esterase Urine Negative (Negative); Nitrite Urine Negative (Negative); Protein Urine Negative (Negative); Specific Gravity Urine <= 1.005 (1.000-1.030); Urobilinogen Urine 0.2 (0.2-1.0); pH Urine 5.5 (5.0-8.5)
[2024-04-14 13:29] VITALS: BP 100/73; PULSE 75; RESP 16; TEMP 37.2; O2SAT 97
[2024-04-14 13:33] LABS: Amphetamine Screen Urine Negative (Negative); Barbiturate Screen Urine Negative (Negative); Benzodiazepines Screen Urine Negative (Negative); Cannabinoid Screen Urine POSITIVE (Negative); Cocaine Screen Urine Negative (Negative); Methadone Screen Urine Negative (Negative); Methamphetamines Screen Urine Negative (Negative); Opiate Screen Urine Negative (Negative); Oxycodone Screen Urine Negative (Negative); Phencyclidine Screen Urine Negative (Negative); Tricyclic Antidepressant Urine Negative (Negative)
[2024-04-14 13:39] LABS: Bacteria Urine Few; Squamous Epithelial Cell Urine Few (None-Few)
[2024-04-14] MEDS: POTASSIUM BICARB 25 MEQ EFFERVESCENT TAB 50 MEQ PO (14:16)
== END 2024-04-14 14:18 | disposition home or self-care (01) ==
PROVIDERS: Emergency Provider Student in an Organized Health Care Education/Training Program
DX: F12.188 Cannabis abuse with other cannabis-induced disorder (principal); E87.6 Hypokalemia
CPT/HCPCS: 36415; 80053; 80306; 81001; 83605; 83690; 85025; 87086; 96365; 96374; 96375; 99284; A9270; J1630; J2765; J3480; J7030

== ENCOUNTER 2024-04-15 07:17 | Emergency (ER) | payer BC, SELFPAY ==
[2024-04-15] VITALS (7 sets, daily range): BP systolic 118–130; BP diastolic 67–87; PULSE 65–82; RESP 12–18; TEMP 37.5; O2SAT 97–100; BMI 29.2
--- OUTSIDE RECORDS SUMMARY | 2024-04-15 08:25 | XMS_ITS | Clinical Summary ---
Author Organization [facility] Address [address] [place] [address] Care Team Providers Care Director Of Knowledge Management Name Role Phone No Ref-Primary, Physician Primary [...] mouth 3 times daily Active nystatin (MYCOSTATIN) 055448 UNIT/GM external powder Apply topically 2 times [...] Active azelastine (ASTELIN) 0.1 % nasal spray [place] 1 spray into both nostrils 2 times daily Active fluticasone (FLONASE) 50 MCG/ACT nasal spray [place] 1 spray into both nostrils daily Active [...] Department Care Team Description 04/12/2024 12:31 PM OCCASIONAL CAREGIVER - 04/12/2024 4:50 PM OCCASIONAL CAREGIVER Emergency [facility] Emergency Dept [address] [place] [address] Zak Baptiste MD Generalized abdominal [...] Comments Blood Pressure 111/76 04/12/2024 4:47 PM OCCASIONAL CAREGIVER Pulse 90 04/12/2024 4:47 PM OCCASIONAL CAREGIVER Temperature 36.4 C (97.5 F) 04/12/2024 11:24 AM OCCASIONAL CAREGIVER Respiratory Rate 18 04/12/2024 1:45 PM OCCASIONAL CAREGIVER Oxygen Saturation 97% 04/12/2024 4:47 PM OCCASIONAL CAREGIVER Inhaled Oxygen Concentration - - Weight 76.5 kg (168 lb 10.4 oz) 025 11:24 AM OCCASIONAL CAREGIVER Height 160 cm (5' 3) 04/12/2024 11:24 AM OCCASIONAL CAREGIVER Body Mass Index 29.88 04/12/2024 11:24 AM OCCASIONAL CAREGIVER Plan of Treatment Health Maintenance Due Date [...] PLATELETS & DIFFERENTIAL STAT 04/12/2024 12:18 PM OCCASIONAL CAREGIVER MANUAL DIFFERENTIAL STAT 04/12/2024 1 2:18 PM OCCASIONAL CAREGIVER CBC WITH PLATELETS AND DIFFERENTIAL STAT 04/12/2024 12:18 PM OCCASIONAL CAREGIVER HCG QUALITATIVE STAT 04/12/2024 12:18 PM OCCASIONAL CAREGIVER LIPASE STAT 04/12/2024 12:18 PM OCCASIONAL CAREGIVER COMPREHENSIVE METABOLIC PANEL STAT 04/12/2024 12:18 PM OCCASIONAL CAREGIVER from Last 3 Months Results * (ABNORMAL) Manual Differential (04/12/2024 12:18 PM OCCASIONAL CAREGIVER) % Neutrophils 77 % CHECO 04/12/2024 1:39 PM OCCASIONAL CAREGIVER [facility] % Lymphocytes 16 % CHECO 04/12/2024 1:39 PM OCCASIONAL CAREGIVER [facility] % Monocytes 7 % CHECO 04/12/2024 1:39 PM OCCASIONAL CAREGIVER [facility] % Eosinophils 0 % CHECO 04/12/2024 1:39 PM OCCASIONAL CAREGIVER [facility] % Basophils 0 % CHECO 04/12/2024 1:39 PM OCCASIONAL CAREGIVER [facility] Absolute Neutrophils 14.2(H) 1.6 - 8.3 10e3/uL CHECO 04/12/2024 1:39 PM OCCASIONAL CAREGIVER [facility] Absolute Lymphocytes 3.0 0.8 - 5.3 10e3/uL CHECO 04/12/2024 1:39 PM OCCASIONAL CAREGIVER [facility] Absolute Monocytes 1.3 0.0 - 1.3 10e3/uL CHECO 04/12/2024 1:39 PM OCCASIONAL CAREGIVER [facility] Absolute Eosinophils 0.0 0.0 - 0.7 10e3/uL CHECO 04/12/2024 1:39 PM OCCASIONAL CAREGIVER [facility] Absolute Basophils 0.0 0.0 - 0.2 10e3/uL CHECO 04/12/2024 1:39 PM OCCASIONAL CAREGIVER [facility] RBC Morphology Confirmed RBC Indices CHECO 04/12/2024 1:39 PM OCCASIONAL CAREGIVER [facility] Platelet Assessment Automated Count Confirmed. Platelet morphology is normal. Automated Count Confirmed. Platelet morphology is normal. CHECO 04/12/2024 1:39 PM OCCASIONAL CAREGIVER [facility] Blood STRUCTURE OF LEFT UPPER LIMB / Unknown Venipuncture / Unknown 04/12/2024 12:18 PM OCCASIONAL CAREGIVER 04/12/2024 12:22 PM OCCASIONAL CAREGIVER us Zak Baptiste MD LAB - BLOOD ORDERABLES F inal Result LABORATORY [facility] [address] Lab (1st floor, no room number) [place] [address] * (ABNORMAL) CBC with platelets and differential (04/12/2024 12:18 PM OCCASIONAL CAREGIVER) WBC Count 18.5(H) 4.0 - 11.0 10e3/uL 04/12/2024 1:39 PM OCCASIONAL CAREGIVER [facility] RBC Count 5.47(H) 3.80 - 5.20 10e6/uL 04/12/2024 1:39 PM OCCASIONAL CAREGIVER [facility] Hemoglobin 16.7(H) 11.7 - 15.7 g/dL 04/12/2024 1:39 PM OCCASIONAL CAREGIVER [facility] Hematocrit 49.8(H) 35.0 - 47.0 % 04/12/2024 1:39 PM OCCASIONAL CAREGIVER [facility] MCV 91 78 - 100 fL 04/12/2024 1:39 PM OCCASIONAL CAREGIVER [facility] MCH 30.5 26.5 - 33.0 pg 04/12/2024 1:39 PM OCCASIONAL CAREGIVER [facility] MCHC 33.5 31.5 - 36.5 g/dL 04/12/2024 1:39 PM OCCASIONAL CAREGIVER [facility] RDW 13.6 10.0 - 15.0 % 04/12/2024 1:39 PM OCCASIONAL CAREGIVER [facility] Platelet Count 425 150 - 450 10e3/uL 04/12/2024 1:39 PM OCCASIONAL CAREGIVER [facility] Blood STRUCTURE OF LEFT UPPER LIMB / Unknown Venipuncture / Unknown 04/12/2024 12:18 PM OCCASIONAL CAREGIVER 04/12/2024 12:22 PM OCCASIONAL CAREGIVER us Zak Baptiste MD LAB - BLOOD ORDERABLES F inal Result LABORATORY [facility] [address] Lab (1st floor, no room number) [place] [address], [facility] * Lipase (04/12/2024 12:18 PM OCCASIONAL CAREGIVER) Lipase 32 13 - 60 U/L 04/12/2024 12:54 PM OCCASIONAL CAREGIVER LABORATORY Blood STRUCTURE OF LEFT UPPER LIMB / Unknown Venipuncture / Unknown 04/12/2024 12:18 PM OCCASIONAL CAREGIVER 04/12/2024 12:22 PM OCCASIONAL CAREGIVER Zak Baptiste MD LAB - BLOOD ORDERABLES F inal Result Performing Organization Address [facility]/ZIP Co de Phone Number [facility] [address] Lab (1st floor, no room number) [place] [phone] * HCG QUALitative (blood) (04/12/2024 12:18 PM OCCASIONAL CAREGIVER) [facility] hCG Serum Qualitative Negative Negative CHECO 04/12/2024 12:56 PM OCCASIONAL CAREGIVER LABORATORY Comment:This test is for scr eening purposes. Results should be interpreted along with the clinical picture. Confirmation testing is available if warranted by ordering [id number], HCG Quantitative . Blood STRUCTURE OF LEFT UPPER LIMB / Unknown Venipuncture / Unknown 04/12/2024 12:18 PM OCCASIONAL CAREGIVER 04/12/2024 12:22 PM OCCASIONAL CAREGIVER Zak Baptiste MD LAB - BLOOD ORDERABLES F inal Result Performing Organization Address [facility] Co de Phone Number [facility] [address] Lab (1st floor, no room number) [place] [phone] [place] [address] * (ABNORMAL) Comprehensive metabolic panel (04/12/2024 12:18 PM OCCASIONAL CAREGIVER) [facility] Sodium 133(L) 135 - 145 mmol/L 04/12/2024 1:57 PM OCCASIONAL CAREGIVER LABORATORY Potassium 3.4 3.4 - 5.3 mmol/L 04/12/2024 1:57 PM OCCASIONAL CAREGIVER LABORATORY Carbon Dioxide (CO2) 22 22 - 29 mmol/L 04/12/2024 1:57 PM OCCASIONAL CAREGIVER LABORATORY Anion Gap 24(H) 7 - 15 mmol/L 04/12/2024 1:57 PM OCCASIONAL CAREGIVER LABORATORY Urea Nitrogen 16.8 6.0 - 20.0 mg/dL 04/12/2024 1:57 PM OCCASIONAL CAREGIVER LABORATORY Creatinine 0.96(H) 0.51 - 0.95 mg/dL 04/12/2024 1:57 PM OCCASIONAL CAREGIVER LABORATORY GFR Estimate 82 >60 mL/min/1.7 3m2 04/12/2024 1:57 PM OCCASIONAL CAREGIVER LABORATORY Comment:eGFR calculated us2020 CKD-EPI equation. Calcium 10.3 8.8 - 10.4 mg/dL 04/12/2024 1:57 PM OCCASIONAL CAREGIVER LABORATORY Chloride 87(L) 98 - 107 mmol/L 04/12/2024 1:57 PM OCCASIONAL CAREGIVER LABORATORY Glucose 113(H) 70 - 99 mg/dL 04/12/2024 1:57 PM OCCASIONAL CAREGIVER LABORATORY Alkaline Phosphatase 94 40 - 150 U/L 04/12/2024 1:57 PM OCCASIONAL CAREGIVER LABORATORY AST 18 0 - 45 U/L 04/12/2024 1:57 PM OCCASIONAL CAREGIVER LABORATORY ALT 22 0 - 50 U/L 04/12/2024 1:57 PM OCCASIONAL CAREGIVER LABORATORY Protein Total 9.1(H) 6.4 - 8.3 g/dL 04/12/2024 1:57 PM OCCASIONAL CAREGIVER LABORATORY Albumin 4.7 3.5 - 5.2 g/dL 04/12/2024 1:57 PM OCCASIONAL CAREGIVER LABORATORY Bilirubin Total 0.5 <=1.2 mg/dL 04/12/2024 1:57 PM [facility] LABORATORY Blood STRUCTURE OF LEFT UPPER LIMB / Unknown Venipuncture / Unknown 04/12/2024 12:18 PM OCCASIONAL CAREGIVER 04/12/2024 12:22 PM OCCASIONAL CAREGIVER Zak Baptiste MD LAB - BLOOD ORDERABLES F inal Result RH LABORATORY [facility] [address] Lab (1st floor, no room number) [place] [address], [facility] from Last [address] [place] [place] [address] Advance Directives For more information, please contact: [phone] * Full Code (Latest Code Status on [...] patie nt/ legal decision maker Care Teams Director Of Knowledge Management Relationship Specialty Start Date End Date No Ref-Primary, Physician PCP - General 02/02/23
--- OUTSIDE RECORDS SUMMARY | 2024-04-15 08:25 | XMS_ITS | Encounter Summary ---
Author Organization [facility] Address [address] [place] [address] Care Team Providers Care Precinct I Police Sergeant Name Role Phone Mynor Felix APRN, CNP Primary Care Provide r Reason for Visit * Reason Comments Prior Authorization For Medication Zepbo und Injection Encounter Details Date Type Department Care Team (Late st Contact Info) Description 01/23/2024 Telephone [facility] [address] [place] [address] Mynor Felix APRN, CNP [address] [place] [address] Prior Authorization For Medication (Zepbound [...] semaglutide-weight management (WEGOVY) 1.7 MG/0.75ML pen injection TICS APPLICATION ENGINEER * Carlene Villaseñor LPN - 01/25/2024 11:47 AM CST Left patient a detailed message updating PA status. The PA was resubmitted on 01/15 and we are know waiting for payer response. TICS APPLICATION ENGINEER * Elena Merrill - 01/25/2024 10:26 AM CST Pt calling back about the PA on the Weovy Please give her a call back with status update TICS APPLICATION ENGINEER * Gal Hutchins - 01/23/2024 4:26 PM CST Prior Authorizations What prior authorization is needed? Wegovy ( the lowest dose - pt is restarting the medication ) Insurance Carrier: [facility] Member ID: Pt does not have it [...] else I can help you with today? TICS APPLICATION ENGINEER documented in this encounter Plan of Treatment Upcoming Encounters Date Type Department Care Team (Late st Contact Info) Description 04/18/2024 3:00 PM ROBOTICS APPLICATION ENGINEER Telemedicine [facility] [address] [facility] [place] [address] Rylee Morrison APRN, AQUACULTURIST [address] [place], [place] [address] 05/29/2024 1:00 PM CDT Appointment [facility] [address] [place], [place] [phone] Quynh Sinha MD [address] [place], [place] [id number] Scheduled Procedures Name Priority Associated Diagnoses Date/Ti me HEMORRHOIDECTOMY External hemorrhoid documented as of this encounter Visit Diagnoses Not on filedocumented in this encounter Care Teams Precinct I Police Sergeant Relationship Specialty Start Date End Date Mynor Felix APRN, AQUACULTURIST [address] [place] [id number] PCP - General Nurse Practitioner 12/31/22 documented as of this encounter
--- OUTSIDE RECORDS SUMMARY | 2024-04-15 08:25 | XMS_ITS | Encounter Summary ---
Author Organization [facility] Address [address] [place] [address] Care Team Providers Care Stitch Bonding Machine Drawer In Name Role Phone No Ref-Primary, Physician Primary [...] on filedocumented in this encounter Care Teams Stitch Bonding Machine Drawer In Relationship Specialty Start Date End Date No Ref-Primary, Physician PCP - General 02/02/23 documented as of this encounter
--- OUTSIDE RECORDS SUMMARY | 2024-04-15 08:25 | XMS_ITS | Encounter Summary ---
Author Organization [facility] Address [address] [place] [address] Care Team Providers Care Manager Utilization Management Name Role Phone No Ref-Primary, Physician Primary Care Provider Reason for Visit * Reason Comments Nausea & Vomiting Encounter Details Date Type Department Care Team (Late st Contact Info) Description 04/12/2024 12:31 PM CERTIFIED CREDIT COUNSELOR - 04/12/2024 4:50 PM CERTIFIED CREDIT COUNSELOR Emergency [facility] Emergency Dept [address] [place] [phone] Zak Baptiste MD [facility] [address] [place] [address] Generalized abdominal pain; Nausea and [...] Comments Blood Pressure 111/76 04/12/2024 4:47 PM CERTIFIED CREDIT COUNSELOR Pulse 90 04/12/2024 4:47 PM CERTIFIED CREDIT COUNSELOR Temperature 36.4 C (97.5 F) 04/12/2024 11:24 AM CERTIFIED CREDIT COUNSELOR Respiratory Rate 18 04/12/2024 1:45 PM CERTIFIED CREDIT COUNSELOR Oxygen Saturation 97% 04/12/2024 4:47 PM CERTIFIED CREDIT COUNSELOR Inhaled Oxygen Concentration - - Weight 76.5 kg (168 lb 10.4 oz) 025 11:24 AM CERTIFIED CREDIT COUNSELOR Height 160 cm (5' 3) 04/12/2024 11:24 AM CERTIFIED CREDIT COUNSELOR Body Mass Index 29.88 04/12/2024 11:24 AM CERTIFIED CREDIT COUNSELOR documented in this encounter Discharge Instructions * Discharge Instructions* Zak Baptiste MD - 04/12/2024 4:15 PM CERTIFIED CREDIT COUNSELOR Discharge Instructions Abdominal Pain Abdominal pain can [...] directed by your doctor today. Before using [id number] medications, ask your doctor and make sure [...] contain Tylenol?? (acetaminophen), including Vicodin??, Tylenol #3??, Nooksack??, Lortab??, and Percocet??. You should not take [...] if there is anything that worries you. IFIED CREDIT COUNSELOR documented in this encounter Medications at Time [...] cough azelastine (ASTELIN) 0.1 % nasal spray [place] 1 spray into both nostrils 2 times daily budesonide-formo terol (SYMBICORT) 160-4.5 MCG/ACT Inhaler Inhale 2 puffs into the lungs 2 times daily cariprazine (VRAYLAR) 1.5 MG capsule Take 1.5 mg by mouth daily famotidine (PEPCID) 20 MG tablet Take 20 mg by mouth 2 times daily fluticasone (FLONASE) 50 MCG/ACT nasal spray [place] 1 spray into both nostrils daily guaiFENesin [...] (nauesa, vomiting) 30 tablet 02/07/2023 nystatin (MYCOSTATIN) [id number] UNIT/GM external powder Apply topically 2 times [...] Documentation None Medical Decision Making / Diagnosis [facility] Diagnoses: None MIPS None MDM Benigno Larson [...] she could not stay she had to rock picker her kids wanted a different medicine I [...] statements to me. Zak Baptiste MD 04/12/241952 IFIED CREDIT COUNSELOR * Genet Ramirez RN - 04/12/2024 11:25 AM CST Declined ODT zofran in triage. States she attempted to take one at home this morning and vomited itup. Would prefer to wait for IV medication. IFIED CREDIT COUNSELOR * Genet Ramirez RN - 04/12/2024 11:23 [...] WDL WDL Cognitive/Neuro/Behavioral WDL Cognitive/Neuro/Behavioral WDL WDL IFIED CREDIT COUNSELOR documented in this encounter Plan of Treatment Scheduled Orders Name Type Priority Associated Diagnoses Orde r Schedule EKG 12-lead, tracing only EKG STAT One Time for 1 O ccurrences starting 04/12/2024 until 04/12/2024 documented as of this encounter Procedures Procedure Name Priority Date/Time Associated Diagnosis Comments MANUAL DIFFERENTIAL STAT 04/12/2024 1 2:18 PM CERTIFIED CREDIT COUNSELOR CBC WITH PLATELETS AND DIFFERENTIAL STAT 04/12/2024 12:18 PM CERTIFIED CREDIT COUNSELOR CBC WITH PLATELETS & DIFFERENTIAL STAT 04/12/2024 12:18 PM CERTIFIED CREDIT COUNSELOR LIPASE STAT 04/12/2024 12:18 PM CERTIFIED CREDIT COUNSELOR HCG QUALITATIVE STAT 04/12/2024 12:18 PM CERTIFIED CREDIT COUNSELOR COMPREHENSIVE METABOLIC PANEL STAT 04/12/2024 12:18 PM CERTIFIED CREDIT COUNSELOR documented in this encounter Results * (ABNORMAL) Manual Differential (04/12/2024 12:18 PM CERTIFIED CREDIT COUNSELOR) % Neutrophils 77 % CHECO 04/12/2024 1:39 PM CERTIFIED CREDIT COUNSELOR [facility] % Lymphocytes 16 % CHECO 04/12/2024 1:39 PM CERTIFIED CREDIT COUNSELOR [facility] % Monocytes 7 % CHECO 04/12/2024 1:39 PM CERTIFIED CREDIT COUNSELOR [facility] % Eosinophils 0 % CHECO 04/12/2024 1:39 PM CERTIFIED CREDIT COUNSELOR [facility] % Basophils 0 % CHECO 04/12/2024 1:39 PM CERTIFIED CREDIT COUNSELOR [facility] Absolute Neutrophils 14.2(H) 1.6 - 8.3 10e3/uL CHECO 04/12/2024 1:39 PM CERTIFIED CREDIT COUNSELOR [facility] Absolute Lymphocytes 3.0 0.8 - 5.3 10e3/uL CHCEO 04/12/2024 1:39 PM CERTIFIED CREDIT COUNSELOR [facility] Absolute Monocytes 1.3 0.0 - 1.3 10e3/uL CHECO 04/12/2024 1:39 PM CERTIFIED CREDIT COUNSELOR [facility] Absolute Eosinophils 0.0 0.0 - 0.7 10e3/uL CHECO 04/12/2024 1:39 PM CERTIFIED CREDIT COUNSELOR [facility] Absolute Basophils 0.0 0.0 - 0.2 10e3/uL CHECO 04/12/2024 1:39 PM CERTIFIED CREDIT COUNSELOR [facility] RBC Morphology Confirmed RBC Indices CHECO 04/12/2024 1:39 PM CERTIFIED CREDIT COUNSELOR [facility] Platelet Assessment Automated Count Confirmed. Platelet morphology is normal. Automated Count Confirmed. Platelet morphology is normal. CHECO 04/12/2024 1:39 PM CERTIFIED CREDIT COUNSELOR [facility] Blood STRUCTURE OF LEFT UPPER LIMB / Unknown Venipuncture / Unknown 04/12/2024 12:18 PM CERTIFIED CREDIT COUNSELOR 04/12/2024 12:22 PM CERTIFIED CREDIT COUNSELOR us Zak Baptiste MD LAB - BLOOD ORDERABLES F inal Result RH LABORATORY [facility] Acute [facility] Lab [address] Lab (1st floor, no room number) [place] [address], [facility] * (ABNORMAL) CBC with platelets and differential (04/12/2024 12:18 PM CERTIFIED CREDIT COUNSELOR) [facility] WBC Count 18.5(H) 4.0 - 11.0 10e3/uL 04/12/2024 1:39 PM CERTIFIED CREDIT COUNSELOR [facility] RBC Count 5.47(H) 3.80 - 5.20 10e6/uL 04/12/2024 1:39 PM CERTIFIED CREDIT COUNSELOR [facility] Hemoglobin 16.7(H) 11.7 - 15.7 g/dL 04/12/2024 1:39 PM CERTIFIED CREDIT COUNSELOR [facility] Hematocrit 49.8(H) 35.0 - 47.0 % 04/12/2024 1:39 PM CERTIFIED CREDIT COUNSELOR [facility] MCV 91 78 - 100 fL 04/12/2024 1:39 PM CERTIFIED CREDIT COUNSELOR [facility] MCH 30.5 26.5 - 33.0 pg 04/12/2024 1:39 PM CERTIFIED CREDIT COUNSELOR [facility] MCHC 33.5 31.5 - 36.5 g/dL 04/12/2024 1:39 PM CERTIFIED CREDIT COUNSELOR [facility] RDW 13.6 10.0 - 15.0 % 04/12/2024 1:39 PM CERTIFIED CREDIT COUNSELOR [facility] Platelet Count 425 150 - 450 10e3/uL 04/12/2024 1:39 PM CERTIFIED CREDIT COUNSELOR [facility] Blood STRUCTURE OF LEFT UPPER LIMB / Unknown Venipuncture / Unknown 04/12/2024 12:18 PM CERTIFIED CREDIT COUNSELOR 04/12/2024 12:22 PM CERTIFIED CREDIT COUNSELOR us Zak Baptiste MD LAB - BLOOD ORDERABLES F inal Result LABORATORY [facility] Lab [address] Lab (1st floor, no room number) [place] [address], [facility] * HCG QUALitative (blood) (04/12/2024 12:18 PM CERTIFIED CREDIT COUNSELOR) Pathologist [facility] Emergency Department hCG Serum Qualitative Negative Negative CHECO 04/12/2024 12:56 PM CERTIFIED CREDIT COUNSELOR LABORATORY Comment:This test is for scr eening purposes. Results should be interpreted along with the clinical picture. Confirmation testing is available if warranted by ordering [id number], HCG Quantitative . Blood STRUCTURE OF LEFT UPPER LIMB / Unknown Venipuncture / Unknown 04/12/2024 12:18 PM CERTIFIED CREDIT COUNSELOR 04/12/2024 12:22 PM CERTIFIED CREDIT COUNSELOR Zak Baptiste MD LAB - BLOOD ORDERABLES F inal Result [facility] [address] [facility] Lab (1st floor, no room number) [address] * Lipase (04/12/2024 12:18 PM CERTIFIED CREDIT COUNSELOR) [facility] Lipase 32 13 - 60 U/L 04/12/2024 12:54 PM CERTIFIED CREDIT COUNSELOR LABORATORY Blood STRUCTURE OF LEFT UPPER LIMB / Unknown Venipuncture / Unknown 04/12/2024 12:18 PM CERTIFIED CREDIT COUNSELOR 04/12/2024 12:22 PM CERTIFIED CREDIT COUNSELOR Zak Baptiste MD LAB - BLOOD ORDERABLES F inal Result [facility] [address] Lab (1st floor, no room number) [address] * (ABNORMAL) Comprehensive metabolic panel (04/12/2024 12:18 PM CERTIFIED CREDIT COUNSELOR) [facility] Sodium 133(L) 135 - 145 mmol/L 04/12/2024 1:57 PM CERTIFIED CREDIT COUNSELOR LABORATORY Potassium 3.4 3.4 - 5.3 mmol/L 04/12/2024 1:57 PM CERTIFIED CREDIT COUNSELOR LABORATORY Carbon Dioxide (CO2) 22 22 - 29 mmol/L 04/12/2024 1:57 PM CERTIFIED CREDIT COUNSELOR LABORATORY Anion Gap 24(H) 7 - 15 mmol/L 04/12/2024 1:57 PM CERTIFIED CREDIT COUNSELOR LABORATORY Urea Nitrogen 16.8 6.0 - 20.0 mg/dL 04/12/2024 1:57 PM CERTIFIED CREDIT COUNSELOR LABORATORY Creatinine 0.96(H) 0.51 - 0.95 mg/dL 04/12/2024 1:57 PM CERTIFIED CREDIT COUNSELOR LABORATORY GFR Estimate 82 >60 mL/min/1.7 3m2 04/12/2024 1:57 PM CERTIFIED CREDIT COUNSELOR LABORATORY Comment:eGFR calculated usin 2020 CKD-EPI equation. Calcium 10.3 8.8 - 10.4 mg/dL 04/12/2024 1:57 PM CERTIFIED CREDIT COUNSELOR LABORATORY Chloride 87(L) 98 - 107 mmol/L 04/12/2024 1:57 PM CERTIFIED CREDIT COUNSELOR LABORATORY Glucose 113(H) 70 - 99 mg/dL 04/12/2024 1:57 PM CERTIFIED CREDIT COUNSELOR LABORATORY Alkaline Phosphatase 94 40 - 150 U/L 04/12/2024 1:57 PM CERTIFIED CREDIT COUNSELOR LABORATORY AST 18 0 - 45 U/L 04/12/2024 1:57 PM CERTIFIED CREDIT COUNSELOR LABORATORY ALT 22 0 - 50 U/L 04/12/2024 1:57 PM [facility] LABORATORY Protein Total 9.1(H) 6.4 - 8.3 g/dL 04/12/2024 1:57 PM [facility] LAB[facility]AT[facility] Albumin 4.7 3.5 - 5.2 g/dL 04/12/2024 1:57 PM CERTIFIED CREDIT COUNSELOR LABORATORY Bilirubin Total 0.5 <=1.2 mg/dL 04/12/2024 1:57 PM [facility] LABORATORY Blood STRUCTURE OF LEFT UPPER LIMB / Unknown Venipuncture / Unknown 04/12/2024 12:18 PM CERTIFIED CREDIT COUNSELOR 04/12/2024 12:22 PM [facility] us Zak Baptiste MD LAB - BLOOD ORDERABLES F inal Result LABORATORY [facility] Lab [address] Lab (1st floor, no room number) [place] [address], [facility] documented in this encounter Visit Diagnoses [...] For 1 dose $Given 04/12/2024 1:43 PM CERTIFIED CREDIT COUNSELOR 25 mg ketorolac (TORADOL) injection 15 mg [...] to 2 minutes. $Given 04/12/2024 1:42 PM CERTIFIED CREDIT COUNSELOR 15 mg LORazepam (ATIVAN) injection 0.5 mg 0.5 mg, Intravenous, ONCE, On Lianet 04/12/24 at 1320, For 1 dose, IV Route: Dilute with equal volume NS prior to use. This drug may cause significant respiratory depression. Monitor respiratory status and vital signs carefully for 1 hour after each dose. $Given 04/12/2024 1:43 PM CERTIFIED CREDIT COUNSELOR 0.5 mg metoclopramide (REGLAN) injection 10 mg 10 mg, Intravenous, Administer over 2 Minutes, ONCE, On Lianet 04/12/24 at 1530, For 1 dose, Avoid use if patient has full bowel obstruction or perforation. $Given 04/12/2024 4:40 PM CERTIFIED CREDIT COUNSELOR 10 mg prochlorperazine (COMPAZINE) injection 10 mg 10 mg, Intravenous, ONCE, Administer over 1-2 Minutes, On Lianet 04/12/24 at 1320, For 1 dose $Given 04/12/2024 1:43 PM CERTIFIED CREDIT COUNSELOR 10 mg sodium chloride 0.9% BOLUS 1,000 mL Intravenous, 1,000 mL, ONCE, at 1,000 mL/hr, Administer over 1 Hours, On Lianet 04/12/24 at 1320, For 1 dose $New Bag 04/12/2024 1:33 PM CERTIFIED CREDIT COUNSELOR 1,000 mLs 1000 mL/hr SUMAtriptan (IMITREX) injection 6 mg 6 mg, Subcutaneous, ONCE, On Lianet 04/12/24 at 1530, For 1 dose, Do NOT give within 24 hours of (dihydroergotamine) DHE or another triptan medication. $Given 04/12/2024 4:40 PM CERTIFIED CREDIT COUNSELOR 6 mg documented in this encounter Active and Recently Administered Medications Times are shown in CERTIFIED CREDIT COUNSELOR. Scheduled Medication Order 04/10/2024 04/11/2024 04/12/2024 diphenhydrAMINE [...] RN) documented in this encounter Care Teams Manager Utilization Management Relationship Specialty Start Date End Date No Ref-Primary, Physician PCP - General 02/02/23 documented as of this encounter
--- OUTSIDE RECORDS SUMMARY | 2024-04-15 08:25 | XMS_ITS | Clinical Summary ---
Author Organization [facility] Address [address] [place] [address] Care Team Providers Care Contact Lens Manufacturer Name Role Phone Iveth Mabry PA-C Primary Care Provider [phone] Allergies No known active allergies Medications fluconazole [...] once daily 30 capsule 01/22/2014 2:21 PM WASTE RECYCLER 4 Active traZODone (DESYREL) 50 mg tablet Take 1 to 2 tablets by mouth at bedtime as needed 30 tablet 01/22/2014 2:21 PM WASTE RECYCLER 4 Active ondansetron (ZOFRAN, HYDROCHLORIDE, ) 4 mg tablet Take 1 tab by mouth every 6 hours as needed 20 tablet 1 02/19/2014 3:35 PM WASTE RECYCLER 5 Active oseltamivir (TAMIFLU) 75 mg capsule Take 1 capsule(s) by mouth 2 times daily for 5 days 10 capsule 02/19/2014 3:35 PM WASTE RECYCLER 5 Active FLUoxetine (PROZAC) 10 mg capsule Take 1 capsule by mouth every morning. 30 capsule 1 03/21/2014 2:58 PM WASTE RECYCLER 5 Active traZODone (DESYREL) 50 mg tablet [...] patient's age to complete this topic Insurance [facility] CARE BASIC+1 HB ONLY Advance Directives * Full Code (Latest Code Status on File) Date Activated Date Inactivated Comments 06/27/2013 1:16 AM 07/02/2013 3:01 PM Care Teams Contact Lens Manufacturer Relationship Specialty Start Date End Date Iveth Mabry PA-C [address] [place] [address] PCP - General 07/17/14
--- OUTSIDE RECORDS SUMMARY | 2024-04-15 08:25 | XMS_ITS | Encounter Summary ---
Author Organization [employer] Address [address] [place] [address] Care Team Providers Care Slot Editor Name Role Phone Mynor Felix APRN, CNP Primary Care Provide r Reason for Visit * Reason Comments Prior Authorization For Medication Wegov y Encounter Details Date Type Department Care Team (Late st Contact Info) Description 01/02/2024 Telephone [facility] [address] [place] [address] Mynor Felix APRN, GORDO [address] [place] [address] Prior Authorization For Medication (Wegovy) [...] on the PA status. Vm is ok. ING SPECIALIST * Lula Fischer - 01/02/2024 1:24 PM CST Images from the original note were not included. Update portal with plan ING SPECIALIST * Lee Alcala LPN - 01/02/2024 11:24 AM CST ePA initiated for Sarthak ING SPECIALIST documented in this encounter Plan of Treatment Upcoming Encounters Date Type Department Care Team (Late st Contact Info) Description 04/18/2024 3:00 PM TESTING SPECIALIST Telemedicine [facility] [address] [place] [address] Rylee Morrison APRN, PLANT GENERAL MANAGER [address] [place], [place] [address] 05/29/2024 1:00 PM CDT Appointment [facility] [address] [place], [place] [phone] Quynh Sinha MD [address] [place], [place] [phone] Scheduled Procedures Name Priority Associated Diagnoses Date/Ti me HEMORRHOIDECTOMY External hemorrhoid documented as of this encounter Visit Diagnoses Not on filedocumented in this encounter Care Teams Slot Editor Relationship Specialty Start Date End Date Mynor Felix, EMAIL DEVELOPER, PLANT GENERAL MANAGER [address] [place] [address] PCP - General Nurse Practitioner 12/31/22 documented as of this encounter
--- OUTSIDE RECORDS SUMMARY | 2024-04-15 08:26 | XMS_ITS | Encounter Summary ---
Author Organization [employer] Address [address] [place] [address] Care Team Providers Care Fountain Worker Name Role Phone Mynor Feilx APRN, CASH APPLICATIONS SPECIALIST Primary Care Provide r Reason for Referral * Consult/Transfer Care (Routine) - New Request Specialty Diagnoses / Procedures Referred By Clarice da silva Referred To Contact Diagnoses Polycystic ovary syndrome (HRC) BMI 33.0-33.9,[place] [address] [place] [address] [address] Phone: tel: fax: Referral ID Status Reason Start Date Expiration Date V isits Requested Visits Authorized [id number] New Request 03/16/2024 06/15/2025 1 1 Scheduling Instructions Your clinician has recommended an appointment with Ana María Rich. You can quickly schedule your appointment by signing in to your online account at [email or web address] or through the text message you may have received. You can also make an appointment by calling [phone]. We also suggest you call your health insurance provider about your benefits and coverage for this appointment. Question Answer Appointment Urgency? Non-Urgent Reason for visit? Needs Weight Loss CRIB CLERK Reason for Visit * Reason Comments Vaginal Symptoms C/o dryness, pain du ring IC, pelvic pain; also having discharge, odor, and itching CONSULT Wants 2nd opinion on PCOS and endometriosis Encounter Details Date Type Department Care Team (Late st Contact Info) Description 03/16/2024 1:45 PM TOOL CRIB CLERK Office Visit [facility]OOSELE[facility] BINDER COVERER [address], [address] [place] [phone] [place] [address] [facility] [address] [place], [place] [phone] Vaginal itching (Primary Dx); Vaginal discharge; Polycystic [...] Comments Blood Pressure 111/73 03/16/2024 1:49 PM TOOL CRIB CLERK Pulse 96 03/16/2024 1:49 PM TOOL CRIB CLERK Temperature - - Respiratory Rate - - Oxygen Saturation - - Inhaled Oxygen Concentration - - Weight 79.9 kg (176 lb 1.6 oz) 03/16/2024 1:49 P M TOOL CRIB CLERK Height 154.9 cm (5' 1) 03/16/2024 1:49 PM TOOL CRIB CLERK Body Mass Index 33.27 03/16/2024 1:49 PM TOOL CRIB CLERK documented in this encounter Progress Notes * Carol Gilliland MD - 03/16/2024 1:45 PM CST DINING ROOM SERVER PROGRESS CLINIC NOTE CC: multiple concerns HPI: Benigno Larson here for multiple concerns; She has last seen by [facility] back in 02/17/2024, for multiple concerns [...] PRN Billed on time Dr. Gilliland 03/16/2024 CRIB CLERK documented in this encounter Plan of Treatment Upcoming Encounters Date Type Department Care Team (Late st Contact Info) Description 04/18/2024 3:00 PM TOOL CRIB CLERK Telemedicine [facility] [address] [place], [place] [address] Rylee Morrison, FORENSIC DOCUMENT EXAMINER, CASH APPLICATIONS SPECIALIST [address] [place], [place] [phone] 05/29/2024 1:00 PM CDT Appointment [facility] [address] [place], [place] [phone] Quynh Sinha MD [address] [place], [place] [phone] Scheduled Procedures Name Priority Associated Diagnoses Date/Ti me HEMORRHOIDECTOMY External hemorrhoid Scheduled Referrals Name Type Priority Associated Diagnoses Orde r Schedule Nutrition/Dietitian - Adult/Peds Referral Routine Polycystic ovary syndrome (HRC) BMI 33.0-33.9,adult Ordered: 03/16/2024 documented as of this encounter Procedures Procedure Name Priority Date/Time Associated Diagnosis Comments VAGINITIS PANEL Routine 03/16/2024 2:19 PM TOOL CRIB CLERK Vaginal itching Vaginal discharge documented in this encounter Results * Vaginitis Panel, DNA Probe (03/16/2024 2:19 PM TOOL CRIB CLERK) Bacterial Vaginosis Negative Negative 03/17/2024 11:47 AM TOOL CRIB CLERK [facility] Marilou species Negative Negative 11:47 AM TOOL CRIB CLERK [facility] Marilou glabrata Negative Negative 03/17/2024 11:47 AM TOOL CRIB CLERK [facility] Trichomonas vaginalis Negative Negative 03/17/2024 11:47 AM TOOL CRIB CLERK [facility] Swab STD SPECIMEN FROM VAGINA / Unknown Non-blood Collection / Unknown 03/16/2024 2:19 PM TOOL CRIB CLERK 03/16/2024 2:24 PM TOOL CRIB CLERK Narrative [facility] - 03/17/2024 11:47 AM TOOL CRIB CLERK Test performed by Materials Supervisor Mediated Amplification (TMA). us Carol Gilliland MD LAB_1 Final Result Performing Organization Address City/State/[facility] Co de Phone Number [facility] [address] documented in this encounter Visit Diagnoses Diagnosis Vaginal itching- Primary Pruritus of genital organs Vaginal discharge Leukorrhea, not specified as infective Polycystic ovary syndrome (HRC) Polycystic ovaries Endometriosis Endometriosis, site unspecified Chronic pelvic pain in female Unspecified symptom associated with female genital organs BMI 33.0-33.9,adult Body Mass Index 33.0-33.9, adult documented in this encounter Care Teams Fountain Worker Relationship Specialty Start Date End Date Mynor Felix APRN, CASH APPLICATIONS SPECIALIST [address] [place] [address] PCP - General Nurse Practitioner 12/31/22 documented as of this encounter
--- OUTSIDE RECORDS SUMMARY | 2024-04-15 08:26 | XMS_ITS | Encounter Summary ---
Author Organization [facility] Address [address] [place] [address] Care Team Providers Care Transfer Car Operator Name Role Phone Mynor Felix APRN HEAD CHOPPER Primary Care Provide r Reason for Referral * Consult/Transfer Care (Routine) - New Request Specialty Diagnoses / Procedures Referred By Clarice da silva Referred To Contact Diagnoses Post-nasal drainage Karl Tracy PA-C [address] [place] [address] Phone: tel: fax: Referral ID Status Reason Start Date Expiration Date V isits Requested Visits Authorized [id number] New Request 03/26/2024 06/25/2025 1 1 Scheduling Instructions Your clinician has recommended an appointment with [facility]. You can quickly schedule your appointment by signing in to your online account at [email or web address] or through the text message you may have received. You can also make an appointment by calling [phone]. We suggest you call your health insurance company about your coverage and benefits for this appointment. Question Answer Appointment Urgency? Non-Urgent Reason for visit? Interested in allergy testing APEUTIC MASSAGE TECHNICIAN Reason for Visit * Reason Comments Symptoms Encounter Details Date Type Department Care Team (Late st Contact Info) Description 03/26/[address] [facility] [place] [address] [place] [phone] Karl Tracy PA-C [address] [place] [address] Symptoms Social History Tobacco Use Types Packs/Day [...] if other questions come up. Perri GOMEZ APEUTIC MASSAGE TECHNICIAN * Karl Tracy PA-C - 03/26/2024 10:53 AM CST I would recommend we have her tested for allergies. I wonder if it may be something in the environment that she's reacting to. I will place that referral for her so we can get that scheduled. Karl Tracy PA-C 03/26/2024, 10:54 AM APEUTIC MASSAGE TECHNICIAN * Perri Carrion RN - 03/26/2024 10:28 [...] suddenly change or worsen at any point. APEUTIC MASSAGE TECHNICIAN documented in this encounter Plan of Treatment Upcoming Encounters Date Type Department Care Team (Late st Contact Info) Description 04/18/2024 3:00 PM THERAPEUTIC MASSAGE TECHNICIAN Telemedicine [facility] [address] [place], [place] [address] Rylee Morrison, BUSINESS INTELLIGENCE ANALYST, HEAD CHOPPER [address] [place], [place] [address] 05/29/2024 1:00 PM CDT Appointment [facility] [address] [place], [place] [address] Quynh Sinha MD [address] [place], [place] [address] Scheduled Procedures Name Priority Associated Diagnoses Date/Ti me HEMORRHOIDECTOMY External hemorrhoid Scheduled Referrals Name Type Priority Associated Diagnoses Orde r Schedule Allergy And Immunology Consult Adult/Peds Referral Routine Post-nasal drainage Ordered: 03/26/2024 documented as of this encounter Visit Diagnoses Diagnosis Post-nasal drainage- Primary Unspecified sinusitis (chronic) documented in this encounter Care Teams Transfer Car Operator Relationship Specialty Start Date End Date Mynor Felix, BUSINESS INTELLIGENCE ANALYST, HEAD CHOPPER [address] [place] [address] PCP - General Nurse Practitioner 12/31/22 documented as of this encounter
--- OUTSIDE RECORDS SUMMARY | 2024-04-15 08:26 | XMS_ITS | Encounter Summary ---
Author Organization [employer] Address [address] [place] [address] Care Team Providers Care Internal Combustion Engine Inspector Name Role Phone Mynor Felix APRN, INSPECTOR ASSEMBLIES AND INSTALLATIONS Primary Care Provide r Reason for Visit * Reason Comments SINUS PAIN/PRESSURE Encounter Details Date Type Department Care Team (Late st Contact Info) Description 03/16/2024 4:00 PM MACHINE BRUSH MAKER Office Visit [facility] [address] [place] [address] Percy Solo MD [address] [place] [address] Clinical sinusitis; Nasal vestibulitis Social [...] Comments Blood Pressure 122/74 03/16/2024 2:42 PM MACHINE BRUSH MAKER Pulse 102 03/16/2024 2:42 PM MACHINE BRUSH MAKER Temperature 36.6 C (97.8 F) 03/16/2024 2:42 PM MACHINE BRUSH MAKER Respiratory Rate 16 03/16/2024 2:42 PM MACHINE BRUSH MAKER Oxygen Saturation 100% 03/16/2024 2:42 PM MACHINE BRUSH MAKER Inhaled Oxygen Concentration - - Weight - - Height - - Body Mass Index - - documented in this encounter Patient Instructions * Patient Instructions* Percy Solo MD - 03/16/2024 4:00 PM MACHINE BRUSH MAKER Recommend doing steam baths at night and [...] day) to help relieve the ear pressure. INE BRUSH MAKER documented in this encounter Progress Notes * [...] has had sinus pain/pressure, congestion, ear popping [id number]. Hx sinus infections. Had appt with IRVIN [...] (ASTELIN) 0.1 % nasal solution Place 1 [place] into both nostrils two times daily as [...] taking: Reported on 03/16/2024) 70 g 3 fmlibmev-gbajcmetv-gptnblpxbnvon (MAXITROL) 3.5-51935-9.1 eye drop suspension INSTILL 1 DROP INTO [...] Trouble Sleeping 60 Capsule 2 nystatin (NYSTOP) 669103 UNIT/GM powder Apply topically daily as needed [...] facility-administered medications prior to visit. Reviewed via [facility] Chart Review/CareEverywhere: Allergies Past Medical History [...] Discharge Home Percy Solo M.D. Ana [facility] INE BRUSH MAKER documented in this encounter Nursing Notes * Chichi Monaco, RN - 03/16/2024 4:00 PM CST Patient reports viral URI and ear infection, self-treated ear infection with amoxicillin that she had on hand, last dose was today at noon. She has had sinus pain/pressure, congestion, ear popping [id number]. Hx sinus infections. Had appt with OBGYN today, may have a yeast infection from taking amoxicillin. OTC: Flonase, nasal spray, dayquil, nyquil INE BRUSH MAKER documented in this encounter Plan of Treatment Upcoming Encounters Date Type Department Care Team (Late st Contact Info) Description 04/18/2024 3:00 PM MACHINE BRUSH MAKER Telemedicine [facility] [address] [place], [place] [address] Rylee Morrison, GUEST SPECIALIST, INSPECTOR ASSEMBLIES AND INSTALLATIONS [address] [place], [place] [address] 05/29/2024 1:00 PM CDT Appointment [facility] [address] [place], [place] [phone] Quynh Sinha MD [address] [place], [place] [address] Scheduled Procedures Name Priority Associated Diagnoses Date/Ti me HEMORRHOIDECTOMY External hemorrhoid documented as of this encounter Visit Diagnoses Diagnosis Clinical sinusitis Unspecified sinusitis (chronic) Nasal vestibulitis Other diseases of nasal cavity and sinuses documented in this encounter Care Teams Internal Combustion Engine Inspector Relationship Specialty Start Date End Date Mynor Felix, GUEST SPECIALIST, INSPECTOR ASSEMBLIES AND INSTALLATIONS [address] [place] [address] PCP - General Nurse Practitioner 12/31/22 documented as of this encounter
--- OUTSIDE RECORDS SUMMARY | 2024-04-15 08:26 | XMS_ITS | Encounter Summary ---
Author Organization [employer] Address [address] [place] [address] Care Team Providers Care Director Of Labor Relations Name Role Phone Mynor Felix APRN, CNP Primary Care Provide r Reason for Visit * Reason Comments Prior Authorization For Medication tirze patide-weight management (ZEPBOUND) 2.5 MG/0.5ML pen injection Encounter Details Date Type Department Care Team (Late st Contact Info) Description 02/28/2024 Telephone [facility] [address] [place] [address] Mynor Felix APRN, CNP [address] [place] [address] Prior Authorization For Medication (tirzepatide-weight [...] and see if she can tolerate it. E COMMERCE PROJECT MANAGER * Mercy Land LPN - 03/12/2024 10:05 AM CST Called and left a detailed message regarding her wegovy approval. I asked her to give us a call on which medication she is using so we can close the zepbound encounter if needed. 03/12/24 E COMMERCE PROJECT MANAGER * Sonia Velasquez MA - 03/12/2024 9:01 AM CST Patient has an appeal approval on file for Wegovy. Approval is valid - 08/30/2024. Please clarify if the patient will be taking Wegovy or Zepbound. If prior authorization is no longer needed forZepbound please cancel the request and close encounter.r E COMMERCE PROJECT MANAGER * Lula Fischer - 03/02/2024 10:37 AM CST ePA received a call from [employer] informing us that the prior authorization for WEGOVY has been approved. The outcome will be faxed over. Mercy Gilbert LPN - 02/28/2024 10:15 AM CST Prior authorization has been initiated for tirzepatide-weight management (ZEPBOUND) 2.5 MG/0.5ML pen injection E COMMERCE PROJECT MANAGER documented in this encounter Plan of Treatment Upcoming Encounters Date Type Department Care Team (Late st Contact Info) Description 04/18/2024 3:00 PM E COMMERCE PROJECT MANAGER Telemedicine [facility] [address] [place] [address] Rylee Morrison APRN, FACIALIST [address] [place], [place] [phone] 05/29/2024 1:00 PM CDT Appointment [facility] [address] [place], [place] [phone] Quynh Sinha MD [address] [place], [place] [phone] Scheduled Procedures Name Priority Associated Diagnoses Date/Ti me HEMORRHOIDECTOMY External hemorrhoid documented as of this encounter Visit Diagnoses Not on filedocumented in this encounter Care Teams Director Of Labor Relations Relationship Specialty Start Date End Date Mynor Felix APRN, FACIALIST [address] [place] [phone] PCP - General Nurse Practitioner 12/31/22 documented as of this encounter
--- OUTSIDE RECORDS SUMMARY | 2024-04-15 08:26 | XMS_ITS | Encounter Summary ---
Author Organization [employer] Address [address] [place] [address] Care Team Providers Care Senior Chemist Name Role Phone Mynor Felix APRN, CNP Primary Care Provide r Encounter Details Date Type Department Care Team (Late st Contact Info) Description 03/09/2024 E-Visit [facility] [address] [place] [address] Mynor Felix APRN, CNP [id number] [place] [phone] Social History Tobacco Use Types Packs/Day Years [...] st Contact Info) Description 04/18/2024 3:00 PM GAUGE MAKER APPRENTICE Telemedicine [facility] [address] [place] [address] Rylee Morrison APRN, CEMENT SACK BREAKER [address] [place], [place] [phone] 05/29/2024 1:00 PM CDT Appointment [facility] [address] [place], [place] [phone] Quynh Sinha MD [address] [place] [address] Scheduled Procedures Name Priority Associated Diagnoses Date/Ti me HEMORRHOIDECTOMY External hemorrhoid documented as of this encounter Visit Diagnoses Not on filedocumented in this encounter Care Teams Senior Chemist Relationship Specialty Start Date End Date Mynor Felix APRN, CEMENT SACK BREAKER [address] [place] [phone] PCP - General Nurse Practitioner 12/31/22 documented as of this encounter
--- OUTSIDE RECORDS SUMMARY | 2024-04-15 08:26 | XMS_ITS | Encounter Summary ---
Author Organization [employer] Address [address] [place] [address] Care Team Providers Care Pharmacist Intern Name Role Phone Mynor Felix APRN, CNP Primary Care Provide r Reason for Visit * Reason Onset Date Comments Video Visit 03/06/2024 MEDICATION CHECK Encounter Details Date Type Department Care Team (Late st Contact Info) Description 03/08/2024 1:30 PM RADIOLOGY TRANSPORTER Telemedicine [facility] [address] [place] [address] Mynor Felix APRN, CNP [address] [place], [place] [phone] Obesity, Class I, BMI 30-34.9 (HRC) (Primary [...] this encounter Progress Notes * Mynor Felix, COMMUNITY ASSOCIATE, VEHICLE CALIBRATION ENGINEER - 03/08/2024 1:30 PM CST Subjective: [...] sent to her pharmacy. Pelvic Floor: Saw Director Treasurer for pelvic floor tension and dyspareunia. Director Treasurer recommended pelvic floor therapy as well as [...] face. Assessment/Plan: Obesity, Class I, BMI 30-34.9 ([facility]) Discussed Sarthak and YOU approval. Discussed [...] was 36 minutes. Mynor Felix APRN, CNP OLOGY TRANSPORTER documented in this encounter Plan of Treatment Upcoming Encounters Date Type Department Care Team (Late st Contact Info) Description 04/18/2024 3:00 PM RADIOLOGY TRANSPORTER Telemedicine [facility] [address] [place] [address] Rylee Morrison APRN, CNP [address] [place], [place] [phone] 05/29/2024 1:00 PM CDT Appointment [facility] [address] [place], [place] [address] Quynh Sinha MD [address] [place], [place] [phone] Scheduled Procedures Name Priority Associated Diagnoses Date/Ti me HEMORRHOIDECTOMY External hemorrhoid documented as of this encounter Visit Diagnoses Diagnosis Obesity, Class I, BMI 30-34.9 (HRC)- Primary Obesity, unspecified Gastroesophageal reflux disease, unspecified whether esophagitis present Pelvic floor tension Dyspareunia in female documented in this encounter Care Teams Pharmacist Intern Relationship Specialty Start Date End Date Mynor Felix APRN, GORDO [address] [place] [address] PCP - General Nurse Practitioner 12/31/22 documented as of this encounter
--- OUTSIDE RECORDS SUMMARY | 2024-04-15 08:26 | XMS_ITS | Clinical Summary ---
Author Organization [facility] Address [address] [place] [address] Care Team Providers Care Delimer Name Role Phone Mynor Felix APRN, NEGATIVE NOTCHER Primary Care Provide r Source Comments You [...] for each transition of care or referral. [facility] Hospital[facility] Communications Allergies No known active allergies Medications * [...] SMARTSI Gram(s) Vaginal Daily Active nystatin (NYSTOP) 725003 UNIT/GM powderIndication s:Cutaneous Candidiasis Apply topically daily [...] mg) by mouth. 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 [...] Type Department Care Team Description 04/08/2024 Refill [facility] [address] [place] [address] Mynor Felix APRN, GORDO Refill (azelastine (ASTELIN) 0.1 % nasal solution [Pharmacy Med Name: AZELASTINE 0.1%(137MCG) NASAL-200SP]) 03/28/2024 12:25 PM FOOTWEAR SALES LEADER E-Visit [facility] [address] [place] [address] Mynor Felix APRN, NEGATIVE NOTCHER Dx: Obstructive sleep apnea syndrome (Primary Dx) 03/26/2024 Telephone Otolaryngology at [facility] [place] [address] [address] [address] [place] [address] Karl Tracy PA-Erum Symptoms 03/16/2024 4:00 PM FOOTWEAR SALES LEADER Office Visit [facility] [address] [place] [phone] Percy Solo MD Clinical sinusitis; Nasal vestibulitis 03/16/2024 1:45 PM FOOTWEAR SALES LEADER Office Visit [facility] [address] [facility], [address] [place] [phone] Carol Gilliland MD Vaginal itching (Primary Dx); Vaginal discharge; Polycystic ovary syndrome (HRC); Endometriosis; Chronic pelvic pain in female; BMI 33.0-33.9,adult 03/09/2024 E-Visit [facility] [address] [place] [address] Mynor Felix APRN, GORDO 03/08/2024 1:30 PM FOOTWEAR SALES LEADER Telemedicine [facility] [address] [place] [address] Mynor Felix, MISHA, NEGATIVE NOTCHER Obesity, Class I, BMI 30-34.9 (HRC) (Primary Dx); Gastroesophageal reflux disease, unspecified whether esophagitis present; Pelvic floor tension; Dyspareunia in female 02/28/2024 Telephone [facility] [address] [place] [address] Mynor Felix APRN, NEGATIVE NOTCHER Prior Authorization For Medication (tirzepatide-weight management (ZEPBOUND) 2.5 MG/0.5ML pen injection /) 02/25/2024 12:30 AM FOOTWEAR SALES LEADER E-Visit [facility] [id number] [place] [address] [address] [place] [phone] Anastasia Chavira APRN, NEGATIVE NOTCHER Dx: Pelvic floor tension (Primary Dx) 02/24/2024 10:05 PM FOOTWEAR SALES LEADER E-Visit [address] [address] Mynor Felix APRN, NEGATIVE NOTCHER Dx: Polycystic ovary syndrome (HRC) (Primary Dx) 02/20/2024 Telephone [facility] [address] [place] [address], [facility] [address] [place] [address] Anastasia Chavira APRN, NEGATIVE NOTCHER LAB RESULTS 02/20/2024 Telephone Otolaryngology at [facility] [address] [place] [phone] Karl Tracy PA-C Symptoms 02/17/2024 1:00 PM FOOTWEAR SALES LEADER Office Visit [facility] [address] [place] [address], [facility] [address] [place] [phone] Anastasia Chavira APRN, GORDO 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) (Primary Dx); Chronic pelvic pain in female; Dysmenorrhea; Hirsutism; Vaginal odor; Dyspareunia in female; PCOS (polycystic ovarian syndrome) (HRC) 02/13/2024 11:30 AM FOOTWEAR SALES LEADER E-Visit [facility] [address] [place] [address] Mynor Felix APRN, NEGATIVE NOTCHER Chief Comp: QUESTIONS, GENERAL 02/13/[address] [address] Mynor Felix APRN, NEGATIVE NOTCHER Prior Authorization For Medication (semaglutide-weight management (WEGOVY) 1.7 MG/0.75ML pen injection) 02/07/2024 Telephone Otolaryngology at [facility] [place] [address] [address] [address] [place] [address] Karl Tracy PA-C RESULTS, TEST 02/06/2024 2:00 PM FOOTWEAR SALES LEADER Ancillary Procedure [facility] [address] [address] Scan [address] [place] [phone] Karl Tracy PA-C Chronic congestion of paranasal sinus 02/06/2024 1:35 PM FOOTWEAR SALES LEADER E-Visit [facility] [address] [place] [phone] Rylee Jeffery APRN, NEGATIVE NOTCHER Chief Comp: QUESTIONS, GENERAL 02/01/2024 1:35 PM FOOTWEAR SALES LEADER E-Visit [address] [address] Mynor Felix APRN, NEGATIVE NOTCHER Dx: Obesity, Class I, BMI 30-34.9 (HRC) 01/23/[address] [address] Mynor Felix APRN, NEGATIVE NOTCHER Prior Authorization For Medication (Zepbound Injection /) 01/18/2024 Telephone [facility] [address] [place] [address] Javon Brown MBBS 01/17/2024 10:00 AM FOOTWEAR SALES LEADER Office Visit [facility] [address] [place] [phone] Lesly Whitehead PA-C Vaginal discharge 01/17/2024 9:40 AM FOOTWEAR SALES LEADER Lab Visit [facility] [address] [place] [address] Prediabetes; Cyclic vomiting syndrome; Screening for hyperlipidemia; Polycystic ovary syndrome (HRC) from Last 3 Months Immunizations Immunization Administration Dates Next Due 4vHPV (Gardasil) 06/03/2008,02/01/2008, 8 DTP-Hib (Tetramune) 05/18/1996,03/23/1996,1995 DTaP 06/12/2001, 8,05/18/1996,1996,01/27/1996 Flu Vac (3+ yrs) 10/31/2012,12/14/2011 Flu Vac Preserv Free (3+yrs) 11/26/2008 [id number] 02/10/2009 HepA Ped/Adol (1-18 yrs) 12/15/2009,10/02/2008 HepB Ped/Adol (0-18 yrs) 11/30/1996,01/27/1996,1 HepB, Unspecified Formulation 11/30/1996, 996,1995 Hib, Unspecified Formulation 11/30/1996, 05/18/1996,03/23/1996,1995 IPV (Polio) 06/12/2001, 7,03/23/1996,1995 Influenza ([place]ina Only) (Flul aval Quad 0.5, 3+ yrs) 11/06/2019,10/30/2018,12/14/2016,2014 Influenza (Flucelvax), Prese rv Free QIV 03/29/2023 Influenza IIV4 (Quadrivalent ) 0.5mL (66856) 12/10/2021,11/11/2020,11/06/2019,2018,12/14/2016,01/16/2015,12/15/2009,1 Influenza LAIV (Nasal, 2-49 yrs) 12/15/2009,09/2007 [...] Comments Blood Pressure 122/74 03/16/2024 2:42 PM FOOTWEAR SALES LEADER Pulse 102 03/16/2024 2:42 PM FOOTWEAR SALES LEADER Temperature 36.6 C (97.8 F) 03/16/2024 2:42 PM FOOTWEAR SALES LEADER Respiratory Rate 16 03/16/2024 2:42 PM FOOTWEAR SALES LEADER Oxygen Saturation 100% 03/16/2024 2:42 PM FOOTWEAR SALES LEADER Inhaled Oxygen Concentration - - Weight 79.9 kg (176 lb 1.6 oz) 03/16/2024 1:49 P M FOOTWEAR SALES LEADER Height 154.9 cm (5' 1) 03/16/2024 1:49 PM FOOTWEAR SALES LEADER Body Mass Index 33.27 03/16/2024 1:49 PM FOOTWEAR SALES LEADER Plan of Treatment Upcoming Encounters Date Type Department Care Team (Late st Contact Info) Description 04/18/2024 3:00 PM FOOTWEAR SALES LEADER Telemedicine [facility] [address] [place], [place] [phone] Rylee Morrison, WOODWORKING MACHINE FEEDER, NEGATIVE NOTCHER [address] [place] [address] 05/29/2024 1:00 PM CDT Appointment [facility] [address] [place], [place] [phone] Quynh Sinha MD [address] [place] [address] Scheduled Procedures Name Priority Associated [...] Comments VAGINITIS PANEL Routine 03/16/2024 2:19 PM FOOTWEAR SALES LEADER Vaginal itching Vaginal discharge POCT PH (NITRAZINE) VAGINAL FLUID Routine 02/17/2024 4:12 PM FOOTWEAR SALES LEADER Vaginal odor VAGINITIS PANEL Routine 02/17/2024 1:51 PM FOOTWEAR SALES LEADER Vaginal odor CT SINUS WO IV CONT FUSION Routine 02/05 1:57 PM FOOTWEAR SALES LEADER Chronic congestion of paranasal sinus CHLAMYDIA & GC (14 YEARS & OLDER) Routine 01/17/2024 10:17 AM FOOTWEAR SALES LEADER Vaginal discharge VAGINITIS PANEL Routine 01/17/2024 10:17 AM FOOTWEAR SALES LEADER Vaginal discharge UA MICRO STAT 01/17/2024 10:17 AM FOOTWEAR SALES LEADER Vaginal discharge UA WITH MICROSCOPIC STAT 01/17/2024 10:17 AM FOOTWEAR SALES LEADER Vaginal discharge TEST (URINE) STAT 10:17 AM FOOTWEAR SALES LEADER Vaginal discharge PROLACTIN Routine 01/17/2024 9:46 AM FOOTWEAR SALES LEADER Polycystic ovary syndrome (HRC) PROLACTIN WITH REFLEX TO MACROPROLACTIN Routine 01/17/2024 9:46 AM FOOTWEAR SALES LEADER Polycystic ovary syndrome (HRC) LH Routine 01/17/2024 9:46 AM FOOTWEAR SALES LEADER Polycystic ovary syndrome (HRC) PROGESTERONE ADULT Routine 01/17/2024 9:46 AM FOOTWEAR SALES LEADER Polycystic ovary syndrome (HRC) TESTOSTERONE, FEMALE OR CHILDREN Routine 01/17/2024 9:46 AM FOOTWEAR SALES LEADER Polycystic ovary syndrome (HRC) ESTRADIOL Routine 01/17/2024 9:46 AM FOOTWEAR SALES LEADER Polycystic ovary syndrome (HRC) DEHYDROEPIANDROSTERONE Routine 9:46 AM FOOTWEAR SALES LEADER Polycystic ovary syndrome (HRC) FSH Routine 01/17/2024 9:46 AM FOOTWEAR SALES LEADER Polycystic ovary syndrome (HRC) TSH, SENSITIVE (WITH REFLEX) Routine 04/2023 9:46 AM FOOTWEAR SALES LEADER Polycystic ovary syndrome (HRC) LIPID PANEL & DIRECT LDL (IF NEEDED) Routine 01/17/2024 9:46 AM FOOTWEAR SALES LEADER Screening for hyperlipidemia COMPREHENSIVE METABOLIC PANEL Routine 01/17/2024 9:46 AM FOOTWEAR SALES LEADER Cyclic vomiting syndrome HGB A1C Routine 01/17/2024 9:46 AM FOOTWEAR SALES LEADER Prediabetes HIV 1/2 AG/AB 4TH GEN Routine 01/10/2023 3:33 PM FOOTWEAR SALES LEADER Screening examination for venereal disease HEPATITIS C ANTIBODY, WITH REFLEX Routine 01/10/2023 3:33 PM FOOTWEAR SALES LEADER Special screening examination for viral disease from Last 3 Months or Most Recently Relevant to Health Maintenance Results * Vaginitis Panel, DNA Probe (03/16/2024 2:19 PM FOOTWEAR SALES LEADER) Only the most recent of3 resultswithin the time period is included. Bacterial Vaginosis Negative Negative 03/17/2024 11:47 AM FOOTWEAR SALES LEADER [facility] Marilou species Negative Negative 11:47 AM FOOTWEAR SALES LEADER [facility] Marilou glabrata Negative Negative 03/17/2024 11:47 AM FOOTWEAR SALES LEADER [facility] Trichomonas vaginalis Negative Negative 03/17/2024 11:47 AM FOOTWEAR SALES LEADER [facility] Swab STD SPECIMEN FROM VAGINA / Unknown Non-blood Collection / Unknown 03/16/2024 2:19 PM FOOTWEAR SALES LEADER 03/16/2024 2:24 PM FOOTWEAR SALES LEADER Narrative [facility] - 03/17/2024 11:47 AM FOOTWEAR SALES LEADER Test performed by Hand Suture Winder Mediated Amplification (TMA). Carol Gilliland MD LAB_1 Final Result [facility] [address] * POCT pH (Nitrazine) Vaginal Fluid (02/17/2024 4:12 PM FOOTWEAR SALES LEADER) Pathologist [facility] PH (Nitrazine) Vaginal Fluid 4.5 4.5 - 5.5 POCT POC Strip Lot # [id number] POCT 02/17/2024 4:12 PM FOOTWEAR SALES LEADER Anastasia Chavira WOODWORKING MACHINE FEEDER, NEGATIVE NOTCHER ET POINT OF CARE TEST ENTER/EDIT ORDERABLES Final Result POCT * CT Fusion Sinus WO IV Cont (02/06/2024 1:57 PM FOOTWEAR SALES LEADER) Anatomical Region Laterality Modality Head Computed Tomogra phy 02/06/2024 1:53 PM FOOTWEAR SALES LEADER Impressions 02/06/2024 7:44 PM FOOTWEAR SALES LEADER 1. Small right maxillary sinus mucous retention cyst. 2. No sinus air-fluid levels. Narrative 02/06/2024 7:44 PM FOOTWEAR SALES LEADER COMPARISON: None. INDICATION: Chronic sinus congestion. TECHNIQUE: [...] Years and Older): Vagina (01/17/2024 10:17 AM FOOTWEAR SALES LEADER) Chlamydia Trachomatis STD Not Detected Not Detected 01/18/2024 2:34 AM FOOTWEAR SALES LEADER [employer] [facility] N. gonorrhoeae STD Not Detected Not Detected 01/18/2024 2:34 AM FOOTWEAR SALES LEADER [employer] [facility] Swab STD SPECIMEN FROM VAGINA / Unknown Non-blood Collection / Unknown 01/17/2024 10:17 AM FOOTWEAR SALES LEADER 01/17/2024 10:35 AM FOOTWEAR SALES LEADER [facility] - 01/18/2024 2:34 AM FOOTWEAR SALES LEADER Test performed by Hand Suture Winder Mediated Amplification (TMA). Lesly Whitehead PA-C LAB_1 Final Res ult [facility] [address] * UA with Microscopic: Clean Catch (01/17/2024 10:17 AM FOOTWEAR SALES LEADER) Color Straw 01/17/2024 10:52 AM [facility] Clarity Clear Clear 01/17/2024 10:52 AM [facility] Specific [place] 1.025 1.005 - 1.030 01/17/2024 10:52 AM [facility] pH 6.5 5.0 - 8.0 01/17/2024 10:52 AM [facility] Protein Negative Neg/Trace mg/dL 01/17/2024 10:52 AM [facility] Glucose Negative Negative mg/dL 01/17/2024 10:52 AM [facility] Ketones Negative Negative mg/dL 01/17/2024 10:52 AM [facility] Urobilinogen 0.2 <2.0 EU/dL 01/17/2024 10:52 AM [facility] Bilirubin Negative Negative 01/17/2024 10:52 AM [facility] Blood Negative Neg/Trace 01/17/2024 10:52 AM [facility] Nitrite Negative Negative 01/17/2024 10:52 AM [facility] Leukocyte Esterase Negative Negative 01/17/2024 10:52 AM [facility] Source Clean Catch 01/17/2024 10:52 AM [facility] Urine URINE SPECIMEN COLLECTION, CLEAN CATCH / Unknown Non-blood Collection / Unknown 01/17/2024 10:17 AM FOOTWEAR SALES LEADER 01/17/2024 10:40 AM [facility] Lesly Whitehead PA-C LAB_1 Final Res ult [facility] [address] [place] [address] * Test (Urine) - Collect in Lab (01/17/2024 10:17 AM FOOTWEAR SALES LEADER) HCG, Urine Negative Negative 01/17/2024 10:44 AM [facility] Urine Non-blood Collection / Unknown 01/17/2024 10:17 AM FOOTWEAR SALES LEADER 01/17/2024 10:30 AM FOOTWEAR SALES LEADER Lesly Whitehead PA-C LAB_1 Final Res ult Performing Organization Address [facility]/ZIP Co de Phone Number [facility] [address] [place] [address] * (ABNORMAL) Urine Microscopic Evaluation: Clean Catch (01/17/2024 10:17 AM FOOTWEAR SALES LEADER) Red Blood Cells 0-3 0 - 3 /HPF 01/17/2024 10:51 AM [facility] White Blood Cells 0-5 0 - 5 /HPF 01/17/2024 10:51 AM [facility] Squamous Epithelial Cells Moderate(A ) None Seen, Occasiona l, Few /HPF 01/17/2024 10:51 AM [facility] Mucus Present(A) None Seen /HPF 01/17/2024 10:51 AM [facility] Urine URINE SPECIMEN COLLECTION, CLEAN CATCH / Unknown Non-blood Collection / Unknown 01/17/2024 10:17 AM FOOTWEAR SALES LEADER 01/17/2024 10:40 AM FOOTWEAR SALES LEADER Lesly Whitehead PA-C LAB_1 Final Res ult Performing Organization Address [facility]/ZIP Co de Phone Number [facility] [address] [place] [address] * Prolactin (01/17/2024 9:46 AM FOOTWEAR SALES LEADER) Prolactin 9.6 3.3 - 26.7 ng/mL 01/18/2024 10:09 AM FOOTWEAR SALES LEADER [facility] Blood Venipuncture / Unknown 01/17/2024 9:46 AM FOOTWEAR SALES LEADER 01/17/2024 9:51 AM FOOTWEAR SALES LEADER Mynor Felix WOODWORKING MACHINE FEEDER, NEGATIVE NOTCHER LAB_1 Final Result Performing Organization Address City/[facility]/ZIP Co de Phone Number [email or web address] [address] * Dehydroepiandrosterone (01/17/2024 9:46 AM FOOTWEAR SALES LEADER) Dehydroepiandrosterone 7.328 1.330 - 7.780 ng/mL 01/19/2024 3:06 PM FOOTWEAR SALES LEADER Dials Comment: INTERPRETIVE INFORMATION: Dehydroepiandrosterone, Females 18 years and older: Postmenopausal: 0.60-5.73 ng/mL REFERENCE INTERVAL: Dehydroepiandrosterone by TMS Access complete set of age- and/or gender-specific reference intervals for this test in the [employer] Laboratory Test Directory ([employer]). This test was developed and its performance characteristics determined by [employer]. It has not been cleared or approved by the [place] Food and Drug Administration. This test was performed in a CLIA certified laboratory and is intended for clinical purposes. Performed By: [employer] [address] [place] [address] [employer] Custodian: Nawaf Montez MD, PhD CLIA Number: [id number] Blood Venipuncture / Unknown 01/17/2024 9:46 AM FOOTWEAR SALES LEADER 01/17/2024 9:51 AM FOOTWEAR SALES LEADER Mynor Felix APRN, CNP LAB_1 Final Result Performing Organization Address [facility]/State/ZIP Co de Phone Number D[facility] [address] [place], [place] [address] [place] [address] * Testosterone, female or children (01/17/2024 9:46 AM FOOTWEAR SALES LEADER) Testosterone Female or Children 41 9 - 55 ng/dL 01/19/2024 3:06 PM FOOTWEAR SALES LEADER Dials Comment: REFERENCE INTERVAL: Testosterone by [employer] Females Premenopausal 9-55 ng/dL Postmenopausal 5-32 ng/dL INTERPRETIVE INFORMATION: Testosterone by [employer] Free or bioavailable testosterone measurements may provide supportive information. For individuals on testosterone-suppressing hormone therapies (e.g., antiandrogens or estrogens), refer to cisgender female reference intervals. For a complete set of all established reference intervals, refer to ltd.[employer]/Tests/Pub/[id number]. This test was developed and its performance characteristics determined by [employer]. It has not been cleared or approved by the [place] Food and Drug Administration. This test was performed in a CLIA certified laboratory and is intended for clinical purposes. Performed By: [employer] [address] [place] [address] [employer] Custodian: Nawaf Montez MD, PhD CLIA Number: [id number] Blood Venipuncture / Unknown 01/17/2024 9:46 AM FOOTWEAR SALES LEADER 01/17/2024 9:51 AM FOOTWEAR SALES LEADER Mynor Felix APRN, NEGATIVE NOTCHER LAB_1 Final Result Performing Organization Address [facility] Co de Phone Number [facility] [address] [place] [address] * Progesterone Adult (01/17/2024 9:46 AM FOOTWEAR SALES LEADER) Progesterone, Adult 1.2 ng/mL 01/17/2024 4:42 PM FOOTWEAR SALES LEADER [facility] Blood Venipuncture / Unknown 01/17/2024 9:46 AM FOOTWEAR SALES LEADER 01/17/2024 9:51 AM FOOTWEAR SALES LEADER Narrative [facility] - 01/17/2024 4:42 PM FOOTWEAR SALES LEADER Expected values for menstruating females Follicular Phase: <0.1-0.3 ng/mL Luteal Phase: 1.2-15.9 ng/mL Expected values for females 1st Trimester (4-12 weeks): 2.8-147.3 ng/mL 2nd Trimester (13-24 weeks): 22.5-95.3 ng/mL 3rd Trimester (25-36 weeks): 27.9-242.5 ng/mL Mynor Felix APRN, NEGATIVE NOTCHER LAB_1 Final Result Performing Organization Address City/[facility]/ZIP Co de Phone Number [facility] [address] * Lipid Panel & Direct LDL (if Needed) (01/17/2024 9:46 AM FOOTWEAR SALES LEADER) Cholesterol 159 0 - 199 mg/dL 01/17/2024 11:35 AM [facility] Triglyceride 68 <=149 mg/dL 01/17/2024 11:35 AM [facility] HDL Cholesterol 54 >=40 mg/dL 11:35 AM [facility] LDL, Calculated 91 <130 mg/dL 11:35 AM [facility] Non HDL Chol, Calculated 105 <=159 mg/dL 01/17/2024 11:35 AM [facility] Cholesterol/HDL Ratio 2.9 <=5.0 01/17/2024 11:35 AM [facility] Hours Fasting 1.0 8 - 12 Hours 01/17/2024 11:35 AM [facility] Comment:5:00 am couple crack ers and one sip of juice one hour ago Blood Venipuncture / Unknown 01/17/2024 9:46 AM [facility] 01/17/2024 9:51 AM [facility] us Mynor Felix APRN, NEGATIVE NOTCHER LAB_1 Final Result [facility] [address] [place] [address] * Comprehensive Metabolic Panel (01/17/2024 9:46 AM [facility]) Sodium 139 136 - 145 mmol/L 01/17/2024 11:35 AM [facility] Potassium 4.3 3.5 - 5.1 mmol/L 01/17/2024 11:35 AM [facility] Chloride 105 98 - 109 mmol/L 01/17/2024 11:35 AM [facility] CO2 23 20 - 29 mmol/L 01/17/2024 11:35 AM [facility] Anion Gap 11 6 - 16 mmol/L 01/17/2024 11:35 AM [facility] Calcium 8.9 8.4 - 10.4 mg/dL 01/17/2024 11:35 AM [facility] BUN 10 7 - 26 mg/dL 01/17/2024 11:35 AM [facility] Creatinine 0.72 0.55 - 1.02 mg/dL 01/17/2024 11:35 AM [facility] Alkaline Phosphatase 78 40 - 150 U/L 01/17/2024 11:35 AM [facility] AST (SGOT) 12 10 - 40 U/L 01/17/2024 11:35 AM [facility] ALT (SGPT) 17 <=55 U/L 01/17/2024 11:35 AM [facility] Bilirubin, Total 0.3 0.2 - 1.2 mg/dL 01/17/2024 11:35 AM [facility] Protein, Total 7.3 6.4 - 8.3 g/dL 01/17/2024 11:35 AM [facility] Albumin 3.5 3.5 - 5.0 g/dL 01/17/2024 11:35 AM [facility] Glucose 89 70 - 100 mg/dL 01/17/2024 11:35 AM [facility] Comment:The given reference range is for the fasting state. Non-fasting reference range for glucose is 70 - 180 mg/dL. GFR, Estimated >60 >60 mL/min/1.7 3m2 01/17/2024 11:35 AM [facility] Hours Fasting 1.0 8 - 12 Hours 01/17/2024 11:35 AM [facility] Comment:5:00 am couple crack ers and one sip of juice one hour ago Blood Venipuncture / Unknown 01/17/2024 9:46 AM FOOTWEAR SALES LEADER 01/17/2024 9:51 AM FOOTWEAR SALES LEADER us Mynor Felix WOODWORKING MACHINE FEEDER, NEGATIVE NOTCHER LAB_1 Final Result Performing Organization Address City/State/[facility] Co de Phone Number [facility] [address] [place] [address] * Estradiol (01/17/2024 9:46 AM FOOTWEAR SALES LEADER) Pathologist [facility] Estradiol 160 pg/mL 01/17/2024 2:51 PM FOOTWEAR SALES LEADER [facility] Blood Venipuncture / Unknown 01/17/2024 9:46 AM FOOTWEAR SAL[employer] LEADER 01/17/2024 9:51 AM [employer] LEADER Narrative [facility] - 01/17/2024 2:51 PM [employer]ER The drug mifepristone may cause interference with [...] CNP LAB_1 Final Result Performing Organization Address [facility] Phone Number [facility] [address] [place] [address] * LH (01/17/2024 9:46 AM [employer] LEADER) LH 6 mIU/mL 01/17/2024 2:52 PM [employer] [facility] Blood Venipuncture / Unknown 01/17/2024 9:46 AM [employer] LEADER 01/17/2024 9:51 AM [employer] SAL[employer] LEADER Narrative [facility] - 01/17/2024 2:52 PM [employer] SALES LEADER Expected values for menstruating females Follicular Phase: 2-12 mIU/mL Mid-Cycle Peak: 8-89 mIU/mL Luteal Phase: 1-14 mIU/mL Expected values for postmenopausal females On HRT: 5-62 mIU/mL Mynor Felix APRN, CNP LAB_1 Final Result Performing Organization Address [facility] Phone Number [facility] [address] [place] [address] * FSH (01/17/2024 9:46 AM FOOTWEAR SALES LEADER) FSH 3.6 mIU/mL 01/17/2024 2:51 PM FOOTWEAR SALES LEADER [facility] Blood Venipuncture / Unknown 01/17/2024 9:46 AM FOOTWEAR SALES LEADER 01/17/2024 9:51 AM FOOTWEAR SALES LEADER Narrative [facility] - 01/17/2024 2:51 PM FOOTWEAR SALES LEADER Expected values for mensturating females Follicular Phase: 3.0-8.1 mIU/mL Mid-Cycle Peak: 2.6-16.7 mIU/mL Luteal Phase: 1.4-5.5 mIU/mL Post Menopausal Females without HRT: 26.8-133.4 mIU/mL Mynor Felix APRN, CNP LAB_1 Final Result Performing Organization Address [facility] de Phone Number [facility] [address] [place] [address] * TSH with Free T4 (if TSH Abnormal) (01/17/2024 9:46 AM FOOTWEAR SALES LEADER) TSH, Reflex 1.00 0.30 - 4.50 uIU/mL 01/17/2024 2:51 PM FOOTWEAR SALES LEADER [facility] Blood Venipuncture / Unknown 01/17/2024 9:46 AM FOOTWEAR SALES LEADER 01/17/2024 9:51 AM FOOTWEAR SALES LEADER Mynor Felix APRN, CNP LAB_1 Final Result Performing Organization Address [facility] [place] Phone Number [facility] [address] [place] [address] * Hgb A1C (01/17/2024 9:46 AM FOOTWEAR SALES LEADER) Hemoglobin A1C (Rapid) 5.3 <=5.6 % 01/17/2024 10:24 AM [facility] Estimated Average Glucose (Calc) 105 < 117 mg/dL 01/17/2024 10:24 AM [facility] Comment:Estimated average gl ucose (eAG) converts A1c into glucose units (mg/dL) and estimates average glucose over the past approximately 3 months. The eAG reference interval (<117 mg/dL) corresponds to an A1c of <5.7%. Blood Venipuncture / Unknown 01/17/2024 9:46 AM FOOTWEAR SALES LEADER 01/17/2024 9:51 AM FOOTWEAR SALES LEADER Narrative [facility] - 01/17/2024 10:24 AM FOOTWEAR SALES LEADER The test method used for this Hemoglobin A1c result can experience interference from elevated hemoglobin and other hemoglobin variants. In patients with results that do not correlate clinically, contact the lab for further direction. Mynor Felix APRN, CNP LAB_1 Final Result Performing Organization Address [facility]/ZIP Co de Phone Number [facility] [address] [place] [address] * HIV 1/2 Ag/Ab 4th Generation (01/10/2023 3:33 PM FOOTWEAR SALES LEADER) Pathologist [facility] HIV 1/2 Antigen/Antib domo (4th generation) Negative (Non Reactive) Negative (Non Reactive) 01/10/2023 9:54 PM FOOTWEAR SALES LEADER [facility] Comment:HIV-1 p24 Antigen an d HIV-1/HIV-2 Antibody not detected Blood Venipuncture / Unknown 01/10/2023 3:33 PM FOOTWEAR SALES LEADER 01/10/2023 3:33 PM FOOTWEAR SALES LEADER Carol Gilliland MD LAB_1 Final Result Performing Organization Address [facility] de Phone Number [facility] [address] [place] [address] * HEPATITIS C ANTIBODY, WITH REFLEX (01/10/2023 3:33 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 Does not exclude the possiblity of exposure to HCV. Blood Venipuncture / Unknown 01/10/2023 3:33 PM FOOTWEAR SALES LEADER 01/10/2023 3:33 PM FOOTWEAR SALES LEADER Carol Gilliland MD LAB_1 Final Result Performing Organization Address [facility] de Phone Number [facility] [address] [place] [address] from Last 3 Months or Most Recently Relevant to Health Maintenance Insurance [employer] [id number] Advance Directives * Full Code (Latest Code Status on File) Date Activated Date Inactivated Comments 06/27/2013 1:15 AM 06/26/2013 7:00 PM * Full Code Date Activated Date Inactivated Comments 06/27/2013 1:15 AM 07/02/2013 7:51 AM Care Teams [place] Relationship Specialty Start Date End Date Mynor Felix, MIHSA, NEGATIVE NOTCHER [address] [place] [address] PCP - General Nurse Practitioner 12/31/22
--- OUTSIDE RECORDS SUMMARY | 2024-04-15 08:26 | XMS_ITS | Encounter Summary ---
Author Organization [facility] Address [address] [place] [address] Care Team Providers Care News Specialist Name Role Phone Mynor Felix APRN, CNP Primary Care Provide r Reason for Visit * Reason Comments Refill azelastine (ASTELIN) 0.1 % nasal solution [Pharmacy Med Name: AZELASTINE 0.1%(137MCG) NASAL-200SP] Encounter Details Date Type Department Care Team (Late st Contact Info) Description 04/08/2024 Refill [facility] Medicine [address] [place], [place] [phone] Mynor Felix APRN, CNP [id number] [place] [phone] Refill (azelastine (ASTELIN) 0.1 % nasal solution [...] NOSTRIL TWICE DAILY NEEDED FOR POSTNASAL DRAINAGE RAPHIC INFORMATION SYSTEMS MANAGER * Sarah Yoo [employer] - 04/08/2024 9:02 [...] visit: None [facility] [employer] Embedded Refills, Reference: [id number], 04/08/2024 9:02:19 PM Rocky [facility] - Primary Care [[id number]] ([id number]) RAPHIC INFORMATION SYSTEMS MANAGER documented in this encounter Plan of Treatment Upcoming Encounters Date Type Department Care Team (Late st Contact Info) Description 04/18/2024 3:00 PM GEOGRAPHIC INFORMATION SYSTEMS MANAGER Telemedicine [facility] [address] [place], [place] [phone] Rylee Morrison APRN, SECURITY OFFICER SUPERVISOR [address] [place] [address] 05/29/2024 1:00 PM CDT Appointment [facility] [address] [place] [address] Quynh Sinha MD [address] [place] [address] Scheduled Procedures Name Priority Associated Diagnoses Date/Ti me HEMORRHOIDECTOMY External hemorrhoid documented as of this encounter Visit Diagnoses Diagnosis Postnasal drip documented in this encounter Care Teams News Specialist Relationship Specialty Start Date End Date Mynor Felix, SIZE MIXER, SECURITY OFFICER SUPERVISOR [address] [place] [address] J[place]SE[place] [address] PCP - General Nurse Practitioner 12/31/22 documented as of this encounter
--- OUTSIDE RECORDS SUMMARY | 2024-04-15 08:26 | XMS_ITS | Encounter Summary ---
Author Organization [employer] Address [address] [place] [address] Care Team Providers Care Forensic Social Worker Name Role Phone Mynor Felix APRN, CNP Primary Care Provide r Reason for Referral * Consult/Transfer Care (Routine) - New Request Specialty Diagnoses / Procedures Referred By Clarice t Referred To Contact Diagnoses Obstructive sleep apnea syndrome Mynor Felix APRN, APPLICATION INTEGRATOR [address] [place] [address] Phone: tel: fax: Referral ID Status Reason Start Date Expiration Date V isits Requested Visits Authorized [id number] New Request 03/29/2024 06/28/2025 1 1 Scheduling Instructions Your clinician has recommended an appointment with [facility]. This is not a sleep study order and must first be reviewed by a sleep specialist to determine the next steps. The review process looks at multiple factors including your insurance requirements, personal health history, and [place] [employer] guidelines. This order will be reviewed within 1 business day and sent to scheduling for one of the following appointments: - Consultation/Office Visit with a Sleep Medicine Specialist - Consultation/Office Visit with an Insomnia Specialist - Portable/Home Sleep Test If you do not hear from our scheduling staff within the next 7 days, please contact us at [phone] and select option 1. Question Answer Appointment [...] 03/16/24: 176 lb 1.6 oz (79.9 kg). CE PILOT Reason for Visit * Reason Comments QUESTIONS, GENERAL Entered automaticall y based on patient selection in [employer]. Encounter Details Date Type Department Care Team (Late st Contact Info) Description 03/28/2024 12:25 PM POLICE PILOT E-Visit [facility] [address] [place], [place] [phone] Mynor Felix APRN, APPLICATION INTEGRATOR [address] [place], [place] [phone] Dx: Obstructive sleep apnea syndrome (Primary Dx) [...] and advise and Patient is expecting a [employer] message from [facility] Patient/direct care worker request: New Order: Medication and referral Specific Request: Hope you???re doing well. Just updating that I???m Doing well back on wegovy. Need refills of 1.7 wegovy sent over to pharmacy as I???m out of refills. Was also wondering about a prescription for miralax and am dealing with constipation again. Also, a sleep medicine referral to check up on my sleepapnea. Thank you. CE PILOT documented in this encounter Plan of Treatment Upcoming Encounters Date Type Department Care Team (Late st Contact Info) Description 04/18/2024 3:00 PM POLICE PILOT Telemedicine [facility] [address] [place], [place] [phone] Rylee Morrison APRN, APPLICATION INTEGRATOR [address] [place], [place] [address] 05/29/2024 1:00 PM CDT Appointment [facility] [address] [place], [place] [address] Quynh Sinha MD [address] [place], [place] [phone] Scheduled Procedures Name Priority Associated Diagnoses Date/Ti [...] diarrhea documented in this encounter Care Teams Forensic Social Worker Relationship Specialty Start Date End Date Mynor Felix APRN, APPLICATION INTEGRATOR [address] [place] [address] PCP - General Nurse Practitioner 12/31/22 documented as of this encounter
--- NOTE | 2024-04-15 08:45 | ED.GENADULT ---
HPI - General Adult General Chief complaint: Nausea/Vomiting Stated complaint: vomiting Time Seen by Provider: 04/15/24 07:52 Source: patient Mode of arrival: ambulatory Limitations: no limitations History of Present Illness HPI narrative: 28-year-old female, history of cyclic vomiting syndrome presents today with continued vomiting. Patient was seen in the ED yesterday and was treated with head 2 L of normal saline, 10 mEq of potassium, 10 mg of Reglan in 5 mg of Haldol. She was found to have hypokalemia. She stated that she felt better for a couple of hours and then the vomiting returned. She states that this is common. She states that vomiting generally last up to 2 weeks before it resolves and she has required multiple hospitalizations in the past for this. Related Data Home Medications ?Medication ?Instructions ?Recorded ?Confirmed cariprazine 1.5 mg capsule 1.5 mg PO DAILY 09/08/23 04/14/24 (Vraylar) metformin 500 mg tablet 500 mg PO TID 09/08/23 04/14/24 nortriptyline 10 mg capsule 10 mg PO DAILY 09/08/23 04/14/24 promethazine 25 mg tablet 25 mg PO Q6H PRN 09/08/23 04/14/24 spironolactone 50 mg tablet 50 mg PO TID 09/08/23 04/14/24 (Aldactone) Vyvanse 70 mg PO DAILY 09/09/23 04/14/24 pregabalin .Route 09/09/23 clonazepam 0.5 mg disintegrating 0.5 mg PO 3XD PRN anxiety 04/14/24 04/14/24 tablet dextroamphetamine-amphetamine 5 mg 1 tab PO DAILY 04/14/24 04/14/24 tablet Previous Rx's ?Medication ?Instructions ?Recorded olanzapine 2.5 mg tablet (Zyprexa) 2.5 mg PO DAILY #3 tabs 09/09/23 Allergies Allergy/AdvReac Type Severity Reaction Status Date / Time No Known Drug Allergies Allergy Verified 04/14/24 10:24 Review of Systems Status of ROS: Reports: 10 or more systems reviewed and unremarkable except as noted in History and below PFSH PFSH Social History Smoking Status: Current every day smoker Do you use any of these nicotine containing products: Vaping Products How often do you have a drink containing alcohol: monthly or less How many standard drinks containing alcohol do you have on a typical day: 1 or 2 AUDIT-C Alcohol total score: 1 Non-prescribed substance use: marijuana (any form) Exam Narrative: Exam Narrative: Well-nourished well-developed patient, tearful. Alert and oriented. HEENT: Normocephalic atraumatic. Pupils are equally round reactive to light. Extraocular muscles are intact. Conjunctivae are moist without any icterus noted. Moist mucous membranes. Posterior pharynx is normal. Neck is soft without any lymphadenopathy or thyromegaly. No masses are appreciated. Cardiovascular: Heart is regular rate and rhythm S1 and S2 are present without any murmurs. Lungs: Clear to auscultation bilaterally no wheezes rhonchi or rales are appreciated. Patient takes deep breaths without any discomfort. Abdomen: Soft and nontender nondistended with normal bowel sounds. Extremities: Bilateral lower extremities are without edema. Skin: Well perfused without any obvious rashes. Const: Vital Signs, click to edit/add: Vital Signs - 24 hr 04/15/24 07:40 04/15/24 11:30 04/15/24 12:00 Temperature 99.5 F Pulse Rate 82 72 Pulse Rate [Pulse Oximeter] 72 Respiratory Rate 18 16 14 Blood Pressure 121/80 Blood Pressure [Ri ght Upper Arm] 130/87 Pulse Oximetry 98 98 100 Oxygen Delivery Ga thod Room Air 04/15/24 12:30 Temperature Pulse Rate 73 Pulse Rate [Pulse Oximeter] Respiratory Rate Blood Pressure Blood Pressure [Ri ght Upper Arm] Pulse Oximetry 97 Oxygen Delivery Ga thod Course Course ED Course: Patient received a L of normal saline and Zyprexa. This brought relief for a couple of hours. The patient slept. In the meantime blood work was done: CBC was unremarkable. Chemistry showed normal sodium, potassium remain low at 2.9, chloride low at 90. Carbon dioxide high at 35. Remainder of chemistries unremarkable. Movement was elevated at 2.8. LFTs unremarkable. Normal lipase. Normal TSH. UA showed 1+ ketones, otherwise unremarkable. test is negative. EKG, read by me, shows normal sinus rhythm with a short MA interval, no T-wave changes. Pulse 60. Blood work done from yesterday included urine drug screen which was positive for marijuana. Patient woke up started vomiting again. She received a dose of droperidol, ativan and we started potassium replacement with 4 bumps of 10 mEq. She was complaining of abdominal pain which she states that until her abdominal pain goes away her vomiting will subside. Therefore she received a dose of Toradol which did take care of her abdominal pain. However at approximately hour 5 her abdominal pain came back in so we repeated her dose of Zyprexa at this time. Once again, as has happened in the past while patient has been here, she was vaping well she was in her room. It is unclear what the patient vapes. Repeat BMP after 30meq of potassium - potassium came up to 4.8. Potassium replacement shut off at this time. Chloride and carbon monoxide levels all normalized. Patient did not have any further episodes of vomiting. Patient discharged home at this time. Vital Signs Vital signs: Initial Vital Signs Temperature 99.5 F 04/15/24 07:40 Temperature Source Temporal Artery Scan 04/15/24 07:40 Pulse Rate 72 04/15/24 07:40 Respiratory Rate 18 04/15/24 07:40 Blood Pressure 130/87 04/15/24 07:40 Blood Pressure Mean 101 04/15/24 07:40 Blood Pressure Position Sitting 04/15/24 07:40 Pulse Oximetry 98 04/15/24 07:40 Oxygen Delivery Method Room Air 04/15/24 07:40 Vital Signs Temperature 99.5 F 04/15/24 07:40 Pulse Rate 72 04/15/24 07:40 Respiratory Rate 18 04/15/24 07:40 Blood Pressure 130/87 04/15/24 07:40 Pulse Oximetry 98 04/15/24 07:40 Oxygen Delivery Method Room Air 04/15/24 07:40 Temperature 99.5 F 04/15/24 07:40 Pulse Rate 73 04/15/24 12:30 Respiratory Rate 14 04/15/24 12:00 Blood Pressure 121/80 04/15/24 12:00 Pulse Oximetry 97 04/15/24 12:30 Oxygen Delivery Method Room Air 04/15/24 07:40 Medications Administered Medications: Generic Name Dose Route Start Last Admin Trade Name Freq PRN Reason Stop Dose Admin Potassium Chloride 10 meq in 100 mls @ 100 mls/hr 04/15/24 10:00 04/15/24 15:17 Potassium Chloride IVPB 04/15/24 15:29 100 mls/hr Q90M TALIB Administration Discontinued Medications Generic Name Dose Route Start Last Admin Trade Name Hanna PRN Reason Stop Dose Admin Droperidol 0.625 mg 04/15/24 11:15 04/15/24 11:25 Droperidol 2.5 Mg/Ml Inj IV 04/15/24 11:16 0.625 mg ONCE ONE Administration Sodium Chloride 1,000 mls @ 1,000 mls/hr 04/15/24 08:30 04/15/24 10:15 0.9 % Sodium Chloride 1000 Ml IV 04/15/24 09:29 Infused .Q1H TALIB Infusion Ketorolac Tromethamine 30 mg 04/15/24 09:51 04/15/24 10:08 Ketorolac 30 Mg/Ml Inj IVP 04/15/24 09:52 30 mg ONCE ONE Administration Lorazepam 1 mg 04/15/24 11:17 04/15/24 11:24 Lorazepam 2 Mg/Ml Inj IVP 04/15/24 11:18 1 mg ONCE ONE Administration Olanzapine 5 mg 04/15/24 08:17 04/15/24 08:57 Olanzapine 5 Mg/Ml Inj IVP 04/15/24 08:18 5 mg ONCE ONE Administration Olanzapine 5 mg 04/15/24 14:50 04/15/24 15:11 Olanzapine 5 Mg/Ml Inj IVP 04/15/24 14:51 5 mg ONCE ONE Administration Medical Decision Making MDM Narrative Medical decision making narrative: Cyclic vomiting. Treatment per above. Lab Data Lab results reviewed: Yes I reviewed the patient's lab results Labs: Lab Results 04/15/24 04/15/24 04/15/24 Range/Units 08:20 09:00 09:00 WBC 11.14 H (4.50-11.00) K/uL RBC 5.16 (4.00-5.20) m/uL Hgb 15.6 (12.0-16.0) gm/dL Hct 47.5 (33.0-51.0) % MCV 92 (80-100) fL MCH 30 (26-34) pg MCHC 33 (32-36) gm/dL RDW Coeff of Khadijah 12.9 (11.5-15.5) % Plt Count 313 (140-440) K/uL Neut % (Auto) 68.4 (42.0-72.0) % Lymph % (Auto) 22.7 (20-44) % [place] % (Auto) 8.3 (0.0-11.0) % Eos % (Auto) 0.1 (0.0-7.0) % Baso % (Auto) 0.3 (0.0-3.0) % Neut # (Auto) 7.60 H (1.7-7.0) K/uL Lymph # (Auto) 2.50 (0.90-2.90) K/uL [place] # (Auto) 0.90 (0.00-0.90) K/UL Eos # (Auto) 0.00 (0.00-0.50) K/uL Baso # (Auto) 0.00 (0.00-0.30) K/uL Abs Immat Gran (auto) 0.00 (0.00-0.30) K/uL Imm/Tot Granulo (auto) 0.2 % Sodium Cancelled 137 Potassium Cancelled Chloride Carbon Dioxide Anion Gap BUN Creatinine Estimated Creat Clear Estimated GFR Glucose Lactate (0.5-1.9) mmol/L Calcium Magnesium (1.5-2.6) mg/dL Total Bilirubin (0.1-1.5) mg/dL Direct Bilirubin (0.0-0.5) mg/dL AST (12-35) U/L ALT (4-35) U/L Alkaline Phosphatase (40-150) U/L Total Protein (6.0-8.3) g/dL Albumin (3.3-5.0) g/dL Lipase (23-300) U/L TSH (0.270-4.20) uIU/mL Urine Color Light yellow (Yellow) Urine Appearance Clear (Clear) Urine pH 7.5 (5.0-8.5) Ur Specific Emmett 1.020 (1.000-1.030) Urine Protein Negative (Negative) Urine Glucose (UA) Negative (Negative) Urine Ketones 1+ A (Negative) Urine Blood Trace-lysed A (Negative) Urine Nitrite Negative (Negative) Urine Bilirubin Negative (Negative) Urine Urobilinogen 0.2 (0.2-1.0) Ur Leukocyte Esterase Negative (Negative) Urine RBC 0-2 (0-2) Urine WBC 0-2 (0-5) Ur Squamous Epith Cells Few (None-Few) Urine Bacteria None (None) Urine HCG, Qual Negative (Negative) 04/15/24 04/15/24 04/15/24 Range/Units 09:00 09:00 09:00 WBC (4.50-11.00) K/uL RBC (4.00-5.20) m/uL Hgb (12.0-16.0) gm/dL Hct (33.0-51.0) % MCV (80-100) fL MCH (26-34) pg MCHC (32-36) gm/dL RDW Coeff of Khadijah (11.5-15.5) % Plt Count (140-440) K/uL Neut % (Auto) (42.0-72.0) % Lymph % (Auto) (20-44) % [place] % (Auto) (0.0-11.0) % Eos % (Auto) (0.0-7.0) % Baso % (Auto) (0.0-3.0) % Neut # (Auto) (1.7-7.0) K/uL Lymph # (Auto) (0.90-2.90) K/uL [place] # (Auto) (0.00-0.90) K/UL Eos # (Auto) (0.00-0.50) K/uL Baso # (Auto) (0.00-0.30) K/uL Abs Immat Gran (auto) (0.00-0.30) K/uL Imm/Tot Granulo (auto) % Sodium Potassium 2.9 L* Chloride Cancelled 90 L Carbon Dioxide Cancelled 35 H Anion Gap Cancelled BUN Creatinine Estimated Creat Clear Estimated GFR Glucose Lactate (0.5-1.9) mmol/L Calcium Magnesium (1.5-2.6) mg/dL Total Bilirubin (0.1-1.5) mg/dL Direct Bilirubin (0.0-0.5) mg/dL AST (12-35) U/L ALT (4-35) U/L Alkaline Phosphatase (40-150) U/L Total Protein (6.0-8.3) g/dL Albumin (3.3-5.0) g/dL Lipase (23-300) U/L TSH (0.270-4.20) uIU/mL Urine Color (Yellow) Urine Appearance (Clear) Urine pH (5.0-8.5) Ur Specific Emmett (1.000-1.030) Urine Protein (Negative) Urine Glucose (UA) (Negative) Urine Ketones (Negative) Urine Blood (Negative) Urine Nitrite (Negative) Urine Bilirubin (Negative) Urine Urobilinogen (0.2-1.0) Ur Leukocyte Esterase (Negative) Urine RBC (0-2) Urine WBC (0-5) Ur Squamous Epith Cells (None-Few) Urine Bacteria (None) Urine HCG, Qual (Negative) 04/15/24 04/15/24 04/15/24 Range/Units 09:00 09:00 09:00 WBC (4.50-11.00) K/uL RBC (4.00-5.20) m/uL Hgb (12.0-16.0) gm/dL Hct (33.0-51.0) % MCV (80-100) fL MCH (26-34) pg MCHC (32-36) gm/dL RDW Coeff of Khadijah (11.5-15.5) % Plt Count (140-440) K/uL Neut % (Auto) (42.0-72.0) % Lymph % (Auto) (20-44) % [place] % (Auto) (0.0-11.0) % Eos % (Auto) (0.0-7.0) % Baso % (Auto) (0.0-3.0) % Neut # (Auto) (1.7-7.0) K/uL Lymph # (Auto) (0.90-2.90) K/uL [place] # (Auto) (0.00-0.90) K/UL Eos # (Auto) (0.00-0.50) K/uL Baso # (Auto) (0.00-0.30) K/uL Abs Immat Gran (auto) (0.00-0.30) K/uL Imm/Tot Granulo (auto) % Sodium Potassium Chloride Carbon Dioxide Anion Gap 12 BUN Cancelled 11 Creatinine Cancelled 0.8 Estimated Creat Clear Cancelled Estimated GFR Glucose Lactate (0.5-1.9) mmol/L Calcium Magnesium (1.5-2.6) mg/dL Total Bilirubin (0.1-1.5) mg/dL Direct Bilirubin (0.0-0.5) mg/dL AST (12-35) U/L ALT (4-35) U/L Alkaline Phosphatase (40-150) U/L Total Protein (6.0-8.3) g/dL Albumin (3.3-5.0) g/dL Lipase (23-300) U/L TSH (0.270-4.20) uIU/mL Urine Color (Yellow) Urine Appearance (Clear) Urine pH (5.0-8.5) Ur Specific Emmett (1.000-1.030) Urine Protein (Negative) Urine Glucose (UA) (Negative) Urine Ketones (Negative) Urine Blood (Negative) Urine Nitrite (Negative) Urine Bilirubin (Negative) Urine Urobilinogen (0.2-1.0) Ur Leukocyte Esterase (Negative) Urine RBC (0-2) Urine WBC (0-5) Ur Squamous Epith Cells (None-Few) Urine Bacteria (None) Urine HCG, Qual (Negative) 04/15/24 04/15/24 04/15/24 Range/Units 09:00 09:00 09:00 WBC (4.50-11.00) K/uL RBC (4.00-5.20) m/uL Hgb (12.0-16.0) gm/dL Hct (33.0-51.0) % MCV (80-100) fL MCH (26-34) pg MCHC (32-36) gm/dL RDW Coeff of Khadijah (11.5-15.5) % Plt Count (140-440) K/uL Neut % (Auto) (42.0-72.0) % Lymph % (Auto) (20-44) % [place] % (Auto) (0.0-11.0) % Eos % (Auto) (0.0-7.0) % Baso % (Auto) (0.0-3.0) % Neut # (Auto) (1.7-7.0) K/uL Lymph # (Auto) (0.90-2.90) K/uL [place] # (Auto) (0.00-0.90) K/UL Eos # (Auto) (0.00-0.50) K/uL Baso # (Auto) (0.00-0.30) K/uL Abs Immat Gran (auto) (0.00-0.30) K/uL Imm/Tot Granulo (auto) % Sodium Potassium Chloride Carbon Dioxide Anion Gap BUN Creatinine Estimated Creat Clear 86.61 Estimated GFR Cancelled 103 Glucose Cancelled 85 Lactate 1.2 (0.5-1.9) mmol/L Calcium Cancelled Magnesium (1.5-2.6) mg/dL Total Bilirubin (0.1-1.5) mg/dL Direct Bilirubin (0.0-0.5) mg/dL AST (12-35) U/L ALT (4-35) U/L Alkaline Phosphatase (40-150) U/L Total Protein (6.0-8.3) g/dL Albumin (3.3-5.0) g/dL Lipase (23-300) U/L TSH (0.270-4.20) uIU/mL Urine Color (Yellow) Urine Appearance (Clear) Urine pH (5.0-8.5) Ur Specific Emmett (1.000-1.030) Urine Protein (Negative) Urine Glucose (UA) (Negative) Urine Ketones (Negative) Urine Blood (Negative) Urine Nitrite (Negative) Urine Bilirubin (Negative) Urine Urobilinogen (0.2-1.0) Ur Leukocyte Esterase (Negative) Urine RBC (0-2) Urine WBC (0-5) Ur Squamous Epith Cells (None-Few) Urine Bacteria (None) Urine HCG, Qual (Negative) 04/15/24 04/15/24 04/15/24 Range/Units 09:00 09:00 14:50 WBC (4.50-11.00) K/uL RBC (4.00-5.20) m/uL Hgb (12.0-16.0) gm/dL Hct (33.0-51.0) % MCV (80-100) fL MCH (26-34) pg MCHC (32-36) gm/dL RDW Coeff of Khadijah (11.5-15.5) % Plt Count (140-440) K/uL Neut % (Auto) (42.0-72.0) % Lymph % (Auto) (20-44) % [place] % (Auto) (0.0-11.0) % Eos % (Auto) (0.0-7.0) % Baso % (Auto) (0.0-3.0) % Neut # (Auto) (1.7-7.0) K/uL Lymph # (Auto) (0.90-2.90) K/uL [place] # (Auto) (0.00-0.90) K/UL Eos # (Auto) (0.00-0.50) K/uL Baso # (Auto) (0.00-0.30) K/uL Abs Immat Gran (auto) (0.00-0.30) K/uL Imm/Tot Granulo (auto) % Sodium 134 L Potassium 4.8 Chloride 102 Carbon Dioxide 23 Anion Gap 9 BUN 9 Creatinine 0.6 Estimated Creat Clear 115.47 Estimated GFR 125 Glucose 105 Lactate (0.5-1.9) mmol/L Calcium 9.3 8.6 Magnesium 2.8 H (1.5-2.6) mg/dL Total Bilirubin 0.7 (0.1-1.5) mg/dL Direct Bilirubin 0.2 (0.0-0.5) mg/dL AST 22 (12-35) U/L ALT 25 (4-35) U/L Alkaline Phosphatase 67 (40-150) U/L Total Protein 8.4 H (6.0-8.3) g/dL Albumin 4.8 (3.3-5.0) g/dL Lipase 155 Cancelled (23-300) U/L TSH 0.693 (0.270-4.20) uIU/mL Urine Color (Yellow) Urine Appearance (Clear) Urine pH (5.0-8.5) Ur Specific [place] (1.000-1.030) Urine Protein (Negative) Urine Glucose (UA) (Negative) Urine Ketones (Negative) Urine Blood (Negative) Urine Nitrite (Negative) Urine Bilirubin (Negative) Urine Urobilinogen (0.2-1.0) Ur Leukocyte Esterase (Negative) Urine RBC (0-2) Urine WBC (0-5) Ur Squamous Epith Cells (None-Few) Urine Bacteria (None) Urine HCG, Qual (Negative) ECG Data Attestation: I personally reviewed and interpreted this ECG as follows: Discharge Plan Discharge Clinical Impression: Cyclic vomiting syndrome Patient Disposition: Home, Self-Care Condition: Improved Prescriptions: No Action metformin 500 mg tablet 500 mg PO TID Vraylar 1.5 mg capsule 1.5 mg PO DAILY spironolactone [Aldactone] 50 mg tablet 50 mg PO TID promethazine 25 mg tablet 25 mg PO Q6H PRN nortriptyline 10 mg capsule 10 mg PO DAILY Vyvanse 70 mg PO DAILY pregabalin .Route olanzapine [Zyprexa] 2.5 mg tablet 2.5 mg PO DAILY Qty: 3 0RF clonazepam 0.5 mg tablet,disintegrating 0.5 mg PO 3XD PRN (Reason: anxiety) dextroamphetamine-amphetamine 5 mg tablet 1 tab PO DAILY Follow Up/Referrals: Provider,Not a Local [Primary Care Provider] - Stand Alone Forms: [facility] Info Instructions
[2024-04-15 08:50] LABS: Appearance Urine Clear (Clear); Bilirubin Urine Negative (Negative); Blood Urine Trace-lysed (Negative); Color Urine Light yellow (Yellow); Glucose Urine Negative (Negative); Ketones Urine 1+ (Negative); Leukocyte Esterase Urine Negative (Negative); Nitrite Urine Negative (Negative); Protein Urine Negative (Negative); Urobilinogen Urine 0.2 (0.2-1.0); pH Urine 7.5 (5.0-8.5)
[2024-04-15 08:51] LABS: Ur HCG Qualitative* Negative (Negative)
[2024-04-15] MEDS: OLANZapine 5 MG/ML inj IVP ×2 (08:57→15:11)
[2024-04-15] MEDS: 0.9 % SODIUM CHLORIDE 1000 ml 1,000 ML IV (08:59)
[2024-04-15 09:07] LABS: Lactate* 1.2 mmol/L (0.5-1.9)
[2024-04-15 09:10] LABS: Basophils Percent Auto 0.3 % (0.0-3.0); Eosinophils Percent Auto 0.1 % (0.0-7.0); Hematocrit 47.5 % (33.0-51.0); Hemoglobin* 15.6 gm/dL (12.0-16.0); Immature Granulocytes Pct Auto 0.2 %; Lymphocytes Percent Auto 22.7 % (20-44); Mean Corpuscular HGB Conc 33 gm/dL (32-36); Mean Corpuscular Hemoglobin 30 pg (26-34); Mean Corpuscular Volume 92 fL (80-100); Monocytes Percent Auto 8.3 % (0.0-11.0); Neutrophils Percent Auto 68.4 % (42.0-72.0); Platelet Count* 313 K/uL (140-440); RDW Coefficient of Variation % 12.9 % (11.5-15.5); Red Blood Count 5.16 m/uL (4.00-5.20); White Blood Count* 11.14 K/uL (4.50-11.00)
[2024-04-15 09:17] LABS: Slide Review Reflex No
[2024-04-15 09:18] LABS: RBC Urine 0-2 (0-2); Squamous Epithelial Cell Urine Few (None-Few); WBC Urine 0-2 (0-5)
[2024-04-15 09:24] LABS: Albumin* 4.8 g/dL (3.3-5.0)
[2024-04-15 09:25] LABS: Chloride* 90 mmol/L (96-114); Sodium* 137 mmol/L (135-149)
[2024-04-15 09:27] LABS: Anion Gap 12 mEq/L (7-15); Blood Urea Nitrogen* 11 mg/dL (5-24); Carbon Dioxide* 35 mmol/L (20-32); Creatinine* 0.8 mg/dL (0.5-1.5); Est. Creatinine Clearance* 86.61; Estimated Glomerular Filt Rate 103 ml/min
[2024-04-15 09:28] LABS: Alanine Aminotransferase* 25 U/L (4-35); Alkaline Phosphatase* 67 U/L (40-150); Aspartate Amino Transferase* 22 U/L (12-35); Bilirubin Direct* 0.2 mg/dL (0.0-0.5); Bilirubin Total* 0.7 mg/dL (0.1-1.5); Calcium* 9.3 mg/dL (8.4-10.6); Glucose* 85 mg/dL (60-115); Lipase* 155 U/L (23-300); Total Protein* 8.4 g/dL (6.0-8.3)
[2024-04-15 09:29] LABS: Potassium* 2.9 mmol/L (3.6-5.1)
[2024-04-15 09:59] LABS: Thyroid Stimulating Hormone* 0.693 uIU/mL (0.270-4.20)
[2024-04-15] MEDS: KETOROLAC 30 MG/ML inj IVP (10:08)
[2024-04-15] MEDS: POTASSIUM CHLORIDE 10 MEQ/100 ML PIGGYBACK 100 MEQ IVPB ×3 (10:15→15:17)
[2024-04-15 10:49] LABS: Magnesium* 2.8 mg/dL (1.5-2.6)
[2024-04-15] MEDS: LORazepam 2 MG/ML inj 1 MG IVP (11:24)
[2024-04-15] MEDS: droperidoL 2.5 MG/ML inj 0.625 MG IV (11:25)
[2024-04-15] MEDS: POTASSIUM CHLORIDE 10 MEQ/100 ML PIGGYBACK 50 MEQ IVPB (11:49)
[2024-04-15 15:10] LABS: Chloride* 102 mmol/L (96-114); Potassium* 4.8 mmol/L (3.6-5.1); Sodium* 134 mmol/L (135-149)
[2024-04-15 15:13] LABS: Anion Gap 9 mEq/L (7-15); Blood Urea Nitrogen* 9 mg/dL (5-24); Calcium* 8.6 mg/dL (8.4-10.6); Carbon Dioxide* 23 mmol/L (20-32); Creatinine* 0.6 mg/dL (0.5-1.5); Est. Creatinine Clearance* 115.47; Estimated Glomerular Filt Rate 125 ml/min; Glucose* 105 mg/dL (60-115)
== END 2024-04-15 15:55 | disposition home or self-care (01) ==
PROVIDERS: Emergency Provider Family Medicine
DX: R11.15 Cyclical vomiting syndrome unrelated to migraine (principal)
CPT/HCPCS: 36415; 80048; 80076; 81001; 81025; 83605; 83690; 83735; 84443; 85025; 93005; 96361; 96374; 96375; 99284; 99285; J1790; J1885; J2060; J3480; J7030